=== PATIENT | female | born 1990 | race Caucasian/White ===

== ENCOUNTER → 2020-03-11 09:26 | Outpatient (BNVA) | payer MEDICAID, SELFPAY | PROVIDERS: PCP Internal Medicine; Referring Provider Internal Medicine; Visit Provider Nurse Practitioner Family | DX: G47.33 Obstructive sleep apnea (adult) (pediatric) (principal); G47.61 Periodic limb movement disorder; R20.2 Paresthesia of skin | CPT/HCPCS: 99214 ==

== ENCOUNTER 2020-03-12 09:27 | Outpatient (REF) | payer MEDICAID, SELFPAY ==
[2020-03-12 11:19] LABS: Alanine Aminotransferase 29 U/L (0-31); Albumin Level 4.3 g/dL (3.5-5.0); Alkaline Phosphatase 58 U/L (39-117); Anion Gap 15 (12-20); Aspartate Amino Transferase 25 U/L (5-31); Bilirubin Total 0.2 mg/dL (0.0-1.0); Blood Urea Nitrogen 11 mg/dL (9-16); Calcium 9.5 mg/dL (8.4-10.2); Carbon Dioxide 25 mmol/L (22-29); Chloride 103 mmol/L (96-108); Estimated Glomerular Filt Rate > 60; Glucose Random 110 mg/dL (60-115); Potassium 4.3 mmol/l (3.3-5.1); Sodium 139 mmol/L (135-145); Total Protein 7.4 g/dL (6.5-8.0)
== END 2020-03-12 09:28 | disposition home or self-care (01) ==
LOC: HO.LAB 09:27
PROVIDERS: PCP Internal Medicine; Visit Provider Nurse Practitioner Family
DX: M25.561 Pain in right knee (principal); M25.562 Pain in left knee; R53.83 Other fatigue; R06.00 Dyspnea, unspecified; R20.2 Paresthesia of skin; G47.61 Periodic limb movement disorder
CPT/HCPCS: 80053

== ENCOUNTER → 2020-03-31 08:15 | Outpatient (BNVA) | payer MEDICAID, SELFPAY | PROVIDERS: PCP Internal Medicine; Visit Provider Physician Assistant | DX: Z76.89 Persons encountering health services in other specified circumstances (principal) ==

== ENCOUNTER 2020-04-24 00:43 | Emergency (ER) | payer MEDICAID, SELFPAY ==
[2020-04-24 01:27] LABS: Glucose Urine UA NEG (NEG); Leukocyte Esterase Urine NEG (NEG); Nitrite Urine NEG (NEG); Urine Blood NEG (NEG); Urine Ketones NEG (NEG); Urine Protein NEG (NEG-TRACE)
[2020-04-24 01:33] LABS: Appearance Urine CLEAR; Color Urine YELLOW; UPreg QC Valid YES; Urine Pregnancy NEGATIVE (NEGATIVE)
[2020-04-24 01:41] VITALS: PULSE 64; RESP 15; TEMP 37; O2SAT 90; BMI 57.5
--- NOTE | 2020-04-24 01:46 | PC.NURSE ---
at bedside for evaluation.
--- NOTE | 2020-04-24 01:58 | CT_ITS ---
EXAMINATION: CT ABDOMEN AND PELVIS WITH CONTRAST CLINICAL INFORMATION: Lower abdominal/pelvic pain COMPARISON: 08/17/2019 TECHNIQUE: Multidetector volumetric images were obtained from the superior aspect of the liver through the pubic symphysis following administration 100 mL of Omnipaque 350 intravenous contrast. Sagittal and coronal reformatted images were obtained on the technologist's workstation. Oral contrast: No This CT examination was performed using dose optimization techniques as appropriate, variously including the following: *Automated exposure control *Adjustment of mA and/or kV according to patient size (this includes techniques or standardized protocols for targeted exams where dose is matched to indication/reason for exam; i.e. extremities or head) *Use of iterative reconstruction technique DLP: 1786 mGy-cm FINDINGS: LUNG BASES: The visualized lung bases are unremarkable. LIVER, GALLBLADDER, AND BILIARY TREE: The liver is enlarged, measuring approximately 21.7 cm in craniocaudal dimension. No focal hepatic lesion or biliary ductal dilatation is present. The gallbladder is unremarkable with no evidence of radiopaque gallstones, gallbladder wall thickening, or obvious pericholecystic inflammatory changes. PANCREAS: Unremarkable. SPLEEN: Unremarkable. ADRENAL GLANDS: Unremarkable. KIDNEYS AND URETERS: The kidneys are normal in size, shape, and attenuation. No hydronephrosis, hydroureter, or obstructing calculi seen. No perinephric stranding. BLADDER: Unremarkable. GASTROINTESTINAL TRACT: The small and large bowel are unremarkable. The appendix is unremarkable. No free fluid or free air is seen. ABDOMINAL WALL: No significant hernia is appreciated. LYMPH NODES: Normal. VASCULAR: Unremarkable. PELVIC VISCERA: Unremarkable. OSSEOUS STRUCTURES: Unremarkable. CT/CT abdomen pelvis w con IMPRESSION: No acute findings identified in the abdomen/pelvis. Hepatomegaly.
--- NOTE | 2020-04-24 02:09 | ED_ITS ---
HPI - Abdominal Pain General Chief Complaint: Abdominal Pain Stated Complaint: PELVIC PAIN Time Seen by Provider: 04/24/20 01:04 Source: patient Mode of arrival: ambulatory Limitations: no limitations History of Present Illness HPI narrative: This is a 29-year-old female who presents with 3-4 days lower abdominal / pelvic discomfort that is not associated with urinary pain/burning/ frequency or vaginal discharge. Patient denies any fevers, chills and states that she has used multiple modalities to include heat packs as well as Tylenol and ibuprofen. She denies any shortness of breath, chest pain / palpitations, nausea, vomiting, and has had a bowel movement today that is normal in character for her. Related Data Home Medications Medication Instructions Recorded Confirmed albuterol sulfate 90 mcg/actuation 2 puff INHALATION Q6H PRN 03/11/20 aerosol inhaler ascorbic acid (vitamin C) 1,000 mg 500 mg PO DAILY 03/11/20 tablet clonazepam 1 mg tablet 1 mg PO DAILY PRN 03/11/20 cyclobenzaprine 5 mg tablet 5 mg PO TID PRN 03/11/20 famotidine 20 mg tablet 20 mg PO DAILY PRN 03/11/20 ferrous sulfate 324 mg (65 mg 324 mg PO DAILY 03/11/20 iron) tablet,delayed release fluoxetine 20 mg capsule 20 mg PO DAILY 03/11/20 gabapentin 300 mg capsule 300 mg PO TID 03/11/20 omeprazole 20 mg capsule,delayed 40 mg PO DAILY cap 03/11/20 release risperidone 1 mg tablet 1 mg PO BEDTIME 03/11/20 Allergies Allergy/AdvReac Type Severity Reaction Status Date / Time aspirin [ASPIRIN] Allergy Severe DIFF Unverified 02/07/20 19:06 BREATHING, difficulty breathing lidocaine [LIDOCAINE] Allergy Severe SWELLING/ED Unverified 02/07/20 19:06 KEILY Lidocaine HCl Allergy Unknown difficulty Uncoded 12/20/19 00:00 breathing Review of Systems Review of Systems Pertinent positives and negatives as stated in HPI 10 point review of systems is otherwise negative. Physical Exam Vital Signs: Vital Signs: Last Vital Signs Temp 98.7 F 04/24/20 04:27 Pulse 83 04/24/20 04:27 Resp 18 04/24/20 04:27 BP 122/74 04/24/20 04:27 Pulse Ox 98 04/24/20 04:27 Body Mass Index 57.5 VITAL SIGNS: Reviewed. GENERAL: Well developed, well nourished, in no acute distress. HEAD: Normocephalic/atraumatic, EYES: PERRLA, EOMI intact without pain, no nystagmus/pallor/icterus noted EARS: Ext canals without abnormality, TMs non-bulging and non-erythematous NOSE: Nares patent bilateral OROPHARYNX: no oral lesions noted, posterior pharynx clear and non-erythematous without noted tonsillar enlargement/erythema/exudates NECK: Supple, no adenopathy LUNGS: Normal breath sounds. No adventitious sounds or accessory muscle use. SpO2<90> CARDIOVASCULAR: Regular rate and rhythm without noted murmurs, no JVD or lower extremity edema. ABDOMEN: Morbidly obese and clinical exam is with noted difficulties, Soft, tenderness over pubis, non-distended with bowel sounds. No rigidity. No guarding. No palpable masses or hernias noted, no noted rashes, ulcerations, or candidiasis in the pannus MUSCULOSKELETAL: No tenderness, deformities, or effusions noted on gross inspection. EXTREMITIES: No cyanosis, clubbing or edema. SKIN: Inspection of the skin reveals no rashes, ulcerations, jaundice, pallor, or petechiae. NEUROLOGIC: Alert and oriented x 4. Strength and sensation to light touch were grossly intact x 4. Course Course Course Narrative: this is a 29-year-old female with history and clinical presentation initially thought to be possible UTI however urinalysis is negative for evidence of infection and urine is also negative. Patient has a noted history of hysterectomy and although she had a bowel movement earlier in the day and is not having any nausea or vomiting there is the small possibility of obstruction or possible diverticulitis although the latter appears to be less likely. There are no cellulitic changes. Review of all investigations are negative for any acute findings, urinalysis is negative, and CT scan is negative for any acute soft tissue or intra-abdominal or pelvic findings. MDM - Abdominal Pain Lab Data Result diagrams: 04/24/20 02:39 04/24/20 02:39 Labs: Lab Results 04/24/20 04/24/20 04/24/20 Range/Units 01:21 02:39 02:39 WBC 10.3 (4.8-10.8) X10*3/uL RBC 4.55 (4.20-5.50) X10*6/uL Hgb 11.9 L (12.0-16.0) g/dl Hct 37.2 (37-47) % MCV 81.8 (80-98) fL MCH 26.2 L (27.0-33.0) pg MCHC 32.0 (31.0-35.0) g/dl RDW 14.6 (11.0-16.0) % Plt Count 280 (160-400) X10*3/uL MPV 10.6 (9.4-12.3) fL Immature Gran % (Auto) 0.4 (0.0-0.4) % Neut % (Auto) 58.1 (45-73) % Lymph % (Auto) 32.8 (20-40) % Real % (Auto) 5.5 (2-11) % Eos % (Auto) 2.8 (0-4) % Baso % (Auto) 0.4 (0-2) % Lymph # (Auto) 3.4 (1.2-4.9) X10*3/uL Real # (Auto) 0.6 (0.1-1.2) X10*3/uL Eos # (Auto) 0.3 (0.0-0.4) X10*3/uL Baso # (Auto) 0.0 (0.0-0.2) X10*3/uL Abs Immat Gran (auto) 0.04 H (0.00-0.03) X10*3/uL Absolute Neuts (auto) 6.0 (2.0-8.3) X10*3/uL Absolute Nucleated RBC 0.000 (0.0-0.012) X10*3/uL Nucleated RBC % (auto) 0.0 (0.0-0.2) /100WBC Sodium 137 (135-145) mmol/L Potassium 4.0 (3.3-5.1) mmol/l Chloride 101 (96-108) mmol/L Carbon Dioxide 29 (22-29) mmol/L Anion Gap 11 L (12-20) BUN 11 (9-16) mg/dL Creatinine 0.78 (0.5-1.4) mg/dL Estim Creat Clear Calc 151.8 Estimated GFR > 60 Random Glucose 110 (60-115) mg/dL Calcium 9.2 (8.4-10.2) mg/dL Total Bilirubin 0.4 (0.0-1.0) mg/dL AST 23 (5-31) U/L ALT 29 (0-31) U/L Alkaline Phosphatase 53 (39-117) U/L Total Protein 7.5 (6.5-8.0) g/dL Albumin 4.3 (3.5-5.0) g/dL Urine Color YELLOW Urine Appearance CLEAR Urine pH 6.0 (5.0-8.0) Ur Specific [place] 1.020 (1.005-1.025) Urine Protein NEG (NEG-TRACE) MG/DL Urine Glucose (UA) NEG (NEG) MG/DL Urine Ketones NEG (NEG) MG/DL Urine Blood NEG (NEG) Urine Nitrite NEG (NEG) Ur Leukocyte Esterase NEG (NEG) Urine Test NEGATIVE (NEGATIVE) Discharge Plan Discharge Clinical Impression: Pelvic pain Patient Disposition: Home, Self-Care Instructions: Pelvic Pain (ED) Additional Instructions: 1. Tylenol 1000 mg, por v?a oral, cada 6 horas seg?n sea necesario para controlar el dolor. No exceda los 4000 mg en 24 horas. 2. Ibuprofeno 400 mg, por v?a oral con leche o alimentos, cada 6 horas seg?n sea necesario para controlar el dolor. 3. Contin?e con compresas h?medas tibias en el ?maira afectada. 4. Nicholas un seguimiento con giles proveedor de atenci?n primaria llamando al consultorio por la ma?dayday para dimitri evaluaci?n ambulatoria adicional. El paciente y / o la oxana reconocen que comprenden los resultados (seg?n corresponda), el diagn?stico, el plan de tratamiento, la necesidad de seguimiento y los s?ntomas que deber?an impulsar el regreso a la kim de emergencias. Prescriptions: No Action gabapentin 300 mg capsule 300 mg PO TID RF: 0 omeprazole 20 mg capsule,delayed release(DR/EC) 40 mg PO DAILY RF: 0 ferrous sulfate 324 mg (65 mg iron) tablet,delayed release (DR/EC) 324 mg PO DAILY RF: 0 albuterol sulfate [ProAir HFA] 90 mcg/actuation HFA aerosol inhaler 2 puff inhalation Q6H PRNRF: 0 cyclobenzaprine 5 mg tablet 5 mg PO TID PRNRF: 0 risperidone 1 mg tablet 1 mg PO BEDTIME RF: 0 clonazepam 1 mg tablet 1 mg PO DAILY PRNRF: 0 fluoxetine 20 mg capsule 20 mg PO DAILY RF: 0 famotidine 20 mg tablet 20 mg PO DAILY PRNRF: 0 ascorbic acid (vitamin C) 1,000 mg tablet 500 mg PO DAILY RF: 0 Referrals: [facility] [Primary Care Provider] - 2 days ( Patient needs re- evaluation of pelvic pain, workup in the emergency department was negative for any acute laboratory or imaging findings.) Print Language: Persian [facility] Past Medical History Source: nursing notes reviewed Surgical History Hx of hysterectomy Hx of rectal sphincterotomy Hx of removal of cyst Family History Family History Unknown No problems noted. Unknown No problems noted. Son Autism Daughter Autism Sister Obesity Social History Social History Alcohol intake: never Smoking Status: Never smoker Use of substances other than those prescribed or required for medical reasons: No Advance Directives: No
[2020-04-24 02:43] LABS: Basophils Percent Auto 0.4 % (0-2); Eosinophils Absolute Auto 0.3 X10*3/uL (0.0-0.4); Eosinophils Percent Auto 2.8 % (0-4); Hematocrit 37.2 % (37-47); Hemoglobin 11.9 g/dl (12.0-16.0); Imm Gran Abs Auto 0.04 X10*3/uL (0.00-0.03); Imm Gran Pct Auto 0.4 % (0.0-0.4); Lymphocytes Absolute Auto 3.4 X10*3/uL (1.2-4.9); Lymphocytes Percent Auto 32.8 % (20-40); MANUAL DIFF FLAG NO; Mean Corpuscular Hemoglobin 26.2 pg (27.0-33.0); Mean Corpuscular Volume 81.8 fL (80-98); Mean Platelet Volume 10.6 fL (9.4-12.3); Monocytes Absolute Auto 0.6 X10*3/uL (0.1-1.2); Monocytes Percent Auto 5.5 % (2-11); Neutrophils Percent Auto 58.1 % (45-73); Platelet Count 280 X10*3/uL (160-400); Red Blood Count 4.55 X10*6/uL (4.20-5.50); Red Cell Distribution Width 14.6 % (11.0-16.0); White Blood Count 10.3 X10*3/uL (4.8-10.8)
[2020-04-24 03:09] LABS: Alanine Aminotransferase 29 U/L (0-31); Albumin Level 4.3 g/dL (3.5-5.0); Alkaline Phosphatase 53 U/L (39-117); Anion Gap 11 (12-20); Aspartate Amino Transferase 23 U/L (5-31); Bilirubin Total 0.4 mg/dL (0.0-1.0); Blood Urea Nitrogen 11 mg/dL (9-16); Calcium 9.2 mg/dL (8.4-10.2); Carbon Dioxide 29 mmol/L (22-29); Chloride 101 mmol/L (96-108); Creatinine Clr Calc Pharmacy 151.8; Estimated Glomerular Filt Rate > 60; Glucose Random 110 mg/dL (60-115); Sodium 137 mmol/L (135-145); Total Protein 7.5 g/dL (6.5-8.0)
--- NOTE | 2020-04-24 03:35 | PC.NURSE ---
Patient at cat scan for imaging.
[2020-04-24] MEDS: iohexoL 350 MG/ML 100 ML INFUS..BTL IV (03:43)
[2020-04-24 04:27] VITALS: BP 122/74; PULSE 83; RESP 18; TEMP 37.1; O2SAT 98
== END 2020-04-24 04:50 | disposition home or self-care (01) ==
PROVIDERS: Emergency Provider Student in an Organized Health Care Education/Training Program
DX: R10.2 Pelvic and perineal pain (principal)
CPT/HCPCS: 36415; 74177; 80053; 81003; 81025; 85025; 99284; Q9967

== ENCOUNTER → 2020-05-06 08:08 | Outpatient (BNVA) | payer MEDICAID, SELFPAY | PROVIDERS: Visit Provider Psychiatry & Neurology Neurology | DX: Z76.89 Persons encountering health services in other specified circumstances (principal) ==

== ENCOUNTER 2020-05-07 12:38 | Outpatient (REF) | payer MEDICAID, SELFPAY | END 2020-05-07 12:39 | disposition home or self-care (01) | LOC: HO.LAB 12:38 | PROVIDERS: Visit Provider Internal Medicine | DX: Z20.828 Contact with and (suspected) exposure to other viral communicable diseases (principal) | CPT/HCPCS: C9803; U0003 ==

== ENCOUNTER → 2020-10-15 10:36 | Outpatient (BNVA) | payer MEDICAID, SELFPAY | PROVIDERS: PCP Internal Medicine; Visit Provider Surgery | DX: D17.0 Benign lipomatous neoplasm of skin and subcutaneous tissue of head, face and neck (principal) | CPT/HCPCS: 99202 ==

== ENCOUNTER 2020-10-21 00:32 | Emergency (ER) | payer MEDICAID, SELFPAY ==
--- NOTE | ~2020-10-21 | XR_ITS ---
EXAMINATION: XR SOFT TISSUE NECK CLINICAL INDICATION: Feels foreign body in throat COMPARISON: None TECHNIQUE: 2 views of the soft tissue neck were obtained. FINDINGS: No definite radiopaque foreign body is seen. Some laryngeal cartilage calcification is noted, which partially limits evaluation for foreign bodies. No prevertebral soft tissue swelling. Flexion of the cervical spine is noted. No acute osseous findings are seen. XR/XR soft tissue neck IMPRESSION: No definite radiopaque foreign body.
[2020-10-21 00:33] VITALS: BP 157/93; PULSE 91; RESP 20; TEMP 36.9; O2SAT 98; BMI 64.0
--- NOTE | 2020-10-21 00:52 | PC.NURSE ---
PT TO ROOM #3 AND MD IN ROOM FOR EVAL. PT C/O SOMETHING IN THROAT AND HAVING DIFFICULTY BREATHING. PO 99% ON RA. PT ARRIVES ALERT, RESPIRATIONS EASY, N/L. SKIN W/D. WILL CONTINUE TO MONITOR PT.
--- NOTE | 2020-10-21 00:57 | ED.URI ---
HPI - URI/Sore Throat General Chief Complaint: Upper Respiratory Symptoms Stated Complaint: Sob Time Seen by Provider: 10/21/20 00:51 Source: patient Mode of arrival: ambulatory Limitations: no limitations History of Present Illness HPI Narrative: 30-year-old female came in for evaluation of sore throat. Symptoms started 3 days ago with sore throat, patient have a feeling that the throat is closing, denies any fever or body ache. No sick contact. Patient also had a history of asthma but declined any wheezing or difficulty breathing. Patient is morbid obese, still stable vital sign while in the emergency department. Related Data Home Medications Medication Instructions Recorded Confirmed albuterol sulfate 90 mcg/actuation 2 puff INHALATION Q6H PRN 03/11/20 aerosol inhaler ascorbic acid (vitamin C) 1,000 mg 500 mg PO DAILY 03/11/20 tablet clonazepam 1 mg tablet 1 mg PO DAILY PRN 03/11/20 cyclobenzaprine 5 mg tablet 5 mg PO TID PRN 03/11/20 famotidine 20 mg tablet 20 mg PO DAILY PRN 03/11/20 ferrous sulfate 324 mg (65 mg 324 mg PO DAILY 03/11/20 iron) tablet,delayed release fluoxetine 20 mg capsule 20 mg PO DAILY 03/11/20 gabapentin 300 mg capsule 300 mg PO TID 03/11/20 omeprazole 20 mg capsule,delayed 40 mg PO DAILY cap 03/11/20 release risperidone 1 mg tablet 1 mg PO BEDTIME 03/11/20 Allergies Allergy/AdvReac Type Severity Reaction Status Date / Time aspirin [ASPIRIN] Allergy Severe DIFF Verified 10/21/20 00:41 BREATHING, difficulty breathing lidocaine [LIDOCAINE] Allergy Severe SWELLING/ED Verified 10/21/20 00:41 KEILY Lidocaine HCl Allergy Unknown difficulty Uncoded 10/21/20 00:41 breathing Review of Systems Review of Systems: All other systems are reviewed and are negative Constitutional: Reports as per HPI and Reports no additional constitutional complaints Eyes: Reports as per HPI and Reports no additional eye complaints Reports system reviewed and no additional complaints, except as documented Cardiovascular: Reports as per HPI and Reports no additional cardiovascular complaints Respiratory: Reports as per HPI and Reports no additional respiratory complaints Gastrointestinal: Reports as per HPI and Reports no additional gastrointestinal complaints Genitourinary: Reports no additional female genitourinary complaints Musculoskeletal: Reports no additional musculoskeletal complaints Skin/Breast: Reports system reviewed and no additional complaints, except as docu Psychiatric: Reports no additional psychiatric complaints Endocrine: Reports no additional endocrine complaints Hematologic/Lymphatic: Reports no additional hematologic/lymphatic complaints Allergic/Immunologic: Reports no additional allergic/immunologic complaints Reports system reviewed and no additional complaints, except as documented and Reports Abnormal speech present [facility] Past Medical History Medical History Lipoma of forehead Surgical History H/O tubal ligation Hx of rectal sphincterotomy Hx of removal of cyst Family History Family History Unknown No problems noted. Unknown No problems noted. Son Autism Daughter Autism Sister Obesity Social History Social History Alcohol intake: never Advance Directives: No Advance Directives Information Provided: No Patient : Yes Physical Exam Vital Signs: Vital Signs: Last Vital Signs Temp 98.5 F 10/21/20 00:33 Pulse 91 10/21/20 00:33 Resp 20 10/21/20 00:33 BP 157/93 H 10/21/20 00:33 Pulse Ox 98 10/21/20 00:33 Body Mass Index 64.0 Vital signs have been reviewed as appeared to be correct. Blood pressure normal. Heart rate normal. Respiration rate normal. Temperature normal. Oxygen saturation normal. Appearance: Alert. Oriented X3. No acute distress. Head: Normal external exam. Normocephalic. Atraumatic. No [place] signs noted. No raccoon eyes noted Eyes: PERRLA. EOMI. Conjunctiva and sclera normal. Eyelids normal. ENT: TM's Normal. Pharynx normal. Uvula midline. Moist mucous membranes. No trismus noted. No drooling noted. No muffled voice noted. Neck: Normal inspection. Neck supple. FROM. No adenopathy. Thyroid Normal. No meningeal signs. No neck mass noted. CVS: Normal heart rate and rhythm. Heart sound normal. No murmurs noted. Pulses normal throughout. Respiratory: No respiratory distress. Painless inspiration. Breath sounds normal. No wheezes/rales/rhonchi noted. Chest nontender. No accessory muscle usage noted or decreased air movement noted. Abdomen: Soft and nontender. Bowel sounds normal in all 4 quadrants. No distention noted. No organomegaly noted. No visible injury noted. Back: No CVA tenderness. Full range of motion noted. Skin: Skin warm and dry. Normal skin color. Normal skin turgor. No rashes/lesions/lacerations noted. Extremities: No lower extremity edema. Extremities exhibit normal range of motion. Extremities nontender. Neuro: Oriented X 3. No motor deficit. No sensory deficit. Reflexes normal. Course Course Course Narrative: Assessment and plan. Sore throat. Negative rapid strep, negative soft tissue x-ray. Patient has stable vital signs, breathing at 20 breaths per minute, O2 sat is 99% on room air, lung exam is clear. Discharge the patient and follow-up with PCP. Patient at low risk for PE no recent travel, no lower extremity swelling or tenderness. MDM - URI/Sore Throat Lab Data Attestation: I reviewed the patient's lab results. Labs: Lab Results 10/21/20 Range/Units 01:03 S. pyogenes GrpA DONNA Negative (Negative) Imaging Data Soft tissue neck x-ray: Radiologist's impression: No definite radiopaque foreign body is seen. Some laryngeal cartilage calcification is noted, which partially limits evaluation for foreign bodies. No prevertebral soft tissue swelling. Flexion of the cervical spine is noted. No acute osseous findings are seen. Discharge Plan Discharge Clinical Impression: Acute sore throat Patient Disposition: Home, Self-Care Instructions: Pharyngitis (ED) Prescriptions: No Action gabapentin 300 mg capsule 300 mg PO TID RF: 0 omeprazole 20 mg capsule,delayed release(DR/EC) 40 mg PO DAILY RF: 0 ferrous sulfate 324 mg (65 mg iron) tablet,delayed release (DR/EC) 324 mg PO DAILY RF: 0 albuterol sulfate [ProAir HFA] 90 mcg/actuation HFA aerosol inhaler 2 puff inhalation Q6H PRNRF: 0 cyclobenzaprine 5 mg tablet 5 mg PO TID PRNRF: 0 risperidone 1 mg tablet 1 mg PO BEDTIME RF: 0 clonazepam 1 mg tablet 1 mg PO DAILY PRNRF: 0 fluoxetine 20 mg capsule 20 mg PO DAILY RF: 0 famotidine 20 mg tablet 20 mg PO DAILY PRNRF: 0 ascorbic acid (vitamin C) 1,000 mg tablet 500 mg PO DAILY RF: 0 Referrals: [place] [Primary Care Provider] - 2 days
--- NOTE | 2020-10-21 01:10 | PC.NURSE ---
STREPT SWAB OBTAINED TO LAB FOR EVAL. PT RETURNS FROM X-RAY. WILL CONTINUE TO MONITOR PT.
[2020-10-21 01:26] LABS: Strep A Nucleic Acid Negative (Negative)
== END 2020-10-21 02:24 | disposition home or self-care (01) ==
PROVIDERS: Emergency Provider Emergency Medicine
DX: J02.8 Acute pharyngitis due to other specified organisms (principal); R06.02 Shortness of breath; Z79.899 Other long term (current) drug therapy
CPT/HCPCS: 36415; 70360; 87651; 99283

== ENCOUNTER 2020-11-13 12:53 | Outpatient (REF) | payer MEDICAID, SELFPAY ==
[2020-11-13 12:55] VITALS: BP 181/99; PULSE 100; RESP 24; TEMP 36.6; O2SAT 98; BMI 62.4
--- NOTE | 2020-11-13 13:56 | W.PM.OPN ---
Operative Note Operative Note Date of Service: 11/13/20 Narrative: Preop diagnosis: Lipoma, forehead Postop diagnosis: Lipoma, forehead Procedure: Excision of lipoma from the forehead, sub-muscular, under local anesthesia Surgeon: Josias Kelly MD The patient is a 30-year-old female with a lipomatous mass on the left side. She understood the technique of excision under local anesthesia. She was aware of the risks, benefits, and alternatives She was brought to the minor procedure room and placed in reclining position. The area of the lipoma on the left for this prepped and draped. Lidocaine 1% was used for local anesthesia. I made an incision in the skin overlying this lipoma using blade 15. This carried down through the full-thickness of the skin and subcutaneous fat. I dissected sharply with fine-tipped scissors through the fascia and muscle layer until was able to visualize the lipoma. The lipoma was gently excised from underneath the muscle layer and was delivered and sent as specimen. This was about as 7-8 mm diameter size lipoma. I closed the incision with multiple nylon 5 0 interrupted sutures. Dressings were applied She tolerated procedure well with no complication noted. She was given wound care instructions. He will be seen in the office for follow-up for removal of sutures.
== END 2020-11-13 12:54 | disposition home or self-care (01) ==
LOC: HO.MS 12:53
PROVIDERS: Visit Provider Surgery
PROC: (CPT 21013; principal; 2020-11-13 12:50)
DX: D17.0 Benign lipomatous neoplasm of skin and subcutaneous tissue of head, face and neck (principal)
CPT/HCPCS: 21013; 88304

== ENCOUNTER → 2020-11-20 08:59 | Outpatient (BNVA) | payer MEDICAID, SELFPAY | PROVIDERS: Referring Provider Internal Medicine; Visit Provider Surgery | DX: Z48.817 Encounter for surgical aftercare following surgery on the skin and subcutaneous tissue (principal); Z87.2 Personal history of diseases of the skin and subcutaneous tissue | CPT/HCPCS: 99212 ==

== ENCOUNTER 2021-03-31 16:12 | Emergency (ER) | payer MEDICAID, SELFPAY ==
--- NOTE | ~2021-03-31 | CT_ITS ---
EXAMINATION: CT HEAD WITHOUT CONTRAST CLINICAL INFORMATION: Right-sided headache. History of cyst. COMPARISON: 08/17/2019 TECHNIQUE: Contiguous axial imaging was performed from the skull base to vertex without intravenous administration of contrast. This CT examination was performed using dose optimization techniques as appropriate, variously including the following: *Automated exposure control *Adjustment of mA and/or kV according to patient size (this includes techniques or standardized protocols for targeted exams where dose is matched to indication/reason for exam; i.e. extremities or head) *Use of iterative reconstruction technique DLP: 867 mGy-cm FINDINGS: There is no evidence of acute intracranial hemorrhage or territorial infarction. No abnormal mass effect or midline shift is seen. Anna to white matter differentiation is well preserved. No extra-axial fluid collections are identified. The ventricles are normal in size. There is no abnormal attenuation within the brain parenchyma. No acute osseous findings. There is a linear band of scarring in the subcutaneous fat at the left frontal supraorbital scalp. The mastoid air cells and visualized portions of the paranasal sinuses are well aerated. CT/CT head/brain wo con IMPRESSION: No acute intracranial pathology.
[2021-03-31 16:30] VITALS: BP 130/74; PULSE 90; RESP 16; TEMP 36.4; O2SAT 100; BMI 62.5
[2021-03-31 17:51] LABS: Appearance Urine HAZY; Color Urine YELLOW; Glucose Urine UA NEG (NEG); Leukocyte Esterase Urine NEG (NEG); Nitrite Urine NEG (NEG); Specific Gravity - Urine 1.015 (1.005-1.025); Urine Blood NEG (NEG); Urine Ketones NEG (NEG); Urine Protein NEG (NEG-TRACE)
--- NOTE | 2021-03-31 18:45 | ED_ITS ---
HPI - Headache General Chief Complaint: Headache Stated Complaint: headache Time Seen by Provider: 03/31/21 18:41 Source: patient Mode of arrival: ambulatory Limitations: no limitations History of Present Illness HPI Narrative: Patient has history of bipolar disorder occasional headaches is complaining of headache in right frontal area for last 5 days slight nausea no vomiting feel numbness in the right hand no weakness no photosensitivity no head injury patient has small arachnoid cyst in the right side had MRI last year no change in the size had not any MRI this year no fever or chills no neck pain Related Data Home Medications Medication Instructions Recorded Confirmed albuterol sulfate 90 mcg/actuation 2 puff INHALATION Q6H PRN 03/11/20 aerosol inhaler (ProAir HFA) ascorbic acid (vitamin C) 1,000 mg 500 mg PO DAILY 03/11/20 tablet clonazepam 1 mg tablet 1 mg PO DAILY PRN 03/11/20 cyclobenzaprine 5 mg tablet 5 mg PO TID PRN 03/11/20 famotidine 20 mg tablet 20 mg PO DAILY PRN 03/11/20 ferrous sulfate 324 mg (65 mg 324 mg PO DAILY 03/11/20 iron) tablet,delayed release fluoxetine 20 mg capsule 20 mg PO DAILY 03/11/20 gabapentin 300 mg capsule 300 mg PO TID 03/11/20 omeprazole 20 mg capsule,delayed 40 mg PO DAILY cap 03/11/20 release risperidone 1 mg tablet 1 mg PO BEDTIME 03/11/20 Previous Rx's Medication Instructions Recorded jnbhevtjkx-wrwtqgcvlpvuu-ppntdxro 1 cap PO Q6H PRN #20 cap 03/31/21 50 mg-300 mg-40 mg capsule (Fioricet) Allergies Allergy/AdvReac Type Severity Reaction Status Date / Time aspirin [ASPIRIN] Allergy Severe DIFF Verified 03/31/21 20:03 BREATHING, difficulty breathing lidocaine [LIDOCAINE] Allergy Severe SWELLING/ED Verified 03/31/21 20:03 KEILY Lidocaine HCl Allergy Unknown difficulty Uncoded 03/31/21 20:03 breathing Review of Systems Review of Systems: Yes all other systems are reviewed and are negative PMFSH Past Medical History Medical History Lipoma of forehead Surgical History H/O tubal ligation Hx of rectal sphincterotomy Hx of removal of cyst Family History Family History Unknown No problems noted. Unknown No problems noted. Son Autism Daughter Autism Sister Obesity Social History Social History Alcohol intake: never Patient Tobacco Use Status: Never used Tobacco Use of substances other than those prescribed or required for medical reasons: No Advance Directives: No Advance Directives Information Provided: No Physical Exam Vital Signs: Vital Signs: Last Vital Signs Temp 98.4 F 03/31/21 20:04 Pulse 94 03/31/21 20:04 Resp 19 03/31/21 20:04 BP 120/68 03/31/21 20:04 Pulse Ox 100 03/31/21 20:04 Body Mass Index 62.5 Appearance: Alert. Oriented X3. No acute distress. Eyes: PERRLA, no pallor or icterus HEENT: Pharynx normal. Oral Mucosa moist right scalp tenderness in frontotemporal area Neck: Normal inspection. Neck supple. CVS: Normal heart rate and rhythm. Pulses normal. Respiratory: No respiratory distress. Equal air entry bilateral, no wheezing/rales/rhonchi Abdomen: Soft and nontender. Bowel sounds are present, no mass palpable, no CVA tenderness Skin: Skin warm and dry. Normal skin color. Normal skin turgor. Extremities: No lower extremity edema. No calf tenderness Neuro: Oriented X 3. No motor deficit. No sensory deficit.No cerebellar signs , cranial nerves II-XII intact MDM - Headache MDM Narrative Medical decision making narrative: Patient with right-sided temporal headache CT scan negative for any acute pathology sed rate 36 which is her stable sed rate same as in the past Patient advised to follow-up with PCP Lab Data Attestation: I reviewed the patient's lab results. Result diagrams: 03/31/21 19:19 03/31/21 19:19 Labs: Lab Results 03/31/21 03/31/21 03/31/21 Range/Units 17:39 19:19 19:19 WBC 8.3 (4.8-10.8) X10*3/uL RBC 5.20 (4.20-5.50) X10*6/uL Hgb 13.6 (12.0-16.0) g/dl Hct 42.8 (37.0-47.0) % MCV 82.3 (80.0-98.0) fL MCH 26.2 L (27.0-33.0) pg MCHC 31.8 (31.0-35.0) g/dl RDW 14.6 (11.0-16.0) % Plt Count 253 (160-400) X10*3/uL MPV 11.3 (9.4-12.3) fL Immature Gran % (Auto) 0.5 H (0.0-0.4) % Neut % (Auto) 62.2 (45-73) % Lymph % (Auto) 30.2 (20-40) % [place] % (Auto) 4.1 (2-11) % Eos % (Auto) 2.8 (0-4) % Baso % (Auto) 0.2 (0-2) % Lymph # (Auto) 2.5 (1.2-4.9) X10*3/uL [place] # (Auto) 0.3 (0.1-1.2) X10*3/uL Eos # (Auto) 0.2 (0.0-0.4) X10*3/uL Baso # (Auto) 0.0 (0.0-0.2) X10*3/uL Abs Immat Gran (auto) 0.04 H (0.00-0.03) X10*3/uL Absolute Neuts (auto) 5.1 (2.0-8.3) x10*3/uL Absolute Nucleated RBC 0.000 (0.0-0.012) X10*3/uL Nucleated RBC % (auto) 0.0 (0.0-0.2) /100WBC ESR 36 H (0-20) MM/HR Sodium (135-145) mmol/L Potassium (3.3-5.1) mmol/L Chloride (96-108) mmol/L Carbon Dioxide (22-29) mmol/L Anion Gap (12-20) BUN (9-16) mg/dL Creatinine (0.5-1.4) mg/dL Estim Creat Clear Calc Estimated GFR Random Glucose (60-115) mg/dL Calcium (8.4-10.2) mg/dL Urine Color YELLOW Urine Appearance HAZY Urine pH 6.0 (5.0-8.0) Ur Specific [place] 1.015 (1.005-1.025) Urine Protein NEG (NEG-TRACE) MG/DL Urine Glucose (UA) NEG (NEG) MG/DL Urine Ketones NEG (NEG) MG/DL Urine Blood NEG (NEG) Urine Nitrite NEG (NEG) Ur Leukocyte Esterase NEG (NEG) 03/31/21 Range/Units 19:19 WBC (4.8-10.8) X10*3/uL RBC (4.20-5.50) X10*6/uL Hgb (12.0-16.0) g/dl Hct (37.0-47.0) % MCV (80.0-98.0) fL MCH (27.0-33.0) pg MCHC (31.0-35.0) g/dl RDW (11.0-16.0) % Plt Count (160-400) X10*3/uL MPV (9.4-12.3) fL Immature Gran % (Auto) (0.0-0.4) % Neut % (Auto) (45-73) % Lymph % (Auto) (20-40) % [place] % (Auto) (2-11) % Eos % (Auto) (0-4) % Baso % (Auto) (0-2) % Lymph # (Auto) (1.2-4.9) X10*3/uL [place] # (Auto) (0.1-1.2) X10*3/uL Eos # (Auto) (0.0-0.4) X10*3/uL Baso # (Auto) (0.0-0.2) X10*3/uL Abs Immat Gran (auto) (0.00-0.03) X10*3/uL Absolute Neuts (auto) (2.0-8.3) x10*3/uL Absolute Nucleated RBC (0.0-0.012) X10*3/uL Nucleated RBC % (auto) (0.0-0.2) /100WBC ESR (0-20) MM/HR Sodium 138 (135-145) mmol/L Potassium 4.2 (3.3-5.1) mmol/L Chloride 102 (96-108) mmol/L Carbon Dioxide 28 (22-29) mmol/L Anion Gap 12 (12-20) BUN 10 (9-16) mg/dL Creatinine 0.82 (0.5-1.4) mg/dL Estim Creat Clear Calc 145.9 Estimated GFR > 60 Random Glucose 100 (60-115) mg/dL Calcium 9.4 (8.4-10.2) mg/dL Urine Color Urine Appearance Urine pH (5.0-8.0) Ur Specific [place] (1.005-1.025) Urine Protein (NEG-TRACE) MG/DL Urine Glucose (UA) (NEG) MG/DL Urine Ketones (NEG) MG/DL Urine Blood (NEG) Urine Nitrite (NEG) Ur Leukocyte Esterase (NEG) Discharge Plan Discharge Clinical Impression: Headache Qualifiers: Headache type: unspecified Headache chronicity pattern: acute headache Intractability: not intractable Qualified Code(s): R51.9 - Headache, unspecified Patient Disposition: Home, Self-Care Instructions: General Headache (ED) Additional Instructions: your CT scan of the head is negative for any acute pathology Take the medication as advised for headaches likely complex migraine Prescriptions: New kyuilrveaz-apwsoqubtpukm-gdrr [Fioricet] 50-300-40 mg capsule 1 cap PO Q6H PRN (Reason: headache) Qty: 20 RF: 0 No Action gabapentin 300 mg capsule 300 mg PO TID RF: 0 omeprazole 20 mg capsule,delayed release(DR/EC) 40 mg PO DAILY RF: 0 ferrous sulfate 324 mg (65 mg iron) tablet,delayed release (DR/EC) 324 mg PO DAILY RF: 0 albuterol sulfate [ProAir HFA] 90 mcg/actuation HFA aerosol inhaler 2 puff inhalation Q6H PRNRF: 0 cyclobenzaprine 5 mg tablet 5 mg PO TID PRNRF: 0 risperidone 1 mg tablet 1 mg PO BEDTIME RF: 0 clonazepam 1 mg tablet 1 mg PO DAILY PRNRF: 0 fluoxetine 20 mg capsule 20 mg PO DAILY RF: 0 famotidine 20 mg tablet 20 mg PO DAILY PRNRF: 0 ascorbic acid (vitamin C) 1,000 mg tablet 500 mg PO DAILY RF: 0 Interventions: ED Discharge Assessment Last Done: 03/31/21 20:18 Discharge Date/Time: 03/31/21 20:19
[2021-03-31 19:08] VITALS: BP 133/77; PULSE 90; RESP 16; TEMP 36.9; O2SAT 100
[2021-03-31 19:23] LABS: MANUAL DIFF FLAG NO
[2021-03-31 19:34] LABS: Hematocrit 42.8 % (37.0-47.0); Hemoglobin 13.6 g/dl (12.0-16.0); Mean Corpuscular HGB Conc 31.8 g/dl (31.0-35.0); Mean Corpuscular Hemoglobin 26.2 pg (27.0-33.0); Mean Corpuscular Volume 82.3 fL (80.0-98.0); Mean Platelet Volume 11.3 fL (9.4-12.3); Platelet Count 253 X10*3/uL (160-400); Red Cell Distribution Width 14.6 % (11.0-16.0); White Blood Count 8.3 X10*3/uL (4.8-10.8)
[2021-03-31 19:35] LABS: Basophils Percent Auto 0.2 % (0-2); Eosinophils Absolute Auto 0.2 X10*3/uL (0.0-0.4); Eosinophils Percent Auto 2.8 % (0-4); Imm Gran Abs Auto 0.04 X10*3/uL (0.00-0.03); Imm Gran Pct Auto 0.5 % (0.0-0.4); Lymphocytes Absolute Auto 2.5 X10*3/uL (1.2-4.9); Lymphocytes Percent Auto 30.2 % (20-40); Monocytes Absolute Auto 0.3 X10*3/uL (0.1-1.2); Monocytes Percent Auto 4.1 % (2-11); Neutrophils Absolute Auto 5.1 x10*3/uL (2.0-8.3); Neutrophils Percent Auto 62.2 % (45-73)
[2021-03-31 19:38] LABS: Anion Gap 12 (12-20); Blood Urea Nitrogen 10 mg/dL (9-16); Calcium 9.4 mg/dL (8.4-10.2); Carbon Dioxide 28 mmol/L (22-29); Chloride 102 mmol/L (96-108); Creatinine Clr Calc Pharmacy 145.9; Estimated Glomerular Filt Rate > 60; Glucose Random 100 mg/dL (60-115); Potassium 4.2 mmol/L (3.3-5.1); Sodium 138 mmol/L (135-145)
[2021-03-31] MEDS: Butalb/Acetamin/Caff 50/325/40 TABLET 1 TAB PO (20:02)
[2021-03-31 20:04] VITALS: BP 120/68; PULSE 94; RESP 19; TEMP 36.9; O2SAT 100
[2021-03-31 20:04] LABS: Erythrocyte Sedimentation Rate 36 MM/HR (0-20)
== END 2021-03-31 20:19 | disposition home or self-care (01) ==
PROVIDERS: Emergency Provider Internal Medicine
DX: R51.9 Headache, unspecified (principal)
CPT/HCPCS: 36415; 70450; 80048; 81003; 85025; 85652; 99284

== ENCOUNTER 2022-11-11 08:40 | Outpatient (REF) | payer MEDICAID, SELFPAY ==
--- NOTE | ~2022-11-11 | XR_ITS ---
EXAMINATION: XR LUMBOSACRAL SPINE CLINICAL INFORMATION: Fell 3 days ago with continued low back pain COMPARISON: CT abdomen pelvis 12/11/2021 TECHNIQUE: Three views of the lumbosacral spine. FINDINGS: The vertebral bodies and posterior elements are normal. The disc spaces are preserved and the vertebral alignment is normal. The paraspinal soft tissues are normal. XR/XR lumbar spine 2-3V IMPRESSION: Unremarkable examination.
== END 2022-11-11 08:41 | disposition home or self-care (01) ==
LOC: HO.HHCX 08:40
PROVIDERS: Visit Provider Emergency Medicine
DX: S39.92XA Unspecified injury of lower back, initial encounter (principal)
CPT/HCPCS: 72100

== ENCOUNTER 2022-12-28 19:37 | Outpatient (REF) | payer MEDICAID, SELFPAY ==
[2022-12-28 21:12] LABS: Influenza A PCR NEGATIVE (Negative); Influenza B PCR NEGATIVE (Negative); Resp Syncy Virus RNA Qual PCR NEGATIVE (Negative); SARS COV2 PCR INHOUSE NEGATIVE (Negative)
== END 2022-12-28 19:38 | disposition home or self-care (01) ==
LOC: HO.HHCLNP 19:37
PROVIDERS: Visit Provider Emergency Medicine
DX: J06.9 Acute upper respiratory infection, unspecified (principal); Z20.822 Contact with and (suspected) exposure to COVID-19
CPT/HCPCS: 0241U; 87070

== ENCOUNTER 2023-02-14 09:15 | Outpatient (REF) | payer MEDICAID, SELFPAY ==
[2023-02-14 12:36] LABS: Alanine Aminotransferase 34 U/L (0-31); Albumin Level 4.2 g/dL (3.5-5.0); Alkaline Phosphatase 62 U/L (39-117); Anion Gap 17 (12-20); Aspartate Amino Transferase 30 U/L (5-31); Bilirubin Total 0.3 mg/dL (0.0-1.0); Blood Urea Nitrogen 12 mg/dL (9-16); Calcium 9.8 mg/dL (8.4-10.2); Carbon Dioxide 23 mmol/L (22-29); Chloride 103 mmol/L (96-108); Estimated Glomerular Filt Rate > 60; Glucose Random 120 mg/dL (60-115); Potassium 3.8 mmol/L (3.3-5.1); Sodium 139 mmol/L (135-145); Total Protein 7.9 g/dL (6.5-8.0)
== END 2023-02-14 09:16 | disposition home or self-care (01) ==
LOC: HO.HHCL 09:15
PROVIDERS: Visit Provider General Practice
DX: G44.51 Hemicrania continua (principal)
CPT/HCPCS: 36415; 80053

== ENCOUNTER 2023-04-11 12:40 | Outpatient (AMB) | payer MEDICAID, SELFPAY ==
--- NOTE | 2023-04-11 12:43 | A.OFFVIS_ITS ---
Intake Vital Signs 04/11/23 12:45 Height 5 ft 2 in Weight 361 lb 8.929 oz BMI 66.1 BP 141/54 H Blood Pressure Location Rt brachial Position Sitting Pulse 86 Intake Visit Reasons: Dyspepsia Intake Note: Patient presents to in office visit today as a new patient for dyspepsia. CC: Patient c/o epigastric pain, GERD, a lot of gas with foul smell. She states she was taking ranitidine for a lot of years but was then switched to Omeprazole 20mg but she feels this does not work any longer. She also reports constipation, diarrhea, and rectal bleeding. She states she had rectal surgery done for bleeding and colonoscopy about 5 years ago and a polyp was referred. She believes this was done at [facility]. Denies other GI symptoms. Accompanied by: Spouse Allergies lidocaine [LIDOCAINE] Allergy (Severe, Verified 04/11/23 12:53) SWELLING/EDEMA metformin Allergy (Severe, Verified 04/11/23 12:53) Anaphylaxis Medication List - Last Reconciled 04/11/23 by Keira Nichole PA-C acetaminophen ER (8 Hour Pain Reliever) 650 mg PO Q8H PRN albuterol sulfate 90 mcg/actuation (ProAir HFA) 2 puffs inhalation Q6H PRN albuterol sulfate mg inhalation TID ascorbic acid (vitamin C) 500 mg PO DAILY eskmveijbz-hoakssnonfyyz-yllg 50-300-40 mg (Fioricet) 1 cap PO Q6H PRN calcium polycarbophil (Fiber-Lax) 625 mg PO BID cholecalciferol (vitamin D3) 25 mcg PO QAM clonazepam 1 mg PO DAILY PRN docusate sodium 100 mg PO BID PRN duloxetine 30 mg PO ferrous sulfate 324 mg PO DAILY fluoxetine 20 mg PO DAILY gabapentin 600 mg PO BEDTIME hydrocortisone 2.5% (Proctozone-HC) [place] BID PRN ibuprofen 800 mg PO Q8H ketoconazole 2% topical magnesium oxide 400 mg PO DAILY omeprazole 40 mg PO DAILY risperidone 1 mg PO BEDTIME tizanidine 4 mg PO Q6-8H PRN HPI HPI Comments History of Present Illness Details A 32 y/o OB female- - seen at [place]- w/u with EGD-given pills-< 5 years ago Now with -bad reflux-for years-gas- pains-pre no specific foods. She does admit that she has gained quite a bit of weight Seen by [facility]- 2020- neg h.pylori- never followed back- due to social issues. Having ERICK- 04/21- Nausea- intermittent- no vomit- wt gain- no wt loss- No fever, chills, hematemesis or hematochezia is present [facility] Medical History (Updated 04/11/23 @ 14:44 by Keira Nichole PA-C) Morbid obesity with BMI of 50.0-59.9, adult History of gestational diabetes Daytime sleepiness Chronic bilateral low back pain without sciatica History of asthma Chronic GERD Recurrent occipital headache Aspirin allergy Major depression Chronic headache disorder Irregular menstrual cycle Lipoma of forehead Surgical History H/O colonoscopy H/O tubal ligation Hx of rectal sphincterotomy Hx of removal of cyst Family History Unknown No problems noted. Unknown No problems noted. Son Autism Daughter Autism Sister Obesity Social History (Updated 04/11/23 @ 13:19 by Keira Nichole PA-C) Household Members Other:: , 2 kids Alcohol intake: never Patient Tobacco Use Status: Never used Tobacco Current occupational status: employed Review of Systems Const All systems reviewed & are unremarkable except as noted in HPI and below Card Denies chest pain and Denies dyspnea Resp Denies dyspnea GI Reports abdominal pain, Denies hematochezia, Denies change in bowel habits, Reports heartburn, Reports nausea and Denies vomiting Physical Exam Vital Signs: Last Vital Signs Pulse 86 04/11/23 12:45 BP 141/54 H 04/11/23 12:45 BMI result Body Mass Index 66.1 Resp Effort & Inspection: normal respiratory effort and able to speak in complete sentences Auscultation: clear to auscultation bilaterally Cardio Rate: regular rate Rhythm: regular rhythm Heart sounds: S1 normal heart sound present and S2 normal heart sound present GI Inspection: Yes obesity Palpation (GI): Soft to palpation and nontender Skin General skin exam: erythema (Face ) Extrem General: Yes full ROM Psych Speech and movement: Clear speech present Affect: normal affect Attitude: cooperative Thought process: Normal thought process present Thought content: Normal thought content present Insight: Good insight present (Psych) Judgement: Good judgement present (Psych) Assessment & Plan Assessment & Plan (1) Acid reflux: Comment: History EGD Weight gain likely plays a role with persistent acid reflux With surgery next week for ERICK will hold off until after that to pursue any further workup Referred back to weight management Code(s): K21.9 - Gastro-esophageal reflux disease without esophagitis Plan: Switch to pantoprazole 40mg see back after ERICK test HP -if appropriate at that time Review reflux precautions (2) Morbid obesity with BMI of 50.0-59.9, adult: Comment: Increased weight, likely plays role with persistent acid reflux Code(s): E66.01 - Morbid (severe) obesity due to excess calories; Z68.43 - Body mass index [BMI] 50.0-59.9, adult Plan: Referred back to weight management Plan Switch to pantoprazole see back after ERICK test HP -if appropriate at that time Review reflux precautions Orders: Referrals Medical Weight Management Referral E66.01 - Morbid (severe) obesity due to excess calories, G47.33 - Obstructive sleep apnea (adult) (pediatric), K21.9 - Gastro-esophageal reflux disease without esophagitis, R06.00 - Dyspnea, unspecified, Z68.43 - Body mass index [BMI] 50.0-59.9, adult Medications: New pantoprazole 40 mg PO DAILY 30 days PRN 30 tabs 3RF acid reflux Patient Instructions: Pleasant obese 32-year-old female persistent acid reflux Switch to pantoprazole 40mg see back after ERICK test HP -if appropriate at that time Review reflux precautions Avoid weight gain Referred back to weight management Coding Level of Care Code New Pt Level 3 (37907) Diagnoses Acid reflux K21.9 Morbid obesity with BMI of 50.0-59.9, adult E66.01; Z68.43 Time Spent (min) 35
[2023-04-11 12:45] VITALS: BP 141/54; PULSE 86; BMI 66.1
== END 2023-04-11 14:05 | disposition home or self-care (01) ==
PROVIDERS: Visit Provider Physician Assistant
DX: K21.9 Gastro-esophageal reflux disease without esophagitis (principal); E66.01 Morbid (severe) obesity due to excess calories; Z68.43 Body mass index [BMI] 50.0-59.9, adult
CPT/HCPCS: 99203

== ENCOUNTER → 2023-04-11 12:40 | Outpatient (BNVA) | payer MEDICAID, SELFPAY | PROVIDERS: Visit Provider Physician Assistant | DX: K21.9 Gastro-esophageal reflux disease without esophagitis (principal); E66.01 Morbid (severe) obesity due to excess calories; Z68.44 Body mass index [BMI] 60.0-69.9, adult | CPT/HCPCS: 99212 ==

== ENCOUNTER 2023-06-08 11:56 | Emergency (ER) | payer MEDICAID, SELFPAY ==
--- NOTE | ~2023-06-08 | XR_ITS ---
EXAMINATION: XR CHEST, 2 VIEWS CLINICAL INFORMATION: Dyspnea COMPARISON: 12/20/2019 TECHNIQUE: PA and lateral views of the chest were obtained. FINDINGS: Bronchial wall thickening suspected in the perihilar regions. No consolidation, pneumothorax, or pleural effusion. Cardiac and mediastinal contours are normal. Pulmonary vasculature is unremarkable. Trachea is midline. Osseous structures are unremarkable. XR/XR chest 2V IMPRESSION: Bronchial wall thickening can be seen with a small airways process such as asthma or atypical/viral infection.
[2023-06-08 11:58] VITALS: BP 138/96; PULSE 102; RESP 18; TEMP 36.7; O2SAT 89; BMI 64.0
--- NOTE | 2023-06-08 11:58 | ED.GENADULT ---
HPI - General Adult General Chief complaint: Dyspnea Stated complaint: SOB Diff Breathing Time Seen by Provider: 06/08/23 14:18 Source: patient Mode of arrival: ambulatory Limitations: no limitations History of Present Illness HPI narrative: 33-year-old female with a history of asthma, JEFFERSON, depression, anxiety who presents emergency department for evaluation of cough, shortness of breath, headache, chills nausea and diarrhea. Patient states she has been sick since 05/23/2023. She states she has had a cough which is productive and worse over the past 2 days. She states she is coughing up thick yellow sputum with occasional blood in the sputum. She states she is coughing frequently and persistently and occasionally the cough makes her vomit. She denied fever but states she is felt hot and having chills at home. She denied nausea. She has had loose diarrheal stools 2-3 per day x3 days. She denied myalgias arthralgias. Patient states she was at an urgent care clinic and started on prednisone 40 mg once a day, she completed this course with no improvement. Patient states she has had to use her albuterol nebulizer 3 to 4 times a day which is unusual and she has had use her inhaler 2-3 times a day as well with no improvement of her symptoms. Related Data Home Medications Medication Instructions Recorded Confirmed albuterol sulfate 90 mcg/actuation 2 puff inhalation Q6H PRN 03/11/20 aerosol inhaler (ProAir HFA) ascorbic acid (vitamin C) 1,000 mg 500 mg PO DAILY 03/11/20 tablet clonazepam 1 mg tablet 1 mg PO DAILY PRN 03/11/20 ferrous sulfate 324 mg (65 mg 324 mg PO DAILY 03/11/20 iron) tablet,delayed release fluoxetine 20 mg capsule 20 mg PO DAILY 03/11/20 omeprazole 20 mg capsule,delayed 40 mg PO DAILY 03/11/20 release risperidone 1 mg tablet 1 mg PO BEDTIME 03/11/20 acetaminophen 650 mg 650 mg PO Q8H PRN fever 04/11/23 tablet,extended release (8 Hour Pain Reliever) albuterol sulfate 2.5 mg/3 mL mg inhalation TID 04/11/23 (0.083 %) solution for nebulization calcium polycarbophil 625 mg 625 mg PO BID 04/11/23 tablet (Fiber-Lax) cholecalciferol (vitamin D3) 25 25 mcg PO QAM 04/11/23 mcg (1,000 unit) tablet docusate sodium 100 mg capsule 100 mg PO BID PRN 04/11/23 duloxetine 30 mg capsule,delayed 30 mg PO 04/11/23 release gabapentin 300 mg capsule 600 mg PO BEDTIME 04/11/23 hydrocortisone 2.5 % topical cream CT BID PRN pain 04/11/23 with perineal applicator (Proctozone-HC) ibuprofen 800 mg tablet 800 mg PO Q8H 04/11/23 ketoconazole 2 % shampoo topical 04/11/23 magnesium oxide 400 mg (241.3 mg 400 mg PO DAILY 04/11/23 magnesium) tablet tizanidine 4 mg tablet 4 mg PO Q6-8H PRN 04/11/23 Previous Rx's Medication Instructions Recorded lttxrccxlv-lftvqfuhpieoz-gjqbtnlh 1 cap PO Q6H PRN headache #20 caps 03/31/21 50 mg-300 mg-40 mg capsule (Fioricet) pantoprazole 40 mg tablet,delayed 40 mg PO DAILY PRN acid reflux 30 04/11/23 release days #30 tabs doxycycline hyclate 100 mg tablet 100 mg PO Q12H 10 days #20 tabs 06/08/23 prednisone 20 mg tablet 60 mg (3 x 20 mg) PO DAILY 5 days 06/08/23 #15 tabs Allergies Allergy/AdvReac Type Severity Reaction Status Date / Time lidocaine [LIDOCAINE] Allergy Severe SWELLING/ED Verified 06/08/23 12:01 KEILY metformin Allergy Severe Anaphylaxis Verified 06/08/23 12:01 Review of Systems Review of Systems: Yes all other systems are reviewed and are negative PMFSH Past Medical History Onset Date is defined in the Problem List Problems that require an onset date and time if occurred within 24 hrs of arrival to the ED Aortic Dissection and Rupture; Neurologic impairment; Cardiopulmonary Arrest; Endotracheal Intubation; Insertion or Replacement of Mechanical Circulatory Assist Device Medical History (Updated 06/08/23 @ 14:31 by Matthew Yip MD) Morbid obesity with BMI of 50.0-59.9, adult History of gestational diabetes Daytime sleepiness Chronic bilateral low back pain without sciatica History of asthma Chronic GERD Recurrent occipital headache Aspirin allergy Major depression Chronic headache disorder Irregular menstrual cycle Lipoma of forehead Surgical History H/O colonoscopy H/O tubal ligation Hx of rectal sphincterotomy Hx of removal of cyst Family History Family History Unknown No problems noted. Unknown No problems noted. Son Autism Daughter Autism Sister Obesity Social History Social History (Updated 04/11/23 @ 13:19 by Keira Nichole PA-C) Household Members Other:: , 2 kids Alcohol intake: never Patient Tobacco Use Status: Never used Tobacco Current occupational status: employed Physical Exam ED Vital Signs: Vital Signs - 24 hr 06/08/23 11:58 06/08/23 14:27 Temperature 98.0 F Pulse Rate 102 H 103 H Respiratory Rate 18 20 Blood Pressure 138/96 H 147/92 H Pulse Oximetry 89 L 96 Oxygen Delivery Method Room Air Room Air BMI result Body Mass Index 64.0 Vital signs were normal except for an elevated heart rate of 102. Saturation on room air was 89% but in the emergency department or O2 saturation is 96% on room air Exam General: Awake, alert in no distress, elevated BMI 64 Head: Normocephalic, atraumatic EENT: PERRL, Lids normal, sclera normal, conjunctiva normal, nose normal , ears normal, throat without erythema or exudates Neck: Supple, no adenopathy, no trachea midline or C-spine tenderness Lung: breath sounds symmetric, no wheezing, rales or rhonchi Chest: symmetric movement, nontender Heart: regular rate and rhythm, normal S1, S2 no murmurs or rubs Abdomen: soft, non-tender, nondistended, normal bowel sounds Back: no vertebral tenderness, no CVAT Extremities: no deformities, moves all extremities symmetrically, no edema Neuro: Awake, alert, oriented, normal speech, moves all extremities symmetrically Psych: Pleasant, cooperative Course Course Course Narrative: RME: 33 yo morbidly obese flufemale w/ hx of asthma?here w/ SOB x2 weeks, worsening over the last 2 days. Endorses coughing and posttussive emesis. Seen at walk-in and completed 5 days of pred. Using neb BID and inhaler as needed. plan for serology, basics and cxr Full HPI, ROS and PE to be performed by the primary ED provider. Medical Decision Making Medical Decision Making [facility] Narrative: 33-year-old female with a history of asthma, JEFFERSON, depression, anxiety who presents emergency department for evaluation of cough, shortness of breath, headache, chills nausea and diarrhea. Patient has had a cough for approximately 3 weeks, worse over the last 2 days, productive of thick yellow sputum with occasional blood in the sputum, using her inhaler and nebulizer more frequently than usual, completed a 4 day course of prednisone 40 mg daily with no improvement of her symptoms. Vital signs revealed an elevated heart rate and initial low O2 saturation which improved without treatment. Lung exam at this time was clear with no wheezing. Following evaluation was ordered: CBC, CMP, COVID influenza, chest x-ray two view 14:40 My interpretation patient's laboratory evaluation is as follows: Elevated WBC 79572. Elevated glucose 130. COVID-19, influenza negative Chest x-ray revealed no acute infiltrate Differential Diagnosis Differential Diagnoses: The differential diagnosis associated with the presentation includes Differential diagnosis includes was not limited to pneumonia, bronchitis, viral illness, electrolyte abnormalities, anemia Admission/Observation Consideration of admission/observation: Escalation of care including admission/observation considered Lab Data [facility] Lab Attestation statement: I reviewed the patient's lab results. See interpretation above 06/08/23 12:38 06/08/23 12:38 Labs: Lab Results 06/08/23 Range/Units 12:38 WBC 13.3 H (4.8-10.8) X10*3/uL RBC 5.39 (4.20-5.50) X10*6/uL Hgb 14.6 (12.0-16.0) g/dl Hct 44.8 (37.0-47.0) % MCV 83.1 (80.0-98.0) fL MCH 27.1 (27.0-33.0) pg MCHC 32.6 (31.0-35.0) g/dl RDW 14.0 (11.0-16.0) % Plt Count 416 H D (160-400) X10*3/uL MPV 10.5 (9.4-12.3) fL Immature Gran % (Auto) 0.8 H (0.0-0.4) % Neut % (Auto) 65.1 (45-73) % Lymph % (Auto) 25.1 (20-40) % Boyd % (Auto) 4.8 (2-11) % Eos % (Auto) 3.7 (0-4) % Baso % (Auto) 0.5 (0-2) % Lymph # (Auto) 3.3 (1.2-4.9) X10*3/uL Boyd # (Auto) 0.6 (0.1-1.2) X10*3/uL Eos # (Auto) 0.5 H (0.0-0.4) X10*3/uL Baso # (Auto) 0.1 (0.0-0.2) X10*3/uL Abs Immat Gran (auto) 0.10 H (0.00-0.03) X10*3/uL Absolute Neuts (auto) 8.7 H (2.0-8.3) x10*3/uL Absolute Nucleated RBC 0.000 (0.0-0.012) X10*3/uL Nucleated RBC % (auto) 0.0 (0.0-0.2) /100WBC Sodium 138 (135-145) mmol/L Potassium 3.6 (3.3-5.1) mmol/L Chloride 100 (96-108) mmol/L Carbon Dioxide 27 (22-29) mmol/L Anion Gap 15 (12-20) BUN 8 L (9-16) mg/dL Creatinine 0.91 (0.5-1.4) mg/dL Estim Creat Clear Calc 134.6 Estimated GFR > 60 Random Glucose 130 H (60-115) mg/dL Calcium 10.5 H D (8.4-10.2) mg/dL Magnesium 2.1 (1.6-2.6) mg/dL COVID-19 (JESSICA) Negative (Negative) COVID-19 Clin Com See Note Influenza Type A (DONNA) Negative (Negative) Influenza Type B (DONNA) Negative (Negative) Influenza A & B Note See Note Radiology Impression Discussion of test interpretation with radiology: I have reviewed the radiologist's reading. Radiologist Impression: XR chest 2V IMPRESSION: Bronchial wall thickening can be seen with a small airways process such as asthma or atypical/viral infection. Dictated By: n Prescription Management I considered prescription management with: Antibiotic Chronic Conditions Patient?s care impacted by: Other (Asthma, obstructive sleep apnea) Discharge Plan Discharge Clinical Impression: Acute bronchitis, Asthma exacerbation Patient Disposition: Home, Self-Care Instructions: Acute Bronchitis (ED) Additional Instructions: Your blood work was unremarkable except for an elevated white blood cell count which could be secondary to an infection or caused by prednisone. Your COVID-19 and influenza tests were negative Your chest x-ray did not reveal any signs of pneumonia which is reassuring. Take doxycycline 100 mg, 1 pill every 12 hours for 7 days Take prednisone 20 mg pills, 3 pills once a day for 5 days. While you ?are taking prednisone, do not take any NSAIDs (Motrin, Advil, ibuprofen, Aleve, naproxen). Follow-up with your doctor in 2 days. Please return to the emergency department if your symptoms get worse or if you develop any symptoms that are concerning to you. Prescriptions: New prednisone 20 mg tablet 60 mg PO DAILY 5 Days Qty: 15 0RF doxycycline hyclate 100 mg tablet 100 mg PO Q12H 10 Days Qty: 20 0RF No Action tzdkgwtvip-huboeuxvjobue-zxuw [Fioricet] 50-300-40 mg capsule 1 cap PO Q6H PRN (Reason: headache) Qty: 20 0RF omeprazole 20 mg capsule,delayed release(DR/EC) 40 mg PO DAILY ferrous sulfate 324 mg (65 mg iron) tablet,delayed release (DR/EC) 324 mg PO DAILY albuterol sulfate [ProAir HFA] 90 mcg/actuation HFA aerosol inhaler 2 puff inhalation Q6H PRN risperidone 1 mg tablet 1 mg PO BEDTIME clonazepam 1 mg tablet 1 mg PO DAILY PRN fluoxetine 20 mg capsule 20 mg PO DAILY ascorbic acid (vitamin C) 1,000 mg tablet 500 mg PO DAILY gabapentin 300 mg capsule 600 mg PO BEDTIME cholecalciferol (vitamin D3) 25 mcg (1,000 unit) tablet 25 mcg PO QAM duloxetine 30 mg capsule,delayed release(DR/EC) 30 mg PO magnesium oxide 400 mg (241.3 mg magnesium) tablet 400 mg PO DAILY docusate sodium 100 mg capsule 100 mg PO BID PRN albuterol sulfate 2.5 mg /3 mL (0.083 %) solution for nebulization inhalation TID ketoconazole 2 % shampoo topical calcium polycarbophil [Fiber-Lax] 625 mg tablet 625 mg PO BID hydrocortisone [Proctozone-HC] 2.5 % cream with perineal applicator CT BID PRN (Reason: pain) acetaminophen [8 Hour Pain Reliever] 650 mg tablet extended release 650 mg PO Q8H PRN (Reason: fever) ibuprofen 800 mg tablet 800 mg PO Q8H tizanidine 4 mg tablet 4 mg PO Q6-8H PRN pantoprazole 40 mg tablet,delayed release (DR/EC) 40 mg PO DAILY PRN (Reason: acid reflux) 30 Days Qty: 30 3RF
[2023-06-08 12:42] LABS: MANUAL DIFF FLAG NO
[2023-06-08 12:43] LABS: Basophils Absolute Auto 0.1 X10*3/uL (0.0-0.2); Basophils Percent Auto 0.5 % (0-2); Eosinophils Absolute Auto 0.5 X10*3/uL (0.0-0.4); Eosinophils Percent Auto 3.7 % (0-4); Hematocrit 44.8 % (37.0-47.0); Hemoglobin 14.6 g/dl (12.0-16.0); Imm Gran Pct Auto 0.8 % (0.0-0.4); Lymphocytes Absolute Auto 3.3 X10*3/uL (1.2-4.9); Lymphocytes Percent Auto 25.1 % (20-40); Mean Corpuscular HGB Conc 32.6 g/dl (31.0-35.0); Mean Corpuscular Hemoglobin 27.1 pg (27.0-33.0); Mean Corpuscular Volume 83.1 fL (80.0-98.0); Mean Platelet Volume 10.5 fL (9.4-12.3); Monocytes Absolute Auto 0.6 X10*3/uL (0.1-1.2); Monocytes Percent Auto 4.8 % (2-11); Neutrophils Absolute Auto 8.7 x10*3/uL (2.0-8.3); Neutrophils Percent Auto 65.1 % (45-73); Platelet Count 416 X10*3/uL (160-400); Red Blood Count 5.39 X10*6/uL (4.20-5.50); White Blood Count 13.3 X10*3/uL (4.8-10.8)
[2023-06-08 12:57] LABS: Anion Gap 15 (12-20); Blood Urea Nitrogen 8 mg/dL (9-16); Calcium 10.5 mg/dL (8.4-10.2); Carbon Dioxide 27 mmol/L (22-29); Chloride 100 mmol/L (96-108); Creatinine Clr Calc Pharmacy 134.6; Estimated Glomerular Filt Rate > 60; Glucose Random 130 mg/dL (60-115); Magnesium 2.1 mg/dL (1.6-2.6); Potassium 3.6 mmol/L (3.3-5.1); Sodium 138 mmol/L (135-145)
[2023-06-08 13:01] LABS: COVID-19 Test Negative (Negative); IDNOW Serial# 08D9AD1C; IDNOW Serial# 152EDE1D; Influenza A Negative (Negative); Influenza B2 Negative (Negative)
[2023-06-08 14:27] VITALS: BP 147/92; PULSE 103; RESP 20; O2SAT 96
--- NOTE | 2023-06-08 14:31 | PC.NURSE ---
Pt is a&ox4 coming in with sob and cough x3 days worsening with exertion. Pt denies fevers. Skin pwd. lungs clear throughout. skin pwd. afebrile
== END 2023-06-08 14:44 | disposition home or self-care (01) ==
LOC: HO.ED 14:37
PROVIDERS: Physician Assistant Medical; Emergency Provider Emergency Medicine Emergency Medical Services; PCP Registered Nurse
DX: J20.9 Acute bronchitis, unspecified (principal); J45.901 Unspecified asthma with (acute) exacerbation; E66.01 Morbid (severe) obesity due to excess calories; Z68.44 Body mass index [BMI] 60.0-69.9, adult; Z11.52 Encounter for screening for COVID-19
CPT/HCPCS: 71046; 80048; 83735; 85025; 87502; 87635; 99283; 99284

== ENCOUNTER 2023-08-02 12:20 | Outpatient (REF) | payer MEDICAID, SELFPAY ==
--- NOTE | ~2023-08-02 | XR_ITS ---
EXAMINATION: XR RIBS, LEFT CLINICAL INFORMATION: Fall 07/06/2023. Last 5 days pain under her left breast COMPARISON: Chest 06/08/2023 TECHNIQUE: PA chest and 3 views views of the left ribs were obtained. Technically limited study due to patient body habitus. FINDINGS: Lungs are clear. No consolidation, pneumothorax, or pleural effusion. The cardiomediastinal silhouette and pulmonary vasculature are normal. Osseous structures are unremarkable. No displaced left rib fracture is demonstrated. XR/XR ribs LT min 3V w CXR1V IMPRESSION: No displaced left rib fracture.
== END 2023-08-02 12:21 | disposition home or self-care (01) ==
LOC: HO.HHCX 12:20
PROVIDERS: Visit Provider Nurse Practitioner Family
DX: R07.81 Pleurodynia (principal)
CPT/HCPCS: 71101

== ENCOUNTER 2023-08-15 12:47 | Outpatient (REF) | payer MEDICAID, SELFPAY ==
[2023-08-15 16:10] LABS: MANUAL DIFF FLAG NO
[2023-08-15 16:23] LABS: Basophils Absolute Auto 0.1 X10*3/uL (0.0-0.2); Basophils Percent Auto 0.7 % (0-2); Eosinophils Absolute Auto 0.4 X10*3/uL (0.0-0.4); Eosinophils Percent Auto 4.1 % (0-4); Hematocrit 39.9 % (37.0-47.0); Hemoglobin 12.6 g/dl (12.0-16.0); Imm Gran Abs Auto 0.04 X10*3/uL (0.00-0.03); Imm Gran Pct Auto 0.5 % (0.0-0.4); Lymphocytes Absolute Auto 3.3 X10*3/uL (1.2-4.9); Lymphocytes Percent Auto 37.6 % (20-40); Mean Corpuscular HGB Conc 31.6 g/dl (31.0-35.0); Mean Corpuscular Volume 85.6 fL (80.0-98.0); Mean Platelet Volume 11.6 fL (9.4-12.3); Monocytes Absolute Auto 0.6 X10*3/uL (0.1-1.2); Monocytes Percent Auto 6.9 % (2-11); Neutrophils Absolute Auto 4.5 x10*3/uL (2.0-8.3); Neutrophils Percent Auto 50.2 % (45-73); Platelet Count 311 X10*3/uL (160-400); Red Blood Count 4.66 X10*6/uL (4.20-5.50); Red Cell Distribution Width 13.9 % (11.0-16.0); White Blood Count 8.8 X10*3/uL (4.8-10.8)
[2023-08-15 16:59] LABS: Alanine Aminotransferase 41 U/L (0-31); Albumin Level 4.2 g/dL (3.5-5.0); Alkaline Phosphatase 61 U/L (39-117); Anion Gap 13 (12-20); Aspartate Amino Transferase 30 U/L (5-31); Bilirubin Total 0.3 mg/dL (0.0-1.0); Blood Urea Nitrogen 9 mg/dL (9-16); Calcium 9.9 mg/dL (8.4-10.2); Carbon Dioxide 27 mmol/L (22-29); Chloride 103 mmol/L (96-108); Estimated Glomerular Filt Rate > 60; Glucose Random 112 mg/dL (60-115); Potassium 3.8 mmol/L (3.3-5.1); Sodium 139 mmol/L (135-145); Total Protein 7.8 g/dL (6.5-8.0)
[2023-08-15 17:01] LABS: Erythrocyte Sedimentation Rate 42 MM/HR (0-20)
[2023-08-17 13:09] LABS: Anti Nuclear Antibody Screen NEGATIVE (NEGATIVE)
== END 2023-08-15 12:48 | disposition home or self-care (01) ==
LOC: HO.HHCL 12:47
PROVIDERS: Visit Provider Registered Nurse
DX: R21 Rash and other nonspecific skin eruption (principal)
CPT/HCPCS: 36415; 80053; 85025; 85652; 86038; 86140

== ENCOUNTER 2024-05-09 08:58 | Outpatient (REF) | payer MEDICAID, SELFPAY ==
[2024-05-09 12:07] LABS: Estimated Average Glucose 117 mg/dL; Hemoglobin A1C 118.8638 umol/L; Hemoglobin A1c % 5.7 % (<6.0); Total Hemoglobin (HGBA1C) 3107.0366 umol/L
[2024-05-09 12:12] LABS: Alanine Aminotransferase 18 U/L (0-31); Albumin Level 4.1 g/dL (3.5-5.0); Alkaline Phosphatase 50 U/L (39-117); Anion Gap 9 (12-20); Aspartate Amino Transferase 26 U/L (5-31); Bilirubin Total 0.4 mg/dL (0.0-1.0); Blood Urea Nitrogen 13 mg/dL (9-16); Carbon Dioxide 28 mmol/L (22-29); Chloride 105 mmol/L (96-108); Cholesterol 230 mg/dL (<200); Estimated Glomerular Filt Rate > 60; Glucose Random 80 mg/dL (60-115); HDL Cholesterol 40 mg/dL (>40); LDL Cholesterol Calculated 161 mg/dL (<100); Potassium 3.8 mmol/L (3.3-5.1); Sodium 138 mmol/L (135-145); Total Protein 7.7 g/dL (6.5-8.0); Triglycerides 146 mg/dL (<150)
[2024-05-09 12:45] LABS: Creatinine Urine 231.56 mg/dL; Microalbum/Creatinine Ratio Ur 4.7 ug/mg cr (<30)
== END 2024-05-09 08:59 | disposition home or self-care (01) ==
LOC: HO.HHCL 08:58
PROVIDERS: Visit Provider Registered Nurse
DX: E11.65 Type 2 diabetes mellitus with hyperglycemia (principal)
CPT/HCPCS: 36415; 80053; 80061; 82043; 82570; 83036

== ENCOUNTER 2024-08-06 10:28 | Outpatient (REF) | payer MEDICAID, SELFPAY ==
--- NOTE | ~2024-08-06 | XR_ITS ---
EXAMINATION: XR FOOT 3 OR MORE VIEWS RIGHT HISTORY: Acute on chronic right heel pain r/o stress fracture COMPARISON: There are no prior studies available for comparison. FINDINGS: Three views of the right foot are submitted. Osseous mineralization is normal. There is no fracture or dislocation. The joint spaces are preserved. There are calcaneal spurs at the plantar aspect and at the insertion of the Achilles tendon. The soft tissues are unremarkable. XR/XR foot RT min 3V IMPRESSION: Calcaneal spurs as described. Otherwise unremarkable examination of the right foot. Electronically signed by: Guru Dugan MD 08/06/2024 10:59 AM EDT
--- OUTSIDE RECORDS SUMMARY | 2024-08-06 11:48 | XMS_ITS | Encounter Summary ---
Author Organization [employer] Address [address] [facility] [address] [place] [address] Care Team Providers Care Search Developer Name Role Phone [facility] Primary Care Provider [phone] Reason for Visit * Reason Comments Med Refill Encounter Details Date Type Department Care Team ([facility] st Contact Info) Description 04/20/2023 Refill [facility] [address] [place], [place] [phone] [facility] [address] [place], [place] [phone] Essential hypertension Social History Tobacco Use Types Packs/Day Years Used Date Smoking Tobacco: Former Cigarettes Passive Smoke Exposure: Past Smokeless Tobacco: Never Alcohol Use Standard Drinks/Week Comments Never 0 (1 standard drink = 0.6 oz pur e alcohol) Depression Answer Date Recorded Patient Health Questionnaire-9 Score 8 06/22/2022 Housing Stability Answer Date Recorded What is your housing situation today? I have ria rod 03/07/[address] you li ve. Do you have problems with any of the following? None of the above 03/07/2023 Food Insecurity Answer Date Recorded Within the past 12 months, y ou worried that your food would run out before you got money to buy more: Never True 03/07/2023 Within the past 12 months,th e food you bought just didn't last and you didn't have enough money to get more: Never True Transportation Answer Date Recorded In the past 12 months, has l ack of transportation kept you from medical appts, meetings, work or from getting things needed for daily living? No 03/07/2023 Utilities Answer Date Recorded In the past 12 months, has t he electric, gas, oil or water company threatened to shut off services in your home? No 03/07/2023 Depression Answer Date Recorded Patient Health Questionnaire-2 Score 2 06/22/2022 Comments Unknown Sex and Gender Information Value Date Recorded Sex Assigned at Female 03/22/2022 10:32 AM EDT Legal Sex Female 10:32 AM EDT Gender Identity Female 03/22/2022 10:32 AM EDT Sexual Orientation Straight 03/22/2022 10 :32 AM EDT documented as of this encounter Plan of Treatment Not on file documented as of this encounter Visit Diagnoses Diagnosis Essential hypertension Unspecified essential hypertension documented in this encounter Additional Health Concerns Assessment Noted Time PHQ-9 Depression Total Score: 8 06/22/19 23 3:07 PM EST documented as of this encounter Care Teams Search Developer Relationship Specialty Start Date End Date Karina Parson FNP [address] [place] [id number] PCP - General Family Medicine 05/14/22 documented as of this encounter
--- OUTSIDE RECORDS SUMMARY | 2024-08-06 11:48 | XMS_ITS | Encounter Summary ---
Author Organization [employer] Address [address] [facility] [address] [place] [address] Care Team Providers Care Signal Intelligence/Electronic Warfare Name Role Phone [facility] Primary Care Provider [phone] Reason for Visit * Reason Onset Date Comments Med Refill 04/04/2024 Encounter Details Date Type Department Care Team ([facility] st Contact Info) Description 04/04/2024 Refill [facility] [address] [place], [place] [phone] [facility] [address] [place] [address] Social History Tobacco Use Types Packs/Day Years Used Date Smoking Tobacco: Former Cigarettes Passive Smoke Exposure: Past Smokeless Tobacco: Never Alcohol Use Standard Drinks/Week Comments Never 0 (1 standard drink = 0.6 oz pur e alcohol) Depression Answer Date Recorded Patient Health Questionnaire-9 Score 17 02/21/2024 Patient Health Questionnaire-9 Score 17 02/21/2024 Last PHQ-9: Questionnaire Data Not on file 1 Housing Stability Answer Date Recorded What is your housing situation today? I have ria rod 10/05/[address] you li ve. Do you have problems with any of the following? None of the above 10/05/2023 Food Insecurity Answer Date Recorded Within the past 12 months, y ou worried that your food would run out before you got money to buy more: Sometimes True 2023 Within the past 12 months,th e food you bought just didn't last and you didn't have enough money to get more: Sometimes True 10/05/2023 Transportation Answer Date Recorded In the past 12 months, has l ack of transportation kept you from medical appts, meetings, work or from getting things needed for daily living? No 10/05/2023 Utilities Answer Date Recorded In the past 12 months, has t he electric, gas, oil or water company threatened to shut off services in your home? Yes 10/05/2023 Depression Answer Date Recorded Patient Health Questionnaire-2 Score 4 02/21/2024 Comments Unknown Sex and Gender Information Value Date Recorded Sex Assigned at Female 03/22/2022 10:32 AM EDT Legal Sex Female 10:32 AM EDT Gender Identity Female 03/22/2022 10:32 AM EDT Sexual Orientation Straight 03/22/2022 10 :32 AM EDT documented as of this encounter Plan of Treatment Not on file documented as of this encounter Visit Diagnoses Not on filedocumented in this encounter Additional Health Concerns Assessment Noted Time PHQ-9 Depression Total Score: 17 024 7:57 AM EDT documented as of this encounter Care Teams Signal Intelligence/Electronic Warfare Relationship Specialty Start Date End Date Karina Parson FNP [address] [place] [id number] PCP - General Family Medicine 05/14/22 documented as of this encounter
--- OUTSIDE RECORDS SUMMARY | 2024-08-06 11:48 | XMS_ITS | Encounter Summary ---
Author Organization [employer] Address [address] [facility] [address] [place] [address] Care Team Providers Care Filtering Machine Tender Helper Name Role Phone [facility] Primary Care Provider [phone] Reason for Visit * Reason Comments Pre-visit Planning SDOH screening negat delisa and tobacco screening negative Encounter Details Date Type Department Care Team ([facility] st Contact Info) Description 07/30/[address] [facility] [address] [place], [place] [phone] [facility] 230 [place], [place] [phone] Pre-visit Planning (SDOH screening negative and tobacco screening negative) Social History Tobacco Use Types Packs/Day Years [...] got money to buy more: Never True 07/30/2024 Within the past 12 months,th e food you bought just didn't last and you didn't have enough money to get more: Never True 02/2025 Transportation Answer Date Recorded In the past 12 months, has l ack of transportation kept you from medical appts, meetings, work or from getting things needed for daily living? No 10/05/2023 Utilities Answer Date Recorded In the past 12 months, has t he electric, gas, oil or water company threatened to shut off services in your home? No 07/30/2024 Depression Answer Date Recorded Patient Health Questionnaire-2 Score 4 02/21/2024 Internet Access Answer Date Recorded Internet Access Q1 Yes 07/30/2024 Internet Access Q2 Not on file 07/30/2024 Comments Unknown Sex and Gender Information Value Date Recorded Sex Assigned at Female 03/22/2022 10:32 AM EDT Legal Sex Female 10:32 AM EDT Gender Identity Female 03/22/2022 10:32 AM EDT Sexual Orientation Straight 03/22/2022 10 :32 AM EDT documented as of this encounter Progress Notes * Jeanna Cisneros - 07/30/2024 9:20 AM EDT CC Jeanna placed successful outbound call to patient for pre-visit planning. Patient name and confirmed. Patient confirms appt date and time, and has transportation. Biggest concern for appointment at this time is rash all over body Patient advised to bring to appointment a photo id and insurance card. Appropriate screenings completed in anticipation of appointment. documented in this encounter Plan of Treatment Not on file documented as of this encounter Visit Diagnoses Not on filedocumented in this encounter Additional Health Concerns Assessment Noted Time PHQ-9 Depression Total Score: 17 024 7:57 AM EDT documented as of this encounter Care Teams Filtering Machine Tender Helper Relationship Specialty Start Date End Date Karina Parson FNP [address] [place] [id number] PCP - General Family Medicine 05/14/22 documented as of this encounter
--- OUTSIDE RECORDS SUMMARY | 2024-08-06 11:48 | XMS_ITS | Encounter Summary ---
Author Organization [employer] Address [address] [facility] [address] [place] [address] Care Team Providers Care Behavioral Health Consultant Name Role Phone [facility] Primary Care Provider [phone] Reason for Visit * Reason Onset Date Comments ER Follow-up 07/22/2023 Nurse Triage 07/22/2023 Encounter Details Date Type Department Care Team ([facility] st Contact Info) Description 07/22/2023 Telephone [facility] [address] [place], [place] [phone] [facility] [address] [place] [address] ER Follow-up; Nurse Triage Social History Tobacco Use Types Packs/Day Years [...] AM EDT documented as of this encounter Miscellaneous Notes * Telephone Encounter - Marivel Jauregui - 07/22/2023 9:50 AM EST Patient calling to report ED visit on : Date: 06/08/2023 Hospital: [facility] [place] Seen for: Rash On Face, Asthma Attacks. Patient advised will forward to team nurse for follow up. Symptom: Rash or Redness on One Body Area Only Outcome: Schedule an appointment to be seen within 3 days Reason: Caller denied all higher acuity questions The caller accepted this outcome Pt want appt just with her provider. documented in this encounter Plan of Treatment Not on file documented as of this encounter Visit Diagnoses Not on filedocumented in this encounter Additional Health Concerns Assessment Noted Time PHQ-9 Depression Total Score: 8 06/22/19 23 3:07 PM EST documented as of this encounter Care Teams Behavioral Health Consultant Relationship Specialty Start Date End Date Karina Parson FNP [address] [place] [id number] PCP - General Family Medicine 05/14/22 documented as of this encounter
--- OUTSIDE RECORDS SUMMARY | 2024-08-06 11:48 | XMS_ITS | Encounter Summary ---
Author Organization [employer] Address [address] [place] [address] Care Team Providers Care Reservation Agent Name Role Phone [facility] Primary Care Provider [phone] Reason for Visit * Reason Onset Date Comments Med Refill 04/04/2024 Encounter Details Date Type Department Care Team ([facility] st Contact Info) Description 04/04/2024 Refill [facility] [address] [place], [place] [phone] Lydia Owusu DO [address] [place] [address] Seborrheic dermatitis Social History Tobacco Use Types Packs/Day Years [...] as of this encounter Visit Diagnoses Diagnosis Seborrheic dermatitis Unspecified seborrheic dermatitis documented in this encounter Additional Health Concerns Assessment Noted Time PHQ-9 Depression Total Score: 17 024 7:57 AM EDT documented as of this encounter Care Teams Reservation Agent Relationship Specialty Start Date End Date Karina Parson FNP [address] [place] [address] PCP - General Family Medicine 05/14/22 documented as of this encounter
--- OUTSIDE RECORDS SUMMARY | 2024-08-06 11:48 | XMS_ITS | Encounter Summary ---
Author Organization [employer] Address [address] [facility] 7t [place] [address] Care Team Providers Care Chimney Mechanic Name Role Phone Blank Karina HVAC REFRIGERATION TECHNICIAN Primary Care Provider [phone] Encounter Details Date Type Department Care Team ([facility] st Contact Info) Description 08/03/2024 Population Health Risk Score [facility] ([facility]) Department [address] [facility] [address] [place] [id number] Provider, Population Health Generic Social History Tobacco Use Types Packs/Day Years [...] documented as of this encounter Care Teams Chimney Mechanic Relationship Specialty Start Date End Date Karina Parson FNP [address] [place] [id number] PCP - General Family Medicine 05/14/22 documented as of this encounter
--- OUTSIDE RECORDS SUMMARY | 2024-08-06 11:48 | XMS_ITS | Encounter Summary ---
Author Organization [employer] Address [address] [place] [address] Care Team Providers Care Bench Patternmaker Metal Name Role Phone [facility] Primary Care Provider [phone] Reason for Visit * Reason Comments Med Refill Encounter Details Date Type Department Care Team ([facility] st Contact Info) Description 02/28/2024 Refill [facility] [address] [place], [place] [phone] Charlette Cornejo MD [address] [place], [place] [phone] Seborrheic dermatitis Social History Tobacco Use Types [...] documented as of this encounter Care Teams Bench Patternmaker Metal Relationship Specialty Start Date End Date Karina Parson FNP [address] [place] [id number] PCP - General Family Medicine 05/14/22 documented as of this encounter
--- OUTSIDE RECORDS SUMMARY | 2024-08-06 11:48 | XMS_ITS | Encounter Summary ---
Author Organization [employer] Address [address] [place] [address] Care Team Providers Care Scrubber System Attendant Name Role Phone [facility] Primary Care Provider [phone] Reason for Visit * Reason Onset Date Comments Nurse Triage 06/29/2024 Encounter Details Date Type Department Care Team ([facility] st Contact Info) Description 06/29/2024 Telephone [facility] [address] [place], [place] [phone] [facility] [address] [place], [place] [phone] Nurse Triage Social History Tobacco Use Types [...] encounter Miscellaneous Notes * Telephone Encounter - Betty Lemon RN - 06/29/2024 3:14 PM EST Called pt. Via [employer] writing manager [phone] Denice. Pt. States she has been having stomach discomfort that she usually has and has been taking her prescribed medication for reflux but, it is not helping her acid reflux. Pt. Also states that she has a rash on her stomach that is red but, pt. Has butterfly rash on her face from possible Lupus as Breading Machine Tender thinks pt. Has Lupus based from her sx and testing That they have been doing to rule out other possibilities. Rash on stomach feels warm to touch and feels irritated-rash is also red and raised. Pt does not want to put any creams on rash because she is afraid to irritate it. Protocol Used: Rash or Redness - Localized (Adult) Protocol-Based Disposition: See in Office or Video Visit Today- Pt. Only has Mondays off from work so she is requesting a Tuesday appt. Appt. Scheduled for 11am on 07/02/[address] Meek but, I will check schedule in am and if [facility] MECHANICAL PRODUCT DESIGN ENGINEER (PCP) Has any openings ,I will set pt. Up with PCP for that day. Video visit offer not recorded Positive Triage Questions: * Patient wants to be seen * Localized rash present > 7 days * All higher-acuity triage questions were negative Care Advice Discussed: * Cold Pack for Mild Itching or Mild Pain * Telephone Encounter - Indy Singleton - 06/29/2024 3:09 PM EST Symptom: Abdominal Pain - Female - Not Outcome: Schedule an appointment to be seen within 24 hours Reason: Caller denied all higher acuity questions The caller accepted this outcome. Contact pt at [phone] ([email or web address]) documented in this encounter Plan of Treatment Not on file documented as of this encounter Visit Diagnoses Not on filedocumented in this encounter Additional Health Concerns Assessment Noted Time PHQ-9 Depression Total Score: 17 024 7:57 AM EDT documented as of this encounter Care Teams Scrubber System Attendant Relationship Specialty Start Date End Date Karina Parson FNP [address] [place] [phone] PCP - General Family Medicine 05/14/22 documented as of this encounter
--- OUTSIDE RECORDS SUMMARY | 2024-08-06 11:48 | XMS_ITS | Encounter Summary ---
Author Organization [employer] Address [address] [place] [address] Care Team Providers Care Welt Pocket Machine Operator Name Role Phone [facility] Primary Care Provider [phone] Reason for Visit * Reason Comments Med Refill Encounter Details Date Type Department Care Team ([facility] st Contact Info) Description 04/07/2024 Refill [facility] [address] [place], [place] [phone] [place] [facility] [address] [place], [place] [phone] Social History Tobacco Use Types Packs/Day Years [...] documented as of this encounter Care Teams Welt Pocket Machine Operator Relationship Specialty Start Date End Date Karina Parson FNP [address] [place] [phone] PCP - General Family Medicine 05/14/22 documented as of this encounter
--- OUTSIDE RECORDS SUMMARY | 2024-08-06 11:48 | XMS_ITS | Encounter Summary ---
Author Organization [employer] Address [address] [place] [address] Care Team Providers Care Rivet Machine Operator Name Role Phone [place] [facility] Primary Care Provider [phone] Reason for Visit * Reason Onset Date Comments Med Refill 04/04/2024 Encounter Details Date Type Department Care Team ([facility] st Contact Info) Description 04/04/2024 Refill [facility] [address] [place], [place] [phone] Stephany Dye FNP [address] [place], [place] [phone] Social History Tobacco Use Types Packs/Day Years [...] documented as of this encounter Care Teams Rivet Machine Operator Relationship Specialty Start Date End Date Karina Parson FNP [address] [place] [id number] PCP - General Family Medicine 05/14/22 documented as of this encounter
--- OUTSIDE RECORDS SUMMARY | 2024-08-06 11:48 | XMS_ITS | Clinical Summary ---
Author Organization [employer] Address [address] [place] [address] Care Team Providers Care Steel Plate Caulker Name Role Phone [facility] Primary Care Provider [phone] Allergies Active Allergy Reactions Criticality Noted Date Comments Benzocaine (Topical) Unknown 06/07/2017 Lidocaine 06/08/2017 Metformin Dizziness 08/18/2017 Medications * This document contains information received from the source organization and may not represent a complete record from that organization. ferrous sulfate 325 (65 Fe) MG tablet take 1 tablet by oral route every day with vitamin C Active magnesium oxide (Mag-Ox) 400 MG tablet TAKE 1 TABLET BY MOUTH EVERYDAY AT NOON 022 Active Blood Pressure kitIndications:Ot her fatigue Use as directed 1 kit 023 Active fluticasone (Flonase Allergy Relief) 50 MCG/ACT nasal spray Administer 1 spray into each nostril in the morning. Shake gently. Before first use, prime pump. After use, clean tip and replace cap. 16 g 023 Active docusate sodium (Colace) 100 MG capsuleIndication s:Constipation, unspecified constipation type TAKE 1 CAPSULE BY MOUTH TWICE DAILY NEEDED 180 capsule 023 Active Acetaminophen Extra Strength 500 MG tablet TAKE 2 TABLETS EVERY 6 HOURS NEEDED FOR PAIN 023 Active Sodium Fluoride 5000 PPM 1.1 % paste USE DIRECTED 023 Active pantoprazole (ProtoNix) 40 MG EC tablet Take 40 mg by mouth before breakfast. Do not crush, chew, or split. Active albuterol (2.5 MG/3ML) 0.083% nebulizer solutionIndicatio ns:Wheezing INHALE 1 AMPULE USING A NEBULIZER THREE TIMES DAILY 90 mL 5 024 Active chlorthalidone (Hygroton) 25 MG tabletIndications :Primary hypertension Take 0.5 tablets (12.5 mg) by mouth in the morning. 15 tablet 11 024 2024 Active Alcohol Swabs (Alcohol Prep) padsIndications:T ype 2 diabetes mellitus with hyperglycemia, without long-term current use of insulin ([facility]) Use one pad each to prep skin prior to injection as directed 100 each Active Blood Glucose Monitoring Suppl (GNP Easy Touch Glucose Meter) deviceIndications :Type 2 diabetes mellitus with hyperglycemia, without long-term current use of insulin ([facility]) Use as directed to check blood sugar four times daily 1 each Active risperiDONE (RisperDAL) 1 MG tabletIndications :Psychiatric disorder TAKE 1 TABLET BY MOUTH AT BEDTIME 30 tablet 3 Active QUEtiapine (SEROquel) 50 MG tabletIndications :Major depressive disorder, remission status unspecified, unspecified whether recurrent Take 2 tablets (100 mg) by mouth at bedtime. 60 tablet 3 024 Active Ascorbic Acid (vitamin C) 250 MG tabletIndications :Pain TAKE 1 TABLET BY MOUTH EVERY MORNING WITH IRON 90 tablet 1 Active cholecalciferol (Vitamin D High Potency) 25 MCG (1000 UT) capsule TAKE 1 CAPSULE BY MOUTH EVERY MORNING 90 capsule Active Lancets 33G miscIndications:T ype 2 diabetes mellitus with hyperglycemia, without long-term current use of insulin ([facility]) Use as directed to check blood sugar four times daily 100 each Active glucose blood test stripIndications: Type 2 diabetes mellitus with hyperglycemia, without long-term current use of insulin ([facility]) Use as directed to check blood sugar four times daily 100 each Active gabapentin (Neurontin) 300 MG capsuleIndication s:Pain TAKE 2 CAPSULES BY MOUTH EVERY DAY AT BEDTIME 60 capsule 3 Active albuterol (Ventolin HFA) 108 (90 Base) MCG/ACT inhaler INHALE 2 PUFFS BY MOUTH EVERY 4 TO 6 HOURS NEEDED 18 g 1 024 Active Fluocinolone Acetonide Scalp 0.01 % oilIndications:Se borrheic dermatitis Massage into damp scalp daily. Cover hair and leave on for at least 4 hours 119 mL 024 Active cyclobenzaprine (Flexeril) 10 MG tabletIndications :Low back pain, unspecified back pain laterality, unspecified chronicity, unspecified whether sciatica present Take 1 tablet (10 mg) by mouth 3 times daily for 10 days. 30 tablet 024 Active lidocaine (Lidoderm) 5 % patch Apply 1 patch topically Once per day. Remove & discard patch within 12 hours or as directed by MD. 15 patch 2 024 Active tiZANidine (Zanaflex) 4 MG tablet Take 1 tablet (4 mg) by mouth 1 (one) time if needed for muscle spasms for up to 180 doses. 30 tablet 5 024 Active polyethylene glycol, PEG, 3350 (Glycolax) 17 GM/SCOOP powderIndications :Constipation Use 1 scoop mixed with 8 ounces of water Daily 238 g 1 024 Active rosuvastatin (Crestor) 20 MG tabletIndications :Mixed hyperlipidemia Take 1 tablet (20 mg) by mouth Once per day. 90 tablet 3 024 2024 Active Vivelle-Dot 0.05 MG/24HR APPLY 1 PATCH TOPICALLY EVERY 72 HOURS Active FLUoxetine (PROzac) 20 MG capsule Take 20 mg by mouth in the morning. 024 Active Lumateperone Tosylate (Caplyta) 21 MG capsule Take 21 mg by mouth at bedtime. 024 Active olmesartan (BENIcar) 20 MG tablet TAKE 1 TABLET BY MOUTH EVERY DAY 90 tablet 1 025 Active ketoconazole (NIZOral) 2 % shampooIndication s:Rash Apply topically Once per day. 120 mL 025 Active Dulaglutide 3 MG/0.5ML solution auto-injectorIndi cations:Type 2 diabetes mellitus with hyperglycemia, without long-term current use of insulin (CMS/HCC) Inject 3 mg under the skin 1 (one) time per week. 2 mL 3 025 Active metroNIDAZOLE (MetroCream) 0.75 % creamIndications: Facial rash Apply topically 2 times daily. 45 g 025 2025 Active metroNIDAZOLE (MetroCream) 0.75 % creamIndications: Facial rash Apply topically 2 times daily. 45 g 024 2024 Discontinued(R eorder (will not trigger notification to Pharmacy)) dulaglutide (Trulicity) 1.5 MG/0.5ML solution pen-injectorIndic ations:Type 2 diabetes mellitus with hyperglycemia, without long-term current use of insulin ([facility]) Inject 1.5 mg under the skin 1 (one) time per week. 4 each 024 2024 Discontinued(R eorder (will not trigger notification to Pharmacy)) ketoconazole (NIZOral) 2 % shampooIndication s:Seborrheic dermatitis APPLY TOPICALLY TWICE A WEEK 120 mL 024 2024 Discontinued Active Problems Problem Noted Date Diagnosed Date PTSD (post-traumatic stress disorder) 02/23/2024 VICTORIANO (generalized anxiety disorder) 02/23/2024 Type 2 diabetes mellitus wit h hyperglycemia, without long-term current use of insulin 10/09/2023 Overview (04/04/2024): - Trulicity 1.5 - Unable to complete foot exam d/t time constraint-->complete at follow up - Eye exam: Referral pending - Statin: No-->discuss at follow up - SANTIAGO/Arb: Yes - ASA: No Palpitations 08/16/2023 Overview (08/16/2023): Negative Holter , negative ECHO and negative stress test in 2018, EKG with NSR 2019. Reports sx have largely resolved Hemicrania continua 01/23/2023 Assessment & Plan (01/23/2023 6:56 AM EDT): Concern for IIH in the setting of reportedly new kind of headache, not the worst of her life. Unclear her prior history of brain mass and neuro imaging. Weight may be limiting factor as far as MRI, will order stat head CT for patient for immediacy of imaging. F/U after results are obtained. Hypertension 01/21/2023 Assessment & Plan (01/23/2023 6:57 AM EDT): Patient notes compliance with Olmesartan 5mg daily, needs to increase dose to 10mg. - obtain CMP today to allow for dose titration, monitoring of renal function and potassium Dysuria 10/01/2022 Overview (01/21/2023): Last Assessment & Plan: Patient reports mild dysuria Urinalysis with reflex culture ordered Pelvic pain 10/01/2022 Overview (01/21/2023): Last Assessment & Plan: Patient with chronic pelvic pain IUD removed on 09/28 Patient started her period the day after IUD removal Reports significant cramping/back pain Comfort measures reviewed, rx for Naproxen sent to pharmacy Patient rescheduled follow up with [facility] to 10/29 Patient to return to office as needed PCOS (polycystic ovarian syndrome) 08/18/2022 Asthma 08/18/2022 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 Pt reports headaches have significantly improved since last visit. She was previously followed by ?Neurology at [place] (pt unable to recall name) for hx of brain cyst. She reports she was told that the cyst shrank. Details unclear. Oligomenorrhea 08/18/2022 Restless leg syndrome 08/18/2022 Severe obesity 08/18/2022 Spina bifida occulta 08/18/2022 Overview (08/18/2022): at L5 level Chronic headaches 08/18/2022 GERD (gastroesophageal reflux disease) Abnormal uterine bleeding 08/06/2022 Overview (01/21/2023): Last Assessment & Plan: -Reviewed etiologies of abnormal uterine bleeding/oligomenorrhea, including ovulatory dysfunction due to weight, stress, PCOS, or endocrine abnormality; malignancy of uterus; or other unspecified etiology. -Labs ordered to evaluate for ovulatory dysfunction -Transvaginal US ordered to evaluate for anatomic pathology. -Pap/EMB unable to be collected due to patient intolerance of exam -Reviewed options for management including including hormonal medications and surgical options. -Plan exam under anesthesia for pap/D&C/IUD placement, given patient's risk factors for endometrial dysplasia/cancer, booking request submitted -Plan Provera withdrawal challenge, rx sent to pharmacy -Return to office in 4 weeks for follow up Last Assessment & Plan: Patient s/p exam under anesthesia with pap/EMB and IUD insertion Continues to report significant pelvic pressure and occasional spotting No fever/chills, abnormal discharge, dysuria Endometrial biopsy with proliferative endometrium, no hyperplasia, benign pathology Patient with history of chronic pelvic pain, desires definitive management with hysterectomy Discussed risk of hysterectomy at length with patient given her body habitus and history of section Recommend referral to a tertiary care center with access to bariatrics and robotic surgery Referral to [facility] placed, if patient is unable to be seen by their office, she is willing to be referred to [facility] in [place] Pelvic US ordered to assess IUD placement Rx for oxycodone sent given patient's chronic pain issues, encouraged continued use of scheduled NSAIDs and Tylenol Plan follow up in 2 weeks or sooner as indicated Subclinical hypothyroidism 07/07/2022 Overview (07/07/2022): ?? 05/2022 TSH 6.7/T4 1.1 Hyperlipidemia 07/07/2022 Occipital headache 10/21/2017 Major depressive disorder 09/09/2017 Chronic low back pain 06/08/2017 Overview (08/16/2023): Lumbar MRI on record from 2020 with mild spondylosis at L5-S1, otherwise unremarkable. Denies bladder/bowel change. No weakness/numbness/tingling Gastroesophageal reflux disease 06/08/2017 Resolved Problems Problem Noted Date Diagnosed Date Resolved Date Abnormal glucose tolerance test 08/18/2022 03/15/2024 Prediabetes 07/07/2022 10/09/2023 Overview (07/07/2022): ?? A1c 6.0% 06/22/22 Amenorrhea 06/22/2022 03/15/2024 Irregular periods 06/22/2022 03/15/2024 Spasm of muscle of lower back 06/22/2022 03/15/2024 Daytime somnolence 10/21/2017 Encounters Date Type Department Care Team Description 08/06/2024 9:45 AM EDT Office Visit [facility] [address] [facility] [place] [address] Karina Parson FNP Subclinical hypothyroidism (Primary Dx); Type 2 diabetes mellitus with hyperglycemia, without long-term current use of insulin (CMS/HCC); Rash; Facial rash; Elevated C-reactive protein (CRP); Right foot pain 08/06/2024 Travel 08/03/2024 Population Health Risk Score [facility] () Department [address] [place] [phone] Provider, Population Health Generic 07/30/[address] [facility] [address] [place] [address] Karina Parson FNP Pre-visit Planning (SDOH screening negative and tobacco screening negative) 07/01/[address] [facility] [address] [place] [address] Lydia Owusu DO Psychiatric disorder 07/01/[address] [facility] [address] [place] [address] Karina Parson FNP Psychiatric disorder 06/29/[address] [facility] [address] [place] [address] Karina Parson FNP Nurse Triage 05/30/[address] [facility] [address] [place] [address] Karina Parson FNP Exposure to pertussis 05/21/[address] [facility] [address] [place] [address] Divine Mast MD No Show 05/18/[address] [facility] [address] [place] [address] Charlette Cornejo MD No Show 05/18/2024 Telephone [facility] [address] [place] [address] Andra Smiley MA Chart Prep 05/11/[address] [facility] [address] [place] [address] [facility] Mixed hyperlipidemia (Primary Dx) 05/09/[address] [facility] [address] [place] [address] Joy Beard, HIEN Results 05/09/2024 Patient Outreach [facility] [address] [place] [address] BlankKarina allen HOOP COILING MACHINE OPERATOR Pre-visit Planning ([facility] screening completed on 10/05/2023) from Last 3 Months Immunizations Name Administration Dates Next Due Tdap 05/31/2017 Social History Tobacco Use Types Packs/Day Years Used Date Smoking Tobacco: Former Cigarettes Passive Smoke Exposure: Past Smokeless Tobacco: Never Tobacco Cessation:Counseling Given: Not Answered Alcohol Use Standard Drinks/Week Comments Never 0 (1 standard drink = 0.6 oz pur e alcohol) Depression Answer Date Recorded Patient Health Questionnaire-9 Score 16 08/06/2024 Patient Health Questionnaire-9 Score 16 08/06/2024 Last PHQ-9: Questionnaire Data Not on file 0 08/06/2024 Housing Stability Answer Date Recorded What is [...] Date Recorded Patient Health Questionnaire-2 Score 4 08/06/2024 Internet Access Answer Date Recorded Internet Access Q1 Yes 07/30/2024 Internet Access Q2 Not on file 07/30/2024 Comments No Sex and Gender Information Value Date Recorded Sex Assigned at Female 03/22/2022 10:32 AM EDT Legal Sex Female 10:32 AM EDT Gender Identity Female 03/22/2022 10:32 AM EDT Sexual Orientation Straight 03/22/2022 10 :32 AM EDT Last Filed Vital Signs Vital Sign Reading Time Taken Comments Blood Pressure 134/86 08/06/2024 9:45 AM EDT Pulse 84 08/06/2024 9:45 AM EDT Temperature 37.3 ??C (99.1 ??F) 08/06/2024 9:45 AM ED T Respiratory Rate 20 08/06/2024 9:45 AM EDT Oxygen Saturation 98% 01/11/2024 3:17 PM EDT Inhaled Oxygen Concentration - - Weight 157 kg (346 lb) 08/06/2024 9:45 AM EDT Height 157.5 cm (5' 2 ) 08/06/2024 9:45 AM EDT Body Mass Index 63.28 08/06/2024 9:45 AM EDT Plan of Treatment Health Maintenance Due Date Last Done Comments Dental Oral Exam 1990 Dental Prophylaxis 1990 Dental X-Ray: Bitewings 1990 Dental X-Ray: Full Mouth 1990 HIV Screening 1990 Diabetes: Foot Exam 2000 Eye Exam 2000 Alcohol/Substance Use Screening 2002 Family Planning (PISQ) 2005 Hepatitis C Screening 2008 Hepatitis B Vaccines (1 of 3 - 19+ 3-dose series) 2009 Pneumococcal Vaccine: Pediatrics (0 to 5 Years) and At-Risk Patients (6 to 49) Years) (1 of 2 - PCV) 2009 COVID-19 Vaccine ( - season) 2024 Influenza Vaccine (#1) 2024 Depression Monitoring (PHQ-9) 02/06/2025 08/06/2024, 08/06/2024 Diabetes: Hemoglobin A1C 02/06/2025 025, 05/09/2024, 08/15/2023, Additional history exists Diabetes: Urine Protein Screening 05/09/2025 05/09/2024 Lipid Panel 05/09/2025 05/09/2024, 05/3 , 08/25/2022, Additional history exists SDOH Screening 07/30/2025 07/30/2024 Depression Screening 08/06/2025 08/06/2024, 08/07/19 Tobacco Screening 08/06/2025 08/06/2024 DTaP/Tdap/Td Vaccines (2 - Td or Tdap) 05/31/2027 05/31/2017 Zoster Vaccines (1 of 2) 2040 RSV Patients and Patients Aged 60 years or older (1 - 1-dose 75+ series) 2065 HIB Vaccines Aged Out No longer eligi ble based on patient's age to complete this topic HPV Vaccines Aged Out No longer eligi ble based on patient's age to complete this topic Hepatitis A Vaccines Aged Out No long er eligible based on patient's age to complete this topic IPV Vaccines Aged Out No longer eligi ble based on patient's age to complete this topic Meningococcal Vaccine Aged Out No emlissa mamta eligible based on patient's age to complete this topic RSV under 20 months Aged Out No longe r eligible based on patient's age to complete this topic Rotavirus Vaccines Aged Out No longer eligible based on patient's age to complete this topic Procedures Procedure Name Priority Date/Time Associated Diagnosis Comments XR FOOT 3+ VIEWS RIGHT Routine 10:29 AM EDT Right foot pain POCT GLUCOSE Routine 08/06/2024 9:55 AM EDT Type 2 diabetes mellitus with hyperglycemia, without long-term current use of insulin ([facility]) POCT GLYCATED HEMOGLOBIN, TOTAL Routine 08/06/2024 9:55 AM EDT Type 2 diabetes mellitus with hyperglycemia, without long-term current use of insulin ([facility]) ALBUMIN, RANDOM URINE W/CREATININE Routine 05/09/2024 9:00 AM EST Type 2 diabetes mellitus with hyperglycemia, without long-term current use of insulin (CMS/HCC) COMPREHENSIVE METABOLIC PANEL Routine 05/09/2024 9:00 AM EST Type 2 diabetes mellitus with hyperglycemia, without long-term current use of insulin (CMS/HCC) LIPID PANEL, STANDARD Routine 05/09/2024 9:00 AM EST Type 2 diabetes mellitus with hyperglycemia, without long-term current use of insulin (CMS/[facility]) HEMOGLOBIN A1C Routine 05/09/2024 9:00 AM EST Type 2 diabetes mellitus with hyperglycemia, without long-term current use of insulin ([facility]) from Last 3 Months Results * XR Foot 3+ Views Right (08/06/2024 10:29 AM EDT) Anatomical Region Laterality Modality Lower Extremities, Foot Right Radiogra phic Imaging 08/06/2024 10:2 9 AM EDT Narrative 08/06/2024 11:01 AM EDT ?[facility] ?[address] ?[place] [address] ?XRay Report ? Signed ? Patient: Gatesaileen Andre,Mydalis ?MR#: [id number] ? : 1990 ?Acct:[id number] ? Age/Sex: 34 / F ?ADM Date: 08/06/24 ? Loc: HO.HHCX ? Attending Dr: Karina Parson HOOP COILING MACHINE OPERATOR ? Ordering Physician: Karina Parson HOOP COILING MACHINE OPERATOR ?? Date of Service: 08/06/24 ?? Procedure(s): XR foot RT min 3V ?? Accession Number(s): [id number] ? cc: BlankKarina allen HOOP COILING MACHINE OPERATOR ? EXAMINATION: ??XR FOOT 3 OR MORE VIEWS RIGHT ? HISTORY: Acute on chronic right heel pain r/o stress fracture ? COMPARISON: There are no prior studies available for comparison. ? FINDINGS: ? Three views of the right foot are submitted. ??Osseous mineralization is ?? normal. ??There is no fracture or dislocation. ??The joint spaces are ?? preserved. There are calcaneal spurs at the plantar aspect and at the ?? insertion of the Achilles tendon. ??The soft tissues are unremarkable. ? XR/XR foot RT min 3V ?? IMPRESSION: ? Calcaneal spurs as described. Otherwise unremarkable examination of the ?? right foot. ? Electronically signed by: ??Guru Dugan MD ??08/06/2024 10:59 AM EDT ? Dictated By: ?Guru Dugan MD ? Signed By: ?<Electronically signed by Guru Dugan MD in OV> ?08/06/24 1059 ? DD/ 1029 ? TD/TT: 08/06/24 1030 ? White Washer Piler: ? Procedure Note Jaqueline Madyson - 08/06/[address] [address] XRay Report Signed Patient: Tommie PazMR#: [id number] : 1990Acct:[id number] Age/Sex: 34 / FADM Date: 08/06/24 Loc: HO.HHCX Attending Dr: Karina Parson HOOP COILING MACHINE OPERATOR Ordering Physician: Karina Parson Date of Service: 08/06/24 Procedure(s): XR foot RT min 3V Accession Number(s): [id number] cc: Karina Parson EXAMINATION: XR FOOT 3 OR MORE VIEWS RIGHT HISTORY: Acute on chronic right heel pain r/o stress fracture COMPARISON: There are no prior studies available for comparison. FINDINGS: Three views of the right foot are submitted. Osseous mineralization is normal. There is no fracture or dislocation. The joint spaces are preserved. There are calcaneal spurs at the plantar aspect and at the insertion of the Achilles tendon. The soft tissues are unremarkable. XR/XR foot RT min 3V IMPRESSION: Calcaneal spurs as described. Otherwise unremarkable examination of the right foot. Electronically signed by: Guru Dugan MD 08/06/2024 10:59 AM EDT Dictated By: Guru Dugan MD Signed By: <Electronically signed by Guru Dugan MD in OV> 08/06/24 1059 DD/ 1029 TD/TT: 08/06/24 1030 White Washer Piler: [facility] IMG XR PROCEDURES Final Resul t * POCT HGB A1C (08/06/2024 9:55 AM EDT) Hemoglobin A1C 5.8 4.0 - 6.0 % QC Media Lot # [id number] Lot# Expiration Date ,528 Blood 08/06/2024 9:55 AM EDT Result [facility] POINT OF CARE TEST ENTER/EDIT ORDERABLES Final Result * POCT Glucose (08/06/2024 9:55 AM EDT) Glucose Blood, POC 106 60 - 200 mg/dL QC Media Lot # [id number] Lot# Expiration Date Blood Capillary blood specimen / Unknown 08/06/2024 9:55 AM EDT Result [facility] POINT OF CARE TEST ENTER/EDIT ORDERABLES Final Result * Albumin, Random Urine W/Creatinine (05/09/2024 9:00 AM EST) Creatinine, Urine 231.56 mg/dL [facility] Microalbumin Urine 11.0 mg/L [facility] Microalbum Creatinine Ratio Ur 4.7 <30 ug/mg cr [facility] Comment:Albumin/Creatinine R atio Reference Ranges: Normal: < 30 ug/mg creatinine Microalbuminuria: 30 - 300 ug/mg creatinineClinical Albuminuria: > 300 ug/mg creatinine Urine 05/09/2024 9:00 AM EST 05/09/2024 11:40 AM EST [facility] URINE ORDERABLES Final Re sult [facility] [address] [place] [address] [phone] * Hemoglobin A1c (05/09/2024 9:00 AM EST) Hemoglobin A1c 5.7 <6.0 % [facility] Comment:Hemoglobin A1C Refer ence Range Adults: 4.8 - 6.0 % Non diabetic: < 6.0 % Goal: < 7.0 %Additional Action Suggested: > 8.0 %Note: Hemoglobin A1c results are invalid for patients with abnormal amounts of HbF. Blood transfusions may impact the HbA1c concentration in the patient sample. Estimated Average Glucose 117 mg/dL [facility] Comment:eAG = Estimated ave rage glucose which is %A1C expressed asaverage glucose, using the formula of the [id number] Glucose study (ADAG), Diabetes Care, Vol.31,#8,Dec. 2007 Blood Venous blood specimen / Unknown 05/09/2024 9:00 AM EST 05/09/2024 11:52 AM EST [facility] BLOOD ORDERABLES Final Re sult [facility] [address] [place] [phone] * (ABNORMAL) Lipid Panel, Standard (05/09/2024 9:00 AM EST) Triglycerides 146 <150 mg/dL [facility] Comment:Desirable Triglyceri de: less than 150 mg/dLBorderline High Triglyceride 150-199 mg/dLHigh Triglyceride: 200-499 mg/dLVery High Triglyceride: greater than or equal to 5OO mg/dL Cholesterol 230(H) <200 mg/dL [facility] Comment:Desirable Cholestero l: less than 200 mg/dLBorderline High Cholesterol: 200-239 mg/dLHigh Cholesterol: greater than 239 mg/dL LDL Cholesterol Calculated 161(H) <100 mg/dL [facility] Comment:Desirable LDL: less than 100 mg/dLNear Optimal/Above Optimal LDL: 110- 129 mg/dLBorderline High LDL: 130-159 mg/dLHigh LDL: 160-189 mg/dLVery High LDL: greater than or equal to 190 mg/dL HDL Cholesterol 40(L) >40 mg/dL [facility] Comment:Desirable HDL: great er than 40 mg/dL Note: This HDL assay may give artificially low results in patients with liver disease. Blood Venous blood specimen / Unknown 05/09/2024 9:00 AM EST 05/09/2024 11:52 AM EST [facility] BLOOD ORDERABLES Final Re sult [facility] [address] [place] [phone] [phone] * (ABNORMAL) Comprehensive Metabolic Panel (05/09/2024 9:00 AM EST) Sodium 138 135 - 145 mmol/L [facility] Potassium 3.8 3.3 - 5.1 mmol/L [facility] Chloride 105 96 - 108 mmol/L [facility] Carbon Dioxide 28 22 - 29 mmol/L [facility] Anion Gap 9(L) 12 - 20 [facility] Urea Nitrogen (BUN) 13 9 - 16 mg/dL [facility] Creatinine, Serum 0.75 0.5 - 1.4 mg/dL [facility] Estimated Glomerular Filt Rate >60 [facility] Comment:Chronic Kidney Disea se: Estimated GFR < 60 mL/min/[id number] Kidney Disease: Estimated GFR < 15 mL/min/1.73m2 Glucose 80 60 - 115 mg/dL [facility] Calcium 9.0 8.4 - 10.2 mg/dL [facility] Bilirubin, Total 0.4 0.0 - 1.0 mg/dL [facility] Aspartate Amino Transferase 26 5 - 31 U/L [facility] Alanine Aminotransferase 18 0 - 31 U/L [facility] Total Protein 7.7 6.5 - 8.0 g/dL [facility] Albumin Level 4.1 3.5 - 5.0 g/dL [facility] Alkaline Phosphatase 50 39 - 117 U/L [facility] Blood Venous blood specimen / Unknown 05/09/2024 9:00 AM EST 05/09/2024 11:52 AM EST [facility] HOOP COILING MACHINE OPERATOR LAB BLOOD ORDERABLES Final Re sult [facility] [address] [place] [address] [phone] from Last 3 Months Insurance [employer] C[employer] STAND ADULT * Guarantor: Tommie Paz Account Type Relation to Patient Date of Phone Billing Address Personal/Family Self Harika Mcgarry [address] [address] * Guarantor: Tommie Paz Account Type Relation to Patient Date of Phone Billing Address Personal/Family Self Joby.Hilaria Mcgarry [address] [address] Care Teams Steel Plate Caulker Relationship Specialty Start Date End Date Karina Parson FNP [address] [place] [id number] PCP - General Family Medicine 05/14/22
--- OUTSIDE RECORDS SUMMARY | 2024-08-06 11:48 | XMS_ITS | Encounter Summary ---
Author Organization [employer] Address [address] 7[address] [place] [address] Care Team Providers Care Emergency Medicine Physician Assistant Name Role Phone Karina Parson [facility] Primary Care Provider [phone] Encounter Details Date Type Department Care Team ([facility] st Contact Info) Description 02/23/2023 Orders Only [facility] MED[facility]INE [address] [place], [place] [phone] Charlette Cornejo MD [address] [place], [place] [phone] Social History Tobacco Use Types Packs/Day Years Used Date Smoking Tobacco: Former Cigarettes Passive Smoke Exposure: Past Smokeless Tobacco: Never Alcohol Use Standard Drinks/Week Comments Never 0 (1 standard drink = 0.6 oz pur e alcohol) Depression Answer Date Recorded Patient Health Questionnaire-9 Score 8 06/22/2022 Depression Answer Date Recorded Patient Health Questionnaire-2 [...] documented as of this encounter Care Teams Emergency Medicine Physician Assistant Relationship Specialty Start Date End Date Karina Parson FNP [address] [place] [address] PCP - General Family Medicine 05/14/22 documented as of this encounter
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
--- OUTSIDE RECORDS SUMMARY | 2024-08-06 11:48 | XMS_ITS | Encounter Summary ---
Author Organization [employer] Address [address] 7[address] [place] [address] Care Team Providers Care Electrician Helper Powerhouse Name Role Phone [facility] Primary Care Provider [phone] Reason for Visit * Reason Onset Date Comments Nurse Triage 03/20/2024 Encounter Details Date Type Department Care Team ([facility] st Contact Info) Description 03/20/2024 Telephone [facility] MEDICINE [address] [place], [place] [phone] [facility] [address] [place], [place] [phone] Nurse Triage Social History Tobacco Use Types [...] encounter Miscellaneous Notes * Telephone Encounter - Ashley Short RN - 03/20/2024 9:16 AM EDT Triage call Pt reports low back pain which radiates to right leg all the way to the right foot. Pt reports pain, numbness, tingling in right leg. Pt has difficulty walking and will have a limp a times. Pt is taking flexeril 10mg and naproxen 500mg reporting little to no relief from pain. Pt has tried ice/heat without relief. Pt reports this pain had gone away for some time and is back now and worse than before. ASK appt with PCP [place] 03/30/24 @ 1100am. Pt agrees with disposition and home care reviewed. Insurance is verified as active prior to booking. Protocol Used: Leg Pain (Adult) Protocol-Based Disposition: See in Office or Video Visit within 2 Weeks Video visit not offered Positive Triage Question: * Leg pain or muscle cramp is a chronic symptom (recurrent or ongoing AND lasting > 4 weeks) * All higher-acuity triage questions were negative Care Advice Discussed: * Reassurance and Education - Leg Pain * Pain Medicines * Pain Medicines - Extra Notes and Warnings * Reasons To Call Back - Moderate pain (such as limping) lasts more than 3 days - Mild pain lasts more than 7 days - Signs of infection occur (such as spreading redness, warmth, fever) - You become worse * Use a Cold Pack for Pain * Use Heat After 48 Hours for Pain * Telephone Encounter - Dolores Amelia - 03/20/2024 8:57 AM EDT Symptom: Leg Pain - Not From Injury Outcome: Schedule an urgent appointment (within 1 hour) or talk to a nurse or provider soon Reason: Trouble walking The caller accepted this outcome. documented in this encounter Plan of Treatment Not on file documented as of this encounter Visit Diagnoses Not on filedocumented in this encounter Additional Health Concerns Assessment Noted Time PHQ-9 Depression Total Score: 17 024 7:57 AM EDT documented as of this encounter Care Teams Electrician Helper Powerhouse Relationship Specialty Start Date End Date Karina Parson FNP [address] [place] [id number] PCP - General Family Medicine 05/14/22 documented as of this encounter
--- OUTSIDE RECORDS SUMMARY | 2024-08-06 11:48 | XMS_ITS | Encounter Summary ---
Author Organization [employer] Address [address] [facility] 7t [place] [address] Care Team Providers Care Manager Of Care Name Role Phone [facility] Primary Care Provider [phone] Reason for Visit * Reason Onset Date Comments Triage 07/30/2022 Encounter Details Date Type Department Care Team ([facility] st Contact Info) Description 07/30/2022 Telephone [facility] MEDICINE 230 [place], [place] [phone] [facility] 230 [place], [place] [phone] Triage Social History Tobacco Use Types Packs/Day Years Used Date Smoking Tobacco: Never Smokeless Tobacco: Never Alcohol Use Standard Drinks/Week [...] Orientation Straight 03/22/2022 10 :32 AM EDT COVID-19 Exposure Response Date Recorded In the last 10 days, have yo u been in contact with someone who was confirmed or suspected to have Coronavirus/COVID-19? No / Unsure 07/05/2022 3:52 PM EST documented as of this encounter Miscellaneous Notes * Telephone Encounter - Neishadamion Baronrodney Mott - 07/30/2022 2:01 PM EST Symptoms: Menstrual Cramps, Pain - Severe, Vaginal Bleeding - Not Outcome: Talk to a nurse or provider within 15 minutes Reason: Heavy bleeding The caller accepted this outcome Pleas contact pt at [phone] Croatian Speaker documented in this encounter Plan of Treatment Not on file documented as of this encounter Visit Diagnoses Not on filedocumented in this encounter Additional Health Concerns Assessment Noted Time PHQ-9 Depression Total Score: 8 06/22/19 23 3:07 PM EST documented as of this encounter Care Teams Manager Of Care Relationship Specialty Start Date End Date Karina Parson FNP [address] [place] [phone] PCP - General Family Medicine 05/14/22 documented as of this encounter
--- OUTSIDE RECORDS SUMMARY | 2024-08-06 11:49 | XMS_ITS | Encounter Summary ---
Author Organization [employer] Address [address] [place] [address] Care Team Providers Care Tin Roller Hot Mill Name Role Phone [place] [facility] Primary Care Provider [phone] Reason for Visit * Reason Comments Med Refill Encounter Details Date Type Department Care Team ([facility] st Contact Info) Description 02/28/[address] [facility] [address] [place], [place] [phone] Stephany Dye FNP [address] [place] [address] Low back pain, unspecified back pain laterality, unspecified chronicity, unspecified whether sciatica present Social History Tobacco Use Types Packs/Day Years [...] as of this encounter Visit Diagnoses Diagnosis Low back pain, unspecified back pain laterality, unspecified chronicity, unspecified whether sciatica present documented in this encounter Additional Health Concerns Assessment Noted Time PHQ-9 Depression Total Score: 17 024 7:57 AM EDT documented as of this encounter Care Teams Tin Roller Hot Mill Relationship Specialty Start Date End Date Karina Parson FNP [address] [place] [id number] PCP - General Family Medicine 05/14/22 documented as of this encounter
--- OUTSIDE RECORDS SUMMARY | 2024-08-06 11:49 | XMS_ITS | Encounter Summary ---
Author Organization [facility] Address [address] [place] [address] Care Team Providers Care Direct Mail Marketer Name Role Phone Unavailable Primary Care Provider Unavailabl e Reason for Visit * Reason Comments Behavioral Health Medication Management Encounter Details Date Type Department Care Team (Latest Contact Info) Description 07/24/2024 11:30 AM EST Behavioral Health Visit [facility] [address] [place] [phone] Brian Flores, PMHNP [address] [facility] [place] [phone] Bipolar affective disorder, currently depressed, moderate (HCC-CMS) (Primary Dx); PTSD (post-traumatic stress disorder) Social History Tobacco Use Types Packs/Day Years Used Date Smoking Tobacco: Never Smokeless Tobacco: Never Alcohol Use Standard Drinks/Week Comments Yes 0 [...] AM PDT Sexual Orientation Not on file documented as of this encounter Progress Notes * Brian Flores, MELANIE - 07/24/2024 5:09 PM ESTAssociated Problem(s): PTSD (post-traumatic stress disorder) A: symptomatic, mixed mood. No safety concerns. P: prazosin 1-2 mg po qhs for nightmares. Refer to therapy. * MELANIE Holden - 07/24/2024 5:08 PM ESTAssociated Problem(s): Bipolar disorder, unspecified ([facility]) Plan: increase vraylar 4.5 mg po qam, dc trazodone, ineffective. Add prazosin 1-2 mg po qhs for sleep and nightmares. Pt to pursue therapy locally. * KWAN HoldenP - 07/24/2024 11:33 AM EST [facility] OFFICE VISIT Name: Tommie Andre : 1990 PCP: No primary care provider on file. ASSESSMENT AND PLAN Problem List Items Addressed This Visit Bipolar disorder, unspecified (HCC-CMS) - Primary (Chronic) Plan: increase vraylar 4.5 mg po qam, dc trazodone, ineffective. Add prazosin 1-2 mg po qhs for sleep and nightmares. Pt to pursue therapy locally. Relevant Medications cariprazine 4.5 mg cap PTSD (post-traumatic stress disorder) A: symptomatic, mixed mood. No safety concerns. P: prazosin 1-2 mg po qhs for nightmares. Refer to therapy. Relevant Medications cariprazine 4.5 mg cap prazosin (MINIPRESS) 1 mg capsule Follow-up: Return in about 2 weeks (around 08/07/2024). BRIAN FLORES, HNP 07/24/2024 11:33 AM EST REASON FOR VISIT Chief Complaint Patient presents with Behavioral Health Medication Management HPI/ROS Last visit 06/19/24. Had been adherent with vraylar 3 mg po qam. Ran out 1 week ago. Having panic attacks, hard to go to store. Daily attacks. Panic att- head tilts back, only during an attack. Xs 1. Never in the absence of PA. Quit new job at [employer], felt unable to perform d/t anxiety. Left after 3 days. Sleep- trazodone 100 mg no longer effective [xs 3 nights, only]. Delayed onset up to 5 hrs, sleeping 1 hr only. Can feel on top of the world or down on the ground. Pushes self to get things done, Is showering, caring for self and home. Appetite is fair 10 yo inga with medical illness, dx unclear. +nightmares sleep dysregulation Movies with kids helps Pt to look into therapy at [facility] PHQ No data to display Review of Systems Neurological: Negative for seizures. Psychiatric/Behavioral: Positive for dysphoric mood, hallucinations and sleep disturbance. Negativefor self-injury and suicidal ideas. The patient is nervous/anxious. The patient is not hyperactive. VITALS: There were no vitals filed for this visit. Physical Exam Psychiatric: Attention and Perception: Attention and perception normal. Mood and Affect: Mood is anxious and depressed. Speech: Speech normal. Behavior: Behavior normal. Behavior is cooperative. Thought Content: Thought content normal. Cognition and Memory: Cognition and memory normal. Judgment: Judgment normal. Visit conducted via Telehealth with video.. Telehealth Provided in Patient's Home. TELEMEDICINE ATTESTATION I verified the patient by the patients name, date of and insurance ID. I disclosed my identity and credentials. I reviewed, as appropriate, relevant history and medical records with the patient. I determined that I could provide the same standard of care and if I determined I could not do that during the telemedicine visit, I directed the patient to seek in person care. I discussed confidentiality rights with the patient. I disclosed my location and discussed the patient location. I discussed how the patient can see a clinician in-person in the event of an emergency or as otherwise needed. . MELANIE DIEGO 07/24/2024 documented in this encounter Plan of Treatment Upcoming Encounters Date Type Department Care Team ([facility] Contact Info) Description 08/07/2024 9:00 AM EDT Behavioral Health Visit [facility] [address] [place] [address] [place] [phone] Brian Flores, KWANP [address] [facility] [place] [phone] documented as of this encounter Visit Diagnoses Diagnosis Bipolar affective disorder, currently depressed, moderate ([facility])- Primary Bipolar I disorder, most recent episode (or current) depressed, moderate PTSD (post-traumatic stress disorder) Posttraumatic stress disorder documented in this encounter
--- OUTSIDE RECORDS SUMMARY | 2024-08-06 11:49 | XMS_ITS | Encounter Summary ---
Author Organization [employer] Address [address] [facility] [place] [address] Care Team Providers Care Hvac Operations Technician Name Role Phone [facility] Primary Care Provider [phone] Encounter Details Date Type Department Care Team (Latest Contact Info) Description 08/06/2024 Travel Social History Tobacco Use Types Packs/Day Years [...] Assessment Noted Time PHQ-9 Depression Total Score: 16 025 9:55 AM EDT documented as of this encounter Care Teams Hvac Operations Technician Relationship Specialty Start Date End Date Karina Parson FNP [address] [place] [address] PCP - General Family Medicine 05/14/22 documented as of this encounter
--- OUTSIDE RECORDS SUMMARY | 2024-08-06 11:49 | XMS_ITS | Encounter Summary ---
Author Organization [employer] Address [address] [facility] 7t [place] [address] Care Team Providers Care Biomedical Engineering Aide Name Role Phone [facility] Primary Care Provider [phone] Reason for Visit * Reason Comments Follow-up Encounter Details Date Type Department Care Team (Latest Contact Info) Description 08/06/2024 9:45 AM EDT Office Visit [facility] [address] [place], [place] [phone] [facility] [address] [place], [place] [phone] Subclinical hypothyroidism (Primary Dx); Type 2 diabetes mellitus with hyperglycemia, without long-term current use of insulin (CMS/HCC); Rash; Facial rash; Elevated C-reactive protein (CRP); Right foot pain Social History Tobacco Use Types Packs/Day Years [...] AM EDT documented as of this encounter Last Filed Vital Signs Vital Sign Reading Time Taken Comments Blood Pressure 134/86 08/06/2024 9:45 AM EDT Pulse 84 08/06/2024 9:45 AM EDT Temperature 37.3 ??C (99.1 ??F) 08/06/2024 9:45 AM ED T Respiratory Rate 20 08/06/2024 9:45 AM EDT Oxygen Saturation - - Inhaled Oxygen Concentration - - Weight 157 kg (346 lb) 08/06/2024 9:45 AM EDT Height 157.5 cm (5' 2 ) 08/06/2024 9:45 AM EDT Body Mass Index 63.28 08/06/2024 9:45 AM EDT documented in this encounter Miscellaneous Notes * Patient Education Note - [facility], GENERAL ADJUSTER - 08/06/2024 2:19 PM EDT Images from the original note were not included. Patient Education Table of Contents Exercises for Plantar Fasciitis To view videos and all your education online visit, [email or web address] or scan this QR code with your smartphone. Access to this content will in one year. Exercises for Plantar Fasciitis Foot and leg exercises can help if you have plantar fasciitis. Only do the exercises you were told to do. Make sure you know how to do the exercises safely. Follow the steps below. It's normal to feel milddiscomfort. Stop if you feel pain or your pain gets worse. Do not start these exercises until told by your health care provider. Stretching and aefaw-ds-suazqj exercises These exercises warm up your muscles and joints. They also help with movement and flexibility of your foot. They can help with pain. Plantar fascia stretch This exercise will stretch your plantar fascia, which is a band of thick tissue on the bottom of your foot. 1. Sit with your left / right leg crossed over your other knee. Hold your heel with one hand with that thumb near your arch. With your other hand, hold your toes. Gently pull your toes back toward the top of your foot. You should feel a stretch on the bottom of your toes, on the bottom of your foot, or both. Hold this stretch for seconds. Slowly let go of your toes. Go back to the starting position. Repeat times. Do this exercise times a day. Gastroc stretch, standing This exercise is called an upper calf, or gastroc, stretch. It stretches the muscles in the back ofyour upper calf. 1. Stand with your hands against a wall. Extend your left / right leg behind you. Bend your front knee just a little. Keep your heels on the floor, your toes facing forward, and your back knee straight. Shift your weight toward the wall. Do not arch your back. You should feel a gentle stretch in your upper calf. Hold this position for seconds. Repeat times. Do this exercise times a day. Soleus stretch, standing This exercise is called a lower calf, or soleus, stretch. It stretches the muscles in the back of your lower calf. 1. Stand with your hands against a wall. Extend your left / right leg behind you, and bend your front knee slightly. Keep your heels on the floor and your toes facing forward. Bend your back knee and shift your weight slightly over your back leg. You should feel a gentle stretch deep in your lower calf. Hold this position for seconds. Repeat times. Do this exercise times a day. Gastroc and soleus stretch, standing step This exercise stretches the muscles in the back of your lower leg. This includes your gastroc and soleus muscles. 1. Stand with the ball of your left / right foot on the front of a step. The ball of your foot is on the walking surface, right under your toes. Keep your other foot firmly on the same step. Hold on to the wall or a railing for balance. Slowly lift your other foot, letting your body weight press your heel down over the edge of the front of the step. Keep your knee straight and unbent. You should feel a stretch in your calf. Hold this position for seconds. Return both feet to the step. Repeat this exercise with a slight bend in your left / right knee. Repeat times with your left / right knee straight and times with your left / right knee bent. Do this exercise times a day. Balance exercise This exercise builds your balance and strength control of your arch. It helps take pressure off your plantar fascia. Single leg stand If this exercise is too easy, you can try it with your eyes closed or while standing on a pillow. 1. Without shoes, stand near a railing or in a doorway. You may hold on to the railing or doorway as needed. Stand on your left / right foot. Keep your big toe down on the floor. Lift the arch of your foot. You should feel a stretch across the bottom of your foot and arch. Do not let your foot roll inward. Hold this position for seconds. Repeat times. Do this exercise times a day. This information is not intended to replace advice given to you by your health care provider. Make sure you discuss any questions you have with your health care provider. Document Released: 2006-05-09 Document Updated: 2023-10-10 Document Reviewed: 2023-10-10 Elsevier Patient Education ? 2024 [employer] documented in this encounter Plan of Treatment Scheduled Orders Name Type Priority Associated Diagnoses Orde r Schedule TSH W/Reflex to FT4 Lab Routine Subclinical hypothyroidism Expected: 08/06/2024 (Approximate), Expires: 08/06/2025 C-reactive Protein Lab Routine Elevated C-reactive protein (CRP) Expected: 08/06/2024 (Approximate), Expires: 08/06/2025 Sed Rate by Modified [facility] Lab Routine Elevated C-reactive protein (CRP) Expected: 08/06/2024, Expires: 08/06/2025 documented as of this encounter Procedures Procedure Name Priority Date/Time Associated Diagnosis Comments XR FOOT 3+ VIEWS RIGHT Routine 08/06/2024 10:29 AM EDT Right foot pain POCT GLYCATED HEMOGLOBIN, TOTAL Routine 08/06/2024 9:55 AM EDT Type 2 diabetes mellitus with hyperglycemia, without long-term current use of insulin ([facility]) POCT GLUCOSE Routine 08/06/2024 9:55 AM EDT Type 2 diabetes mellitus with hyperglycemia, without long-term current use of insulin ([facility]) documented in this encounter Results * XR Foot 3+ Views Right (08/06/2024 10:29 AM EDT) Anatomical Region Laterality Modality Lower Extremities, Foot Right [facility] 08/06/2024 10:2 9 AM EDT Narrative 08/06/2024 11:01 AM EDT ?[facility] ?[address] ?[place] [address] ?XRay Report ? Signed ? Patient: Kody Andre,Mydalis ?MR#: [id number] ?? [id number] ? : 1990 ?Acct:[id number] ? Age/Sex: 34 / F ?ADM Date: 03/17/25 ? Loc: HO.HHCX ? Attending Dr: Karina GORDILLO ? Ordering Physician: Karina ParsonP ?? Date of Service: 08/06/24 ?? Procedure(s): XR foot RT min 3V ?? Accession Number(s): [id number] ? cc: Karina Parson GENERAL ADJUSTER ? EXAMINATION: ??XR FOOT 3 OR MORE [...] DD/ 1029 ? TD/TT: 08/06/24 1030 ? Body Corporate Manager: ? Procedure Note Madyson Parsons - 08/06/2024 [place] [address] XRay Report Signed Patient: Tommie Paz#: [id number] : 1990Acct:[id number] Age/Sex: 34 / FADM Date: 08/06/24 Loc: HO.HHCX Attending Dr: Karina Parson GENERAL ADJUSTER Ordering Physician: Karina Parson Date of Service: 08/06/24 Procedure(s): XR foot RT min 3V Accession Number(s): [id number] cc: Karina Parson EXAMINATION: XR FOOT 3 [...] 08/06/24 1059 DD/ 1029 TD/TT: 08/06/24 1030 Body Corporate Manager: [facility] IMG XR PROCEDURES Final Resul t * POCT Glucose (08/06/2024 9:55 AM EDT) Glucose Blood, POC 106 60 - 200 mg/dL QC Media Lot # [id number] Lot# Expiration Date [id number] Blood Capillary blood specimen / Unknown 08/06/2024 9:55 AM EDT [facility] POINT OF CARE TEST ENTER/EDIT ORDERABLES Final Result * POCT HGB A1C (08/06/2024 9:55 AM EDT) Hemoglobin A1C 5.8 4.0 - 6.0 % QC Media Lot # [id number] Lot# Expiration Date ,990,051 Blood 08/06/2024 9:55 AM EDT [facility] POINT OF CARE TEST ENTER/EDIT ORDERABLES Final Result documented in this encounter Visit Diagnoses Diagnosis Subclinical hypothyroidism- Primary Other specified acquired hypothyroidism Type 2 diabetes mellitus with hyperglycemia, without long-term current use of insulin ([facility]) Rash Rash and other nonspecific skin eruption Facial rash Elevated C-reactive protein (CRP) Right foot pain Pain in soft tissues of limb documented in this encounter Additional Health Concerns Assessment Noted Time PHQ-9 Depression Total Score: 16 025 9:55 AM EDT documented as of this encounter Care Teams Biomedical Engineering Aide Relationship Specialty Start Date End Date Karina Parson FNP [address] [place] [address] PCP - General Family Medicine 05/14/22 documented as of this encounter
[2024-08-06 12:07] LABS: C Reactive Protein 1.55 mg/dL (< or = 0.50)
[2024-08-06 12:13] LABS: Erythrocyte Sedimentation Rate 44 MM/HR (0-20)
[2024-08-06 12:26] LABS: TSH reflex Free T4 2.51 uIU/mL (0.32-4.0)
== END 2024-08-06 10:29 | disposition home or self-care (01) ==
LOC: HO.HHCX 10:28
PROVIDERS: Visit Provider Registered Nurse
DX: M79.671 Pain in right foot (principal); E03.8 Other specified hypothyroidism; R79.82 Elevated C-reactive protein (CRP)
CPT/HCPCS: 36415; 73630; 84443; 85652; 86140

== ENCOUNTER → 2024-08-06 10:29 | Outpatient (BNV) | payer MEDICAID, SELFPAY | PROVIDERS: Visit Provider Radiology Diagnostic Radiology | DX: M77.31 Calcaneal spur, right foot (principal) | CPT/HCPCS: 73630 ==

== ENCOUNTER 2024-08-06 10:38 | Outpatient (REF) | payer MEDICAID, SELFPAY | END 2024-08-06 10:39 | disposition home or self-care (01) | LOC: HO.HHCL 10:38 | PROVIDERS: Visit Provider Registered Nurse | DX: Z13.89 Encounter for screening for other disorder (principal) ==

== ENCOUNTER 2024-09-17 08:47 | Outpatient (AMB) | payer MEDICAID, SELFPAY ==
--- NOTE | 2024-09-17 08:53 | A.OFFVIS_ITS ---
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 Currently states her Right is worse than the left. Hx of EMG done at [facility] on 05/10/24 where states Left was greater than right. Patient reports her symptoms have been gradually exacerbated. Describes difficulty with lifting, gripping, grasping and squeezing. Hx of DM. EMG/NCS of BUE IMPRESSION: This is an abnormal EMG. This study shows evidence of bilateral distal median neuropathies localized at or distal to the wrist as primarily demyelinating in nature. This is compatible with carpal tunnel syndrome. It is mput-gc-sjolloav on the right and mild on the left with kristel and sensory element on the right and sensory element on the left. This study does not show findings to indicate the presence of other median neuropathies or neuropathies involving the ulnar, radial or musculocutaneous nerves, brachial plexopathy on either side or cervical radiculopathy on either side involving roots from C5-T1, or a myopathy. 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 Currently states her Right is worse than the left. Hx of EMG done at [facility] on 05/10/24 where states Left was greater than right. Patient reports her symptoms have been gradually exacerbated. Describes difficulty with lifting, gripping, grasping and squeezing. Hx of DM. EMG/NCS of BUE IMPRESSION: This is an abnormal EMG. This study shows evidence of bilateral distal median neuropathies localized at or distal to the wrist as primarily demyelinating in nature. This is compatible with carpal tunnel syndrome. It is jcro-ke-qnzjsyjn on the right and mild on the left with kristel and sensory element on the right and sensory element on the left. This study does not show findings to indicate the presence of other median neuropathies or neuropathies involving the ulnar, radial or musculocutaneous nerves, brachial plexopathy on either side or ce rvical radiculopathy on either side involving roots from C5-T1, or a myopathy. [facility], [facility] Medical History (Updated 09/17/24 @ 10:06 by ESAU Collier) Morbid obesity with BMI of 50.0-59.9, adult History of gestational diabetes Daytime sleepiness Chronic bilateral low back pain without sciatica History of asthma Chronic GERD Recurrent occipital headache Aspirin allergy Major depression Chronic headache disorder Irregular menstrual cycle Lipoma of forehead Surgical History H/O colonoscopy H/O tubal ligation Hx of rectal sphincterotomy Hx of removal of cyst Family History Unknown No problems noted. Unknown No problems noted. 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 Good APB muscle firing and good finger cross. Vascular: Capillary refill brisk. ROM: Patient can make a fist and extend all their digits. Skin: No lacerations or abrasions noted. General: No ecchymosis. No erythema or evidence of infection. Results Reviewed Results Reviewed: EMG/NCS of BUE IMPRESSION: This is an abnormal EMG. This study shows evidence of bilateral distal median neuropathies localized at or distal to the wrist as primarily demyelinating in nature. This is compatible with carpal tunnel syndrome. It is xkub-vv-llbvzkad on the right and mild on the left with kristel and sensory element on the right and sensory element on the left. This study does not show findings to indicate the presence of other median neuropathies or neuropathies involving the ulnar, radial or musculocutaneous nerves, brachial plexopathy on either side or cervical radiculopathy on either side involving roots from C5-T1, or a myopathy. Assessment & Plan Assessment & Plan (1) Bilateral carpal tunnel syndrome: Code(s): G56.03 - Carpal tunnel syndrome, bilateral upper limbs Category: Medical Plan 1. Right carpal tunnel syndrome Symptoms intermittent, daily, worse at night I educated the patient about the condition. I discussed both operative and nonoperative treatment options. The patient would like to proceed with surgery. The risks and benefits of operative treatment were discussed with the patient and the patient wishes to proceed with surgery. These risks include, but are not limited to, risk of damage to blood vessels, nerves, tendons, infection, recurrence, incomplete relief of preoperative symptoms, persistent pain, possible need for further surgery, and the risks associated with regional blocks and/or anesthesia. Plan is to take the patient to the operating room at some point in the next few weeks for the following procedures: 1. Right carpal tunnel release under local All of the preoperative paperwork including the consent was discussed today. All of the patient's questions were answered in the clinic today. The patient understands that they will be in contact with our surgical supplies sterilizer to discuss scheduling their procedure. Patient reports diabetes, last A1c 5.8 Denies blood thinners, asthma, heart issues, lung issues, kidney issues, or current smoking. 2. Carpal tunnel syndrome, left Intermittent, daily, worse at night Patient would like to proceed with operative intervention on the right prior to any intervention of the left Patient was advised that at her postop appointment if she is recovering well we can get the left side signed up for surgery Patient was amenable to this plan Coding Level of Care Code New Pt Level 4 (82652) Diagnoses Bilateral carpal tunnel syndrome G56.03
[2024-09-17 08:54] VITALS: BMI 62.7
--- OUTSIDE RECORDS SUMMARY | 2024-09-17 09:22 | XMS_ITS | Encounter Summary ---
Author Organization [employer] Address [address] [place] [address] Care Team Providers Care Video Production Intern Name Role Phone [facility] Primary Care Provider [phone] Reason for Visit * Reason Onset Date Comments No Show 09/12/2024 Encounter Details Date Type Department Care Team ([facility] Contact Info) Description 09/12/2024 Telephone [facility] MED[facility]INE [address] [place], [place] [phone] [facility] [address] [place], [place] [phone] No Show Social History Tobacco Use Types Packs/Day Years [...] encounter Miscellaneous Notes * Telephone Encounter - Joy Beard RN - 09/12/2024 3:23 PM EDT TC placed to patient [phone] in regards to below message. Patient reports she took her night time pills late last night and did not wake up on time for appointment today. Patient is requesting to r/s. RN r/s fro 09/14/24 at 11am with RAND Mills, patient agreed to appointment date and time. Patient to f/u PRN. * Telephone Encounter - Sarah Solomon - 09/12/2024 11:43 AM EDT Pt ns for [facility] ED on 09/04/24 for asthma exacerbation (wants pulmonology referral) documented in this encounter Plan of Treatment Upcoming Encounters Date Type Department Care Team (Late st Contact Info) Description 09/27/2024 10:30 AM EDT Clinical Support [facility] MED[facility]INE [address] [place] [address] 10/29/2024 9:45 AM EDT Office Visit [facility] [address] [place] [address] Karina Parson FNP [address] [place] [address] documented as of this encounter Visit Diagnoses Not on filedocumented in this encounter Additional Health Concerns Assessment Noted Time PHQ-9 Depression Total Score: 16 025 9:55 AM EDT documented as of this encounter Care Teams Video Production Intern Relationship Specialty Start Date End Date Karina Parson FNP [address] [place] [address] PCP - General Family Medicine 05/14/22 documented as of this encounter
--- OUTSIDE RECORDS SUMMARY | 2024-09-17 09:22 | XMS_ITS | Encounter Summary ---
Author Organization [employer] Address [address] 7[address] [place] [address] Care Team Providers Care Natural Resources Technician Name Role Phone [facility] Primary Care Provider [phone] Reason for Visit * Reason Onset Date Comments Med Refill 04/04/2024 Encounter Details Date Type Department Care Team ([facility] st Contact Info) Description 04/04/2024 Refill [facility] [address] [place], [place] [phone] Stephany Dye FNP [address] [place], [place] [phone] Social History Tobacco Use Types Packs/Day Years [...] as of this encounter Plan of Treatment Upcoming Encounters Date Type Department Care Team (Late st Contact Info) Description 09/27/2024 10:30 AM EDT Clinical Support [address] [address] 10/29/2024 9:45 AM EDT Office Visit [address] [address] Karina Parson FNP [address] [place] [address] documented as of this encounter Visit Diagnoses Not on filedocumented in this encounter Additional Health Concerns Assessment Noted Time PHQ-9 Depression Total Score: 17 024 7:57 AM EDT documented as of this encounter Care Teams Natural Resources Technician Relationship Specialty Start Date End Date Karina Parson FNP [address] [place] [address] PCP - General Family Medicine 05/14/22 documented as of this encounter
--- OUTSIDE RECORDS SUMMARY | 2024-09-17 09:22 | XMS_ITS | Encounter Summary ---
Author Organization [employer] Address [address] [facility] 7t [place] [address] Care Team Providers Care Core Loader Name Role Phone [facility] Primary Care Provider [phone] Reason for Visit * Reason Onset Date Comments ER Follow-up 07/22/2023 Nurse Triage 07/22/2023 Encounter Details Date Type Department Care Team ([facility] st Contact Info) Description 07/22/2023 Telephone [facility]INE [address] [place], [place] [phone] [facility] [address] [place] [address] ER Follow-up; Nurse Triage Social History Tobacco [...] ED visit on : Date: 06/08/2023 [place] [facility] [place]en for: Rash On Face, Asthma Attacks. [...] Description 09/27/2024 10:30 AM EDT Clinical Support [facility] [address] [place] [address] 10/29/2024 9:45 AM EDT Office Visit [facility] [address] [place] [address] Karina Parson FNP [address] [place] [address] documented as of this encounter Visit Diagnoses Not on filedocumented in this encounter Additional Health Concerns Assessment Noted Time PHQ-9 Depression Total Score: 8 06/22/19 23 3:07 PM EST documented as of this encounter Care Teams Core Loader Relationship Specialty Start Date End Date Karina Parson FNP [address] [place] [address] PCP - General Family Medicine 05/14/22 documented as of this encounter
--- OUTSIDE RECORDS SUMMARY | 2024-09-17 09:22 | XMS_ITS ---
Author Organization [employer] Address [address] [facility] [address] [place] [address] Care Team Providers Care Mammography Technician Name Role Phone [facility] Primary Care Provider [phone] CM Complex Status:Outreach In Progress (Enrolling) Start date:09/05/2024 Enrollment reason:ADT Feed Overview ADT-[facility] ED 09/04/24 Case Team Name Relationship Phone Jimmy Knight RN Registered Nurse(Responsible S taff) Continued Care and Services Coordination
--- OUTSIDE RECORDS SUMMARY | 2024-09-17 09:22 | XMS_ITS | Encounter Summary ---
Author Organization [employer] Address [address] [facility] 7t [place] [address] Care Team Providers Care Outpatient Scheduler Name Role Phone [place] Primary Care Provider [phone] Encounter Details Date Type Department Care Team (Late st Contact Info) Description 02/23/2023 Orders Only [facility] MED[facility]INE [address] [place] [address] [phone] Charlette Cornejo MD [address] [place] [address] [phone] Social History Tobacco Use Types Packs/Day Years [...] Description 09/27/2024 10:30 AM EDT Clinical Support [facility] [address] [place] [address] [phone] 10/29/2024 9:45 AM EDT Office Visit [facility] [address] [place] [address] [phone] Karina Parson FNP [address] [place] [address] documented as of this encounter Visit Diagnoses Not on filedocumented in this encounter Additional Health Concerns Assessment Noted Time PHQ-9 Depression Total Score: 8 06/22/19 23 3:07 PM EST documented as of this encounter Care Teams Outpatient Scheduler Relationship Specialty Start Date End Date Karina Parson FNP [address] [place] [address] PCP - General Family Medicine 05/14/22 documented as of this encounter
--- OUTSIDE RECORDS SUMMARY | 2024-09-17 09:22 | XMS_ITS | Encounter Summary ---
Author Organization [facility] Address [address] [address] Phone Care Team Providers Care Station Jailer Name Role Phone Chencho Munoz MD Primary Care Provider Unavailable Encounter Details Date Type Department Care Team (Late st Contact Info) Description 09/28/2022 Procedure Pass OR Admitting Dept - Virtual Department [address] [place] [address] Social History Tobacco Use Types Packs/Day Years Used Date Smoking Tobacco: Former Cigarettes Smokeless Tobacco: Never Comments:Experimented couple months Alcohol Use Standard Drinks/Week Comments Yes 0 (1 standard drink = 0.6 oz pur e alcohol) rare on holiday one drink Education Answer Date Recorded Are you interested in more education? Not on lee e 09/17/2022 Are you concerned about learning? Not on file 09/17/2022 No 09/17/2022 No 09/17/2022 Sex and Gender Information Value Date Recorded Sex Assigned at Not on file Gender Identity Not on file Sexual Orientation Not on file documented as of this encounter Plan of Treatment Not on file documented as of this encounter Visit Diagnoses Not on filedocumented in this encounter Care Teams Station Jailer Relationship Specialty Start Date End Date Chencho Munoz MD PCP - General 05/14/22 documented as of this encounter Additional Source Comments The information contained in this document represents components of the legal health record. It is not the complete legal health record.[facility]
--- OUTSIDE RECORDS SUMMARY | 2024-09-17 09:22 | XMS_ITS | Encounter Summary ---
Author Organization [employer] Address [address] [facility] [address] 7t [place] [address] Care Team Providers Care Gas Attendant Name Role Phone [facility] Primary Care Provider [phone] Reason for Visit * Reason Comments Med Refill Encounter Details Date Type Department Care Team ([facility] st Contact Info) Description 04/07/2024 Refill [facility] MEDICINE 230 [place], [place] [phone] [place] [facility] 230 [place], [place] [phone] Social History Tobacco Use Types Packs/Day Years [...] Description 09/27/2024 10:30 AM EDT Clinical Support [address] [address] 10/29/2024 9:45 AM EDT Office Visit [address] [address] Karina Parson FNP [address] [place] [address] documented as of this encounter Visit Diagnoses Not on filedocumented in this encounter Additional Health Concerns Assessment Noted Time PHQ-9 Depression Total Score: 17 024 7:57 AM EDT documented as of this encounter Care Teams Gas Attendant Relationship Specialty Start Date End Date Karina Parson FNP [address] [place] [address] PCP - General Family Medicine 05/14/22 documented as of this encounter
--- OUTSIDE RECORDS SUMMARY | 2024-09-17 09:22 | XMS_ITS ---
Author Organization [employer] Address [address] [facility] [address] 7t [place] [address] Care Team Providers Care Side Puller Name Role Phone [facility] Primary Care Provider [phone] [facility] Complex Status:Outreach In Progress (Enrolling) Start date:09/05/2024 Enrollment reason:ADT Feed Overview ADT-[facility] ED 09/04/24. Please outreach for enrollment. Case Team Name Relationship Phone Amelia Rojo (Responsible Staff) Continued Care and Services Coordination
--- OUTSIDE RECORDS SUMMARY | 2024-09-17 09:22 | XMS_ITS | Encounter Summary ---
Author Organization [employer] Address [address] [facility] [address] 7t [place] [address] Care Team Providers Care Brazing Machine Operator Name Role Phone [place] [facility] Primary Care Provider [phone] Reason for Visit * Reason Comments Med Refill Encounter Details Date Type Department Care Team ([facility] st Contact Info) Description 02/28/2024 Refill [facility] [address] [place], [place] [phone] Stephany Dye FNP [address] [place] [address] Low back pain, unspecified back pain laterality, [...] Description 09/27/2024 10:30 AM EDT Clinical Support [address] [address] 10/29/2024 9:45 AM EDT Office Visit [facility] MEDICINE [address] [place] [address] [place] [facility] [address] [place] [address] documented as of this encounter Visit Diagnoses Diagnosis Low back pain, unspecified back pain laterality, unspecified chronicity, unspecified whether sciatica present documented in this encounter Additional Health Concerns Assessment Noted Time PHQ-9 Depression Total Score: 17 024 7:57 AM EDT documented as of this encounter Care Teams Brazing Machine Operator Relationship Specialty Start Date End Date Karina Parson FNP [address] [place] [address] PCP - General Family Medicine 05/14/22 documented as of this encounter
--- OUTSIDE RECORDS SUMMARY | 2024-09-17 09:22 | XMS_ITS | Encounter Summary ---
Author Organization [employer] Address [address] [facility] [facility] [address] 7t [place] [address] Care Team Providers Care Diving Instructor Name Role Phone [facility] Primary Care Provider [phone] Reason for Visit * Reason Onset Date Comments Med Refill 04/04/2024 Encounter Details Date Type Department Care Team ([facility] st Contact Info) Description 04/04/2024 Refill [facility] MEDICINE 230 [place], [place] [phone] [facility] 230 [place] [address] Social History Tobacco Use Types Packs/Day Years [...] Description 09/27/2024 10:30 AM EDT Clinical Support [address] [address] 10/29/2024 9:45 AM EDT Office Visit [address] [address] Karina Parson FNP 230 [place] [address] documented as of this encounter Visit Diagnoses Not on filedocumented in this encounter Additional Health Concerns Assessment Noted Time PHQ-9 Depression Total Score: 17 024 7:57 AM EDT documented as of this encounter Care Teams Diving Instructor Relationship Specialty Start Date End Date Karina Parson FNP [address] [place] [phone] PCP - General Family Medicine 05/14/22 documented as of this encounter
--- OUTSIDE RECORDS SUMMARY | 2024-09-17 09:22 | XMS_ITS | Encounter Summary ---
Author Organization [employer] Address [address] [address] [facility] [address] 7t [place] [address] Care Team Providers Care Pricer Bagger Name Role Phone [facility] Primary Care Provider [phone] Reason for Visit * Reason Comments Med Refill Encounter Details Date Type Department Care Team ([facility] st Contact Info) Description 02/28/2024 Refill [facility] MED[facility]INE 230 [place], [place] [phone] Charlette Cornejo MD 230 [place], [place] [phone] Seborrheic dermatitis Social History Tobacco Use Types [...] Description 09/27/2024 10:30 AM EDT Clinical Support [address] [address] 10/29/2024 9:45 AM EDT Office Visit [address] [address] Karina Parson FNP [address] [place] [address] documented as of this encounter Visit Diagnoses Diagnosis Seborrheic dermatitis Unspecified seborrheic dermatitis documented in this encounter Additional Health Concerns Assessment Noted Time PHQ-9 Depression Total Score: 17 024 7:57 AM EDT documented as of this encounter Care Teams Pricer Bagger Relationship Specialty Start Date End Date Karina Parson FNP [address] [place] [address] PCP - General Family Medicine 05/14/22 documented as of this encounter
--- OUTSIDE RECORDS SUMMARY | 2024-09-17 09:22 | XMS_ITS | Encounter Summary ---
Author Organization [employer] Address [address] [facility] 7t [place] [address] Care Team Providers Care Family Court Justice Name Role Phone [facility] Primary Care Provider [phone] Reason for Referral * PFT (Routine) - Authorized Specialty Diagnoses / Procedures Referred By Hitesh turcios Referred To Contact Diagnoses Moderate persistent asthma without complication Procedures Pulmonary Function Test Angie Mills ANP [address] [place] [address] Phone: tel: fax: [address] Phone: tel: fax: Referral ID Status Reason Start Date Expiration Date V isits Requested Visits Authorized [id number] Authorized 09/14/2024 09/14/2025 1 1 * Consultation (Routine) - Authorized Specialty Diagnoses / Procedures Referred By Hitesh turcios Referred To Contact Pulmonary Disease Diagnoses Moderate persistent asthma without complication Angie Mills ANP [address] [place] [address] Phone: tel: fax: [facility] [address] [place], [place] Phone: tel: fax: Referral ID Status Reason Start Date Expiration Date Visits Requested Visits Authorized [id number] Authorized Specialty Services Required 09/14/2024 09/14/2025 6 6 Reason for Visit * Reason Comments Hospital Follow-up Encounter Details Date Type Department Care Team (Late st Contact Info) Description 09/14/2024 11:00 AM EDT Office Visit [facility] MEDICINE 230 [place] [address] Angie Mills ANP [address] [place] [address] Primary hypertension (Primary Dx); SOB (shortness of breath); Moderate persistent asthma without complication Social History Tobacco Use Types Packs/Day Years [...] Sign Reading Time Taken Comments Blood Pressure 141/94 09/14/2024 10:59 AM EDT Pulse - - Temperature - - Respiratory Rate 18 09/14/2024 10:59 AM EDT Oxygen Saturation - - Inhaled Oxygen Concentration - - Weight 157 kg (347 lb) 09/14/2024 10:59 AM EDT Height 157.5 cm (5' 2 ) 09/14/2024 10:59 AM EDT Body Mass Index 63.47 09/14/2024 10:59 AM EDT documented in this encounter Progress Notes * NIGHAT Castro - 09/14/2024 11:00 AM EDT Subjective Patient ID: Tommie Andre is a 34 y.o. female who presents for Hospital Follow-up. HPI Was seen at [facility] ED 09/04/24, tx'd for asthma exacerbation w/ prednisone burst and neb. Reports feels better but cont to need frequent albuterol and holder coughing fits that last for a few minutes followed by no coughing for hours. Denies wheezing. Has chronic SOB not really better w. Albuterol. Asthma was triggered by [employer] spill and dust while cleaning basement. Using albuterol 4x/d w/ pump or nebulizer. Reports BP at home is always high. Recently increased chlorthalidone to 25mg. Taking olmesartan 20mg. Does not smoke Review of Systems Constitutional: Negative for chills and fever. HENT: Negative for sore throat. Respiratory: Positive for cough and shortness of breath. Cardiovascular: Negative for chest pain. Gastrointestinal: Negative for constipation and diarrhea. Endocrine: Negative for polydipsia, polyphagia and polyuria. Genitourinary: Negative for dysuria. Objective BP (!) 141/94 (BP Location: Other (Comment), Patient Position: Sitting, BP Cuff Size: Large adult) Comment (BP Location): right forearm Resp 18 Ht 5' 2 (1.575 m) Wt 347 lb (157 kg) BMI 63.47 kg/m?? Physical Exam Constitutional: General: She is not in acute distress. Appearance: Normal appearance. She is obese. She is not ill-appearing. HENT: Head: Normocephalic and atraumatic. Eyes: General: No scleral icterus. Extraocular Movements: Extraocular movements intact. Pupils: Pupils are equal, round, and reactive to light. Cardiovascular: Rate and Rhythm: Normal rate and regular rhythm. Pulmonary: Effort: Pulmonary effort is normal. No accessory muscle usage or respiratory distress. Breath sounds: Normal breath sounds. Musculoskeletal: Right lower leg: No edema. Left lower leg: No edema. Neurological: Mental Status: She is alert and oriented to person, place, and time. Psychiatric: Mood and Affect: Mood normal. Behavior: Behavior normal. Assessment/Plan Diagnoses and all orders for this visit: Primary hypertension BP above goal and home BPs high per pt Increase olmesartan, recheck BMP 2 weeks Cont chlorthalidone at 25mg Goal </= 130/80. Continue to encourage low salt diet, regular exercise, home BP monitoring, compliance with medications. Call clinic if BP is frequently >150/90 Go to ED/call 911 if > 170/100 and having sx such as ELIZALDE, visual changes, chest pain, SOB Last renal function: Lab Results Component Value Date GLUCOSE 80 05/09/2024 NA 138 05/09/2024 K 3.8 05/09/2024 CO2 28 05/09/2024 CL 105 05/09/2024 BUN 13 05/09/2024 CREATININE 0.75 05/09/2024 EGFR >60 05/09/2024 No results found for: MICROALBCREA Lab Results Component Value Date MICROALBCREU 4.7 05/09/2024 - olmesartan (BENIcar) 40 MG tablet; TAKE 1 TABLET BY MOUTH EVERY DAY - Basic Metabolic Panel; Future SOB (shortness of breath) POC Hgb 13.4. do not suspect anemia. - CBC auto differential; Future - POCT Hemoglobin - Mometasone Furoate (Asmanex HFA) 100 MCG/ACT aerosol; Inhale 2 Act (200 mcg) 2 times daily. Rinse mouth with water after use Moderate persistent asthma without complication Lungs CTAB. Reports frequent albuterol use. Rec step up therapy. Check PFTs and refer to pulm - Mometasone Furoate (Asmanex HFA) 100 MCG/ACT aerosol; Inhale 2 Act (200 mcg) 2 times daily. [place] with water after use - Referral to Pulmonology; Future - Pulmonary Function Test; Future follow-up 2 weeks for BP check w/ RN and then 6 weeks PCP HTN No future appointments. documented in this encounter Plan of Treatment Upcoming Encounters Date Type Department Care Team (Late st Contact Info) Description 09/27/2024 10:30 AM EDT Clinical Support [address] [address] 10/29/2024 9:45 AM EDT Office Visit [address] [phone] [facility] 230 [place] [address] Scheduled Orders Name Type Priority Associated Diagnoses Orde r Schedule Basic Metabolic Panel Lab Routine Primary hypertension Expected: 09/14/2024 (Approximate), Expires: 09/14/2025 CBC auto differential Lab Routine SOB (shortness of breath) Expected: 09/14/2024 (Approximate), Expires: 09/14/2025 Pulmonary Function Test PFT Routine Moderate persistent asthma without complication Expected: 09/14/2024, Expires: 03/16/2025 Scheduled Referrals Name Type Priority Associated Diagnoses Orde r Schedule Referral to Pulmonology Outpatient Referral Routine Moderate persistent asthma without complication Expected: 09/14/2024 (Approximate), Expires: 09/14/2025 documented as of this encounter Procedures Procedure Name Priority Date/Time Associated Diagnosis Comments POCT HEMOGLOBIN Routine 09/14/2024 12:06 PM EDT SOB (shortness of breath) documented in this encounter Results * POCT Hemoglobin (09/14/2024 12:06 PM EDT) [facility] Signature Hemoglobin 13.4 12.0 - 15.0 QC Media Lot # [id number] Lot# Expiration Date [id number] Blood 09/14/2024 12:0 6 PM EDT [facility] DISLA POINT OF CARE TEST ENTER/EDIT OR DERABLES Final Result documented in this encounter Visit Diagnoses Diagnosis Primary hypertension- Primary Unspecified essential hypertension SOB (shortness of breath) Shortness of breath Moderate persistent asthma without complication documented in this encounter Additional Health Concerns Assessment Noted Time PHQ-9 Depression Total Score: 16 025 9:55 AM EDT documented as of this encounter Care Teams Family Court Justice Relationship Specialty Start Date End Date Karina Parson FNP [address] [place] [address] PCP - General Family Medicine 05/14/22 documented as of this encounter
--- OUTSIDE RECORDS SUMMARY | 2024-09-17 09:22 | XMS_ITS | Encounter Summary ---
Author Organization [employer] Address [address] [facility] 7t [place] [address] Care Team Providers Care Manager Lvn Name Role Phone [facility] Primary Care Provider [phone] Reason for Visit * Reason Onset Date Comments Triage 07/30/2022 Encounter Details Date Type Department Care Team ([facility] st Contact Info) Description 07/30/2022 Telephone [facility] MEDICINE 230 [place], [place] [phone] [facility] 230 [place], [place] [phone] Triage Social History Tobacco Use Types Packs/Day [...] accepted this outcome Pleas contact pt at [phone] Georgian Speaker documented in this encounter Plan of Treatment Upcoming Encounters Date Type Department Care Team ([facility] st Contact Info) Description 09/27/2024 10:30 AM EDT Clinical Support [address] [address] 10/29/2024 9:45 AM EDT Office Visit [address] [address] Karina Parson FNP [address] [place] [address] documented as of this encounter Visit Diagnoses Not on filedocumented in this encounter Additional Health Concerns Assessment Noted Time PHQ-9 Depression Total Score: 8 06/22/19 23 3:07 PM EST documented as of this encounter Care Teams Manager Lvn Relationship Specialty Start Date End Date Karina Parson FNP [address] [place] [address] PCP - General Family Medicine 05/14/22 documented as of this encounter
--- OUTSIDE RECORDS SUMMARY | 2024-09-17 09:22 | XMS_ITS | Encounter Summary ---
Author Organization [employer] Address [address] [facility] [address] 7t [place] [address] Care Team Providers Care Supervisor Firearms Name Role Phone [facility] Primary Care Provider [phone] Reason for Visit * Reason Onset Date Comments Nurse Triage 06/29/2024 Encounter Details Date Type Department Care Team ([facility] st Contact Info) Description 06/29/2024 Telephone [facility] MEDICINE 230 [place], [place] [phone] [facility] 230 [place], [place] [phone] Nurse Triage Social History Tobacco Use Types [...] is your housing situation today? I have ira rod 10/05/[address] you [...] 06/29/2024 3:14 PM EST Called pt. Via [employer] erector [phone] [place]. Pt. States she has been having stomach discomfort that she usually has and has been taking her prescribed medication for reflux but, it is not helping her acid reflux. Pt. Also states that she has a rash on her stomach that is red but, pt. Has butterfly rash on her face from possible Lupus as Line Staker thinks pt. Has Lupus based from her [...] will check schedule in am and if [facility] PRESCHOOL ASSISTANT TEACHER (PCP) Has any openings ,I will set [...] caller accepted this outcome. Contact pt at [phone] (estonian) documented in this encounter Plan of Treatment Upcoming Encounters Date Type Department Care Team (Late st Contact Info) Description 09/27/2024 10:30 AM EDT Clinical Support [address] [address] 10/29/2024 9:45 AM EDT Office Visit [address] [address] Karina Parson FNP [address] [place] [address] documented as of this encounter Visit Diagnoses Not on filedocumented in this encounter Additional Health Concerns Assessment Noted Time PHQ-9 Depression Total Score: 17 024 7:57 AM EDT documented as of this encounter Care Teams Supervisor Firearms Relationship Specialty Start Date End Date Karina Parson FNP [address] [place] [address] PCP - General Family Medicine 05/14/22 documented as of this encounter
--- OUTSIDE RECORDS SUMMARY | 2024-09-17 09:22 | XMS_ITS | Clinical Summary ---
Author Organization [facility] Address [address] [place] [id number] Phone Care Team Providers Care Tapper Supervisor Name Role Phone [place], [facility] Primary Care Provider Unavailable Allergies Active Allergy Reactions Criticality Noted Date Comments Aspirin 06/08/2017 Other reaction(s): Throat swelling Lidocaine 06/08/2017 Metformin Dizziness 08/18/2017 Medications Medication Sig Dispensed Refills Start Date End Date Status tiZANidine (ZANAFLEX) 4 MG tablet Take 4 mg by mouth daily as needed. 06/15/2022 Active risperiDONE (RISPERDAL) 1 MG tablet Take 1 mg by mouth nightly at bedtime. at bedtime. 07/20/2022 Active QUEtiapine (SEROQUEL) 300 MG tablet Take 300 mg by mouth nightly at bedtime. at bedtime. 06/28/2022 Active omeprazole (PRILOSEC) 20 MG capsule TAKE 1 CAPSULE BY MOUTH TWICE DAILY AT NOON AND BEDTIME 07/20/2022 Active olmesartan (BENICAR) 5 mg tablet Take 5 mg by mouth every morning. 07/20/2022 Active magnesium oxide (MAG-OX) 400 mg (241.3 mg elemental) tablet TAKE 1 TABLET BY MOUTH EVERYDAY AT NOON 07/20/2022 Active ketoconazole (NIZORAL) 2 % shampoo APPLY TO THE AFFECTED AREA(S) TOPICALLY EVERY DAY, LATHER, LEAVE ON FOR 5 MINUTES THEN RINSE WITH WATER 06/14/2022 Active gabapentin (NEURONTIN) 300 MG capsule At bedtime 07/20/2022 Active FLUoxetine (PROZAC) 20 MG capsule Take 20 mg by mouth every morning. 07/20/2022 Active fluocinonide 0.05 % external solution APPLY TO THE AFFECTED AREA(S) TOPICALLY ONCE DAILY DIRECTED 12/16/2021 Active ferrous sulfate 325 mg (65 mg [place] iron) tablet take 1 tablet by oral route every day with vitamin C Active DULoxetine (CYMBALTA) 30 MG capsule TAKE 1 CAPSULE BY MOUTH TWICE DAILY IN THE MORNING AND IN THE EVENING 07/20/2022 Active docusate sodium (COLACE) 100 MG capsule Take 100 mg by mouth 2 (two) times a day as needed. 06/14/2022 Active clonazePAM (KLONOPIN) 1 MG tablet Take 1 mg by mouth nightly at bedtime as needed. 07/23/2022 Active VITAMIN D3 25 mcg (1,000 unit) capsule Take by mouth every morning. 06/24/2022 Active ascorbic acid, vitamin C, (VITAMIN C) 250 MG tablet TAKE 1 TABLET BY MOUTH EVERY MORNING WITH IRON 05/31/2022 Active albuterol 90 mcg/actuation inhaler Take 2 puffs by mouth every 4 (four) hours as needed. 06/14/2022 Active triamcinolone acetonide 0.1 % ointment Apply topically 2 (two) times a day for 14 days. 30 g 08/06/2022 Active acetaminophen (TYLENOL) 325 mg tablet Take 2 tablets (650 mg total) by mouth every 4 (four) hours as needed. 90 tablet 09/14/2022 Active ibuprofen (ADVIL,MOTRIN) 200 MG tablet Take 3 tablets (600 mg total) by mouth every 6 (six) hours as needed for pain (specific location in comments). 90 tablet 09/14/2022 Active blood pressure test kit-large Kit USE TO CHECK BLOOD PRESSURE 06/22/2022 Active mometasone (ASMANEX HFA) 100 mcg/actuation HFAA INHALE 1 PUFF BY MOUTH 2 TIMES EVERY DAY IN THE MORNING AND EVENING 01/20/2022 Active acetaminophen (TYLENOL) 325 mg tablet Take 2 tablets (650 mg total) by mouth every 4 (four) hours as needed. 09/28/2022 Active naproxen (NAPROSYN) 500 MG tabletIndications:Pe lvic pain Take 1 tablet (500 mg total) by mouth 2 (two) times a day with meals. 60 tablet 3 10/01/2022 Active Active Problems Problem Noted Date Diagnosed Date Pelvic pain 10/01/2022 Assessment & Plan (10/01/2022 4:11 PM EDT): Patient with chronic pelvic pain IUD removed on 09/28 Patient started her period the day after IUD removal Reports significant cramping/back pain Comfort measures reviewed, rx for Naproxen sent to pharmacy Patient rescheduled follow up with [facility] to 10/29 Patient to return to office as needed Dysuria 10/01/2022 Assessment & Plan (10/01/2022 4:10 PM EDT): Patient reports mild dysuria Urinalysis with reflex culture ordered Abnormal uterine bleeding 08/06/2022 Assessment & Plan (09/17/2022 2:14 PM EDT): Patient s/p exam under anesthesia with pap/EMB [...] to bariatrics and robotic surgery Referral to [facility] oncology placed, if patient is unable to be seen by their office, she is willing to be referred to [facility] in [place] Pelvic US ordered to assess IUD placement Rx for oxycodone sent given patient's chronic pain issues, encouraged continued use of scheduled NSAIDs and Tylenol Plan follow up in 2 weeks or sooner as indicated Assessment & Plan (08/06/2022 5:00 PM EDT): -Reviewed etiologies of abnormal uterine bleeding/oligomenorrhea, including [...] office in 4 weeks for follow up Social History Tobacco Use Types Packs/Day Years Used Date Smoking Tobacco: Former Cigarettes Smokeless Tobacco: Never Tobacco Cessation:Counseling Given: Not Answered Comments:Experimented couple months Alcohol Use Standard Drinks/Week Comments Yes 0 (1 standard drink = 0.6 oz pur e alcohol) rare on holiday one drink Education Answer Date Recorded Are you interested in more education? Not on lee e 09/17/2022 Are you concerned about learning? Not on file 09/17/2022 No 09/17/2022 No 09/17/2022 Digital Access Answer Date Recorded No 10/13/2022 No 10/13/2022 No 10/13/2022 Reliable internet access at home? Not on file 10/13/2022 Device with a working camera? Not on file Sex and Gender Information Value Date Recorded Sex Assigned at Not on file Gender Identity Not on file Sexual Orientation Not on file Last Filed Vital Signs Vital Sign Reading Time Taken Comments Blood Pressure 132/82 10/01/2022 2:42 PM EDT Pulse 92 09/28/2022 3:00 PM EDT Temperature 36.1 ??C (97 ??F) 09/28/2022 3:35 PM EDT Respiratory Rate 18 09/28/2022 3:35 PM EDT Oxygen Saturation 99% 09/28/2022 3:35 PM EDT Inhaled Oxygen Concentration - - Weight 164.8 kg (363 lb 6.4 oz) 023 11:29 AM EDT Height 157.5 cm (5' 2 ) 10/01/2022 2:42 PM EDT Body Mass Index 66.47 09/24/2022 11:29 AM EDT Plan of Treatment Health Maintenance Due Date Last Done Comments CREATININE LEVEL 1990 POTASSIUM LEVEL 1990 DEPRESSION SCREENING 2002 SMOKING Hx and SMOKELESS TOBACCO SCREENING 2003 HEPATITIS C SCREENING 2008 HIV ONE-TIME SCREENING (18-65 YEARS) 2008 COVID-19 VACCINE ( season) 2024 PAP SMEAR 09/28/2025 09/28/2022, 05/0 01/2023, 09/14/2022, Additional history exists Adult Td,Tdap Booster 05/31/2027 05/31/2017 HEPATITIS A VACCINES Aged Out No long er eligible based on patient's age to complete this topic HIB VACCINES Aged Out No longer eligi ble based on patient's age to complete this topic MENINGOCOCCAL VACCINES (ACWY) Aged Out No longer eligible based on patient's age to complete this topic PNEUMOCOCCAL VACCINES (0-49 years) Aged Out No longer eligible based on patient's age to complete this topic Medical Devices Implanted Type Area Marine Welder Device Identifier Shelf Expiration Date Model / Serial / Lot Mirena Implanted:Qty : 1 on 03/03/2021 by Hattie Michelle MD at [facility] Intrauterine Device N/A: Uterus 10/20/2024 / / [id number] Procedures Procedure Name Priority Date/Time Associated Diagnosis Comments PAP TEST Routine 09/28/2022 12:00 AM EDT from Last 3 Months or Most Recently Relevant to Health Maintenance Results * Pap Test (09/28/2022 12:00 AM EDT) 09/28/2022 09/29/2022 10: 31 AM EDT Narrative SEE NARRATIVE - 10/06/2022 4:12 PM EDT [address] [id number] Waste Removalist: Yamila Leo MD ?? [facility] Cytology Report FINAL DIAGNOSIS A. ??PAP SMEAR (SUREPATH) CE: SPECIMEN ADEQUACY: Satisfactory for evaluation; transformation zone present. INTERPRETATION: NEGATIVE FOR INTRAEPITHELIAL LESION OR MALIGNANCY. Parakeratosis Electronically Signed Out By: ??MD Janina Rodriguez CT(ASCP) By his/her signature above, the pathologist listed as making the Final Diagnosis certifies that he/she has personally reviewed this case and confirmed or corrected the diagnosis. The Pap test is a screening test primarily for squamous cancers and precursors and has associated false-negative and false-positive results. ??New technologies such as liquid-based preparations may decrease but will not eliminate all false-negative results. ??Regular sampling and follow-up of unexplained clinical signs and symptoms are recommended to minimize false negative results. PROCEDURES/ADDENDA HPV Testing (Requested) Ordered Date: 10/06/2022 ? A. PAP SMEAR (SUREPATH) CE: ??Human Papilloma Virus Test NEGATIVE for high-risk Human Papilloma Virus types 16, 18, 45 and the Other high risk probe set (Includes 31, 33, 35, 39, 51, 52, 56, 58, 59, 66, 68) Note: Testing performed by [id number] HR-HPV analysis. ??Clinical correlation is advised. ??This HPV test was performed at [facility], [address] [place] [address]. This test has been FDA approved for [employer] cervical cytology specimens. The accuracy and precision of this test for all other specimen sources has been verified in the Cytopathology Laboratory of the [facility] and has not been cleared or approved by the U.S. Food and Drug Administration. Clinical correlation is advised. ? CLINICAL HISTORY Date of Last Menstrual Period: ??Not Provided Menstrual History: ??Unknown Other Clinical Conditions: ??Screening Pap SPECIMEN SOURCE A: PAP SMEAR (SUREPATH) CE Patient Name: ??NAHOMY PAZ : ??1990 (Age: 32) Sex: ??F Institution: ??[facility] Location: ??[facility] Date of Collection: ??09/28/2022 Date of Reported: ??10/01/2022 16:11 Results to: Hattie Murphy Hattie Espinoza MD CYTOLO GY ORDERABLES SEE NARRATIVE from Last 3 Months or Most Recently Relevant to Health Maintenance Guarantor Name Account Type Relation to Patient Date of Phone Billing Address Nahomy Paz Personal/Famil y Self 1990 [address] [facility] [address] [place] [address] Kody Andre, Mydalis Personal/Famil y Self 1990 [address] [facility] [address] [place] [address] Kody Espinozas, Mydalis Personal/Famil y Self 1990 [address] [facility] [address] [place] [address] Kody Andre, Mydalis Personal/Famil y Self 1990 [address] [facility] [address] [place] [address] Kody Espinozas, Mydalis Personal/Famil y Self 1990 [address] [facility] [address] [place], [place] [address] Kody Andre, Mydalis Personal/Famil y Self 1990 [address] [facility] [address] [place] [address] Care Teams Tapper Supervisor Relationship Specialty Start Date End Date [place] MD PCP - General 05/14/22 Additional Source Comments The information contained in this document represents components of the legal health record. It is not the complete legal health record.[facility]
--- OUTSIDE RECORDS SUMMARY | 2024-09-17 09:22 | XMS_ITS | Clinical Summary ---
Author Organization [employer] Address [address] [place] [address] Care Team Providers Care Section Leader And Machine Setter Name Role Phone [facility] Primary Care Provider [phone] Allergies Active Allergy Reactions Criticality Noted Date [...] Do not crush, chew, or split. Active Alcohol Swabs (Alcohol Prep) padsIndications:T ype 2 diabetes mellitus with hyperglycemia, without long-term current use of insulin (CMS/[facility]) Use one pad each to prep skin prior to injection as directed 100 each 11 Active Blood Glucose Monitoring Suppl (GNP Easy Touch Glucose Meter) deviceIndications :Type 2 diabetes mellitus with hyperglycemia, without long-term current use of insulin ([facility]) Use as directed to check blood sugar four times daily 1 each Active risperiDONE (RisperDAL) 1 MG tabletIndications :Psychiatric disorder TAKE 1 TABLET BY MOUTH AT BEDTIME 30 tablet 3 024 Active QUEtiapine (SEROquel) 50 MG tabletIndications :Major depressive disorder, remission status unspecified, unspecified whether recurrent Take 2 tablets (100 mg) by mouth at bedtime. 60 tablet 3 Active Ascorbic Acid (vitamin C) 250 MG tabletIndications :Pain TAKE 1 TABLET BY MOUTH EVERY MORNING WITH IRON 90 tablet 1 Active cholecalciferol (Vitamin D High Potency) 25 MCG (1000 UT) capsule TAKE 1 CAPSULE BY MOUTH EVERY MORNING 90 capsule Active Lancets 33G miscIndications:T ype 2 diabetes mellitus with hyperglycemia, without long-term current use of insulin ([facility]) Use as directed to check blood sugar four times daily 100 each 11 Active glucose blood test stripIndications: Type 2 diabetes mellitus with hyperglycemia, without long-term current use of insulin ([facility]) Use as directed to check blood sugar four times daily 100 each 11 Active gabapentin (Neurontin) 300 MG capsuleIndication s:Pain TAKE 2 CAPSULES BY MOUTH EVERY DAY AT BEDTIME 60 capsule 3 Active albuterol (Ventolin HFA) 108 (90 Base) MCG/ACT inhaler INHALE 2 PUFFS BY MOUTH EVERY 4 TO 6 HOURS NEEDED 18 g 1 Active Fluocinolone Acetonide Scalp 0.01 % oilIndications:Se borrheic dermatitis Massage into damp scalp daily. Cover hair and leave on for at least 4 hours 119 mL Active lidocaine (Lidoderm) 5 % patch Apply 1 patch topically Once per day. Remove & discard patch within 12 hours or as directed by . 15 patch 2 Active polyethylene glycol, PEG, 3350 (Glycolax) 17 [...] 20 mg by mouth in the morning. Active Lumateperone Tosylate (Caplyta) 21 MG capsule Take 21 mg by mouth at bedtime. Active ketoconazole (NIZOral) 2 % shampooIndication s:Rash Apply topically Once per day. 120 mL 025 Active Dulaglutide 3 MG/0.5ML solution auto-injectorIndi cations:Type 2 diabetes mellitus with hyperglycemia, without long-term current use of insulin ([facility]) Inject 3 mg under the skin 1 (one) time per week. 2 mL 3 025 Active metroNIDAZOLE (MetroCream) 0.75 % creamIndications: Facial rash Apply topically 2 times daily. 45 g 025 2025 Active albuterol 108 (90 Base) MCG/ACT inhalerIndication s:Mild intermittent asthma without complication Inhale 2 puffs every 4 (four) hours if needed for wheezing. 18 g 025 2025 Active albuterol (2.5 MG/3ML) 0.083% nebulizer solutionIndicatio ns:Wheezing INHALE 1 AMPULE BY MOUTH USING A NEBULIZER 3 TIMES DAILY 90 mL 3 025 Active cyclobenzaprine (Flexeril) 5 MG tabletIndications :Chronic neck pain Take 1 or 2 tablets as needed nightly for muscle spasm 30 tablet 025 Active ibuprofen 600 MG tabletIndications :Chronic neck pain Take 1 tablet (600 mg) by mouth every 6 (six) hours if needed for mild pain. 30 tablet 1 025 Active chlorthalidone (Hygroton) 25 MG tabletIndications :Primary hypertension Take 1 tablet (25 mg) by mouth Once per day. 30 tablet 11 025 2025 Active olmesartan (BENIcar) 40 MG tabletIndications :Primary hypertension TAKE 1 TABLET BY MOUTH EVERY DAY 90 tablet 1 Active Mometasone Furoate (Asmanex HFA) 100 MCG/ACT aerosolIndication s:SOB (shortness of breath),Moderate persistent asthma without complication Inhale 2 Act (200 mcg) 2 times daily. Rinse mouth with water after use 13 g 3 Active albuterol (2.5 MG/3ML) 0.083% nebulizer solutionIndicatio ns:Wheezing INHALE 1 AMPULE USING A NEBULIZER THREE TIMES DAILY 90 mL 5 024 2024 Discontinued chlorthalidone (Hygroton) 25 MG tabletIndications :Primary hypertension Take 0.5 tablets (12.5 mg) by mouth in the morning. 15 tablet 2024 Discontinued(R eorder (will not trigger notification to Pharmacy)) cyclobenzaprine (Flexeril) 10 MG tabletIndications :Low back pain, unspecified back pain laterality, unspecified chronicity, unspecified whether sciatica present Take 1 tablet (10 mg) by mouth 3 times daily for 10 days. 30 tablet 024 2024 Discontinued tiZANidine (Zanaflex) 4 MG tablet Take 1 tablet (4 mg) by mouth 1 (one) time if needed for muscle spasms for up to 180 doses. 30 tablet 5 024 2024 Discontinued olmesartan (BENIcar) 20 MG tablet TAKE 1 TABLET BY MOUTH EVERY DAY 90 tablet 1 025 2024 Discontinued(R eorder (will not trigger notification to Pharmacy)) predniSONE (Deltasone) 20 MG tabletIndications :Mild intermittent asthma without complication 2 tabs po daily for 5 days 10 tablet 025 2024 Discontinued Hospital, Clinic, or Other Facility Administered Medication Ordered Dose Route Frequency Start Date End Date Status albuterol (2.5 MG/3ML) 0.083% nebulizer solution 2.5 mgIndications:Mild intermittent reactive airway disease with wheezing with acute exacerbation,Mild intermittent asthma without complication 2.5 mg NEBULIZATION Once 08/28/2024 08/28/2024 En ded Active Problems Problem Noted Date Diagnosed Date [...] to pharmacy Patient rescheduled follow up with [facility] to 10/29 Patient to return to office as needed PCOS (polycystic ovarian syndrome) 08/18/2022 Asthma 08/18/2022 Assessment & Plan (08/28/2024 3:47 PM EDT): Acute asthma exacerbation. Given DUONeb treatment in clinic with improvement. Covid and Flu negative. -prescribed low dose prednisone and refilled albuterol. 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 Pt reports headaches have significantly improved since last visit. She was previously followed by ?Neurology at [place] (pt unable to recall name) for hx [...] to bariatrics and robotic surgery Referral to [facility]ology placed, if patient is unable to be seen by their office, she is willing to be referred to [facility] in [place] Pelvic US ordered to assess IUD placement [...] Encounters Date Type Department Care Team Description 09/14/2024 11:00 AM EDT Office Visit [facility] [address] [facility] [place] [address] Angie Mills ANP Primary hypertension (Primary Dx); SOB (shortness of breath); Moderate persistent asthma without complication 09/14/2024 Travel 09/13/2024 Travel 09/12/2024 Telephone [facility] [address] [facility] [place] [address] Karina Parson [facility] No Show 09/12/2024 Patient Outreach [facility] [address] [place] [address] [place] [facility] 09/08/2024 Travel 09/05/2024 Patient Outreach [address] [place] [address] Karina Parson [facility] Care Coordination (Appt request) 09/05/2024 Patient Outreach [facility] [place] [address] Karina Parson [facility] Care Coordination (CM/CHW outreach) 09/05/2024 Patient Outreach [address] [place] [address] Karina Parson [facility] Care Coordination (CHW Chart Review) 09/05/2024 Patient Outreach [facility] [place] [address] Karina Parson [facility] Care Coordination (C3CM- chart review) 09/05/2024 Patient Outreach [address] [address] Karina Parson [facility] 08/31/2024 1:20 PM EDT Office Visit [facility] [place] [address] Karina Parson [facility] Chronic neck pain (Primary Dx); Primary hypertension; Acute non intractable tension-type headache; Involuntary jerky movements 08/31/2024 Telephone [facility] [place] [place] [address] Laura Umana RN walk in triage 08/30/[address] [address] Karina Parson [facility] Wheezing 08/28/2024 5:00 PM EDT Office Visit [facility] [address] [place] [address] Lea Ardon MD Mild intermittent reactive airway disease with wheezing with acute exacerbation (Primary Dx); Mild intermittent asthma without complication 08/09/2024 Telephone [facility] [address] [place] [address] Karina Parson FNP Nurse Triage 08/08/2024 Telephone [facility] [address] [place] [address] Karina Parson FNP Results 08/06/2024 9:45 AM EDT Office Visit [facility] [address] [place] [address] Karina Parson FNP Type 2 diabetes mellitus with hyperglycemia, without long-term current use of insulin ([facility]) (Primary Dx); Subclinical hypothyroidism; Rash; Right foot pain; Facial rash; Bilateral carpal tunnel syndrome; Elevated C-reactive protein (CRP); Dietary counseling; Exercise counseling; Class 3 severe obesity due to excess calories with serious comorbidity and body mass index (BMI) of 60.0 to 69.9 in adult (CMS/HCC) 08/06/2024 Travel 08/03/2024 Population Health Risk Score [facility] () [address] [address] Provider, Population Health Generic 07/30/2024 Patient Outreach [facility] [address] [place] [address] Karina Parsno FNP Pre-visit Planning (SDOH screening negative and tobacco screening negative) 07/01/2024 Refill [facility] [address] [place] [address] Lydia Owusu DO Psychiatric disorder 07/01/2024 Refill [facility] [address] [place] [address] Karina Parson FNP Psychiatric disorder 06/29/2024 Telephone [facility] [address] [place] [address] Karina Parson FNP Nurse Triage from Last 3 Months Immunizations Name Administration [...] Pressure 141/94 09/14/2024 10:59 AM EDT Pulse 82 08/31/2024 12:54 PM EDT Temperature 36.8 ??C (98.3 ??F) 08/31/2024 12:54 PM E DT Respiratory Rate 18 09/14/2024 10:59 AM EDT Oxygen Saturation 98% 08/31/2024 12:54 PM EDT Inhaled Oxygen Concentration - - Weight 157 kg (347 lb) 09/14/2024 10:59 AM EDT Height 157.5 cm (5' 2 ) 09/14/2024 10:59 AM EDT Body Mass Index 63.47 09/14/2024 10:59 AM EDT Plan of Treatment Upcoming Encounters Date Type Department Care Team (Late st Contact Info) Description 09/27/2024 10:30 AM EDT Clinical Support [address] [address] 10/29/2024 9:45 AM EDT Office Visit [address] [address] [facility], [facility] [address] [place] [address] Health Maintenance Due Date Last Done Comments Dental Oral Exam 1990 Dental Prophylaxis 1990 Dental X-Ray: Bitewings 1990 Dental X-Ray: Full Mouth 1990 HIV Screening 1990 Eye Exam 2000 Alcohol/Substance Use Screening 2002 Family Planning (PISQ) 2005 Hepatitis C Screening 2008 Hepatitis B Vaccines (1 of 3 - 19+ 3-dose series) 2009 Pneumococcal Vaccine: Pediatrics (0 to 5 Years) and At-Risk Patients (6 to 49) Years) (1 of 2 - PCV) 2009 COVID-19 Vaccine ( - season) 2024 Influenza Vaccine (#1) 2024 Diabetes: Hemoglobin A1C 02/06/20252 025, 05/09/2024, 08/15/2023, Additional history exists Diabetes: Urine Protein Screening 05/09/2025 05/09/2024 Lipid Panel 05/09/2025 05/09/2024, 09/22, 08/25/2022, Additional history exists SDOH Screening 07/30/2025 07/30/2024 Depression Screening 08/06/2025 08/06/2024, 08/07/19 Diabetes: Foot Exam 08/06/2025 08/06/2024, 08/06/2024, 08/06/2024, Additional history exists Tobacco Screening 09/14/2025 09/14/2024 DTaP/Tdap/Td Vaccines (2 - Td or Tdap) [...] this topic Meningococcal Vaccine Aged Out No melissa mamta eligible based on patient's age to complete this topic RSV under 20 months Aged Out No longe r eligible based on patient's age to complete this topic Rotavirus Vaccines Aged Out No longer eligible based on patient's age to complete this topic Procedures Procedure Name Priority Date/Time Associated Diagnosis Comments POCT HEMOGLOBIN Routine 09/14/2024 12:06 PM EDT SOB (shortness of breath) POCT INFLUENZA B (ID NOW RAPID MOLECULAR) Routine 08/28/2024 3:39 PM EDT Mild intermittent reactive airway disease with wheezing with acute exacerbation POCT INFLUENZA A (ID NOW RAPID MOLECULAR) Routine 08/28/2024 3:39 PM EDT Mild intermittent reactive airway disease with wheezing with acute exacerbation POCT RAPID COVID ANTIGEN Routine 08/28/2024 3:28 PM EDT Mild intermittent reactive airway disease with wheezing with acute exacerbation SED RATE BY MODIFIED WESTERGREN Routine 08/06/2024 10:40 AM EDT Elevated C-reactive protein (CRP) C-REACTIVE PROTEIN Routine 08/06/2024 10 :40 AM EDT Elevated C-reactive protein (CRP) TSH W/REFLEX TO FT4 Routine 08/06/2024 1 0:40 AM EDT Subclinical hypothyroidism XR FOOT 3+ VIEWS RIGHT Routine 08/06/2024 10:29 AM EDT Right foot pain POCT GLUCOSE Routine 08/06/2024 9:55 AM EDT Type 2 diabetes mellitus with hyperglycemia, without long-term current use of insulin ([facility]) POCT GLYCATED HEMOGLOBIN, TOTAL Routine 08/06/2024 9:55 AM EDT Type 2 diabetes mellitus with hyperglycemia, without long-term current use of insulin ([facility]) ALBUMIN, RANDOM URINE W/CREATININE Routine 05/09/2024 9:00 AM EST Type 2 diabetes mellitus with hyperglycemia, without long-term current use of insulin ([facility]) LIPID PANEL, STANDARD Routine 05/09/2024 9:00 AM EST Type 2 diabetes mellitus with hyperglycemia, without long-term current use of insulin ([facility]) from Last 3 Months or Most Recently Relevant to Health Maintenance Results * POCT Hemoglobin (09/14/2024 12:06 PM EDT) Pathologist [facility] Hemoglobin 13.4 12.0 - 15.0 QC Media Lot # [id number] Lot# Expiration Date [id number] Blood 09/14/2024 12:0 6 PM EDT us Angie DISLA POINT OF CARE TEST ENTER/EDIT OR DERABLES Final Result * Influenza B (ID NOW Rapid Molecular) (08/28/2024 3:39 PM EDT) [facility] Influenza B Negative Negative, Indeterminate [facility] Swab 08/28/2024 3:39 PM EDT Lea Ardon MD POINT OF CARE TEST ENTER/E DIT ORDERABLES Final Result [facility] [address] [place] [address] [phone] * Influenza A (ID NOW Rapid Molecular) (08/28/2024 3:39 PM EDT) [facility] Influenza A Negative Negative, Indeterminate [facility] Swab 08/28/2024 3:39 PM EDT Lea Ardon MD POINT OF CARE TEST ENTER/E DIT ORDERABLES Final Result Performing Organization Address [facility] Co de Phone Number [facility] [address] [place] [address] [phone] * POCT Rapid COVID Ag (08/28/2024 3:28 PM EDT) [facility] Rapid COVID Ag Negative Swab 08/28/2024 3:28 PM EDT Lea Ardon MD POINT OF CARE TEST ENTER/E DIT ORDERABLES Final Result * TSH W/Reflex to FT4 (08/06/2024 10:40 AM EDT) [facility] TSH reflex Free T4 2.51 0.32 - 4.0 uIU/mL [facility] Blood Venous blood specimen / Unknown 08/06/2024 10:40 AM EDT 08/06/2024 11:18 AM EDT [facility] MARKETING ADMIN LAB BLOOD ORDERABLES Final Re sult Performing Organization Address [facility] Co de Phone Number [facility] [address] [place] [address] [phone] * (ABNORMAL) Sed Rate by Salma Livingston (08/06/2024 10:40 AM EDT) [facility] Erythrocyte Sedimentation Rate 44(H) 0 - 20 MM/HR [facility] Comment:Patients with polycy themia and many hemoglobin abnormalitiesmay have depressed sed rates whereas patients with anemiamay have elevated sed rates. Blood Venous blood specimen / Unknown 08/06/2024 10:40 AM EDT 08/06/2024 11:22 AM EDT [facility] MARKETING ADMIN LAB BLOOD ORDERABLES Final Re sult Performing Organization Address [facility] de Phone Number [facility] [address] [place] [address] [phone] * (ABNORMAL) C-reactive Protein (08/06/2024 10:40 AM EDT) C Reactive Protein 1.55(H) < or = 0.50 mg/dL [facility] Blood Venous blood specimen / Unknown 08/06/2024 10:40 AM EDT 08/06/2024 11:18 AM EDT [facility] MARKETING ADMIN LAB BLOOD ORDERABLES Final Re sult Performing Organization Address [facility] de Phone Number [facility] [address] [place] [address] [phone] * XR Foot 3+ Views Right (08/06/2024 10:29 AM EDT) Anatomical Region Laterality Modality Lower Extremities, Foot Right Radiogra phic Imaging 08/06/2024 10:2 9 AM EDT Narrative 08/06/2024 11:01 AM EDT ?[facility] ?[address] ?[place] [address] ?XRay Report ? Signed ? Patient: Kody Andre,Mydalis ?MR#: [id number] ?? [id number] ? : 1990 ?Acct:[id number] ? Age/Sex: 34 / F ?ADM Date: 03/17/25 ? Loc: HO.HHCX ? Attending Dr: Karina GORDILLO ? Ordering Physician: Karina Parson ?? Date of Service: 08/06/24 ?? Procedure(s): XR foot RT min 3V ?? Accession Number(s): [id number] ? cc: Karina Prason MARKETING ADMIN ? EXAMINATION: ??XR FOOT 3 OR MORE [...] ??Guru Dugan MD ??08/06/2024 10:59 AM EDT ?? RP ? Dictated By: ?Guru Dugan MD ? Signed By: ?<Electronically signed by Guru Dugan MD in OV> ?08/06/24 1059 ? DD/ 1029 ? TD/TT: 08/06/24 1030 ? Director Learning: ? Procedure Note Madyson Parsons - 08/06/2024 [place] [address] XRay Report Signed Patient: Tommie PazMR#: [id number] : 1990Acct:[id number] Age/Sex: 34 / FADM Date: 08/06/24 Loc: HO.HHCX Attending Dr: Karina Parson MARKETING ADMIN Ordering Physician: Karina Parson Date of Service: 08/06/24 Procedure(s): XR foot RT min 3V Accession Number(s): [id number] cc: Karina Parson EXAMINATION: XR FOOT 3 [...] Guru Dugan MD 08/06/2024 10:59 AM EDT RP Dictated By: Guru Dugan MD Signed By: <Electronically signed by Guru Dugan MD in OV> 08/06/24 1059 DD/ 1029 TD/TT: 08/06/24 1030 Director Learning: [facility] IMG XR PROCEDURES Final Resul t * POCT HGB A1C (08/06/2024 9:55 AM EDT) Pathologist [facility] Hemoglobin A1C 5.8 4.0 - 6.0 % QC Media Lot # [id number] Lot# Expiration Date , Blood 08/06/2024 9:55 AM EDT [facility] POINT OF CARE TEST ENTER/EDIT ORDERABLES Final Result * POCT Glucose (08/06/2024 9:55 AM EDT) [facility] Glucose Blood, POC 106 60 - 200 mg/dL QC Media Lot # [id number] Lot# Expiration Date [id number] Blood Capillary blood specimen / Unknown 08/06/2024 9:55 AM EDT [facility] POINT OF CARE TEST ENTER/EDIT ORDERABLES Final Result * Albumin, Random Urine W/Creatinine (05/09/2024 9:00 AM EST) Creatinine, Urine 231.56 mg/dL [facility] Microalbumin Urine 11.0 mg/L [facility] Microalbum Creatinine Ratio Ur 4.7 <30 ug/mg cr [facility] Comment:Albumin/Creatinine R atio Reference Ranges: Normal: < 30 ug/mg creatinine Microalbuminuria: 30 - 300 ug/mg creatinineClinical Albuminuria: > 300 ug/mg creatinine Urine 05/09/2024 9:00 AM EST 05/09/2024 11:40 AM EST [facility] LAB URINE ORDERABLES Final Re sult Performing Organization Address [facility] Co de Phone Number [facility] [address] [place] [address] [phone] * (ABNORMAL) Lipid Panel, Standard (05/09/2024 9:00 AM EST) Triglycerides 146 <150 mg/dL [facility] Comment:Desirable Triglyceri de: less than 150 mg/dLBorderline High Triglyceride 150-199 mg/dLHigh Triglyceride: 200-499 mg/dLVery High Triglyceride: greater than or equal to 5OO mg/dL Cholesterol 230(H) <200 mg/dL [facility] Comment:Desirable Cholestero l: less than 200 mg/dLBorderline High Cholesterol: 200-239 mg/dLHigh Cholesterol: greater than 239 mg/dL LDL Cholesterol Calculated 161(H) <100 mg/dL [facility] Comment:Desirable LDL: less than 100 mg/dLNear Optimal/Above Optimal LDL: 110- 129 mg/dLBorderline High LDL: 130-159 mg/dLHigh LDL: 160-189 mg/dLVery High LDL: greater than or equal to 190 mg/dL HDL Cholesterol 40(L) >40 mg/dL [facility] Comment:Desirable HDL: great er than 40 mg/dL Note: This HDL assay may give artificially low results in patients with liver disease. Blood Venous blood specimen / Unknown 05/09/2024 9:00 AM EST 05/09/2024 11:52 AM EST [facility] LAB BLOOD ORDERABLES Final Re sult Performing Organization Address City/[facility]/ZIP Co de Phone Number [facility] [address] [place] [phone] from Last 3 Months or Most Recently Relevant to Health Maintenance Insurance [facility] MEDICAID STAND ADULT * Guarantor: Tommie Paz Account Type Relation to Patient Date of Phone Billing Address Personal/Family Self [address] [place] Care Teams Section Leader And Machine Setter Relationship Specialty Start Date End Date Karina Parson FNP [address] [place] [address] PCP - General Family Medicine 05/14/22
--- OUTSIDE RECORDS SUMMARY | 2024-09-17 09:22 | XMS_ITS | Encounter Summary ---
Author Organization [employer] Address [address] [facility] [address] [address] [place] [address] Care Team Providers Care Bait Man Name Role Phone [facility] Primary Care Provider [phone] Reason for Visit * Reason Onset Date Comments Nurse Triage 03/20/2024 Encounter Details Date Type Department Care Team ([facility] st Contact Info) Description 03/20/2024 Telephone [facility] [address] [place], [place] [phone] [facility] [address] [place], [place] [phone] Nurse Triage Social History Tobacco Use Types [...] worse than before. ASK appt with PCP [place] 03/30/24 @ 1100am. Pt agrees with disposition [...] for Pain * Telephone Encounter - Dolores Cisneros - 03/20/2024 8:57 AM EDT Symptom: Leg Pain - Not From Injury Outcome: Schedule an urgent appointment (within 1 hour) or talk to a nurse or provider soon Reason: Trouble walking The caller accepted this outcome. documented in this encounter Plan of Treatment Upcoming Encounters Date Type Department Care Team (Late st Contact Info) Description 09/27/2024 10:30 AM EDT Clinical Support [address] [address] 10/29/2024 9:45 AM EDT Office Visit [address] [address] Karina Parson FNP [address] [place] [phone] documented as of this encounter Visit Diagnoses Not on filedocumented in this encounter Additional Health Concerns Assessment Noted Time PHQ-9 Depression Total Score: 17 024 7:57 AM EDT documented as of this encounter Care Teams Bait Man Relationship Specialty Start Date End Date Karina Parson FNP [address] [place] [phone] PCP - General Family Medicine 05/14/22 documented as of this encounter
--- OUTSIDE RECORDS SUMMARY | 2024-09-17 09:22 | XMS_ITS | Encounter Summary ---
Author Organization [facility] Address [address] [address] Phone Care Team Providers Care Structural Steel Worker Apprentice Name Role Phone Chencho Munoz MD Primary Care Provider Unavailable Encounter Details Date Type Department Care Team (Late st Contact Info) Description 09/28/2022 Procedure Pass OR Admitting Dept - Virtual Department [address] [place] [address] Social History Tobacco Use Types Packs/Day Years [...] on filedocumented in this encounter Care Teams Structural Steel Worker Apprentice Relationship Specialty Start Date End Date Chencho Munoz MD PCP - General 05/14/22 documented as of this encounter Additional Source Comments The information contained in this document represents components of the legal health record. It is not the complete legal health record.[facility]
--- OUTSIDE RECORDS SUMMARY | 2024-09-17 09:22 | XMS_ITS | Encounter Summary ---
Author Organization [employer] Address [address] 7t [place] [address] Care Team Providers Care Substance Abuse Prevention Coordinator Name Role Phone [facility] Primary Care Provider [phone] Encounter Details Date Type Department Care Team ([facility] st Contact Info) Description 09/12/2024 Patient Outreach [facility] [address] [place], [place] [phone] [facility] [address] [place], [place] [phone] Social History Tobacco Use Types Packs/Day Years [...] Description 09/27/2024 10:30 AM EDT Clinical Support [address] [address] 10/29/2024 9:45 AM EDT Office Visit [address] [address] Karina Parson FNP [address] [place] [address] documented as of this encounter Visit Diagnoses Not on filedocumented in this encounter Additional Health Concerns Assessment Noted Time PHQ-9 Depression Total Score: 16 025 9:55 AM EDT documented as of this encounter Care Teams Substance Abuse Prevention Coordinator Relationship Specialty Start Date End Date Karina Parson FNP [address] [place] [address] PCP - General Family Medicine 05/14/22 documented as of this encounter
--- OUTSIDE RECORDS SUMMARY | 2024-09-17 09:22 | XMS_ITS | Encounter Summary ---
Author Organization [employer] Address [address] 7[address] [place] [address] Care Team Providers Care Intermodal Owner Operator Truck Driver Name Role Phone [facility] Primary Care Provider [phone] Encounter Details Date Type Department Care Team (Latest Contact Info) Description 09/14/2024 Travel Social History Tobacco Use Types Packs/Day [...] 09/27/2024 10:30 AM EDT Clinical Support [address] [address] 10/29/2024 9:45 AM EDT Office Visit [address] [address] Karina Parson FNP [address] [place] [address] documented as of this encounter Visit Diagnoses Not on filedocumented in this encounter Additional Health Concerns Assessment Noted Time PHQ-9 Depression Total Score: 16 025 9:55 AM EDT documented as of this encounter Care Teams Intermodal Owner Operator Truck Driver Relationship Specialty Start Date End Date Karina Parson FNP [address] [place] [address] PCP - General Family Medicine 05/14/22 documented as of this encounter
--- OUTSIDE RECORDS SUMMARY | 2024-09-17 09:22 | XMS_ITS | Encounter Summary ---
Author Organization [employer] Address [address] [facility] [facility] [address] 7t [place] [address] Care Team Providers Care Secy Name Role Phone [facility] Primary Care Provider [phone] Reason for Visit * Reason Comments Med Refill Encounter Details Date Type Department Care Team ([facility] st Contact Info) Description 04/20/2023 Refill [facility] 230 [place], [place] [phone] [facility] 230 [place], [place] [phone] Essential hypertension Social History Tobacco Use Types [...] Description 09/27/2024 10:30 AM EDT Clinical Support [address] [address] 10/29/2024 9:45 AM EDT Office Visit [facility] [address] [place] [address] Karina Parson FNP [address] [place] [address] documented as of this encounter Visit Diagnoses Diagnosis Essential hypertension Unspecified essential hypertension documented in this encounter Additional Health Concerns Assessment Noted Time PHQ-9 Depression Total Score: 8 06/22/19 23 3:07 PM EST documented as of this encounter Care Teams Secy Relationship Specialty Start Date End Date Karina Parson FNP [address] [place] [phone] PCP - General Family Medicine 05/14/22 documented as of this encounter
--- OUTSIDE RECORDS SUMMARY | 2024-09-17 09:22 | XMS_ITS | Encounter Summary ---
Author Organization [employer] Address [address] 7t [place] [address] Care Team Providers Care Lead Scientist Name Role Phone [facility] Primary Care Provider [phone] Reason for Visit * Reason Onset Date Comments Med Refill 04/04/2024 Encounter Details Date Type Department Care Team ([facility] st Contact Info) Description 04/04/2024 Refill [facility] 230 [place], [place] [phone] Lydia Owusu DO 230 [place] [address] Seborrheic dermatitis Social History Tobacco Use Types [...] Description 09/27/2024 10:30 AM EDT Clinical Support [address] [address] 10/29/2024 9:45 AM EDT Office Visit [address] [address] Karina Parson FNP [address] [place] [address] documented as of this encounter Visit Diagnoses Diagnosis Seborrheic dermatitis Unspecified seborrheic dermatitis documented in this encounter Additional Health Concerns Assessment Noted Time PHQ-9 Depression Total Score: 17 024 7:57 AM EDT documented as of this encounter Care Teams Lead Scientist Relationship Specialty Start Date End Date Karina Parson FNP [address] [place] [address] PCP - General Family Medicine 05/14/22 documented as of this encounter
--- OUTSIDE RECORDS SUMMARY | 2024-09-17 09:22 | XMS_ITS | Encounter Summary ---
Author Organization [facility] Address [address] [address] Phone Care Team Providers Care Tray Filler Name Role Phone Chencho Munoz MD Primary Care Provider Unavailable Encounter Details Date Type Department Care Team (Late st Contact Info) Description 09/14/2022 Procedure Pass OR Admitting Dept - Virtual Department [address] [place] [address] Social History Tobacco Use Types Packs/Day Years [...] on filedocumented in this encounter Care Teams Tray Filler Relationship Specialty Start Date End Date Chencho Munoz MD PCP - General 05/14/22 documented as of this encounter Additional Source Comments The information contained in this document represents components of the legal health record. It is not the complete legal health record.[facility]
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
--- OUTSIDE RECORDS SUMMARY | 2024-09-17 09:22 | XMS_ITS | Encounter Summary ---
Author Organization [employer] Address [address] 7t [place] [address] Care Team Providers Care Forestry Laborer Name Role Phone [facility] Primary Care Provider [phone] Encounter Details Date Type Department Care Team (Latest Contact Info) Description 09/13/2024 Travel Social History Tobacco Use Types Packs/Day [...] Description 09/27/2024 10:30 AM EDT Clinical Support [address] [address] 10/29/2024 9:45 AM EDT Office Visit [address] [address] Karina Parson FNP [address] [place] [address] documented as of this encounter Visit Diagnoses Not on filedocumented in this encounter Additional Health Concerns Assessment Noted Time PHQ-9 Depression Total Score: 16 025 9:55 AM EDT documented as of this encounter Care Teams Forestry Laborer Relationship Specialty Start Date End Date Karina Parson FNP [address] [place] [address] PCP - General Family Medicine 05/14/22 documented as of this encounter
== END 2024-09-17 09:31 | disposition home or self-care (01) ==
LOC: HO.HOS 08:48
PROVIDERS: PCP Registered Nurse
DX: G56.03 Carpal tunnel syndrome, bilateral upper limbs (principal)
CPT/HCPCS: 99204

== ENCOUNTER → 2024-09-17 08:47 | Outpatient (BNVA) | payer MEDICAID, SELFPAY | PROVIDERS: PCP Registered Nurse | DX: G56.03 Carpal tunnel syndrome, bilateral upper limbs (principal) | CPT/HCPCS: 99212 ==

== ENCOUNTER 2024-11-12 10:09 | Outpatient (REF) | payer MEDICAID, SELFPAY ==
--- OUTSIDE RECORDS SUMMARY | 2024-11-12 11:17 | XMS_ITS | Encounter Summary ---
Author Organization [employer] Address [address] [facility] 7t [place] [address] Care Team Providers Care Classroom Instructor Name Role Phone Bryant Pond [facility] Primary Care Provider [phone] Jimmy Knight RN Unavailable [phone] Reason for Visit * Reason Comments Med Refill Encounter Details Date Type Department Care Team ([facility] Contact Info) Description 04/07/2024 Refill [facility] 230 [place], [place] [phone] Bryant Pond Karina, [facility] 230 [place], [place] [phone] Social History Tobacco Use Types Packs/Day Years [...] Care Team (Late st Contact Info) Description 12/21/2024 3:00 PM EDT Office Visit [facility] 230 [place] [address] Karina Parson [facility] [address] [place] [address] documented as of this encounter Visit Diagnoses Not on filedocumented in this encounter Additional Health Concerns Assessment Noted Time PHQ-9 Depression Total Score: 17 024 7:57 AM EDT documented as of this encounter Care Teams Classroom Instructor Relationship Specialty Start Date End Date Karina Parson FNP [address] [place] [address] PCP - General Family Medicine 05/14/22 Jimmy Knight, HIEN [address] [place] [address] Radio Message RouterCrop Or Livestock Tenant Farmer 10/03/24 documented as of this encounter
[2024-11-12 11:28] LABS: MANUAL DIFF FLAG NO
[2024-11-12 11:34] LABS: Basophils Absolute Auto 0.1 X10*3/uL (0.0-0.2); Basophils Percent Auto 0.7 % (0-2); Eosinophils Absolute Auto 0.7 X10*3/uL (0.0-0.4); Eosinophils Percent Auto 6.6 % (0-4); Hematocrit 41.4 % (37.0-47.0); Hemoglobin 13.3 g/dl (12.0-16.0); Imm Gran Abs Auto 0.07 X10*3/uL (0.00-0.03); Imm Gran Pct Auto 0.7 % (0.0-0.4); Lymphocytes Absolute Auto 3.9 X10*3/uL (1.2-4.9); Lymphocytes Percent Auto 37.2 % (20-40); Mean Corpuscular HGB Conc 32.1 g/dl (31.0-35.0); Mean Corpuscular Hemoglobin 27.8 pg (27.0-33.0); Mean Corpuscular Volume 86.4 fL (80.0-98.0); Mean Platelet Volume 11.5 fL (9.4-12.3); Monocytes Absolute Auto 0.6 X10*3/uL (0.1-1.2); Neutrophils Absolute Auto 5.1 x10*3/uL (2.0-8.3); Neutrophils Percent Auto 48.8 % (45-73); Platelet Count 342 X10*3/uL (160-400); Red Blood Count 4.79 X10*6/uL (4.20-5.50); Red Cell Distribution Width 13.7 % (11.0-16.0); White Blood Count 10.3 X10*3/uL (4.8-10.8)
[2024-11-12 11:50] LABS: Anion Gap 13 (12-20); Blood Urea Nitrogen 12 mg/dL (9-16); Calcium 9.7 mg/dL (8.4-10.2); Carbon Dioxide 25 mmol/L (22-29); Chloride 105 mmol/L (96-108); Estimated Glomerular Filt Rate > 60; Glucose Random 102 mg/dL (60-115); Potassium 4.1 mmol/L (3.3-5.1); Sodium 139 mmol/L (135-145)
== END 2024-11-12 10:10 | disposition home or self-care (01) ==
LOC: HO.HHCL 10:09
PROVIDERS: PCP Registered Nurse; Visit Provider Nurse Practitioner Primary Care
DX: I10 Essential (primary) hypertension (principal); R06.02 Shortness of breath
CPT/HCPCS: 36415; 80048; 85025

== ENCOUNTER 2024-12-31 15:07 | Outpatient (AMB) | payer MEDICAID, SELFPAY ==
[2024-12-31 15:13] VITALS: BP 138/60; PULSE 90; O2SAT 97; BMI 64.9
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
--- OUTSIDE RECORDS SUMMARY | 2024-12-31 15:27 | XMS_ITS | Encounter Summary ---
Author Organization [employer] Address [address] [place] [address] Care Team Providers Care Seat Mender Name Role Phone Karina Parson ROBOTIC TOY INVENTOR Primary Care Provider [phone] Jimmy Knight RN Unavailable [phone] Encounter Details Date Type Department Care Team ([facility] st Contact Info) Description 11/14/2024 Results Follow-Up [facility] [address] [place], [place] [phone] Angie Mills ANP [address] [place], [place] [phone] Basic Metabolic Panel, CBC auto differential, POCT Hemoglobin Social History Tobacco Use Types Packs/Day Years Used Date Smoking Tobacco: Former Cigarettes Passive Smoke Exposure: Past Smokeless Tobacco: Never Alcohol Use Standard Drinks/Week Comments Never 0 (1 standard drink = 0.6 oz pur e alcohol) Depression Answer Date Recorded Patient Health Questionnaire-9 Score 9 10/03/2024 Patient Health Questionnaire-9 Score 9 10/03/2024 Last PHQ-9: Questionnaire Data Not on file 0 10/03/2024 Housing Stability Answer Date Recorded What is [...] shut off services in your home? Yes 11/14/2024 Depression Answer Date Recorded Patient Health Questionnaire-2 Score 3 10/03/2024 Internet Access Answer Date Recorded Internet Access Q1 Yes 07/30/2024 Internet Access Q2 Not on file 07/30/2024 Comments No Sex and Gender Information Value Date Recorded Sex Assigned at Female 03/22/2022 10:32 AM EDT Legal Sex Female 10:32 AM EDT Gender Identity Female 03/22/2022 10:32 AM EDT Sexual Orientation Straight 03/22/2022 10 :32 AM EDT documented as of this encounter Miscellaneous Notes * Result Encounter Note - NIGHAT Castro - 11/14/2024 3:18 PM EDT Hi Mydalis, Your labs are generally normal. One type of blood cell, called eosinophils, are mildly elevated which could be due to allergies. If this remains elevated, it would be a good thing to notify the lung doctor about when you see them. Please call our office if you have any questions. Por favor llame a la oficina si tiene preguntas. Take care, Cu??Angie gregorio SOLE SKIVER documented in this encounter Plan of Treatment Upcoming Encounters Date Type Department Care Team (Late st Contact Info) Description 02/01/2025 9:15 AM EDT Office Visit [facility] [address] [place] [address] Karina Parson FNP [address] [place] [address] documented as of this encounter Visit Diagnoses Not on filedocumented in this encounter Additional Health Concerns Assessment Noted Time PHQ-9 Depression Total Score: 9 10/04/19 25 9:40 AM EDT documented as of this encounter Care Teams Seat Mender Relationship Specialty Start Date End Date Karina Parson FNP [address] [place] [address] PCP - General Family Medicine 05/14/22 Jimmy Knight RN [address] [place] [address] Manager HarborScheduling Clerk 10/03/24 documented as of this encounter
--- OUTSIDE RECORDS SUMMARY | 2024-12-31 15:27 | XMS_ITS | Clinical Summary ---
Author Organization [facility] Address [address] [place] [id number] Phone Care Team Providers Care Master Chef Name Role Phone [place], [facility] Primary Care Provider Unavailable Allergies Active Allergy Reactions Criticality Noted Date Comments Aspirin 06/08/2017 Other reaction(s): Throat swelling Lidocaine 06/08/2017 Metformin Dizziness 08/18/2017 Medications tiZANidine (ZANAFLEX) 4 MG tablet Take 4 mg by mouth daily as needed. 3 Active risperiDONE (RISPERDAL) 1 MG tablet Take 1 mg by mouth nightly at bedtime. at bedtime. 3 Active QUEtiapine (SEROQUEL) 300 MG tablet Take 300 mg by mouth nightly at bedtime. at bedtime. 3 Active omeprazole (PRILOSEC) 20 MG capsule TAKE 1 CAPSULE BY MOUTH TWICE DAILY AT NOON AND BEDTIME 3 Active olmesartan (BENICAR) 5 mg tablet Take 5 mg by mouth every morning. 3 Active magnesium oxide (MAG-OX) 400 mg (241.3 mg elemental) tablet TAKE 1 TABLET BY MOUTH EVERYDAY AT NOON 3 Active ketoconazole (NIZORAL) 2 % shampoo APPLY TO THE AFFECTED AREA(S) TOPICALLY EVERY DAY, LATHER, LEAVE ON FOR 5 MINUTES THEN RINSE WITH WATER 3 Active gabapentin (NEURONTIN) 300 MG capsule At bedtime 3 Active FLUoxetine (PROZAC) 20 MG capsule Take 20 mg by mouth every morning. 3 Active fluocinonide 0.05 % external solution APPLY TO THE AFFECTED AREA(S) TOPICALLY ONCE DAILY DIRECTED 2 Active ferrous sulfate 325 mg (65 mg catawba iron) tablet take 1 tablet by oral route every day with vitamin C Active DULoxetine (CYMBALTA) 30 MG capsule TAKE 1 CAPSULE BY MOUTH TWICE DAILY IN THE MORNING AND IN THE EVENING 3 Active docusate sodium (COLACE) 100 MG capsule Take 100 mg by mouth 2 (two) times a day as needed. 3 Active clonazePAM (KLONOPIN) 1 MG tablet Take 1 mg by mouth nightly at bedtime as needed. 3 Active VITAMIN D3 25 mcg (1,000 unit) capsule Take by mouth every morning. 3 Active ascorbic acid, vitamin C, (VITAMIN C) 250 MG tablet TAKE 1 TABLET BY MOUTH EVERY MORNING WITH IRON 3 Active albuterol 90 mcg/actuation inhaler Take 2 puffs by mouth every 4 (four) hours as needed. 3 Active triamcinolone acetonide 0.1 % ointment Apply topically 2 (two) times a day for 14 days. 30 g 3 Active acetaminophen (TYLENOL) 325 mg tablet Take 2 tablets (650 mg total) by mouth every 4 (four) hours as needed. 90 tablet 3 Active ibuprofen (ADVIL,MOTRIN) 200 MG tablet Take 3 tablets (600 mg total) by mouth every 6 (six) hours as needed for pain (specific location in comments). 90 tablet 3 Active blood pressure test kit-large Kit USE TO CHECK BLOOD PRESSURE 3 Active mometasone (ASMANEX HFA) 100 mcg/actuation HFAA INHALE 1 PUFF BY MOUTH 2 TIMES EVERY DAY IN THE MORNING AND EVENING 2 Active acetaminophen (TYLENOL) 325 mg tablet Take 2 tablets (650 mg total) by mouth every 4 (four) hours as needed. 3 Active naproxen (NAPROSYN) 500 MG tabletIndicatio ns:Pelvic pain Take 1 tablet (500 mg total) by mouth 2 (two) times a day with meals. 60 tablet 3 3 Active Active Problems Problem Noted Date Diagnosed Date Pelvic pain 10/01/2022 Assessment & Plan (10/01/2022 4:11 PM EDT): Patient with chronic pelvic pain IUD removed on 09/28 Patient started her period the day after IUD removal Reports significant cramping/back pain Comfort measures reviewed, rx for Naproxen sent to pharmacy Patient rescheduled follow up with [facility] oncology to 10/29 Patient to return to [...] to bariatrics and robotic surgery Referral to [facility] oncology placed, if patient is unable to be seen by their office, she is willing to be referred to [facility] in [place] Pelvic US ordered to assess IUD placement [...] with a working camera? Not on file Comments No Sex and Gender Information Value Date Recorded Sex Assigned at Not on file Legal Sex Female 3:42 PM EST Gender Identity Not on file Sexual Orientation Not on file Last Filed Vital Signs Vital Sign Reading Time Taken Comments Blood Pressure 132/82 10/01/2022 2:42 PM EDT Pulse 92 09/28/2022 3:00 PM EDT Temperature 36.1 C (97 F) 09/28/2022 3:35 PM EDT Respiratory Rate 18 [...] ONE-TIME SCREENING (18-65 YEARS) 2008 COVID-19 VACCINE () 01/22/2024 PAP SMEAR 09/28/2025 09/28/2022, 05/0 01/2023, 09/14/2022, [...] age to complete this topic MENINGOCOCCAL VACCINES (B) Aged Out N o longer eligible based on patient's age to complete this topic PNEUMOCOCCAL VACCINES (0-49 years) Aged Out No longer eligible based on patient's age to complete this topic Medical Devices Implanted Type Area Geotechnical Field Technician Device Identifier Shelf Expiration Date Model / Serial / Lot Mirena Implanted:Qty : 1 on 03/03/2021 by Hattie Michelle MD at [facility] Intrauterine Device N/A: Uterus 10/20/2024 / / [id number] Procedures Procedure Name Priority Date/Time Associated Diagnosis Comments PAP TEST Routine 09/28/2022 12:00 AM EDT from Last 3 Months or Most Recently Relevant to Health Maintenance Results * Pap Test (09/28/2022 12:00 AM EDT) 09/28/2022 09/29/2022 10: 31 AM EDT Narrative SEE NARRATIVE - 10/06/2022 4:12 PM EDT [address] [address] Metal Bending Machine Operator: Yamila Leo MD [employer] RETAIL MANAG[employer] Cytology Report FINAL DIAGNOSIS A. PAP SMEAR (SUREPATH) CE: SPECIMEN ADEQUACY: Satisfactory for evaluation; transformation zone present. INTERPRETATION: NEGATIVE FOR INTRAEPITHELIAL LESION OR MALIGNANCY. Parakeratosis Electronically Signed Out By: MD Janina Rodriguez CT(ASCP) By his/her signature above, the pathologist listed as making the Final Diagnosis certifies that he/she has personally reviewed this case and confirmed or corrected the diagnosis. The Pap test is a screening test primarily for squamous cancers and precursors and has associated false-negative and false-positive results. New technologies such as liquid-based preparations may decrease but will not eliminate all false-negative results. Regular sampling and follow-up of unexplained clinical signs and symptoms are recommended to minimize false negative results. PROCEDURES/ADDENDA HPV Testing (Requested) Ordered Date: 10/06/2022 A. PAP SMEAR (SUREPATH) CE: Human Papilloma Virus Test NEGATIVE for high-risk Human Papilloma Virus types 16, 18, 45 and the Other high risk probe set (Includes 31, 33, 35, 39, 51, 52, 56, 58, 59, 66, 68) Note: Testing performed by Health: Elt HR-HPV analysis. Clinical correlation is advised. This HPV test was performed at [facility], [address] [place] [address]. This test has been FDA approved for SurePath cervical cytology specimens. The accuracy and precision of this test for all other specimen sources has been verified in the Cytopathology Laboratory of the [facility] and has not been cleared or approved by the U.S. Food and Drug Administration. Clinical correlation is advised. CLINICAL HISTORY Date of Last Menstrual Period: Not Provided Menstrual History: Unknown Other Clinical Conditions: Screening Pap SPECIMEN SOURCE A: PAP SMEAR (SUREPATH) CE Patient Name: NAHOMY PAZ : 1990 (Age: 32) Sex: F [facility]: [facility] Date of Collection: 09/28/2022 Date of Reported: 10/01/2022 16:11 Results to: Hattie Murphy Hattie Espinoza MD CYTOLOGY ORDER ALLEY Edited Result - Final SEE NARRATIVE from Last 3 Months or Most Recently Relevant to Health Maintenance Insurance [facility] C3 ACO C3 ACO C3 ACO C3 ACO [address] [place] [address] [facility] [place] [address] [place] [address] C3 ACO Care Teams Master Chef Relationship Specialty Start Date End Date CenterChencho MD PCP - General 05/14/22 Additional Source Comments The information contained in this document represents components of the legal health record. It is not the complete legal health record.[facility]
== END 2024-12-31 15:48 | disposition home or self-care (01) ==
LOC: HO.HPS 15:08
PROVIDERS: PCP Registered Nurse; Visit Provider Nurse Practitioner Family
DX: J45.909 Unspecified asthma, uncomplicated (principal); Z91.09 Other allergy status, other than to drugs and biological substances; R06.81 Apnea, not elsewhere classified; R40.0 Somnolence
CPT/HCPCS: 99204

== ENCOUNTER → 2024-12-31 15:07 | Outpatient (BNVA) | payer MEDICAID, SELFPAY | PROVIDERS: PCP Registered Nurse; Visit Provider Nurse Practitioner Family | DX: J45.909 Unspecified asthma, uncomplicated (principal); Z91.09 Other allergy status, other than to drugs and biological substances; R06.81 Apnea, not elsewhere classified; R40.0 Somnolence | CPT/HCPCS: 99212 ==

== ENCOUNTER 2025-01-03 13:03 | Outpatient (REF) | payer MEDICAID, SELFPAY ==
[2025-01-03 13:21] LABS: MANUAL DIFF FLAG NO
--- OUTSIDE RECORDS SUMMARY | 2025-01-03 13:55 | XMS_ITS | Encounter Summary ---
Author Organization [employer] Address [address] [place] [address] Care Team Providers Care Meat Boner And Slicer Name Role Phone Karina Parson BLOCK TRIMMER Primary Care Provider Jimmy Knight RN Unavailable [phone] Encounter Details Date Type Department Care Team ([facility] st Contact Info) Description 11/14/2024 Results Follow-Up [facility] [address] [place], [place] [phone] Angie Mills ANP [address] [place], [place] [phone] Basic Metabolic Panel, CBC auto differential, POCT [...] si tiene preguntas. Take care, Cu??Angie gregorio CASEWORKER documented in this encounter Plan of Treatment Upcoming Encounters Date Type Department Care Team (Late st Contact Info) Description 02/01/2025 9:15 AM EDT Office Visit [facility] [address] [place] [address] Karina Parson FNP [address] [place] [address] documented as of this encounter Visit Diagnoses Not on filedocumented in this encounter Additional Health Concerns Assessment Noted Time PHQ-9 Depression Total Score: 9 10/04/19 25 9:40 AM EDT documented as of this encounter Care Teams Meat Boner And Slicer Relationship Specialty Start Date End Date Karina Parson FNP [address] [place] [address] PCP - General Family Medicine 05/14/22 Jimmy Knight RN [address] [place] [address] Stripper Black And WhiteRing Rolling Machine Operator 10/03/24 documented as of this encounter
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
[2025-01-03 14:05] LABS: Hematocrit 39.4 % (37.0-47.0); Hemoglobin 12.9 g/dl (12.0-16.0); Imm Gran Abs Auto 0.05 X10*3/uL (0.00-0.03); Imm Gran Pct Auto 0.5 % (0.0-0.4); Lymphocytes Absolute Auto 2.9 X10*3/uL (1.2-4.9); Mean Corpuscular HGB Conc 32.7 g/dl (31.0-35.0); Mean Corpuscular Hemoglobin 27.8 pg (27.0-33.0); Mean Corpuscular Volume 84.9 fL (80.0-98.0); NRBC Abs Auto 0.000 X10*3/uL (0.0-0.012); NRBC Pct Auto 0.0 /100WBC (0.0-0.2); Platelet Count 323 X10*3/uL (160-400); Red Blood Count 4.64 X10*6/uL (4.20-5.50); White Blood Count 10.0 X10*3/uL (4.8-10.8)
[2025-01-08 13:48] LABS: Class Alternaria alternata 0; Class Aspergillus fumigatus 0; Class Bermuda Grass 0; Class Birch 0/1; Class Cat Dander 0; Class Cladosporium herbarum 0; Class Cockroach 0; Class Common Ragweed 0/1; Class Cottonwood 0/1; Class Derm. pterony 0; Class Dermatophagoides farinae 0/1; Class Dog Dander 3; Class Elm 0/1; Class Maple Box Elder 0; Class Mountain Cedar 0; Class Mouse Urine Protein 0/1; Class Mugwort 0; Class Oak 0/1; Class Penicillium crysogenum 0; Class Rough Pigweed 0; Class Sheep Sorrel 0; Class Sycamore 0/1; Class Timothy Grass 0; Class Walnut Tree 0; Class White Ash 0; Class White Mulberry 0; D002 - IgE D farinae 0.24 kU/L; E001 - IgE Cat Dander <0.10 kU/L; E005 - IgE Dog Dander 4.98 kU/L; G006 - IgE Timothy Grass <0.10 kU/L; I006-IgE Cockroach, German <0.10 kU/L; M002 - IgE Cladosporium herbar <0.10 kU/L; M003 - IgE Aspergillus fumigat <0.10 kU/L; M006 - IgE Alternaria alternat <0.10 kU/L; T001 IgE Maple/Box Elder <0.10 kU/L; T006 - IgE Cedar, Mountain <0.10 kU/L; T007 - IgE Oak, White 0.11 kU/L; T008 IgE Elm, American 0.12 kU/L; T010 - IgE Walnut <0.10 kU/L; T011 - IgE Maple Leaf Sycamore 0.10 kU/L; T014 - IgE Cottonwood 0.12 kU/L; T015 - IgE Ash, White <0.10 kU/L; T070 - IgE White Mulberry <0.10 kU/L; W001 - IgE Ragweed, Short 0.18 kU/L; W006 - IgE Mugwort <0.10 kU/L; W014 IgE Pigweed, Common <0.10 kU/L; W018 IgE Sheep Sorrel <0.10 kU/L
== END 2025-01-03 13:04 | disposition home or self-care (01) ==
LOC: HO.LAB 13:03
PROVIDERS: PCP Registered Nurse; Visit Provider Nurse Practitioner Family
DX: Z01.84 Encounter for antibody response examination (principal); Z91.09 Other allergy status, other than to drugs and biological substances
CPT/HCPCS: 36415; 82785; 85025; 86003

== ENCOUNTER 2025-02-25 15:05 | Outpatient (REF) | payer MEDICAID, SELFPAY ==
--- NOTE | ~2025-02-25 | XR_ITS ---
CLINICAL HISTORY: pain 3 views lumbar spine Comparison: None provided Findings: Normal alignment. No acute fractures or dislocation. No significant degenerative change. IMPRESSION: No acute findings. This document has been electronically signed by: Natalia Almanza MD on 02/26/2025 22:14:48
--- OUTSIDE RECORDS SUMMARY | 2025-02-25 13:00 | XMS_ITS | Encounter Summary ---
Author Organization [employer] Address [address] [facility] 7[address] [place] [address] Care Team Providers Care Mounter Name Role Phone Blank [facility] Primary Care Provider Encounter Details Date Type Department Care Team ([facility] st Contact Info) Description 02/25/2025 1:00 PM EDT Office Visit [facility] [address], [place] [id number] Divine Mast MD [address] [place] [address] Acute right-sided low back pain with right-sided sciatica Social History Tobacco Use Types Packs/Day Years Used Date Smoking Tobacco: Former Cigarettes Passive Smoke Exposure: Past Smokeless Tobacco: Never Alcohol Use Standard Drinks/Week Comments Never 0 (1 standard drink = 0.6 oz pur e alcohol) Depression Answer Date Recorded Patient Health Questionnaire-9 Score 14 01/18/2025 Patient Health Questionnaire-9 Score 14 01/18/2025 Last PHQ-9: Questionnaire Data Not on file 0 01/18/2025 Housing Stability Answer Date Recorded What is [...] Answer Date Recorded Patient Health Questionnaire-2 Score 6 01/18/2025 Internet Access Answer Date Recorded Internet Access [...] Sign Reading Time Taken Comments Blood Pressure 132/84 02/25/2025 1:17 PM EDT Pulse 78 02/25/2025 1:17 PM EDT Temperature 36.4 C (97.5 F) 02/25/2025 1:17 PM EDT Respiratory Rate 18 02/25/2025 1:17 PM EDT Oxygen Saturation 96% 02/25/2025 1:17 PM EDT Inhaled Oxygen Concentration - - Weight 152 kg (336 lb) 02/25/2025 1:17 PM EDT Height 157.5 cm (5' 2 ) 02/25/2025 1:17 PM EDT Body Mass Index 61.46 02/25/2025 1:17 PM EDT documented in this encounter Progress Notes * Divine Hemphill MD - 02/25/2025 1:00 PM EDT SUBJECTIVE: Tommie Andre is a 34 y.o. year old female who presents for acute visit . Acute Concerns: Patient reports about a week ago she was washing her dog and after that she debated acute pain on her lower back right side radiating to his her right leg she went to the emergency room because of this pain and it was prescribed for her Toradol and Flexeril which she has been taking but she still has acute pain and has been very challenging treatment for her to do her regular activities at home now she needs her to help her with her ADLs. 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 HENT: Negative. Respiratory: Negative. Cardiovascular: Negative. Musculoskeletal: Positive for back pain and myalgias. OBJECTIVE: Vitals: 02/25/25 1317 BP: 132/84 BP Location: Left arm Patient Position: Sitting BP Cuff Size: Adult Pulse: 78 Resp: 18 Temp: 97.5 ??F (36.4 ??C) TempSrc: Temporal SpO2: 96% Weight: 336 lb (152 kg) Height: 5' 2 (1.575 m) Physical Exam Constitutional: Appearance: Normal appearance. Cardiovascular: Rate and Rhythm: Normal rate and regular rhythm. Pulmonary: Effort: Pulmonary effort is normal. Breath sounds: Normal breath sounds. Abdominal: General: Abdomen is flat. Palpations: Abdomen is soft. Musculoskeletal: Thoracic back: Spasms and tenderness present. Lumbar back: Spasms and tenderness present. Comments: Patient is today here using wheelchair because she has not been able to ambulate Neurological: Mental Status: She is alert. Follow Up: No follow-ups on file. Medications Ordered Prior to Encounter[3] Problem List Items Addressed This Visit Acute right-sided low back pain with right-sided sciatica Probably muscle spasm, apply heat on affected area I will prescribe today Toradol 30 mg IM at the office I discontinue Flexeril and tizanidine for and instead I put her on tizanidine 6 mg every 8 hours she is aware of side effects Alternate acetaminophen with ibuprofen I order an x-ray patient will be contacted with results Relevant Medications ketorolac (Toradol) injection 30 mg (Completed) tiZANidine (Zanaflex) 6 MG capsule lidocaine (Lidoderm) 5 % patch ibuprofen 800 MG tablet Other Relevant Orders XR Lumbar Spine 2-3 Views [1] Patient Active Problem List Diagnosis Chronic low back pain Gastroesophageal reflux disease Recurrent major depressive disorder (CMS/HCC) Occipital headache Subclinical hypothyroidism Hyperlipidemia PCOS (polycystic ovarian syndrome) Abnormal uterine bleeding Asthma Mass of brain Oligomenorrhea Restless leg syndrome Severe obesity (CMS/HCC) ([facility]) Spina bifida occulta Chronic headaches GERD (gastroesophageal reflux disease) Dysuria Hypertension Pelvic pain Hemicrania continua Palpitations Type 2 diabetes mellitus with hyperglycemia, without long-term current use of insulin ([facility]) PTSD (post-traumatic stress disorder) VICTORIANO (generalized anxiety disorder) Acute right-sided low back pain with right-sided sciatica [2] No family history on file. [3] Current Outpatient Medications on File Prior to Visit Medication Sig Dispense Refill Acetaminophen Extra Strength 500 MG tablet albuterol (2.5 MG/3ML) 0.083% nebulizer solution INHALE 1 AMPULE BY MOUTH USING A NEBULIZER 3 TIMESDAILY 90 mL 3 albuterol (Ventolin HFA) 108 (90 Base) MCG/ACT inhaler INHALE 2 PUFFS BY MOUTH EVERY 4 TO 6 HOURS NEEDED 18 g 1 Alcohol Swabs (Alcohol Prep) pads Use one pad each to prep skin prior to injection as directed 100 each 11 Ascorbic Acid (vitamin C) 250 MG tablet TAKE 1 TABLET BY MOUTH EVERY MORNING WITH IRON 90 tablet 1 Blood Glucose Monitoring Suppl (GNP Easy Touch Glucose Meter) device Use as directed to check bloodsugar four times daily 1 each 0 Blood Pressure kit Use as directed 1 kit 0 chlorthalidone (Hygroton) 25 MG tablet Take 1 tablet (25 mg) by mouth Once per day. 30 tablet 11 cholecalciferol (Vitamin D High Potency) 25 MCG (1000 UT) capsule TAKE 1 CAPSULE BY MOUTH EVERY MORNING 90 capsule 0 ferrous sulfate 325 (65 Fe) MG tablet Fluocinolone Acetonide Scalp 0.01 % oil Massage into damp scalp daily. Cover hair and leave on for at least 4 hours 119 mL 0 fluticasone (Flonase Allergy Relief) 50 MCG/ACT nasal spray Administer 1 spray into each nostril inthe morning. Shake gently. Before first use, prime pump. After use, clean tip and replace cap. 16 g0 gabapentin (Neurontin) 300 MG capsule TAKE 2 CAPSULES BY MOUTH EVERY DAY AT BEDTIME 60 capsule 0 glucose blood test strip Use as directed to check blood sugar four times daily 100 each 11 ketoconazole (NIZOral) 2 % shampoo APPLY TOPICALLY TWICE A WEEK DIRECTED 120 mL 0 Lancets 33G misc Use as directed to check blood sugar four times daily 100 each 11 magnesium oxide (Mag-Ox) 400 MG tablet metroNIDAZOLE (Metrocream) 0.75 % cream APPLY ONE APPLICATION TOPICALLY TWICE DAILY 45 g 0 Mometasone Furoate (Asmanex HFA) 100 MCG/ACT aerosol Inhale 2 Act (200 mcg) 2 times daily. Rinse mouth with water after use 13 g 3 olmesartan (BENIcar) 40 MG tablet TAKE 1 TABLET BY MOUTH EVERY DAY 90 tablet 1 pantoprazole (ProtoNix) 40 MG EC tablet Take 40 mg by mouth before breakfast. Do not crush, chew, or split. rosuvastatin (Crestor) 20 MG tablet Take 1 tablet (20 mg) by mouth Once per day. 90 tablet 3 Sodium Fluoride 5000 PPM 1.1 % paste Trulicity 3 MG/0.5ML solution auto-injector INJECT 3 MG SUBCUTANEOUSLY ONCE A WEEK 4 mL 0 Ventolin HFA 108 (90 Base) MCG/ACT inhaler INHALE 2 PUFFS BY MOUTH EVERY 4 TO 6 HOURS NEEDED 18 g 0 Ventolin HFA 108 (90 Base) MCG/ACT inhaler Inhale 2 puffs every 4 (four) hours if needed for wheezing. 18 g 0 Vivelle-Dot 0.05 MG/24HR [DISCONTINUED] ibuprofen 600 MG tablet Take 1 tablet (600 mg) by mouth every 6 (six) hours if needed for mild pain. 30 tablet 1 [DISCONTINUED] ibuprofen 600 MG tablet Take 1 tablet (600 mg) by mouth every 6 (six) hours if needed for mild pain. 30 tablet 1 [DISCONTINUED] tiZANidine (Zanaflex) 4 MG tablet TAKE 1 TABLET BY MOUTH ONCE DAILY IF NEEDED FOR MUSCLE SPASMS 30 tablet 0 No current facility-administered medications on file prior to visit. documented in this encounter Miscellaneous Notes * Assessment & Plan Note - Divine Hemphill MD - 02/25/2025 2:12 PM EDT Associated Problem(s): Acute right-sided low back pain with right-sided sciatica Probably muscle spasm, apply heat on affected area I will prescribe today Toradol 30 mg IM at the office I discontinue Flexeril and tizanidine for and instead I put her on tizanidine 6 mg every 8 hours she is aware of side effects Alternate acetaminophen with ibuprofen I order an x-ray patient will be contacted with results documented in this encounter Plan of Treatment Upcoming Encounters Date Type Department Care Team (Late st Contact Info) Description 02/27/2025 11:15 AM EDT Office Visit [facility] [address] [place] [address] Karina Parson FNP [address] [place] [address] Scheduled Orders Name Type Priority Associated Diagnoses Orde r Schedule XR Lumbar Spine 2-3 Views Imaging Routine Acute right-sided low back pain with right-sided sciatica Expected: 02/25/2025, Expires: 02/25/2026 documented as of this encounter Visit Diagnoses Diagnosis Acute right-sided low back pain with right-sided sciatica documented in this encounter Administered Medications Inactive Administered Medications - up to 3 most recent administrations Medication Order MAR Action Action Date Dose Rate Site ketorolac (Toradol) injection 30 mg 30 mg, Intramuscular, Once, On 02/25/25 at 1345, For 1 doseIndications:Acute right-sided low back pain with right-sided sciatica Given 02/25/2025 1:45 PM EDT 30 mg Left Deltoid documented in this encounter Additional Health Concerns Assessment Noted Time PHQ-9 Depression Total Score: 14 025 2:00 PM EDT documented as of this encounter Care Teams Mounter Relationship Specialty Start Date End Date Karina Parson FNP [address] [place] [address] PCP - General Family Medicine 05/14/22 documented as of this encounter
--- OUTSIDE RECORDS SUMMARY | 2025-02-25 17:26 | XMS_ITS | Encounter Summary ---
Author Organization [employer] Address [address] [facility] [address] [place] [address] Care Team Providers Care Fur Blowing Machine Operator Name Role Phone [facility] Primary Care Provider [phone] Jimmy Knight RN Unavailable [phone] Jimmy Knight RN Unavailable [phone] Amelia Rojo Unavailable Reason for Visit * Reason Onset Date Comments Med Refill 04/04/2024 Encounter Details Date Type Department Care Team (Late st Contact Info) Description 04/04/2024 Refill [facility] [address] [place], [place] [phone] Stephany Dye FNP [address] [place], [place] [phone] Social History Tobacco Use Types Packs/Day Years [...] Description 02/27/2025 11:15 AM EDT Office Visit [facility] [address] [place] [address] [facility] [address] [place] [address] documented as of this encounter Visit Diagnoses Not on filedocumented in this encounter Additional Health Concerns Assessment Noted Time PHQ-9 Depression Total Score: 17 024 7:57 AM EDT documented as of this encounter Care Teams Fur Blowing Machine Operator Relationship Specialty Start Date End Date [facility] [address] [place] [address] PCP - General Family Medicine 05/14/22 Jimmy Knight RN [address] [place] [address] Public Welfare WorkerAsset Manager 10/03/24 02/21/25 Jimmy Knight RN [address] [place] [address] Registered Nurse Family Medicine 02/22/25 02/22/25 Amelia Rojo 02/22/25 02/22/25 documented as of this encounter
--- OUTSIDE RECORDS SUMMARY | 2025-02-25 17:26 | XMS_ITS | Encounter Summary ---
Author Organization [facility] Address [address] [address] Phone Care Team Providers Care Veterinarian Helper Name Role Phone Chencho Munoz MD Primary Care Provider Unavailable Encounter Details Date Type Department Care Team (Late st Contact Info) Description 09/28/2022 Procedure Pass OR Admitting Dept - Virtual Department [address] [place] [address] Social History Tobacco Use Types Packs/Day Years Used Date Smoking Tobacco: Former Cigarettes Smokeless Tobacco: Never Comments:Experimented couple months Alcohol Use Standard Drinks/Week Comments Yes 0 (1 standard drink = 0.6 oz pur e alcohol) rare on one drink Education Answer Date Recorded Are you interested in more education? Not on lee e 09/17/2022 Are you concerned about learning? Not on file 09/17/2022 No 09/17/2022 No 09/17/2022 Comments No Sex and Gender Information Value Date Recorded Sex Assigned at Not on file Legal Sex Female 3:42 PM EST Gender Identity Not on file Sexual Orientation Not on file documented as of this encounter Plan of Treatment Not on file documented as of this encounter Visit Diagnoses Not on filedocumented in this encounter Care Teams Veterinarian Helper Relationship Specialty Start Date End Date Chencho Munoz MD PCP - General 05/14/22 documented as of this encounter Additional Source Comments The information contained in this document represents components of the legal health record. It is not the complete legal health record.[facility]
--- OUTSIDE RECORDS SUMMARY | 2025-02-25 17:26 | XMS_ITS ---
Author Organization [employer] Address [address] [facility] 7 [place] [address] Care Team Providers Care Erp Programmer Name Role Phone [facility] Primary Care Provider [phone] [facility] Status:Closed (Closed) Start date:02/22/2025 Enrollment reason:ADT Feed End date:02/22/2025 Close reason:Inappropriate for Program Overview ED- Pt went to [facility] ED on 02/21/25. Please outreach for enrollment. [facility] Coordination
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
--- OUTSIDE RECORDS SUMMARY | 2025-02-25 17:26 | XMS_ITS | Encounter Summary ---
Author Organization [employer] Address [address] 7t [place] [address] Care Team Providers Care Displayer Merchandise Name Role Phone [facility] Primary Care Provider [phone] Jimmy Knight RN Unavailable [phone] Jimmy Knight RN Unavailable [phone] Amelia Rojo Unavailable Encounter Details Date Type Department Care Team (Late st Contact Info) Description 10/19/[address] [facility] [address] [place], [place] [phone] [facility] [address] [place], [place] [phone] Social History Tobacco Use Types Packs/Day Years [...] Description 02/27/2025 11:15 AM EDT Office [facility] 230 [place] [address] [facility] [address] [place] [address] documented as of this encounter Visit Diagnoses Not on filedocumented in this encounter Additional Health Concerns Assessment Noted Time PHQ-9 Depression Total Score: 9 10/04/19 25 9:40 AM EDT documented as of this encounter Care Teams Displayer Merchandise Relationship Specialty Start Date End Date [facility] [address] [place] [address] PCP - General Family Medicine 05/14/22 Jimmy Knight RN 505 [place] [address] LinemanIt Network Engineer 10/03/24 02/21/25 Jimmy Knight RN 505 [place] [address] Registered Nurse Family Medicine 02/22/25 02/22/25 Amelia Rojo 02/22/25 02/22/25 documented as of this encounter
--- OUTSIDE RECORDS SUMMARY | 2025-02-25 17:26 | XMS_ITS | Encounter Summary ---
Author Organization [employer] Address [address] [place] [address] 7t [place] [address] Care Team Providers Care Incident Response Consultant Name Role Phone Karina Parson FR[employer] Primary Care Provider [phone] Jimmy Knight RN Unavailable [phone] Jimmy Knight RN Unavailable [phone] Amelia Rojo Unavailable Encounter Details Date Type Department Care Team (Late Contact Info) Description 02/23/2023 Orders Only [facility] [address] [place] [address] Charlette Cornejo MD 230 [place], [place] [phone] Social History Tobacco Use Types Packs/Day Years [...] Description 02/27/2025 11:15 AM EDT Office Visit [facility] 230 [place] [address] [facility] [address] [place] [address] documented as of this encounter Visit Diagnoses Not on filedocumented in this encounter Additional Health Concerns Assessment Noted Time PHQ-9 Depression Total Score: 8 06/22/19 23 3:07 PM EST documented as of this encounter Care Teams Incident Response Consultant Relationship Specialty Start Date End Date [facility] 230 [place] [address] PCP - General Family Medicine 05/14/22 Jimmy Knight RN 505 [facility] [place] [address] Cold PatcherTool And Fixture Repairer 10/03/24 02/21/25 Jimmy Knight RN 505 [facility] [place] [address] Registered Nurse Family Medicine 02/22/25 02/22/25 Amelia Rojo 02/22/25 02/22/25 documented as of this encounter
--- OUTSIDE RECORDS SUMMARY | 2025-02-25 17:26 | XMS_ITS | Encounter Summary ---
Author Organization [facility] Address [address] [address] Phone Care Team Providers Care Mother Helper Name Role Phone Chencho Munoz MD Primary Care Provider Unavailable Encounter Details Date Type Department Care Team (Late st Contact Info) Description 09/28/2022 Procedure Pass [place] Admitting Dept - Virtual Department 30 [place] [address] Social History Tobacco Use Types Packs/Day Years [...] on filedocumented in this encounter Care Teams Mother Helper Relationship Specialty Start Date End Date Chencho Munoz MD PCP - General 05/14/22 documented as of this encounter Additional Source Comments The information contained in this document represents components of the legal health record. It is not the complete legal health record.[facility]
--- OUTSIDE RECORDS SUMMARY | 2025-02-25 17:26 | XMS_ITS | Encounter Summary ---
Author Organization [employer] Address [address] [facility] 7t [place] [address] Care Team Providers Care Bank Manager Name Role Phone [facility] Primary Care Provider [phone] Reason for Visit * Reason Onset Date Comments chart prep 02/25/2025 Encounter Details Date Type Department Care Team ([facility] st Contact Info) Description 02/25/2025 Telephone [facility] 230 [place], [place] [phone] Anca Fowler MD 230 [place], [place] [phone] chart prep Social History Tobacco Use Types Packs/Day Years [...] encounter Miscellaneous Notes * Telephone Encounter - Janay Anthony [place] - 02/25/2025 8:36 AM EDT Chart Prep Labs: done Images: done Referrals: complete Vaccines due: Covid, Flu, PCV20, Hep B, and HPV Screenings: STI screening and LMP Overdue care gaps: A1c and Glucose documented in this encounter Plan of Treatment Upcoming Encounters Date Type Department Care Team (Late st Contact Info) Description 02/27/2025 11:15 AM EDT Office Visit [facility] 230 [place] [address] Karina Parson FNP 230 [place] [address] documented as of this encounter Visit Diagnoses Not on filedocumented in this encounter Additional Health Concerns Assessment Noted Time PHQ-9 Depression Total Score: 14 025 2:00 PM EDT documented as of this encounter Care Teams Bank Manager Relationship Specialty Start Date End Date Karina Parson FNP 230 [place] [address] PCP - General Family Medicine 05/14/22 documented as of this encounter
--- OUTSIDE RECORDS SUMMARY | 2025-02-25 17:26 | XMS_ITS | Encounter Summary ---
Author Organization [employer] Address [address] [facility] 7t [place] [address] Care Team Providers Care Hand Finisher Name Role Phone [facility] Primary Care Provider [phone] Jimmy Knight RN Unavailable [phone] Jimmy Knight RN Unavailable [phone] Amelia Rojo Unavailable Reason for Visit * Reason Comments Med Refill Encounter Details Date Type Department Care Team ([facility] st Contact Info) Description 04/07/2024 Refill [facility] 230 [place], [place] [phone] [facility] 230 [place], [place] [phone] Social History Tobacco Use Types Packs/Day Years [...] Description 02/27/2025 11:15 AM EDT Office Visit [facility] 230 [place] [address] [facility] 230 [place] [address] documented as of this encounter Visit Diagnoses Not on filedocumented in this encounter Additional Health Concerns Assessment Noted Time PHQ-9 Depression Total Score: 17 024 7:57 AM EDT documented as of this encounter Care Teams Hand Finisher Relationship Specialty Start Date End Date [facility] 230 [place] [address] PCP - General Family Medicine 05/14/22 Jimmy Knight RN 505 [facility] [place] [address] Telephone Service AdviserProject Builder 10/03/24 02/21/25 Jimmy Knight RN 505 [facility] [address] Registered Nurse Family Medicine 02/22/25 02/22/25 Amelia Rojo 02/22/25 02/22/25 documented as of this encounter
--- OUTSIDE RECORDS SUMMARY | 2025-02-25 17:26 | XMS_ITS | Encounter Summary ---
Author Organization [employer] Address [address] [facility] 7t [place] [address] Care Team Providers Care Furnace Combination Analyst Name Role Phone [place] [facility] Primary Care Provider [phone] Jimmy Knight RN Unavailable [phone] Jimmy Knight RN Unavailable [phone] Amelia Rojo Unavailable Reason for Visit * Reason Comments Med Refill Encounter Details Date Type Department Care Team (Late st Contact Info) Description 02/28/2024 Refill [facility] 230 [place], [place] [phone] Charlette Cornejo MD 230 [place], [place] [phone] Seborrheic dermatitis Social History Tobacco Use Types [...] Description 02/27/2025 11:15 AM EDT Office Visit [facility] 230 [place] [address] [facility] 230 [place] [address] documented as of this encounter Visit Diagnoses Diagnosis Seborrheic dermatitis Unspecified seborrheic dermatitis documented in this encounter Additional Health Concerns Assessment Noted Time PHQ-9 Depression Total Score: 17 024 7:57 AM EDT documented as of this encounter Care Teams Furnace Combination Analyst Relationship Specialty Start Date End Date [facility] 230 [place] [address] PCP - General Family Medicine 05/14/22 Jimmy Knight RN 505 [place] [address] Dental InstructorSecond Worker 10/03/24 02/21/25 Jimmy Knight RN 505 [place] [address] Registered Nurse Family Medicine 02/22/25 02/22/25 Amelia Rojo 02/22/25 02/22/25 documented as of this encounter
--- OUTSIDE RECORDS SUMMARY | 2025-02-25 17:26 | XMS_ITS | Encounter Summary ---
Author Organization [employer] Address [address] [facility] [address] 7t [place] [address] Care Team Providers Care Drug Safety Scientist Name Role Phone [facility] Primary Care Provider [phone] Encounter Details Date Type Department Care Team (Latest Contact Info) Description 02/25/2025 Travel Social History Tobacco Use Types Packs/Day [...] Description 02/27/2025 11:15 AM EDT Office Visit [facility] 230 [place] [address] Karina Parson FNP 230 [place] [address] documented as of this encounter Visit Diagnoses Not on filedocumented in this encounter Additional Health Concerns Assessment Noted Time PHQ-9 Depression Total Score: 14 025 2:00 PM EDT documented as of this encounter Care Teams Drug Safety Scientist Relationship Specialty Start Date End Date Karina Parson FNP 230 [place] [address] PCP - General Family Medicine 05/14/22 documented as of this encounter
--- OUTSIDE RECORDS SUMMARY | 2025-02-25 17:26 | XMS_ITS | Encounter Summary ---
Author Organization [facility] Address [address] [address] Phone Care Team Providers Care Meter Changes Records Clerk Name Role Phone Chencho Munoz MD Primary Care Provider Unavailable Encounter Details Date Type Department Care Team (Late st Contact Info) Description 09/14/2022 Procedure Pass [place] Admitting Dept - Virtual Department 30 [place] [address] Social History Tobacco Use Types Packs/Day Years [...] on filedocumented in this encounter Care Teams Meter Changes Records Clerk Relationship Specialty Start Date End Date Chencho Munoz MD PCP - General 05/14/22 documented as of this encounter Additional Source Comments The information contained in this document represents components of the legal health record. It is not the complete legal health record.[facility]
--- OUTSIDE RECORDS SUMMARY | 2025-02-25 17:26 | XMS_ITS | Encounter Summary ---
Author Organization [employer] Address [address] [facility] 7t [place] [address] Care Team Providers Care Senior Label Specialist Name Role Phone [facility] Primary Care Provider [phone] Jimmy Knight RN Unavailable [phone] Amelia Rojo Unavailable Reason for Visit * Reason Onset Date Comments Nurse Triage 02/22/2025 Encounter Details Date Type Department Care Team (Late st Contact Info) Description 02/22/[address] [facility] 230 [place], [place] [phone] [place] 230 [place], [place] [phone] Chronic neck pain Social History Tobacco Use Types Packs/Day [...] Telephone Encounter - Betty Lemon RN - 02/22/2025 3:10 PM EDT Called pt. She states that she went to [facility] for her sciatica. Pt. States she feels tingling and pain in her right foot. Pt. Did get 1 injection of Toradol at ED and was sent home with Cyclobenzaprine TID which is not helping. Pt. States The last time this happened, I got a Toradol shot and it helped but, this time it is not even touching my pain . Pt. Has been applying heat aswell. Pt. Is allergic in chart to Lidocaine and Benzocaine. Appointment Made for 02/25/25 at 915am on Red team but I will look through pt. Chart to see if there is anything I can try to request for pt. To keep her comfortable over the weekend. Pt. Pain is 01/30. Protocol Used: Back Pain (Adult) Protocol-Based Disposition: See in Office or Video Visit Today Video visit offer not recorded Positive Triage Questions: * Severe back pain (e.g., excruciating, unable to do any normal activities) and not improved after pain medicine and Care Advice * Pain radiates into the thigh or further down the leg * All higher-acuity triage questions were negative Care Advice Discussed: * Cold or Heat * Sleep * Pain Medicines * Telephone Encounter - Kael Stephenson - 02/22/2025 3:05 PM EDT Symptoms: Back Pain - Not From Injury, Leg Pain - Not From Injury Outcome: Transfer to a nurse or provider NOW! Reason: Age over 30: sudden AND severe upper back pain The caller accepted this outcome. Contact pt at [phone] documented in this encounter Plan of Treatment Upcoming Encounters Date Type Department Care Team (Late st Contact Info) Description 02/27/2025 11:15 [address] EDT Office [facility] 230 [place] [address] [place] [facility] 230 [place] [address] documented as of this encounter Visit Diagnoses Diagnosis Chronic neck pain Cervicalgia documented in this encounter Additional Health Concerns Assessment Noted Time PHQ-9 Depression Total Score: 14 025 2:00 PM EDT documented as of this encounter Care Teams Senior Label Specialist Relationship Specialty Start Date End Date [facility] 230 [place] [address] PCP - General Family Medicine 05/14/22 Jimmy Knight RN [address] [place] [address] Registered Nurse Family Medicine 02/22/25 02/22/25 Amelia Rojo 02/22/25 02/22/25 documented as of this encounter
--- OUTSIDE RECORDS SUMMARY | 2025-02-25 17:26 | XMS_ITS | Encounter Summary ---
Author Organization [employer] Address [address] [facility] 7t [place] [address] Care Team Providers Care Colored Leather Setter Name Role Phone [facility] Primary Care Provider [phone] Jimmy Knight RN Unavailable [phone] Amelia Rojo Unavailable Encounter Details Date Type Department Care Team ([facility] st Contact Info) Description 02/22/2025 Patient Outreach [facility] 230 [place], [place] [phone] [facility] 230 [place] [address] Social History Tobacco Use Types Packs/Day Years [...] Description 02/27/2025 11:15 AM EDT Office Visit [facility] 230 [place] [address] [facility] 230 [place] [address] documented as of this encounter Visit Diagnoses Not on filedocumented in this encounter Additional Health Concerns Assessment Noted Time PHQ-9 Depression Total Score: 14 025 2:00 PM EDT documented as of this encounter Care Teams Colored Leather Setter Relationship Specialty Start Date End Date [facility] 230 [place] [address] PCP - General Family Medicine 05/14/22 Jimmy Knight RN 505 [place] [address] Registered Nurse Family Medicine 02/22/25 02/22/25 Amelia Rojo 02/22/25 02/22/25 documented as of this encounter
--- OUTSIDE RECORDS SUMMARY | 2025-02-25 17:26 | XMS_ITS | Encounter Summary ---
Author Organization [employer] Address [address] [address] 7t [place] [address] Care Team Providers Care Continuity Clerk Name Role Phone Karina Parson [facility] Primary Care Provider [phone] Jimmy Knight RN Unavailable [phone] Jimmy Knight RN Unavailable [phone] Amelia Rojo Unavailable Reason for Visit * Reason Comments Med Refill Encounter Details Date Type Department Care Team (Late st Contact Info) Description 02/28/2024 Refill [facility] 230 [place], [place] [phone] Stephany Dye FNP 230 [place], [place] [phone] Low back pain, unspecified back pain laterality, [...] Description 02/27/2025 11:15 AM EDT Office Visit [facility] 230 [place] [address] [facility] 230 [place] [address] documented as of this encounter Visit Diagnoses Diagnosis Low back pain, unspecified back pain laterality, unspecified chronicity, unspecified whether sciatica present documented in this encounter Additional Health Concerns Assessment Noted Time PHQ-9 Depression Total Score: 17 024 7:57 AM EDT documented as of this encounter Care Teams Continuity Clerk Relationship Specialty Start Date End Date [facility] 230 [place] [address] PCP - General Family Medicine 05/14/22 Jimmy Knight RN 505 [place] [address] Assistant Passenger Locomotive EngineerAviation Technical Systems Specialist 10/03/24 02/21/25 Jimmy Knight RN [address] [place] [address] [place] [address] Registered Nurse Family Medicine 02/22/25 02/22/25 Amelia Rojo 02/22/25 02/22/25 documented as of this encounter
--- OUTSIDE RECORDS SUMMARY | 2025-02-25 17:26 | XMS_ITS | Encounter Summary ---
Author Organization [employer] Address [address] [facility] 7t [place] [address] Care Team Providers Care Control Clerk Name Role Phone [facility] Primary Care Provider [phone] Jimmy Knight RN Unavailable [phone] Jimmy Knight RN Unavailable [phone] Ameila Rojo Unavailable Reason for Visit * Reason Onset Date Comments Med Refill 04/04/2024 Encounter Details Date Type Department Care Team (Late st Contact Info) Description 04/04/2024 Refill [facility] 230 [place], [place] [phone] Lydia Owusu DO 230 [place], [place] [phone] Seborrheic dermatitis Social History Tobacco Use Types [...] Description 02/27/2025 11:15 AM EDT Office Visit [facility] 230 [place] [address] [facility] 230 [place] [address] documented as of this encounter Visit Diagnoses Diagnosis Seborrheic dermatitis Unspecified seborrheic dermatitis documented in this encounter Additional Health Concerns Assessment Noted Time PHQ-9 Depression Total Score: 17 024 7:57 AM EDT documented as of this encounter Care Teams Control Clerk Relationship Specialty Start Date End Date [place] [facility] 230 [place] [address] PCP - General Family Medicine 05/14/22 Jimmy Knight RN 505 [place] [address] Communications TechnicianArmored Service Technician 10/03/24 02/21/25 Jimmy Knight RN 505 [place] [address] Registered Nurse Family Medicine 02/22/25 02/22/25 Amelia Rojo 02/22/25 02/22/25 documented as of this encounter
--- OUTSIDE RECORDS SUMMARY | 2025-02-25 17:26 | XMS_ITS | Encounter Summary ---
Author Organization [employer] Address 75 [facility] 7t [place] [address] Care Team Providers Care Pillowcase Cutter Name Role Phone [facility] Primary Care Provider [phone] Jimmy Knight RN Unavailable [phone] Jimmy Knight RN Unavailable [phone] Amelia Rojo Unavailable Reason for Visit * Reason Onset Date Comments Nurse Triage 03/20/2024 Encounter Details Date Type Department Care Team (Late st Contact Info) Description 03/20/2024 Telephone [facility] [address] [place], [place] [phone] [facility] [address] [place], [place] [phone] Nurse Triage Social History Tobacco Use Types [...] worse than before. ASK appt with PCP [place] 03/30/24 @ 1100am. Pt agrees with disposition [...] Description 02/27/2025 11:15 AM EDT Office Visit [facility] [address] [place] [address] [place] [facility] [address] [place] [address] documented as of this encounter Visit Diagnoses Not on filedocumented in this encounter Additional Health Concerns Assessment Noted Time PHQ-9 Depression Total Score: 17 024 7:57 AM EDT documented as of this encounter Care Teams Pillowcase Cutter Relationship Specialty Start Date End Date [facility] [address] [place] [address] PCP - General Family Medicine 05/14/22 Jimmy Knight RN [address] [place] [address] Insect Control InspectorRubber Tubing Backer 10/03/24 02/21/25 Jimmy Knight RN [address] [place] [address] Registered Nurse Family Medicine 02/22/25 02/22/25 Amelia Rojo 02/22/25 02/22/25 documented as of this encounter
--- OUTSIDE RECORDS SUMMARY | 2025-02-25 17:26 | XMS_ITS | Encounter Summary ---
Author Organization [employer] Address 75 [facility] 7t [place] [address] Care Team Providers Care Vp Client Services Name Role Phone [facility] Primary Care Provider [phone] Reason for Visit * Reason Onset Date Comments No Show 02/25/2025 Encounter Details Date Type Department Care Team ([facility] st Contact Info) Description 02/25/[address] [facility] MEDICINE [address] [place], [place] [phone] Acna Fowler MD [address] [place], [place] [phone] No Show Social History Tobacco Use Types [...] encounter Miscellaneous Notes * Telephone Encounter - Laura Umana RN - 02/25/2025 11:13 AM EDT TC returned to pt. Pt. Declines waiting to f/up with PCP at scheduled appointment 02/27/25 due to difficulty ambulating. Pt. Agrees to appointment. Today at 1pm with Dr. Meek. * Telephone Encounter - Shara Valenzuela - 02/25/2025 9:50 AM EDT Pt no showed to appointment on 02/25/25. documented in this encounter Plan of Treatment Upcoming Encounters Date Type Department Care Team (Late st Contact Info) Description 02/27/2025 11:15 AM EDT Office Visit [facility] MEDICINE [address] [place] [address] [place] Karina [facility] [address] [place] [address] documented as of this encounter Visit Diagnoses Not on filedocumented in this encounter Additional Health Concerns Assessment Noted Time PHQ-9 Depression Total Score: 14 025 2:00 PM EDT documented as of this encounter Care Teams Vp Client Services Relationship Specialty Start Date End Date [place] RAND Collins [address] [place] [address] PCP - General Family Medicine 05/14/22 documented as of this encounter
--- OUTSIDE RECORDS SUMMARY | 2025-02-25 17:26 | XMS_ITS | Encounter Summary ---
Author Organization [employer] Address 75 [facility] 7t [place] [address] Care Team Providers Care Care Nurse Rn Name Role Phone [facility] Primary Care Provider [phone] Jimmy Knight RN Unavailable [phone] Jimmy Knight RN Unavailable [phone] Amelia Rojo Unavailable Reason for Visit * Reason Onset Date Comments Med Refill 04/04/2024 Encounter Details Date Type Department Care Team (Late st Contact Info) Description 04/04/2024 Refill [facility] MEDICINE [address] [place], [place] [phone] [facility] [address] [place], [place] [phone] Social History Tobacco Use Types Packs/Day Years [...] Description 02/27/2025 11:15 AM EDT Office Visit [facility] MEDICINE [address] [place] [address] [facility] [address] [place] [address] documented as of this encounter Visit Diagnoses Not on filedocumented in this encounter Additional Health Concerns Assessment Noted Time PHQ-9 Depression Total Score: 17 024 7:57 AM EDT documented as of this encounter Care Teams Care Nurse Rn Relationship Specialty Start Date End Date [facility] [address] [place] [address] PCP - General Family Medicine 05/14/22 Jimmy Knight RN [address] [place] [address] Tile Mechanic HelperEnvironmental Education Specialist 10/03/24 02/21/25 Jimmy Knight RN [address] [place] [address] Registered Nurse Family Medicine 02/22/25 02/22/25 Amelia Rojo 02/22/25 02/22/25 documented as of this encounter
--- OUTSIDE RECORDS SUMMARY | 2025-02-25 17:26 | XMS_ITS | Clinical Summary ---
Author Organization [facility] Address [address] [place] [phone] Phone Care Team Providers Care Gyroscopic Instrument Mechanic Name Role Phone [place] Primary Care Provider Unavailable Allergies Active Allergy [...] Active ferrous sulfate 325 mg (65 mg cachil dehe iron) tablet take 1 tablet by oral [...] to pharmacy Patient rescheduled follow up with PROFESSIONAL SERVICES CONSULTANT oncology to 10/29 Patient to return to [...] to bariatrics and robotic surgery Referral to [facility] PROFESSIONAL SERVICES CONSULTANT oncology placed, if patient is unable to be seen by their office, she is willing to be referred to [facility] in [place] Pelvic US ordered to assess IUD placement [...] 2008 HIV ONE-TIME SCREENING (18-65 YEARS) 2008 INFLUENZA VACCINE (#1) 2024 COVID-19 VACCINE ( season) 2025 PAP SMEAR 09/28/2025 09/28/2022, 05/0 01/2023, 09/14/2022, [...] this topic Medical Devices Implanted Type Area Family Readiness Support Assistant Device Identifier Shelf Expiration Date Model / Serial / Lot Mirena Implanted:Qty : 1 on 03/03/2021 by Hattie Michelle MD at [facility] Intrauterine Device N/A: Uterus 10/20/2024 / / [id number] Procedures Procedure Name Priority Date/Time Associated Diagnosis Comments PAP TEST Routine 09/28/2022 12:00 AM EDT from Last 3 Months or Most Recently Relevant to Health Maintenance Results * Pap Test (09/28/2022 12:00 AM EDT) 09/28/2022 09/29/2022 10: 31 AM EDT Narrative SEE NARRATIVE - 10/06/2022 4:12 PM EDT [address] [address] Organizational Consultant: Yamila Leo MD PROFESSIONAL SERVICES CONSULTANT Cytology Report FINAL DIAGNOSIS A. PAP SMEAR [...] 59, 66, 68) Note: Testing performed by [employer] HR-HPV analysis. Clinical correlation is advised. This HPV test was performed at [facility], [address] [place] [address]. This test has been FDA approved for [employer] cervical cytology specimens. The accuracy and precision of this test for all other specimen sources has been verified in the Cytopathology Laboratory of the [facility] and has not been cleared or approved by the U.S. Food and Drug Administration. Clinical correlation is advised. CLINICAL HISTORY Date of Last Menstrual Period: Not Provided Menstrual History: Unknown Other Clinical Conditions: Screening Pap SPECIMEN SOURCE A: PAP SMEAR (SUREPATH) CE Patient Name: NAHOMY PAZ : 1990 (Age: 32) Sex: F Institution: [facility] Location: [facility] Date of Collection: 09/28/2022 Date of Reported: 10/01/2022 16:11 Results to: Hattie Murphy Hattie Espinoza MD CYTOLOGY ORDER ALLEY Edited Result - Final SEE NARRATIVE from Last 3 Months or Most Recently Relevant to Health Maintenance Insurance [facility] C3 ACO C3 ACO C3 ACO C3 ACO [address] [place], [place] [id number] [place] [address] [place] [address] [place] [address] C3 ACO Care Teams Gyroscopic Instrument Mechanic Relationship Specialty Start Date End Date CenterChencho MD PCP - General 05/14/22 Additional Source Comments The information contained in this document represents components of the legal health record. It is not the complete legal health record.[facility]
--- OUTSIDE RECORDS SUMMARY | 2025-02-25 17:26 | XMS_ITS | Encounter Summary ---
Author Organization [employer] Address [address] [facility] 7t [place] [address] Care Team Providers Care Clinical Staff Educator Name Role Phone [facility] Primary Care Provider [phone] Jimmy Knight RN Unavailable [phone] Amelia Rojo Unavailable Reason for Visit * Reason Comments Care Coordination CHW Chart Review Encounter Details Date Type Department Care Team (Latest Contact Info) Description 02/22/2025 Patient Outreach [facility] MEDICINE [address] [place], [place] [phone] [facility] [address] [place], [place] [phone] Care Coordination (CHW Chart Review) Social History Tobacco Use Types Packs/Day Years [...] as of this encounter Progress Notes * Amelia Rojo - 02/22/2025 9:13 AM EDT CM/C3 CHW Amelia Rojo Chart Review CHW Amelia Rojo reviewed chart review completed by ONEIL Knight RN, performed chart review, in anticipation of initial assessment with patient, as patient has stratified for C3 Adult Complex Care through the ADT feed. History significant for chronic low back pain, GERD, depression, occipital headache, subclinical hypothyroidism, hyperlipidemia, PCOS, abnormal uterine bleeding, asthma, mass of brain, oligomenorrhea, restless leg syndrome, severe obesity, spina bifida occulta, chronic headaches, dysuria, hypertension, pelvic pain, hemicraniacontinua, palpitations, Type 2 DM, PTSD, and VICTORIANO. Specialists include Behavioral Health- Psych, Orthopedic Surgery, Bariatrics, Pulmonary Disease, PT, and Neurology. ED visits within the last 12 months include [facility] ED 02/21/25 and [facility] ED 12/05/24. Last appointment in PCP office on 10/29/24. Next appointment scheduled for 02/27/25 at 11:15am. documented in this encounter Plan of Treatment Upcoming Encounters Date Type Department Care Team (Late st Contact Info) Description 02/27/2025 11:15 AM EDT Office Visit [facility] MEDICINE [address] [place] [address] Karina Parson FNP [address] [place] [address] documented as of this encounter Visit Diagnoses Not on filedocumented in this encounter Additional Health Concerns Assessment Noted Time PHQ-9 Depression Total Score: 14 025 2:00 PM EDT documented as of this encounter Care Teams Clinical Staff Educator Relationship Specialty Start Date End Date Karina Parson FNP [address] [place] [address] PCP - General Family Medicine 05/14/22 Jimmy Knight RN [address] [place] [address] Registered Nurse Family Medicine 02/22/25 02/22/25 Amelia Rojo 02/22/25 02/22/25 documented as of this encounter
--- OUTSIDE RECORDS SUMMARY | 2025-02-25 17:26 | XMS_ITS | Encounter Summary ---
Author Organization [employer] Address [address] [facility] 7t [place] [address] Care Team Providers Care Cold Strip Roller Name Role Phone [facility] Primary Care Provider [phone] Jimmy Knight RN Unavailable [phone] Amelia Rojo Unavailable Encounter Details Date Type Department Care Team ([facility] st Contact Info) Description 02/22/2025 Patient Outreach [facility] MEDICINE [address] [place], [place] [phone] [facility] [address] [place] [address] Social History Tobacco Use Types Packs/Day Years [...] as of this encounter Progress Notes * Jimmy Knight RN - 02/22/2025 8:25 AM EDT ONEIL Knight RN, performed chart review, in [...] visits within the last 12 months include [facility] ED 02/21/25 and [facility] ED 12/05/24. Last appointment in PCP office on 10/29/24. Next appointment scheduled for 02/27/25 at 11:15am. documented in this encounter Plan of Treatment Upcoming Encounters Date Type Department Care Team (Late st Contact Info) Description 02/27/2025 11:15 AM EDT Office Visit [facility] MEDICINE [address] [place] [address] BlankKarina allen FNP [address] [place] [address] documented as of this encounter Visit Diagnoses Not on filedocumented in this encounter Additional Health Concerns Assessment Noted Time PHQ-9 Depression Total Score: 14 01/18/ 025 2:00 PM EDT documented as of this encounter Care Teams Cold Strip Roller Relationship Specialty Start Date End Date Karina Parson FNP [address] [place] [address] PCP - General Family Medicine 05/14/22 Jimmy Knight RN [address] [place] [address] Registered Nurse Family Medicine 02/22/25 02/22/25 Amelia Rojo 02/22/25 02/22/25 documented as of this encounter
--- OUTSIDE RECORDS SUMMARY | 2025-02-25 17:26 | XMS_ITS | Clinical Summary ---
Author Organization [employer] Address [address] [facility] [place] [address] Care Team Providers Care Technical Business Analyst Name Role Phone [place] [facility] Primary Care Provider Allergies Active Allergy Reactions Criticality Noted Date Comments Benzocaine (Topical) Unknown 06/07/2017 Lidocaine 06/08/2017 Metformin Dizziness 08/18/2017 Medications * This document contains information received from the source organization and may not represent a complete record from that organization. ferrous sulfate 325 (65 Fe) MG tablet Active magnesium oxide (Mag-Ox) 400 MG tablet 022 Active fluticasone (Flonase Allergy Relief) 50 MCG/ACT nasal spray Administer 1 spray into each nostril in the morning. Shake gently. Before first use, prime pump. After use, clean tip and replace cap. 16 g 023 Active Acetaminophen Extra Strength 500 MG tablet 023 Active Sodium Fluoride 5000 PPM 1.1 % paste 023 Active pantoprazole (ProtoNix) 40 MG EC tablet Take 40 mg by mouth before breakfast. Do not crush, chew, or split. Active Alcohol Swabs (Alcohol Prep) padsIndications: Type 2 diabetes mellitus with hyperglycemia, without long-term current use of insulin (HCC) Use one pad each to prep skin prior to injection as directed 100 each 024 Active Blood Glucose Monitoring Suppl (GNP Easy Touch Glucose Meter) deviceIndication s:Type 2 diabetes mellitus with hyperglycemia, without long-term current use of insulin (HCC) Use as directed to check blood sugar four times daily 1 each 024 Active Ascorbic Acid (vitamin C) 250 MG tabletIndication s:Pain TAKE 1 TABLET BY MOUTH EVERY MORNING WITH IRON 90 tablet 1 Active cholecalciferol (Vitamin D High Potency) 25 MCG (1000 UT) capsule TAKE 1 CAPSULE BY MOUTH EVERY MORNING 90 capsule Active Lancets 33G miscIndications: Type 2 diabetes mellitus with hyperglycemia, without long-term current use of insulin (HCC) Use as directed to check blood sugar four times daily 100 each 11 Active glucose blood test stripIndications :Type 2 diabetes mellitus with hyperglycemia, without long-term current use of insulin (HCC) Use as directed to check blood sugar four times daily 100 each 11 Active albuterol (Ventolin HFA) 108 (90 Base) MCG/ACT inhaler INHALE 2 PUFFS BY MOUTH EVERY 4 TO 6 HOURS NEEDED 18 g 1 Active Fluocinolone Acetonide Scalp 0.01 % oilIndications:S eborrheic dermatitis Massage into damp scalp daily. Cover hair and leave on for at least 4 hours 119 mL Active rosuvastatin (Crestor) 20 MG tabletIndication s:Mixed hyperlipidemia Take 1 tablet (20 mg) by mouth Once per day. 90 tablet 3 024 2024 Active Vivelle-Dot 0.05 MG/24HR Active albuterol (2.5 MG/3ML) 0.083% nebulizer solutionIndicati ons:Wheezing INHALE 1 AMPULE BY MOUTH USING A NEBULIZER 3 TIMES DAILY 90 mL 3 Active chlorthalidone (Hygroton) 25 MG tabletIndication s:Primary hypertension Take 1 tablet (25 mg) by mouth Once per day. 30 tablet 11 025 2025 Active olmesartan (BENIcar) 40 MG tabletIndication s:Primary hypertension TAKE 1 TABLET BY MOUTH EVERY DAY 90 tablet 1 Active Mometasone Furoate (Asmanex HFA) 100 MCG/ACT aerosolIndicatio ns:SOB (shortness of breath),Moderate persistent asthma without complication Inhale 2 Act (200 mcg) 2 times daily. Rinse mouth with water after use 13 g 3 Active Blood Pressure kitIndications:O ther fatigue Use as directed 1 kit 06/20/2 025 Active Ventolin HFA 108 (90 Base) MCG/ACT inhaler INHALE 2 PUFFS BY MOUTH EVERY 4 TO 6 HOURS NEEDED 18 g 025 Active ketoconazole (NIZOral) 2 % shampooIndicatio ns:Rash APPLY TOPICALLY TWICE A WEEK DIRECTED 120 mL 025 Active metroNIDAZOLE (Metrocream) 0.75 % creamIndications :Facial rash APPLY ONE APPLICATION TOPICALLY TWICE DAILY 45 g 025 Active Ventolin HFA 108 (90 Base) MCG/ACT inhalerIndicatio ns:Mild intermittent asthma without complication Inhale 2 puffs every 4 (four) hours if needed for wheezing. 18 g 025 Active gabapentin (Neurontin) 300 MG capsuleIndicatio ns:Pain TAKE 2 CAPSULES BY MOUTH EVERY DAY AT BEDTIME 60 capsule Active Trulicity 3 MG/0.5ML solution auto-injectorInd ications:Type 2 diabetes mellitus with hyperglycemia, without long-term current use of insulin (HCC) INJECT 3 MG SUBCUTANEOUSLY ONCE A WEEK 4 mL Active tiZANidine (Zanaflex) 6 MG capsuleIndicatio ns:Acute right-sided low back pain with right-sided sciatica Take 1 capsule (6 mg) by mouth 3 times daily. 90 capsule 025 2025 Active lidocaine (Lidoderm) 5 % patchIndications :Acute right-sided low back pain with right-sided sciatica Apply 1 patch topically Once per day. Remove & discard patch within 12 hours or as directed by . 30 patch 1 Active ibuprofen 800 MG tabletIndication s:Acute right-sided low back pain with right-sided sciatica Take 1 tablet (800 mg) by mouth every 8 (eight) hours if needed for moderate pain for up to 10 days. 30 tablet 025 2024 Active ibuprofen 600 MG tabletIndication s:Chronic neck pain Take 1 tablet (600 mg) by mouth every 6 (six) hours if needed for mild pain. 30 tablet 1 025 2024 Discontinued(R eorder (will not trigger notification to Pharmacy)) Trulicity 3 MG/0.5ML solution auto-injectorInd ications:Type 2 diabetes mellitus with hyperglycemia, without long-term current use of insulin (HCC) INJECT 3 MG SUBCUTANEOUSLY ONCE A WEEK 4 mL 025 2024 Discontinued tiZANidine (Zanaflex) 4 MG tabletIndication s:Low back pain, unspecified back pain laterality, unspecified chronicity, unspecified whether sciatica present TAKE 1 TABLET BY MOUTH ONCE DAILY IF NEEDED FOR MUSCLE SPASMS 30 tablet 025 2024 Discontinued gabapentin (Neurontin) 300 MG capsuleIndicatio ns:Pain TAKE 2 CAPSULES BY MOUTH EVERY DAY AT BEDTIME 60 capsule 025 2024 Discontinued tiZANidine (Zanaflex) 4 MG tabletIndication s:Low back pain, unspecified back pain laterality, unspecified chronicity, unspecified whether sciatica present TAKE 1 TABLET BY MOUTH ONCE DAILY IF NEEDED FOR MUSCLE SPASMS 30 tablet 025 2024 Discontinued ibuprofen 600 MG tabletIndication s:Chronic neck pain Take 1 tablet (600 mg) by mouth every 6 (six) hours if needed for mild pain. 30 tablet 1 025 2024 Discontinued Hospital, Clinic, or Other Facility Administered Medication Ordered Dose Route Frequency Start Date End Date Status ketorolac (Toradol) injection 30 mgIndications:Acute right-sided low back pain with right-sided sciatica 30 mg IM Once 02/25/2025 02/25/2025 Ended Active Problems Problem Noted Date Diagnosed Date Acute right-sided low back pain with right-sided sciatica 02/25/2025 Assessment & Plan (02/25/2025 2:13 PM EDT): Probably muscle spasm, apply heat on affected area I will prescribe today Toradol 30 mg IM at the office I discontinue Flexeril and tizanidine for and instead I put her on tizanidine 6 mg every 8 hours she is aware of side effects Alternate acetaminophen with ibuprofen I order an x-ray patient will be contacted with results PTSD (post-traumatic stress disorder) 02/23/2024 VICTORIANO (generalized [...] to pharmacy Patient rescheduled follow up with [facility] oncology to 10/29 Patient to return to [...] She was previously followed by ?Neurology at [place] (pt unable to recall name) for hx of brain cyst. She reports she was told that the cyst shrank. Details unclear. Oligomenorrhea 08/18/2022 Restless leg syndrome 08/18/2022 Severe obesity (CMS/HCC) 08/18/2022 Spina bifida occulta 08/18/2022 Overview (08/18/2022): [...] to bariatrics and robotic surgery Referral to [facility] oncology placed, if patient is unable to be seen by their office, she is willing to be referred to [facility] [place] Pelvic US ordered to assess IUD placement Rx for oxycodone sent given patient's chronic pain issues, encouraged continued use of scheduled NSAIDs and Tylenol Plan follow up in 2 weeks or sooner as indicated Subclinical hypothyroidism 07/07/2022 Overview (07/07/2022): 05/2022 TSH 6.7/T4 1.1 Hyperlipidemia 07/07/2022 Occipital headache 10/21/2017 Recurrent major depressive disorder 09/09/2017 Chronic low back pain 06/08/2017 Overview (08/16/2023): Lumbar MRI on record from 2020 with mild spondylosis at L5-S1, otherwise unremarkable. Denies bladder/bowel change. No weakness/numbness/tingling Gastroesophageal reflux disease 06/08/2017 Resolved Problems Problem Noted Date Diagnosed Date Resolved Date Abnormal glucose tolerance test 08/18/2022 03/15/2024 Prediabetes 07/07/2022 10/09/2023 Overview (07/07/2022): A1c 6.0% 06/22/22 Amenorrhea 06/22/2022 03/15/2024 Irregular periods 06/22/2022 03/15/2024 Spasm of muscle of lower back 06/22/2022 03/15/2024 Daytime somnolence 10/21/2017 Encounters * This document contains information received from the source organization and may not represent a complete record from that organization. Date Type Department Care Team Description 02/25/2025 1:00 PM EDT Office Visit [facility] [address] [place] [address] Divine Mast MD Acute right-sided low back pain with right-sided sciatica 02/25/2025 Travel 02/25/2025 Telephone [facility] [address] [facility] [place] [address] Anca Folwer MD No Show 02/25/2025 Telephone [facility] [address] [place] [address] Anca Fowler MD chart prep 02/25/2025 Telephone [facility] [address] [place] [address] [facility] 02/22/2025 Refill [facility] [address] [place] [address] [facility] Chronic neck pain 02/22/2025 Patient Outreach [facility] [address] [place] [address] [facility] 02/22/2025 Patient Outreach [facility] [address] [place] [address] [facility] Care Coordination (CHW Chart Review) 02/22/2025 Patient Outreach [facility] [address] [place] [address] [facility] 02/22/2025 Patient Outreach [address] [address] [facility] 01/29/2025 Refill [facility] [address] [place] [address], [place] [address] [facility] Pain; Low back pain, unspecified back pain laterality, unspecified chronicity, unspecified whether sciatica present; Type 2 diabetes mellitus with hyperglycemia, without long-term current use of insulin ([facility]) 01/23/2025 Patient Outreach [facility] [address] [place] [address] [facility] Care Coordination (SDOH) 01/17/2025 Orders Only GENERIC EXTERNAL DATA DEPARTMENT Provider, Generic External Data 01/03/2025 Orders Only GENERIC EXTERNAL DATA DEPARTMENT Provider, Generic External Data 01/02/2025 Patient Outreach [address] [address] [facility] Care Coordination (SDOH f/u) 01/02/2025 Patient Outreach [address] [address] Karina Parson FNP Care Management (C3CM- f/u call) 12/28/[address] [address] Karina Parson [facility] Mild intermittent asthma without complication 12/27/2024 Refill [facility] [address] [place] [phone] Lea Ardon MD Mild intermittent asthma without complication 12/27/[address] [address] Lydia Owusu DO Pain; Rash; Facial rash 12/27/[address] [address] BlankKarina allen [facility] Type 2 diabetes mellitus with hyperglycemia, without long-term current use of insulin ([facility]); Low back pain, unspecified back pain laterality, unspecified chronicity, unspecified whether sciatica present 12/21/2024 Patient Outreach [address] [address] Karina Parson FNP 12/17/2024 Orders Only [facility] [address] [place] [phone] Karina Parson [facility] Major depressive disorder, remission status unspecified, unspecified whether recurrent (Primary Dx) 12/17/2024 Travel 12/17/2024 Patient Outreach [address] [address] Karina Parson FNP Pre-visit Planning (LVM ) 12/11/2024 Patient Outreach [address] [address] Karina Parson FNP Care Management (C3CM- f/u call) 12/06/[address] [address] Karina Parson FNP Durable Medical Equipment (DME: Nebulizer Supplies) 12/06/[address] [address] Karina Parson FNP telephone call 12/06/2024 Patient Outreach [facility] [address] [place] [address] [facility] 12/04/2024 Patient Outreach [facility] [address] [place] [address] [facility] Care Coordination (SDOH) 12/04/2024 Patient Outreach [facility] [address] [place] [address] [facility] Care Management (C3CM- f/u call) from Last 3 Months Immunizations Immunization Administration Dates Next Due Tdap 05/31/2017 Social [...] Mass Index 61.46 02/25/2025 1:17 PM EDT Plan of Treatment Upcoming Encounters Date Type Department Care Team (Late st Contact Info) Description 02/27/2025 11:15 AM EDT Office Visit [facility] [address] [place] [address] [facility] [address] [place] [address] Health Maintenance Due Date Last Done Comments Dental Oral Exam 1990 Dental Prophylaxis 1990 Dental X-Ray: Bitewings 1990 Dental X-Ray: Full Mouth 1990 HIV Screening 1990 Family Planning (PISQ) 2005 HPV Vaccines (1 - 3-dose series) 2005 Hepatitis C Screening 2008 Hepatitis B Vaccines (1 of 3 - 19+ 3-dose series) 2009 Pneumococcal Vaccine: Pediatrics (0 to 5 Years) and At-Risk Patients (6 to 49) Years (1 of 2 - PCV) 2009 COVID-19 Vaccine ( - season) 2025 Influenza Vaccine (#1) 2025 Diabetes: Hemoglobin A1C 02/06/2025 025, 05/09/2024, 08/15/2023, Additional history exists Diabetes: Urine Protein Screening 05/09/2025 05/09/2024 Lipid Panel 05/09/2025 05/09/2024, 05/3 , 08/25/2022, Additional history exists Depression Monitoring 07/20/2025 01/18/2025, 025 Diabetes: Foot Exam 08/06/2025 08/06/2024, 08/06/2024, 08/06/2024, Additional history exists Disability Screening 09/08/2025 09/08/2024 Alcohol/Substance Use Screening 10/03/2025 10/03/2024 SDOH Screening 11/14/2025 11/14/2024 Tobacco Screening 02/25/2026 02/25/2025 Eye Exam 03/23/2026 03/23/2024 DTaP/Tdap/Td Vaccines (2 - Td or Tdap) [...] patient's age to complete this topic Meningococcal B Vaccine Aged Out No l onger eligible based on patient's age to complete [...] Procedure Name Priority Date/Time Associated Diagnosis Comments RAST ALLERGEN (NON ORDERABLE) Routine 01/17/2025 1:20 PM EDT RESPIRATORY ALLERGY PROFILE REGION I Routine 01/03/2025 1:20 PM EDT IMMUNOGLOBULIN E Routine 01/03/2025 1:20 PM EDT CBC WITH AUTO DIFFERENTIAL Routine 01/03/2025 1:20 PM EDT POCT GLYCATED HEMOGLOBIN, TOTAL Routine 08/06/2024 9:55 AM EDT Type 2 diabetes mellitus with hyperglycemia, without long-term current use of insulin ([facility]) ALBUMIN, RANDOM URINE W/CREATININE Routine 05/09/2024 9:00 AM EST Type 2 diabetes mellitus with hyperglycemia, without long-term current use of insulin ([facility]) LIPID PANEL, STANDARD Routine 05/09/2024 9:00 AM EST Type 2 diabetes mellitus with hyperglycemia, without long-term current use of insulin ([facility]) from Last 3 Months or Most Recently Relevant to Health Maintenance Results * Rast Allergen (01/17/2025 1:20 PM EDT) Rast Allergen SEE NOTE [facility] Comment:SEE SCANNED IN EMR 01/17/2025 1:20 PM EDT 01/17/2025 1:20 PM EDT Narrative [facility] - 01/17/2025 9:18 AM EDT DOG DANDER REFLEX us Generic External Data Provider HISTORICAL/NON OR DERABLE LABS Final Result [facility] [address] [place] [phone] * (ABNORMAL) Respiratory Allergy Profile Region I (01/03/2025 1:20 PM EDT) Mouse Urine Proteins (E72) IgE 0.19(A) kU/L [facility] Class 0/1 [facility] Cockroach (I6) IgE <0.10 kU/L [facility] Class 0 [facility] Dermatophagoides farinae (D2) IgE 0.24(A) kU/L [facility] Class 0/1 [facility] Cat Dander (E1) IgE <0.10 kU/L [facility] Class 0 [facility] Comment:THIS TEST WAS PERFOR MED AT:[facility] [address] [phone] MCINTOSH MD Dog Dander (E5) IgE 4.98(A) kU/L [facility] Class 3 [facility] Comment:THIS TEST WAS PERFOR MED AT:[facility] [address] [id number] MCINTOSH MD Horace Grass (G6) IgE <0.10 kU/L [facility] Class 0 [facility] Cladosporium herbarum (M2) IgE <0.10 kU/L [facility] Class 0 [facility] Aspergillus Fumigatis (M3) IgE <0.10 kU/L [facility] Class 0 [facility] Alternaria alternata (M6) IgE <0.10 kU/L [facility] Class 0 [facility] Comment:THIS TEST WAS PERFOR MED AT:[facility] [address] [phone] MCINTOSH MD [place] (t6) IgE <0.10 kU/L [facility] Class 0 [facility] [place] (T7) IgE 0.11(A) kU/L [facility] Class 0/1 [facility] [place] (T10) IgE <0.10 kU/L [facility] Class 0 [facility] [place] (T11) IgE 0.10(A) kU/L [facility] Class 0/1 [facility] [place] (T14) IgE 0.12(A) kU/L [facility] Class 0/1 [facility] [place] (t15) IgE <0.10 kU/L [facility] Class 0 [facility] [place] (T70) IgE <0.10 kU/L [facility] Class 0 [facility] Common Ragweed (Short) (W1) IgE 0.18(A) kU/L [facility] Class 0/1 [facility] Mugwort (w6) IgE <0.10 kU/L [facility] Class 0 [facility] Dermatophagoides pteronyssinus (D1) IgE <0.10 kU/L [facility] Class 0 [facility] Bermuda Grass (g2) IgE <0.10 kU/L [facility] Class 0 [facility] Penicillium Notatum (M1) IgE <0.10 kU/L [facility] Class 0 [facility] Birch (T3) IgE 0.19(A) kU/L [facility] Class 0/1 [facility] Elm (t8) IgE 0.12(A) kU/L [facility] Class 0/1 [facility] Maple ([place]ato[place]) (T1) IgE <0.10 kU/L [facility] Class 0 [facility] Rough Pigweed (W14) IgE <0.10 kU/L [facility] Class 0 [facility] Sheep [address] (W18) IgE <0.10 kU/L [facility] Class 0 [facility] Allergen Comment See Below [facility] Comment: Specific Level of AllergenIGE Class kU/L Specific IGE Antibody ----- --------- 0 <0.10 Absent/Undetectable 0/1 0.10-0.34 Very Low Level 1 0.35-0.69 Low Level 2 0.70-3.49 Moderate Level 3 3.50-17.4 High Level 4 17.5-49.9 Very High Level 5 50-100 Very High Level 6 >100 Very High LevelThe clinical relevance of allergen results of0.10-0.34 kU/L are undetermined and intended forspecialist use.Allergens denoted with a include results usingone or more analyte specific reagents. In thosecases, the test was developed and its analyticalperformance characteristics have been determined by[employer]. It has not been cleared or approvedby the U.S. Food and Drug Administration. This assayhas been validated pursuant to the CLIA regulationsand is used for clinical purposes.THIS TEST WAS PERFORMED AT:[facility] [place] [id number] MCINTOSH MD 01/03/2025 1:20 PM EDT 01/03/2025 1:20 PM EDT us Generic External Data Provider LAB BLOOD ORDERAB LES Final Result [facility] [address] [place] [address] [phone] * (ABNORMAL) CBC auto differential (01/03/2025 1:20 PM EDT) White Blood Count 10.0 4.8 - 10.8 X10*3/uL [facility] Red Blood Count 4.64 4.20 - 5.50 X10*6/uL [facility] Hemoglobin 12.9 12.0 - 16.0 g/dl [facility] Hematocrit 39.4 37.0 - 47.0 % [facility] Mean Corpuscular Volume 84.9 80.0 - 98.0 fL [facility] Mean Corpuscular Hemoglobin 27.8 27.0 - 33.0 pg [facility] Mean Corpuscular HGB Conc 32.7 31.0 - 35.0 g/dl [facility] Red Cell Distribution Width 13.6 11.0 - 16.0 % [facility] Platelet Count 323 160 - 400 X10*3/uL [facility] Mean Platelet Volume 11.2 9.4 - 12.3 fL [facility] Neutrophils Percent Auto 59.4 45 - 73 % [facility] Imm Gran Pct Auto 0.5(H) 0.0 - 0.4 % [facility] Lymphocytes Percent Auto 28.9 20 - 40 % [facility] Monocytes Percent Auto 5.9 2 - 11 % [facility] Eosinophils Percent Auto 4.7(H) 0 - 4 % [facility] Basophils Percent Auto 0.6 0 - 2 % [facility] NRBC Pct Auto 0.0 0.0 - 0.2 /100WBC [facility] Neutrophils Absolute Auto 6.0 2.0 - 8.3 x10*3/uL [facility] Imm Gran Abs Auto 0.05(H) 0.00 - 0.03 X10*3/uL [facility] Lymphocytes Absolute Auto 2.9 1.2 - 4.9 X10*3/uL [facility] Monocytes Absolute Auto 0.6 0.1 - 1.2 X10*3/uL [facility] Eosinophils Absolute Auto 0.5(H) 0.0 - 0.4 X10*3/uL [facility] Basophils Absolute Auto 0.1 0.0 - 0.2 X10*3/uL [facility] NRBC Abs Auto 0.000 0.0 - 0.012 X10*3/uL [facility] 01/03/2025 1:20 PM EDT 01/03/2025 1:20 PM EDT us Generic External Data Provider LAB BLOOD ORDERAB LES Final Result Performing Organization Address [facility]/ZIP Co de Phone Number [facility] [address] [place] [phone] * (ABNORMAL) Immunoglobulin E (01/03/2025 1:20 PM EDT) Immunoglobulin E 187(A) <TX=095 kU/L [facility] 01/03/2025 1:20 PM EDT 01/03/2025 1:20 PM EDT us Generic External Data Provider LAB BLOOD ORDERAB LES Final Result Performing Organization Address [facility]/ZIP Co de Phone Number [facility] [address] [place] [phone] * POCT HGB A1C (08/06/2024 9:55 AM EDT) Hemoglobin A1C 5.8 4.0 - 6.0 % QC Media Lot # [id number] Lot# Expiration Date Blood 08/06/2024 9:55 AM EDT [facility] POINT OF CARE TEST ENTER/EDIT ORDERABLES Final Result * Albumin, Random Urine W/Creatinine (05/09/2024 9:00 AM EST) Creatinine, Urine 231.56 mg/dL [facility] Microalbumin Urine 11.0 mg/L [facility] Microalbum Creatinine Ratio Ur 4.7 <30 ug/mg cr [facility] Comment:Albumin/Creatinine R atio Reference Ranges: Normal: < 30 ug/mg creatinine Microalbuminuria: 30 - 300 ug/mg creatinineClinical Albuminuria: > 300 ug/mg creatinine Urine 05/09/2024 9:00 AM EST 05/09/2024 11:40 AM EST [facility] LAB URINE ORDERABLES Final Re sult Performing Organization Address City/State/[facility] Co de Phone Number [facility] [address] [place] [address] [phone] * (ABNORMAL) Lipid Panel, Standard (05/09/2024 9:00 AM EST) Triglycerides 146 <150 mg/dL [facility] Comment:Desirable Triglyceri de: less than 150 mg/dLBorderline High Triglyceride 150-199 mg/dLHigh Triglyceride: 200-499 mg/dLVery High Triglyceride: greater than or equal to 5OO mg/dL Cholesterol 230(H) <200 mg/dL [facility] Comment:Desirable Cholestero l: less than 200 mg/dLBorderline High Cholesterol: 200-239 mg/dLHigh Cholesterol: greater than 239 mg/dL LDL Cholesterol Calculated 161(H) <100 mg/dL [facility] Comment:Desirable LDL: less than 100 mg/dLNear Optimal/Above Optimal LDL: 110- 129 mg/dLBorderline High LDL: 130-159 mg/dLHigh LDL: 160-189 mg/dLVery High LDL: greater than or equal to 190 mg/dL HDL Cholesterol 40(L) >40 mg/dL [facility] Comment:Desirable HDL: great er than 40 mg/dL Note: This HDL assay may give artificially low results in patients with liver disease. Blood Venous blood specimen / Unknown 05/09/2024 9:00 AM EST 05/09/2024 11:52 AM EST [facility] ADDING MACHINE MECHANIC LAB BLOOD ORDERABLES Final Re sult [facility] [address] [place] [address] [phone] from Last 3 Months or Most Recently Relevant to Health Maintenance Insurance [facility] C3 DENTAL-[facility] MEDICAID STAND ADULT * Guarantor: Tommie Paz Account Type Relation to Patient Date of Phone Billing Address Personal/Family Self [address] [address] Care Teams Technical Business Analyst Relationship Specialty Start Date End Date [place] [facility] [address] [place] [id number] PCP - General Family Medicine 05/14/22
--- OUTSIDE RECORDS SUMMARY | 2025-02-25 17:26 | XMS_ITS | Encounter Summary ---
Author Organization [employer] Address [address] [facility] 7t [place] [address] Care Team Providers Care Repair Order Clerk Name Role Phone [facility] Primary Care Provider [phone] Encounter Details Date Type Department Care Team ([facility] Contact Info) Description 02/25/2025 Telephone [facility] [address] [place], [place] [phone] [facility] [address] [place], [place] [phone] Social History Tobacco Use Types Packs/Day Years [...] Encounter - Janay Anthony MA - 02/25/2025 11:54 AM EDT ERROR documented in this encounter Plan of Treatment Upcoming Encounters Date Type Department Care Team (Late st Contact Info) Description 02/27/2025 11:15 AM EDT Office Visit [facility] [address] [place] [address] Karina Parson FNP [address] [place] [address] documented as of this encounter Visit Diagnoses Not on filedocumented in this encounter Additional Health Concerns Assessment Noted Time PHQ-9 Depression Total Score: 14 025 2:00 PM EDT documented as of this encounter Care Teams Repair Order Clerk Relationship Specialty Start Date End Date Karina Parson FNP [address] [place] [address] PCP - General Family Medicine 05/14/22 documented as of this encounter
--- OUTSIDE RECORDS SUMMARY | 2025-02-25 17:26 | XMS_ITS | Encounter Summary ---
Author Organization [employer] Address [address] [facility] 7t [place] [address] Care Team Providers Care County Director Name Role Phone [facility] Primary Care Provider [phone] Jimmy Knight RN Unavailable [phone] Jimmy Knight RN Unavailable [phone] Amelia Rojo Unavailable Reason for Visit * Reason Onset Date Comments Nurse Triage 06/29/2024 Encounter Details Date Type Department Care Team (Late st Contact Info) Description 06/29/2024 Telephone [facility] MED[facility]INE [address] [place], [place] [phone] [facility] [address] [place], [place] [phone] Nurse Triage Social History Tobacco Use Types [...] 06/29/2024 3:14 PM EST Called pt. Via [facility] relationship counselor [phone] [address]. Pt. States she has been having stomach discomfort that she usually has and has been taking her prescribed medication for reflux but, it is not helping her acid reflux. Pt. Also states that she has a rash on her stomach that is red but, pt. Has butterfly rash on her face from possible Lupus as Licensed Nuclear Operator thinks pt. Has Lupus based from her [...] will check schedule in am and if [facility] COLLAR TRIMMER (PCP) Has any openings ,I will set [...] caller accepted this outcome. Contact pt at [phone] (pashto) documented in this encounter Plan of Treatment Upcoming Encounters Date Type Department Care Team ([facility] st Contact Info) Description 02/27/2025 11:15 AM EDT Office Visit [facility] [address] [place] [address] [place] [facility] [address] [place] [address] documented as of this encounter Visit Diagnoses Not on filedocumented in this encounter Additional Health Concerns Assessment Noted Time PHQ-9 Depression Total Score: 17 024 7:57 AM EDT documented as of this encounter Care Teams County Director Relationship Specialty Start Date End Date [place] [facility] [address] [place] [address] PCP - General Family Medicine 05/14/22 Jimmy Knight RN [address] [place] [address] Integrity SpecialistNuclear Cardiology Technologist 10/03/24 02/21/25 Jimmy Knight RN [address] [place] [address] Registered Nurse Family Medicine 02/22/25 02/22/25 Amelia Rojo 02/22/25 02/22/25 documented as of this encounter
--- OUTSIDE RECORDS SUMMARY | 2025-02-25 17:26 | XMS_ITS | Encounter Summary ---
Author Organization [employer] Address [address] [facility] 7t [place] [address] Care Team Providers Care Tax Collector Name Role Phone [facility] Primary Care Provider [phone] Jimmy Knight RN Unavailable [phone] Amelia Rojo Unavailable Encounter Details Date Type Department Care Team ([facility] st Contact Info) Description 02/22/2025 Patient Outreach [facility] MED[facility]INE [address] [place], [place] [phone] [facility] [address] [place] [address] Social History Tobacco Use Types Packs/Day Years [...] as of this encounter Progress Notes * Ameila Rojo - 02/22/2025 11:17 AM EDT Patient is engaged with [facility], patient was graduated from CM program on 01/23/25.CHW will close program. documented in this encounter Plan of Treatment Upcoming Encounters Date Type Department Care Team ([facility] st Contact Info) Description 02/27/2025 11:15 AM EDT Office Visit [facility] [address] [place] [address] Karina Parson FNP [address] [place] [address] documented as of this encounter Visit Diagnoses Not on filedocumented in this encounter Additional Health Concerns Assessment Noted Time PHQ-9 Depression Total Score: 14 025 2:00 PM EDT documented as of this encounter Care Teams Tax Collector Relationship Specialty Start Date End Date Karina Parson FNP [address] [place] [address] PCP - General Family Medicine 05/14/22 Jimmy Knight RN [address] [place] [address] [address] [address] Registered Nurse Family Medicine 02/22/25 02/22/25 Amelia Rojo 02/22/25 02/22/25 documented as of this encounter
--- OUTSIDE RECORDS SUMMARY | 2025-02-25 17:26 | XMS_ITS | Encounter Summary ---
Author Organization [employer] Address [address] [facility] 7t [place] [address] Care Team Providers Care Ophthalmic Medical Assistant Name Role Phone [facility] Primary Care Provider [phone] Jimmy Knight RN Unavailable [phone] Jimmy Knight RN Unavailable [phone] Amelia Rojo Unavailable Reason for Visit * Reason Onset Date Comments ER Follow-up 07/22/2023 Nurse Triage 07/22/2023 Encounter Details Date Type Department Care Team (Late st Contact Info) Description 07/22/2023 Telephone [facility] [address] [place], [place] [phone] [place] [facility] [address] [place], [place] [phone] ER Follow-up; Nurse Triage Social History Tobacco [...] ED visit on : Date: 06/08/2023 Hospital: [facility] Seen for: Rash On Face, Asthma Attacks. [...] Upcoming Encounters Date Type Department Care Team ([facility] st Contact Info) Description 02/27/2025 11:15 AM EDT Office Visit [facility] [address] [place] [address] Karina Parson FNP [address] [place] [address] documented as of this encounter Visit Diagnoses Not on filedocumented in this encounter Additional Health Concerns Assessment Noted Time PHQ-9 Depression Total Score: 8 06/22/19 23 3:07 PM EST documented as of this encounter Care Teams Ophthalmic Medical Assistant Relationship Specialty Start Date End Date Karina Parson FNP [address] [place] [address] PCP - General Family Medicine 05/14/22 Jimmy Knight RN [address] [place] [address] Tax CommissionerBlood Bank Booking Clerk 10/03/24 02/21/25 Jimmy Knight RN [address] [place] [address] Registered Nurse Family Medicine 02/22/25 02/22/25 Amelia Rojo 02/22/25 02/22/25 documented as of this encounter
--- OUTSIDE RECORDS SUMMARY | 2025-02-25 17:26 | XMS_ITS | Encounter Summary ---
Author Organization [employer] Address [address] [facility] [address] 7[address] [place] [address] Care Team Providers Care Web Editor Name Role Phone [facility] Primary Care Provider [phone] Jimmy Knight RN Unavailable [phone] Jimmy Knight RN Unavailable [phone] Amelia Rojo Unavailable Reason for Visit * Reason Comments Med Refill Encounter Details Date Type Department Care Team ([facility] st Contact Info) Description 04/20/2023 Refill [facility] MEDICINE [address] [place], [place] [phone] [facility] [address] [place], [place] [phone] Essential hypertension Social History Tobacco Use Types [...] 02/27/2025 11:15 AM EDT Office Visit [facility] MEDICINE [address] [place] [address] [place] [facility] [address] [place] [address] documented as of this encounter Visit Diagnoses Diagnosis Essential hypertension Unspecified essential hypertension documented in this encounter Additional Health Concerns Assessment Noted Time PHQ-9 Depression Total Score: 8 06/22/19 23 3:07 PM EST documented as of this encounter Care Teams Web Editor Relationship Specialty Start Date End Date [place] [facility] [address] [place] [address] PCP - General Family Medicine 05/14/22 Jimmy Knight RN [address] [place] [address] Air Hammer OperatorVamp Strap Ironer 10/03/24 02/21/25 Jimmy Knight RN [address] [place] [address] Registered Nurse Family Medicine 02/22/25 02/22/25 Amelia Rojo 02/22/25 02/22/25 documented as of this encounter
--- OUTSIDE RECORDS SUMMARY | 2025-02-25 17:26 | XMS_ITS ---
Author Organization [employer] Address [address] [facility] 7 [place] [address] Care Team Providers Care Air Compressor Mechanic Name Role Phone [facility] Primary Care Provider [phone] CM Complex Status:Closed (Closed) Start date:02/22/2025 Enrollment reason:ADT Feed End date:02/22/2025 Close reason:Inappropriate for Program Overview ED- Pt went to [facility] ED on 02/21/25. Continued Care and Services Coordination
--- OUTSIDE RECORDS SUMMARY | 2025-02-25 17:26 | XMS_ITS | Encounter Summary ---
Author Organization [employer] Address [address] [place] [address] 7t [place] [address] Care Team Providers Care Plasterer Stucco Name Role Phone [facility] Primary Care Provider [phone] Jimmy Knight RN Unavailable [phone] Jimmy Knight RN Unavailable [phone] Amelia Rojo Unavailable Reason for Visit * Reason Onset Date Comments Triage 07/30/2022 Encounter Details Date Type Department Care Team (Late st Contact Info) Description 07/30/2022 Telephone [facility] [address] [place], [place] [phone] [place] Karina [facility] [address] [place], [place] [phone] Triage Social History Tobacco Use Types Packs/Day [...] encounter Miscellaneous Notes * Telephone Encounter - Maira Mott - 07/30/2022 2:01 PM EST Symptoms: Menstrual Cramps, Pain - Severe, Vaginal Bleeding - Not Outcome: Talk to a nurse or provider within 15 minutes Reason: Heavy bleeding The caller accepted this outcome Pleas contact pt at [phone] Luxembourgish Speaker documented in this encounter Plan of Treatment Upcoming Encounters Date Type Department Care Team ([facility] st Contact Info) Description 02/27/2025 11:15 AM EDT Office Visit [facility] [address] [place] [address] BlankKarina allen [facility] [address] [place] [address] documented as of this encounter Visit Diagnoses Not on filedocumented in this encounter Additional Health Concerns Assessment Noted Time PHQ-9 Depression Total Score: 8 06/22/19 23 3:07 PM EST documented as of this encounter Care Teams Plasterer Stucco Relationship Specialty Start Date End Date Karina Parson [facility] [address] [place] [address] PCP - General Family Medicine 05/14/22 Jimmy Knight RN [address] [place] [address] Director Of LearningSupervisor Pig Machine 10/03/24 02/21/25 Jimmy Knight RN [address] [place] [address] Registered Nurse Family Medicine 02/22/25 02/22/25 Amelia Rojo 02/22/25 02/22/25 documented as of this encounter
== END 2025-02-25 15:06 | disposition home or self-care (01) ==
LOC: HO.XRAY 15:05
PROVIDERS: PCP Registered Nurse; Visit Provider Internal Medicine
DX: J45.909 Unspecified asthma, uncomplicated (principal); R06.81 Apnea, not elsewhere classified; R40.0 Somnolence; M54.41 Lumbago with sciatica, right side; Z91.09 Other allergy status, other than to drugs and biological substances; Z87.891 Personal history of nicotine dependence
CPT/HCPCS: 72100; 99212

== ENCOUNTER → 2025-02-25 15:11 | Outpatient (BNV) | payer MEDICAID, SELFPAY | PROVIDERS: PCP Registered Nurse; Visit Provider Student in an Organized Health Care Education/Training Program | DX: M54.50 Low back pain, unspecified (principal) | CPT/HCPCS: 72100 ==

== ENCOUNTER 2025-02-25 15:41 | Outpatient (AMB) | payer MEDICAID, SELFPAY ==
[2025-02-25 16:09] VITALS: BP 138/82; PULSE 77; O2SAT 99; BMI 67.1
--- NOTE | 2025-02-25 16:09 | MHC.OFFVIS ---
Vital Signs 02/25/25 16:09 Height 5 ft 2 in Weight 367 lb 1.114 oz BMI 67.1 BP 138/82 Blood Pressure Location Lt radial Position Sitting Pulse 77 Pulse Source Pulse Oximeter Pulse Oximetry (%) 99 Oxygen Delivery Method Room Air Intake Visit Reasons: asthma Allergies lidocaine (LIDOCAINE) Allergy (Severe, Verified 02/25/25 16:13) SWELLING/EDEMA metformin Allergy (Severe, Verified 02/25/25 16:13) Anaphylaxis HPI HPI asthma: Details: Tommie is a pleasant 34 year old female, former smoker, with underlying childhood asthma, GERD, mild JEFFERSON and morbid obesity. At the last visit she was started on Breo and reports no improvement since switching from [place], also has difficulty tolerating DPI. She reports worsening asthma control over the last two weeks with increased dyspnea, dry cough, wheezing and chest tightness. Today she presents to review RAST. She had PFT ordered however no showed appt and has upcoming home sleep study scheduled. [facility] Medical History (Updated 12/31/24 @ 20:29 by Ana Maria Saldivar NP) Morbid obesity with BMI of 50.0-59.9, adult History of gestational diabetes Daytime sleepiness Chronic bilateral low back pain without sciatica History of asthma Chronic GERD Recurrent occipital headache Aspirin allergy Major depression Chronic headache disorder Irregular menstrual cycle Lipoma of forehead Surgical History H/O colonoscopy H/O tubal ligation Hx of rectal sphincterotomy Hx of removal of cyst Family History Unknown No problems noted. Unknown No problems noted. 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 Review of Systems Const Denies chills, Denies excessive sweating, Denies fever(s), Denies headache(s) and Denies night sweats Eyes Denies dry eyes, Denies irritation and Denies itchy eyes ENT Reports Normal hearing present, Denies headache(s), Denies nasal discharge, Denies post nasal drip and Denies sore throat Card Denies chest pain, Denies chest pain at rest, Denies chest pain with activity, Denies claudication, Denies leg edema, Reports dyspnea on exertion and Denies orthopnea Resp Denies change in phlegm color, Denies chest congestion, Reports cough, Denies hemoptysis, Denies excessive phlegm production, Denies pain on inspiration, Denies pain with cough, Reports dyspnea on exertion, Denies stridor and Reports wheezing Musc Denies myalgias Neuro Reports Normal hearing present and Denies headache(s) Endo Denies excessive sweating Chalo/Lymph Denies lymphadenopathy Aller/Immun Denies itchy eyes, Denies seasonal rhinorrhea and Reports wheezing Physical Exam Vital Signs: Last Vital Signs Pulse 77 02/25/25 16:09 BP 138/82 02/25/25 16:09 Pulse Ox 99 02/25/25 16:09 Oxygen Delivery Method Room Air 02/25/25 16:09 BMI result Body Mass Index 67.1 Const General: cooperative, healthy appearing, comfortable, no acute distress, well developed and alert Nutritional Appearance: obese Orientation/consciousness: patient oriented x3 HEENT Head: Yes normal to inspection, Yes normocephalic and Yes atraumatic Ears: hearing grossly normal bilaterally and external ears normal Eyes General: appearance normal, both eyes and all related structures Eyelids: Yes eyelids normal Sclerae: sclerae normal EOM: EOMs intact bilaterally Neck Neck: Yes normal visual inspection and Yes no lymphadenopathy Lymphatic: no lymphadenopathy noted Chest Chest palpation & inspection: normal inspection of the chest Resp Other: faint inspiratory wheezes Effort & Inspection: normal respiratory effort, able to speak in complete sentences, no audible wheezes, no cough, no stridor, not tachypneic, no tripod positioning and no use of accessory muscles Auscultation: diminished lung sounds Cardio Jugular venous distension: no JVD Rate: regular rate Rhythm: regular rhythm Skin Other: warm, dry General skin exam: no rashes or lesions noted Neuro General: patient oriented x3 Cranial nerves: Yes Normal hearing present Cognition (Neuro): normal cognition Gait exam (Neuro): Normal gait present Extrem General: Yes normal to inspection, Yes capillary refill normal, Yes no clubbing, cyanosis or edema and Yes no pedal edema Psych Appearance: grossly normal and well kempt Speech and movement: Normal speech and movement present and Clear speech present Affect: normal affect Attitude: cooperative Thought process: Normal thought process present Thought content: Normal thought content present Insight: Good insight present (Psych) Judgement: Good judgement present (Psych) Results Reviewed Results Reviewed: [address] [address] XRay Report Signed Patient: Tommie Paz MR#: [id number] : 1990 Acct:[id number] Age/Sex: 33 / F ADM Date: 06/08/23 Loc: HO.ED Attending Dr: Ordering Physician: Racehll Ascencio Date of Service: 06/08/23 Procedure(s): XR chest 2V Accession Number(s): [id number] cc: Rachell Ascencio; [facility]~ EXAMINATION: XR CHEST, 2 VIEWS CLINICAL INFORMATION: Dyspnea COMPARISON: 12/20/2019 TECHNIQUE: PA and lateral views of the chest were obtained. FINDINGS: Bronchial wall thickening suspected in the perihilar regions. No consolidation, pneumothorax, or pleural effusion. Cardiac and mediastinal contours are normal. Pulmonary vasculature is unremarkable. Trachea is midline. Osseous structures are unremarkable. XR/XR chest 2V IMPRESSION: Bronchial wall thickening can be seen with a small airways process such as asthma or atypical/viral infection. Dictated By: n Signed By: <Electronically signed by n in OV> 06/08/23 1342 DD/ 1220 TD/TT: [employer] Supervisor: MUNIRA Assessment & Plan Assessment & Plan (1) Asthma: Code(s): J45.909 - Unspecified asthma, uncomplicated Category: Medical (2) Environmental allergies: Code(s): Z91.09 - Other allergy status, other than to drugs and biological substances Category: Medical (3) Witnessed episode of apnea: Code(s): R06.81 - Apnea, not elsewhere classified Category: Medical (4) Daytime sleepiness: Code(s): R40.0 - Somnolence Category: Medical Plan Patient with worsening respiratory control and wheezing on exam, will send prednisone. She is aware to call if symptoms do not improve or seek emergent care if symptoms worsen. Reviewed RAST which revealed multiple environmental allergies, IgE 187. Discussed likely allergic component and recommendation to start antihistamine. Will also switch Breo and Symbicort, if no significant improvement may need to consider biologic. Will send for CXR to assess for any underlying parenchymal condition contributing to worsening dyspnea. Previously PFT ordered however patient no showed, will attempt to reschedule. All questions were answered and patient is agreement of plan. Will follow-up in 6-8 weeks or sooner if needed. Orders: Orders XR chest 2V 02/25/25 R06.00 - Dyspnea, unspecified Medications: New cetirizine 10 mg PO DAILY PRN 30 tabs 3RF allergy symptoms budesonide-formoterol 160-4.5 mcg/actuation (Symbicort) 2 puffs inhalation Q12H 10.2 grams 3RF prednisone 40 mg (2 x 20 mg) PO DAILY 10 tabs 0RF Coding Level of Care Code Est Pt Level 4 (64074) Diagnoses Asthma J45.909 Environmental allergies Z91.09 Witnessed episode of apnea R06.81 Daytime sleepiness R40.0
== END 2025-02-25 16:30 | disposition home or self-care (01) ==
LOC: HO.HPS 15:42
PROVIDERS: PCP Registered Nurse; Visit Provider Nurse Practitioner Family
DX: J45.909 Unspecified asthma, uncomplicated (principal); Z91.09 Other allergy status, other than to drugs and biological substances; R06.81 Apnea, not elsewhere classified; R40.0 Somnolence
CPT/HCPCS: 99214

== ENCOUNTER 2025-04-11 07:57 | Outpatient (AMB) | payer MEDICAID, SELFPAY ==
--- OUTSIDE RECORDS SUMMARY | 2025-04-09 11:20 | XMS_ITS | Encounter Summary ---
Author Organization [facility] Address [address] [facility] [address] [place] [phone] Phone Care Team Providers Care Deskidding Machine Operator Name Role Phone Center, Chencho Horton MD Primary Care Provider Unavailable Reason for Visit * Reason Comments Vaginal Pain Encounter Details Date Type Department Care Team (Late st Contact Info) Description 04/09/2025 11:20 AM EST Office Visit [facility] [address] [place] [id number] Madahvi Broderick MD [address] [facility], [address] [place] [address] [email or web address] Vaginal discharge (Primary Dx); Dysuria Social History Tobacco Use Types Packs/Day Years [...] Answer Date Recorded No 10/13/2022 No 10/13/2022 Reliable internet access at home? Not on file 10/13/2022 Device with a working camera? Not on file Comments No Sex and Gender Information Value Date Recorded Sex Assigned at Not on file Legal Sex Female 3:42 PM EST Gender Identity Not on file Sexual Orientation Not on file documented as of this encounter Last Filed Vital Signs Vital Sign Reading Time Taken Comments Blood Pressure 110/70 04/09/2025 11:01 AM EST Pulse - - Temperature - - Respiratory Rate - - Oxygen Saturation - - Inhaled Oxygen Concentration - - Weight 160.6 kg (354 lb) 04/09/2025 11:01 AM EST Height 157.5 cm (5' 2.01 ) 04/09/2025 11:01 AM Pasquale OCHOA Body Mass Index 64.73 04/09/2025 11:01 AM EST documented in this encounter Progress Notes * Madhavi Broderick MD - 04/09/2025 11:20 AM EST Chief Complaint Patient presents with Vaginal Pain This is a 34 y.o., who presents for eval of brown vaginal discharge. She notes that two weeks ago she had a huge ball in my pelvic area that exploded - this drained brown/white fluid. Eval at Urgent Care, treated with two medications. Since then, she notes persistent pelvic pain and discomfort. She also has abnormal discharge (brown). Prior hysterectomy, no vaginal bleeding. +dysuria. No F/C. ROS: As in HPI. Prior to Admission medications Medication Sig Start Date End Date Taking? Authorizing Provider acetaminophen (TYLENOL) 325 mg tablet Take 2 tablets (650 mg total) by mouth every 4 (four) hours as needed. 09/14/22 Yes Hattie Espinoza MD albuterol 90 mcg/actuation inhaler Take 2 puffs by mouth every 4 (four) hours as needed. 06/14/22 Yes Varun Robbins MD blood pressure test kit-large Kit USE TO CHECK BLOOD PRESSURE 06/22/22 Yes Varun Robbins MD estradioL (CLIMARA) 0.075 mg/[address] 1 patch onto the skin once a week. Yes Varun Robbins MD fluocinonide 0.05 % external solution APPLY TO THE AFFECTED AREA(S) TOPICALLY ONCE DAILY DIRECTED 12/16/21 Yes Varun Robbins MD gabapentin (NEURONTIN) 300 MG capsule At bedtime 07/20/22 Yes Varun Robbins MD ibuprofen (ADVIL,MOTRIN) 200 MG tablet Take 3 tablets (600 mg total) by mouth every 6 (six) hours as needed for pain (specific location in comments). 09/14/22 Yes Hattie Espinoza MD ketoconazole (NIZORAL) 2 % shampoo APPLY TO THE AFFECTED AREA(S) TOPICALLY EVERY DAY, LATHERMAGGIEON FOR 5 MINUTES THEN RINSE WITH WATER 06/14/22 Yes Varun Robbins MD lidocaine (LIDODERM) 5 % APPLY 1 PATCH TOPICALLY TO SKIN, LEAVE ON FOR 12 HOURS AND OFF FOR 12 HOURS DIRECTED 02/25/25 Yes Varun Robbins MD lurasidone (LATUDA) 20 mg tablet Take 1 tablet by mouth every morning. 01/31/25 Yes Varun Robbins MD mometasone (ASMANEX HFA) 100 mcg/actuation HFAA INHALE 1 PUFF BY MOUTH 2 TIMES EVERY DAY IN THE MORNING AND EVENING 01/20/22 Yes Varun Robbins MD olmesartan (BENICAR) 5 mg tablet Take 5 mg by mouth every morning. 07/20/22 Yes Varun Robbins MD tiZANidine (ZANAFLEX) 4 MG tablet Take 4 mg by mouth daily as needed. 06/15/22 Yes Varun Robbins MD TRULICITY 3 mg/0.5 mL subcutaneous injection INJECT 3MG SUBCUTANEOUSLY ONCE A WEEK 03/13/25 Yes Varun Robbins MD acetaminophen (TYLENOL) 325 mg tablet Take 2 tablets (650 mg total) by mouth every 4 (four) hours as needed. 09/28/22 Hattie Espinoza MD ascorbic acid, vitamin C, (VITAMIN C) 250 MG tablet TAKE 1 TABLET BY MOUTH EVERY MORNING WITH IRON 05/31/22 Varun Robbins MD clonazePAM (KLONOPIN) 1 MG tablet Take 1 mg by mouth nightly at bedtime as needed. 07/23/22 Varun Robbins MD docusate sodium (COLACE) 100 MG capsule Take 100 mg by mouth 2 (two) times a day as needed. 06/14/22ProviderVarun MD DULoxetine (CYMBALTA) 30 MG capsule TAKE 1 CAPSULE BY MOUTH TWICE DAILY IN THE MORNING AND IN THE EVENING 07/20/22 Varun Robbins MD ferrous sulfate 325 mg (65 mg [place] iron) tablet take 1 tablet by oral route every day with vitamin C Varun Robbins MD FLUoxetine (PROZAC) 20 MG capsule Take 20 mg by mouth every morning. 07/20/22 Varun Robbins MD magnesium oxide (MAG-OX) 400 mg (241.3 mg elemental) tablet TAKE 1 TABLET BY MOUTH EVERYDAY AT NOON07/20/22 ProviderVarun MD naproxen (NAPROSYN) 500 MG tablet Take 1 tablet (500 mg total) by mouth 2 (two) times a day with meals. 10/01/22 Hattie Espinoza MD omeprazole (PRILOSEC) 20 MG capsule TAKE 1 CAPSULE BY MOUTH TWICE DAILY AT NOON AND BEDTIME 07/20/22ProviderVarun MD QUEtiapine (SEROQUEL) 300 MG tablet Take 300 mg by mouth nightly at bedtime. at bedtime. 06/28/22 Varun Robbins MD risperiDONE (RISPERDAL) 1 MG tablet Take 1 mg by mouth nightly at bedtime. at bedtime. 07/20/22 Vraun Robbins MD triamcinolone acetonide 0.1 % ointment Apply topically 2 (two) times a day for 14 days. 08/06/22 08/20/22 Hattie Espinoza MD VITAMIN D3 25 mcg (1,000 unit) capsule Take by mouth every morning. 06/24/22 ProviderVarun MD Allergies Allergen Reactions Aspirin Other reaction(s): Throat swelling Lidocaine Metformin Dizziness Past Medical History: Diagnosis Date Adverse effect of anesthetic allergic reaction to lidocaine Anxiety disorder Asthma Essential (primary) hypertension Major depressive disorder, single episode Past Surgical History: Procedure Laterality Date SECTION x3 (one section for myomectomy) CYST REMOVAL 2009 pcos CYST REMOVAL forehead EXAMINATION UNDER ANESTHESIA N/A 09/28/2022 Performed by Hattie Espinoza MD at [facility] OR EXAMINATION UNDER ANESTHESIA WITH PAP SMEAR 09/14/2022 Performed by Hattie Espinoza MD at [facility] OR HAND SURGERY MYOMECTOMY 2013 PLACEMENT INTRAUTERINE DEVICE N/A 09/14/2022 Performed by Hattie Espinoza MD at [facility] OR [place] REPAIR OF NASAL SEPTUM REMOVAL INTRAUTERINE DEVICE N/A 09/28/2022 Performed by Hattie Espinoza MD at [facility] OR ROBOTIC ASSISTED HYSTERECTOMY [facility] - 2023? Social History Tobacco Use Smoking status: Former Types: Cigarettes Smokeless tobacco: Never Tobacco comments: Experimented couple months Vaping Use Vaping status: never used Substance Use Topics Alcohol use: Yes Comment: rare on holiday one drink Drug use: Yes Types: Marijuana Comment: edible 2 times a month Menstrual History No LMP recorded (lmp unknown). Patient has had a hysterectomy. Physical Exam Vitals: 04/09/25 1101 BP: 110/70 Patient Position: Sitting Weight: (!) 160.6 kg (354 lb) Height: 157.5 cm (5' 2.01 ) General: well appearing, NAD Abdomen: exam limited 2/2 morbid obesity - abd skin is intact and without active lesions Pelvic: External Genitalia: Normal architecture, prior ruptured mass appears to be hydradenitis lesion on left aspect of mons - this appears to be healing well today and is without signs of infection, vulvarskin folds without erythema/skin breakdown, no evidence of cutaneous sabion Vagina: Mucosa is intact, +small amt of clear/white discharge, no erythema, no lesions. Cervix/Uterus: surgically absent Perianal: skin intact A/P: 34 y.o. for vaginitis/UTI eval. Swab collected and urine sample sent. Defer treatment until results available. Exam reassuring today - no acute infectious process suspected. 1. Vaginal discharge (Primary) - Urinalysis with Reflex to Urine Culture - Vaginitis/Vaginosis Screen 2. Dysuria Madhavi Broderick MD documented in this encounter Plan of Treatment Not on file documented as of this encounter Procedures Procedure Name Priority Date/Time Associated Diagnosis Comments URINALYSIS WITH REFLEX TO URINE CULTURE Routine 04/09/2025 11:19 AM EST Vaginal discharge VAGINITIS/VAGINOSIS SCREEN (BD AFFIRM) Routine 04/09/2025 11:19 AM EST Vaginal discharge documented in this encounter Results * (ABNORMAL) Vaginitis/Vaginosis Screen (04/09/2025 11:19 AM EST) Bacterial Vaginosis (BV) Detected(A) Not Detected 04/09/2025 8:35 PM [facility] Sabino group Not Detected Not Detected 025 8:35 PM [facility] Sabino [id number]-krusei Not Detected Not Detected 04/09/2025 8:35 PM [facility] Trichomonas vaginalis Not Detected Not Detected 04/09/2025 8:35 PM [facility] Swab (Vagina) Non-Blood Collection / Unknown 04/09/2025 11:19 AM EST 04/09/2025 11:19 AM EST us Madhavi Broderick MD LAB GENERAL ORDERABLES Final Result [facility] [address] [place] [address] * (ABNORMAL) Urinalysis with Reflex to Urine Culture (04/09/2025 11:19 AM EST) Color Yellow Yellow 04/09/2025 4:22 PM [facility] Clarity Cloudy(A) Clear 04/09/2025 4:22 PM [facility] Glucose Negative Negative 04/09/2025 4:22 PM [facility] Bilirubin Urine Negative Negative 4:22 PM [facility] Ketone Urine Negative Negative 04/09/2025 4:22 PM [facility] Specific [place] 1.025 1.001 - 1.035 04/09/2025 4:22 PM [facility] Blood Negative Negative 04/09/2025 4:22 PM [facility] pH 6.0 5.0 - 8.0 04/09/2025 4:22 PM [facility] Protein Negative Negative 04/09/2025 4:22 PM [facility] Nitrites Negative Negative 04/09/2025 4:22 PM [facility] Leukocyte Esterase Negative Negative 04/09/2025 4:22 PM [facility] Urobilinogen Negative Negative 04/09/2025 4:22 PM [facility] Urine (Urine, Voided) Non-Blood Collection / Unknown 04/09/2025 11:19 AM EST 04/09/2025 11:19 AM EST us Madhavi Broderick MD LAB URINE ORDERABLES Final Re sult [address] [address] documented in this encounter Visit Diagnoses Diagnosis Vaginal discharge- Primary Leukorrhea, not specified as infective Dysuria documented in this encounter Care Teams Deskidding Machine Operator Relationship Specialty Start Date End Date Chencho Munoz MD PCP - General 05/14/22 documented as of this encounter Additional Source Comments The information contained in this document represents components of the legal health record. It is not the complete legal health record.[facility]
--- NOTE | 2025-04-11 08:00 | A.OFFVIS_ITS ---
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 The pain started in late January or early February after bending down. The patient went to [facility] due to the pain and was subsequently unable to walk or perform activities independently. The pain is described as stabbing, sharp, cramping, crushing, wrenching, and burning with tingling that radiates down the back and side of the right leg to the knee, with associated cramping in the right calf. The pain affects the patient's sleep, daily activities, and mobility. She reports loss control of urination 3 weeks ago and history of multiple falls with most recent in September 2024. An MRI on March 07 revealed an L5-S1 disc bulge causing mild to moderate right and mild left foraminal narrowing, and severe disc dehydration. An older MRI from 2017 reportedly had similar findings. The patient attempted physical therapy but stopped due to excessive pain with no relief. Previous medication trials include Tramadol, which was ineffective, cyclobenzaprine, gabapentin, and two Toradol injections. The patient's past medical history is significant for diabetes mellitus, with a recent morning blood glucose reading of 82. The patient also has morbid obesity with a BMI of 46 and a diagnosis of sleep apnea, for which the patient is not yet using a machine. The patient is not currently working and reports being unable to do heavy lifting. - Onset and Timing: The pain began in late January or early February after bending down. - Quality and Character: The pain is described as stabbing, sharp, cramping, crushing, wrenching, burning, and tingling. - Primary Location and Radiation: The pain is in the back and radiates down the back and side of the right leg to the knee, with associated cramping in the right calf. - Exacerbating Factors: Pain is worsened by movement, especially bending forward and backward, as well as prolonged sitting or sleeping. - Functional Interference: The pain affects sleep, daily activities, and mobility. - Affect: The pain negatively impacts the patient's sleep, daily activities, and mobility. - Analgesia: The patient has tried physical therapy without relief, tramadol which was ineffective, cyclobenzaprine, gabapentin, and two Toradol injections. - Activities of Daily Living: The patient is unable to perform heavy lifting and uses a cane for mobility. - Aberrant Drug Related Behaviors: The patient stopped taking Tramadol after feeling it was ineffective; no other aberrant behaviors were noted. Oswestry Low Back Pain Disability Score=39 [facility] Medical History Morbid obesity with BMI of 50.0-59.9, adult History of gestational diabetes Daytime sleepiness Chronic bilateral low back pain without sciatica History of asthma Chronic GERD Recurrent occipital headache Aspirin allergy Major depression Chronic headache disorder Irregular menstrual cycle Lipoma of forehead Surgical History H/O colonoscopy H/O tubal ligation Hx of rectal sphincterotomy Hx of removal of cyst Family History Unknown No problems noted. Unknown No problems noted. 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 Morbidly obese. Alert and oriented. Mood and affect appropriate. Follows and participates in conversation appropriately. Respiratory effort is unlabored. No cough. Able to transition from sit to stand unassisted. Ambulates with bilaterally normal heel strike and toe off, reports RLE and back pain increase with heel/toe standing. General: Yes no CVA tenderness Back/Spine/Pelvis Other: Limited lumbar ROM due to pain and body habitus. Lumbar extension reproduces mild pain, flexion forward and bending reproduces [id number] pain. Mild TTP in the lower lumbar region midline. Demonstrates 5/5 strength of quadriceps bilaterally as well as flexion/dorsiflexion of bilateral feet against resistance. 2+ pedal pulses bilaterally. Straight leg rise with dorsiflexion positive on the right. +2 patellar and +1 achilles reflexes bilaterally. Facet loading test positive bilaterally. Unable to perform Antione?s due to pain and body habitus, increased low back and lateral hip pain with Pelvic compression and Stinchfield tests. No groin pain with I/E hip rotations. Valsalva maneuver negative. Back: no CVA tenderness Cervical Spine: cervical ROM normal, cervical muscular tenderness, No Cervical spine scars present and No Cervical spine tenderness Thoracic/Lumbar Spine: thoracic and lumbar spine normal to inspection, No Thoracic/lumbar spine scar(s), Lasegue's sign positive on the right and localized, pain with thoraco-lumbar ROM, paraspinal muscle tenderness, thoraco- lumbar ROM limited, No thoracic spinal tenderness and lumbar spinal tenderness (L4-S1) Pelvis: buttock tenderness on the right Sacroiliac joints: bilaterally tender to palpation Extrem General: Yes capillary refill normal, Yes no clubbing, cyanosis or edema and Yes calf tenderness (Mild cramp and tingling with SLR testing on the right) Results Reviewed Results Reviewed: MRI LUMBAR SPINE WITHOUT CONTRAST 03/07/25 RAY CLINICAL INFORMATION: Low back pain with right-sided radiculopathy for 2 weeks TECHNICAL INFORMATION: 1. Sagittal and axial T1. 2. Sagittal and axial T2. 3. Sagittal STIR. SEDATION: None. COMPARISON: MRI lumbar spine February 18, 2018. INTERPRETATION: There is well-formed disc at S1-S2. Conus shows normal tapering and ends at L1-L2. Included cord has normal internal signal and cauda equina is unremarkable. L5-S1: Severe disc desiccation and mild to moderate disc height loss. Disc bulge indents the ventral aspect of the thecal sac and results in mild to moderate right and mild left foraminal narrowing. L4-5: Disc height and hydration are preserved. No disc contour abnormality, spinal canal or foraminal stenosis is identified. L3-4: Disc height and hydration are preserved. No disc contour abnormality, spinal canal or foraminal stenosis is identified. L2-3: Disc height and hydration are preserved. No disc contour abnormality, spinal canal or foraminal stenosis is identified. L1-2: Disc height and hydration are preserved. No disc contour abnormality, spinal canal or foraminal stenosis is identified. T12-L1: Disc height and hydration are preserved. No disc contour abnormality, spinal canal or foraminal stenosis is identified. Lumbar lordosis, vertebral body heights and marrow signal are within normal limits. Paraspinous soft tissues are unremarkable. CONCLUSION: L5-S1, disc bulge indents the ventral aspect of the thecal sac and results in [id number] right and mild left foraminal narrowing. Assessment & Plan Assessment & Plan (1) Lumbar radiculopathy: Code(s): M54.16 - Radiculopathy, lumbar region Category: Medical (2) Lumbar degenerative disc disease: Code(s): M51.369 - Other intervertebral disc degeneration, lumbar region without mention of lumbar back pain or lower extremity pain Category: Medical (3) Lumbar back pain with radiculopathy affecting right lower extremity: Code(s): M54.16 - Radiculopathy, lumbar region Category: Medical (4) Morbid obesity with BMI of 45.0-49.9, adult: Code(s): E66.01 - Morbid (severe) obesity due to excess calories; Z68.42 - Body mass index [BMI] 45.0-49.9, adult Category: Medical (5) Lumbar radiculopathy: Code(s): M54.16 - Radiculopathy, lumbar region Category: Medical (6) Lumbar degenerative disc disease: Code(s): M51.369 - Other intervertebral disc degeneration, lumbar region without mention of lumbar back pain or lower extremity pain Category: Medical (7) Lumbar back pain with radiculopathy affecting right lower extremity: Code(s): M54.16 - Radiculopathy, lumbar region Category: Medical Plan The patient's symptoms are consistent with right-sided lumbar radiculopathy sec ondary to severe L5-S1 degenerative disc disease with a disc bulge, as confirmed on MRI. Right L5-S1 TFESI with local and fluoroscopy and oral Ativan was offered as a treatment option for symptomatic relief, which could last for approximately three months. The patient expressed hesitation about receiving injections but will consider this with oral Ativan. Expectations, risks and benefits were reviewed. Patient is aware she will be contacted to schedule this procedure. Weight loss was encouraged due to the patient's BMI of 46.3 and its effect on spine and joint health. A referral will be placed for the [facility] program per patient's request. A referral for physical therapy will be sent to the [facility] at [facility] in [place] for convenience. The patient was counseled on lifestyle modifications including avoiding forward bending, increasing movement to avoid prolonged sitting or laying down, sleeping on the left side with a pillow between the legs, staying hydrated, and avoiding ultra processed foods and sugary beverages to reduce inflammation. Continue Tylenol, gabapentin, ibuprofen and muscle relaxants as needed. All questions and concerns have been answered and patient agreed with the treatment plan. Follow up after injection and sooner as needed. Patient was informed and verbally consented to the use of an ambient scribe for clinic note documentation during this visit. Orders: Orders PT Evaluation and Treatment 04/11/25 E66.01 - Morbid (severe) obesity due to excess calories, M51.369 - Other intervertebral disc degeneration, lumbar region without mention of lumbar back pain or lower extremity pain, M54.16 - Radiculopathy, lumbar region, Z68.42 - Body mass index [BMI] 45.0-49.9, adult Referrals Medical Weight Management Referral E66.01 - Morbid (severe) obesity due to excess calories, M51.369 - Other intervertebral disc degeneration, lumbar region without mention of lumbar back pain or lower extremity pain, M54.16 - Radiculopathy, lumbar region, Z68.42 - Body mass index [BMI] 45.0-49.9, adult Coding Level of Care Code New Pt Level 4 (67442) Diagnoses Lumbar radiculopathy M54.16 Lumbar degenerative disc disease M51.369 Lumbar back pain with radiculopathy affecting right lower extremity M54.16 Morbid obesity with BMI of 45.0-49.9, adult E66.01; Z68.42
[2025-04-11 08:10] VITALS: BP 163/88; PULSE 86; O2SAT 97; BMI 46.3
--- OUTSIDE RECORDS SUMMARY | 2025-04-11 08:12 | XMS_ITS | Clinical Summary ---
Author Organization [employer] Address [address] [facility] 7[address] [place] [address] Care Team Providers Care String Cutter Name Role Phone [place] Primary Care Provider [phone] Allergies Active Allergy Reactions Criticality Noted Date [...] day. 30 tablet 11 025 2025 Active Mometasone Furoate (Asmanex HFA) 100 MCG/ACT aerosolIndicatio ns:SOB (shortness of breath),Moderate persistent asthma without complication Inhale 2 Act (200 mcg) 2 times daily. Rinse mouth with water after use 13 g 3 025 Active Blood Pressure kitIndications:O ther fatigue Use as directed 1 kit Active Ventolin HFA 108 (90 Base) MCG/ACT inhaler INHALE 2 PUFFS BY MOUTH EVERY 4 TO 6 HOURS NEEDED 18 g Active tiZANidine (Zanaflex) 6 MG capsuleIndicatio ns:Acute right-sided low back pain with right-sided sciatica Take 1 capsule (6 mg) by mouth 3 times daily. 90 capsule 025 2025 Active lidocaine (Lidoderm) 5 % patchIndications :Acute right-sided low back pain with right-sided sciatica Apply 1 patch topically Once per day. Remove & discard patch within 12 hours or as directed by MD. 30 patch 1 Active diazePAM (Valium) 2 MG tabletIndication s:Anxiety due to invasive procedure Take 1 tablet (2 mg) by mouth 1 (one) time for 1 dose. 30 minutes prior to procedure 1 tablet Active Trulicity 3 MG/0.5ML solution auto-injectorInd ications:Type 2 diabetes mellitus with hyperglycemia, without long-term current use of insulin (HCC) INJECT 3MG SUBCUTANEOUSLY ONCE A WEEK 4 mL Active ketoconazole (NIZOral) 2 % shampooIndicatio ns:Rash APPLY TOPICALLY TWICE A WEEK DIRECTED 120 mL Active metroNIDAZOLE (Metrocream) 0.75 % creamIndications :Facial rash APPLY TOPICALLY TWICE DAILY 45 g Active Ventolin HFA 108 (90 Base) MCG/ACT inhalerIndicatio ns:Mild intermittent asthma without complication INHALE 2 PUFFS BY MOUTH EVERY 4 HOURS NEEDED FOR WHEEZING 18 g Active olmesartan (BENIcar) 40 MG tabletIndication s:Primary hypertension TAKE 1 TABLET BY MOUTH EVERY DAY 90 tablet 1 Active tiZANidine (Zanaflex) 2 MG tabletIndication s:Lumbar radiculopathy, acute Take 3 tablets (6 mg) by mouth every 6 (six) hours if needed for muscle spasms. 30 tablet 025 2024 Active gabapentin (Neurontin) 300 MG capsuleIndicatio ns:Pain Take 2 capsules (600 mg) by mouth 3 times daily. 180 capsule 1 Active olmesartan (BENIcar) 40 MG tabletIndication s:Primary hypertension TAKE 1 TABLET BY MOUTH EVERY DAY 90 tablet 1 2024 Discontinued(R eorder (will not trigger notification to Pharmacy)) ketoconazole (NIZOral) 2 % shampooIndicatio ns:Rash APPLY TOPICALLY TWICE A WEEK DIRECTED 120 mL 2024 Discontinued metroNIDAZOLE (Metrocream) 0.75 % creamIndications :Facial rash APPLY ONE APPLICATION TOPICALLY TWICE DAILY 45 g 2024 Discontinued Ventolin HFA 108 (90 Base) MCG/ACT inhalerIndicatio ns:Mild intermittent asthma without complication Inhale 2 puffs every 4 (four) hours if needed for wheezing. 18 g 2024 Discontinued gabapentin (Neurontin) 300 MG capsuleIndicatio ns:Pain TAKE 2 CAPSULES BY MOUTH EVERY DAY AT BEDTIME 60 capsule 2024 Discontinued Trulicity 3 MG/0.5ML solution auto-injectorInd ications:Type 2 diabetes mellitus with hyperglycemia, without long-term current use of insulin (HCC) INJECT 3 MG SUBCUTANEOUSLY ONCE A WEEK 4 mL 2024 Discontinued tiZANidine (Zanaflex) 2 MG tablet Take 3 tablets (6 mg) by mouth every 6 (six) hours if needed for muscle spasms for up to 10 days. 30 tablet 2024 Discontinued(R eorder (will not trigger notification to Pharmacy)) traMADol (Ultram) 50 MG tabletIndication s:Lumbar radiculopathy, acute Take 1 tablet (50 mg) by mouth every 6 (six) hours if needed for severe pain for up to 5 days. 15 tablet 2024 gabapentin (Neurontin) 300 MG capsuleIndicatio ns:Pain TAKE 2 CAPSULES BY MOUTH EVERY DAY AT BEDTIME 60 capsule 2024 Discontinued(R eorder (will not trigger notification to Pharmacy)) gabapentin (Neurontin) 300 MG capsuleIndicatio ns:Pain TAKE 2 CAPSULES BY MOUTH EVERY DAY AT BEDTIME 60 capsule 2024 Discontinued(R eorder (will not trigger notification to Pharmacy)) Active Problems Problem Noted Date Diagnosed Date [...] to pharmacy Patient rescheduled follow up with MEDICAL LAB TECH INSTRUCTOR oncology to 10/29 Patient to return to [...] She was previously followed by ?[facility] (pt unable to recall name) for hx [...] to bariatrics and robotic surgery Referral to [facility] MEDICAL LAB TECH INSTRUCTOR oncology placed, if patient is unable to be seen by their office, she is willing to be referred to [facility] [place] Pelvic US ordered to assess IUD placement [...] organization. Date Type Department Care Team Description 04/10/2025 Orders Only [facility] [address] [place] [address] [place] [facility] Chronic lumbar radiculopathy (Primary Dx); Pain 04/09/2025 Refill [facility] [address] [place] [address] [facility] Lumbar radiculopathy, acute 04/09/2025 Refill [facility] [address] [place] [address] [facility] Pain 04/09/2025 Telephone [facility] [address] [place] [address] [place] [facility] Nurse Triage 04/08/2025 Refill [facility] [address] [place] [address] [facility] Type 2 diabetes mellitus with hyperglycemia, without long-term current use of insulin (HCC) 04/02/2025 Refill [facility] [address] [place] [address] Angie Mills ANP Primary hypertension 04/01/2025 Refill [facility] [address] [place] [address] [facility] Mild intermittent asthma without complication; Pain; Primary hypertension 03/12/2025 Refill [facility] [address] [place] [address] [facility] Pain; Type 2 diabetes mellitus with hyperglycemia, without long-term current use of insulin (HCC); Rash; Facial rash 03/12/2025 Telephone [facility] [address] [place] [address] [place] DEVELOPMENT ENGINEER Nurse Triage 03/08/2025 Telephone [facility] [address], [place] [address] Karina Parson FNP Results 03/07/2025 Refill [facility] [address] [place] [address] Karina Parson FNP Acute right-sided low back pain with right-sided sciatica 03/07/2025 Telephone [facility] [address] [place] [address] Karina Parson FNP Medication Question 02/27/2025 11:15 AM EDT Telemedicine [facility] [address], [place] [address] Karina Parson FNP Lumbar radiculopathy, acute (Primary Dx) 02/27/2025 Telephone [facility] [address] [place] [address] Karina Parson FNP Medication Question 02/27/2025 Telephone [facility] [address] [place] [address] Karina Parson FNP Med Refill 02/27/2025 Travel 02/26/2025 Telephone [facility] [address], [place] [address] Karina Parson FNP chart prep 02/25/2025 1:00 PM EDT Office Visit [facility] [address] [place] [address] Divine Mast MD Acute right-sided low back pain with right-sided sciatica 02/25/2025 Travel 02/25/2025 Telephone [facility] [address] [place] [address] Anca Folwer MD No Show 02/25/2025 Telephone [facility] [address] [place] [address] Anca Fowler MD chart prep 02/25/2025 Telephone [facility] [address] [place] [address] Karina Parson, DEVELOPMENT ENGINEER 02/22/2025 Refill [facility] [address], [place] [address] Karina Parson FNP Chronic neck pain 02/22/2025 Patient Outreach [facility] [address] [place] [address] [facility] 02/22/2025 Patient Outreach [facility] [place] [address] [facility] Care Coordination (CHW Chart Review) 02/22/2025 Patient Outreach [address] [address] [facility] 02/22/2025 Patient Outreach [address] [address] [facility] 01/29/[address] [address] [facility] Pain; Low back pain, unspecified back pain laterality, unspecified chronicity, unspecified whether sciatica present; Type 2 diabetes mellitus with hyperglycemia, without long-term current use of insulin ([facility]) 01/23/2025 Patient Outreach [facility] [place] [address] [facility] Care Coordination ([facility]) 01/17/2025 Orders Only GENERIC EXTERNAL DATA DEPARTMENT Provider, Generic External Data from Last 3 Months Immunizations Immunization Administration [...] 02/25/2025 1:17 PM EDT Plan of Treatment Health Maintenance Due Date Last Done Comments Dental Oral Exam 1990 Dental Prophylaxis 1990 Dental X-Ray: Bitewings 1990 HIV Screening 1990 Family Planning (PISQ) 2005 HPV Vaccines (1 - 3-dose series) 2005 Hepatitis C Screening 2008 Hepatitis B Vaccines (1 of 3 - 19+ 3-dose series) 2009 Pneumococcal Vaccine: Pediatrics (0 to 5 Years) and At-Risk Patients (6 to 49) Years (1 of 2 - PCV) 2009 COVID-19 Vaccine (1 - season) 2025 Influenza Vaccine (#1) 2025 Diabetes: Hemoglobin A1C 02/06/2025 025, 05/09/2024, 08/15/2023, Additional history exists Diabetes: Urine Protein Screening 05/09/2025 05/09/2024, 05/09/2024 Lipid Panel 05/09/2025 05/09/2024, 09/22, 08/25/2022, Additional history exists Depression Monitoring 07/20/2025 01/18/2025, 025 Diabetes: Foot Exam 08/06/2025 08/06/2024, 08/06/2024, 08/06/2024, Additional history exists Disability Screening 09/08/2025 09/08/2024 Alcohol/Substance Use Screening 10/03/2025 10/03/2024 SDOH Screening 11/14/2025 11/14/2024 Tobacco Screening 03/01/2026 03/01/2025 Eye Exam 03/23/2026 03/23/2024 DTaP/Tdap/Td Vaccines (2 - Td or Tdap) 05/31/2027 05/31/2017 Dental X-Ray: Full Mouth 01/31/2028 01/29/2025, 03/23 Zoster Vaccines (1 of 2) 2040 RSV [...] on patient's age to complete this topic Goals Goal Patient Goal Type Associated Problems Recent Progress Patient-Stated? Author Help patients manage their type 2 diabetes Care Plan Help patients manage their type 2 diabetes Lydia Asencio LPN Weekly blood pressure task Care Plan Weekly blood pressure task No Lydia Randolph LPN Help patients manage their type 2 diabetes Care Plan Help patients manage their type 2 diabetes No Lydia Randolph LPN Patient has chronic kidney disease Care Plan Patient has chronic kidney disease No Lydia Randolph LPN Weekly blood pressure task Care Plan Weekly blood pressure task No Lydia Randolph LPN Patient has chronic kidney disease Care Plan Patient has chronic kidney disease No Lydia Randolph LPN Weekly blood pressure task Care Plan Weekly blood pressure task No Paul Mack Weekly blood pressure task Care Plan Weekly blood pressure task No Paul Mack Patient has chronic kidney disease Care Plan Patient has chronic kidney disease No Paul Mack Patient has chronic kidney disease Care Plan Patient has chronic kidney disease No Paul Mack Weekly blood pressure task Care Plan Weekly blood pressure task No Kael Stephenson Weekly blood pressure task Care Plan Weekly blood pressure task No Kael Stephenson Patient has chronic kidney disease Care Plan Patient has chronic kidney disease No Kael Stephenson Patient has chronic kidney disease Care Plan Patient has chronic kidney disease No Kael Stephenson Weekly blood pressure task Care Plan Weekly blood pressure task No Kael Stephenson Weekly blood pressure task Care Plan Weekly blood pressure task No Kael Stephensno Patient has chronic kidney disease Care Plan Patient has chronic kidney disease No Kael Stephenson Patient has chronic kidney disease Care Plan Patient has chronic kidney disease No Kael Stephenson Weekly blood pressure task Care Plan Weekly blood pressure task No Karina Parson FNP Weekly blood pressure task Care Plan Weekly blood pressure task No Karina Parson DEVELOPMENT ENGINEER Patient has chronic kidney disease Care Plan Patient has chronic kidney disease No Karina Parson FNP Patient has chronic kidney disease Care Plan Patient has chronic kidney disease No Karina Parson DEVELOPMENT ENGINEER Procedures Procedure Name Priority Date/Time Associated Diagnosis Comments MR LUMBAR SPINE WO CONTRAST STAT 03/07/2025 Lumbar radiculopathy, acute XR LUMBAR SPINE 2-3 VIEWS Routine 02/26/2025 10:14 PM EDT Acute right-sided low back pain with right-sided sciatica RAST ALLERGEN (NON ORDERABLE) Routine 01/17/2025 1:20 PM EDT POCT GLYCATED HEMOGLOBIN, TOTAL Routine 08/06/2024 9:55 AM EDT Type 2 diabetes mellitus with hyperglycemia, without long-term current use of insulin (CMS/[facility]ER[facility]) ALBUMIN, RANDOM URINE W/CREATININE Routine 05/09/2024 9:00 AM EST Type 2 diabetes mellitus with hyperglycemia, without long-term current use of insulin (CMS/[facility]) LIPID PANEL, STANDARD Routine 05/09/2024 9:00 AM EST Type 2 diabetes mellitus with hyperglycemia, without long-term current use of insulin (CMS/[facility]) from Last 3 Months or Most Recently Relevant to Health Maintenance Results * MR Lumbar Spine w/o Contrast (03/07/2025) Anatomical Region Laterality Modality Spine, L-spine Magnetic Resonan ce [facility] DEVELOPMENT ENGINEER IMG MRI PROCEDURES Final Resu lt * XR Lumbar Spine 2-3 Views (02/26/2025 10:14 PM EDT) Anatomical Region Laterality Modality Spine, L-spine Radiographic Naomi ging 02/26/2025 10:1 4 PM EDT Narrative 02/26/2025 10:16 PM EDT [address] [address] XRay Report Signed Patient: Tommie Paz MR#: [id number] : 1990 Acct:[id number] Age/Sex: 34 / F ADM Date: 02/25/25 Loc: [facility] Attending Dr: Divine Hemphill MD Ordering Physician: Divine Mast MD Date of Service: 02/25/25 Procedure(s): XR lumbar spine 2-3V Accession Number(s): [id number] cc: Divine Mast MD; [facility] Reason for Exam: pain CLINICAL HISTORY: pain 3 views lumbar spine Comparison: None provided Findings: Normal alignment. No acute fractures or dislocation. No significant degenerative change. IMPRESSION: No acute findings. This document has been electronically signed by: Natalia Almanza MD on 02/26/2025 22:14:48 Dictated By: Natalia Almanza MD Signed By: <Electronically signed by Natalia Almanza MD in OV> 02/26/252215 DD/ 13 TD/TT: 02/26/252213 [employer] Sewer: Procedure Note Doncraigter, Image - 02/26/2025 [place] [address] XRay Report Signed Patient: Tommie PazMR#: [id number] : 1990Acct:[id number] Age/Sex: 34 / FADM Date: 02/25/25 Loc: HO.XRAY Attending Dr: Divine Hemphill MD Ordering Physician: Divine Mats MD Date of Service: 02/25/25 Procedure(s): XR lumbar spine 2-3V Accession Number(s): [id number] cc: Divine Mast MD; [facility] Reason for Exam: pain CLINICAL HISTORY: pain 3 views lumbar spine Comparison: None provided Findings: Normal alignment. No acute fractures or dislocation. No significant degenerative change. IMPRESSION: No acute findings. This document has been electronically signed by: Natalia Almanza MD on 02/26/2025 22:14:48 Dictated By: Natalia Almanza MD Signed By: <Electronically signed by Natalia Almanza MD in OV> 02/26/252215 DD/ 13 TD/TT: 02/26/252213 [employer]er: us Divine Hemphill MD IMG XR PROCEDURES Fin al Result * Rast Allergen (01/17/2025 1:20 PM EDT) Rast Allergen SEE NOTE [facility] Comment:SEE SCANNED IN EMR 01/17/2025 1:20 PM EDT 01/17/2025 1:20 PM EDT Narrative [facility] - 01/17/2025 9:18 AM EDT DOG DANDER REFLEX Generic External Data Provider HISTORICAL/NON OR DERABLE LABS Final Result Performing Organization Address City/[facility]/ZIP Co de Phone Number [facility] [address] [place] [address] [phone] * POCT HGB A1C (08/06/2024 9:55 AM EDT) Hemoglobin A1C 5.8 4.0 - 6.0 % QC Media Lot # [id number] Lot# Expiration Date Blood 08/06/2024 9:55 AM EDT [facility] POINT OF CARE TEST ENTER/EDIT ORDERABLES Final Result * Albumin, Random Urine W/Creatinine (05/09/2024 9:00 AM EST) Creatinine, Urine 231.56 mg/dL [facility] Microalbumin Urine 11.0 mg/L [facility] Microalbum Creatinine Ratio Ur 4.7 <30 ug/mg cr [facility] Comment:Albumin/Creatinine R atio Reference Ranges: Normal: < 30 ug/mg creatinine Microalbuminuria: 30 - 300 ug/mg creatinineClinical Albuminuria: > 300 ug/mg creatinine Urine 05/09/2024 9:00 AM EST 05/09/2024 11:40 AM EST [facility] LAB URINE ORDERABLES Final Re sult Performing Organization Address City/[facility]/ZIP Co de Phone Number [facility] [address] [place] [address] [phone] * (ABNORMAL) Lipid Panel, Standard (05/09/2024 9:00 AM EST) Triglycerides 146 <150 mg/dL [facility] Comment:Desirable Triglyceri de: less than 150 mg/dLBorderline High Triglyceride 150-199 mg/dLHigh Triglyceride: 200-499 mg/dLVery High Triglyceride: greater than or equal to 5OO mg/dL Cholesterol 230(H) <200 mg/dL [facility] Comment:Desirable Cholestero l: less than 200 mg/dLBorderline High Cholesterol: 200-239 mg/dLHigh Cholesterol: greater than 239 mg/dL LDL Cholesterol Calculated 161(H) <100 mg/dL [facility] Comment:Desirable LDL: less than 100 mg/dLNear Optimal/Above Optimal LDL: 110- 129 mg/dLBorderline High LDL: 130-159 mg/dLHigh LDL: 160-189 mg/dLVery High LDL: greater than or equal to 190 mg/dL HDL Cholesterol 40(L) >40 mg/dL [facility] Comment:Desirable HDL: great er than 40 mg/dL Note: This HDL assay may give artificially low results in patients with liver disease. Blood Venous blood specimen / Unknown 05/09/2024 9:00 AM EST 05/09/2024 11:52 AM EST [facility] LAB BLOOD ORDERABLES Final Re sult [facility] [address] [place], [place] [phone] from Last 3 Months or Most Recently Relevant to Health Maintenance Additional Health Concerns Active Problems Noted Date Diagnosed Date Help patients manage their type 2 diabetes 04/03 Weekly blood pressure task 04/03/2025 Help patients manage their type 2 diabetes 04/03 Patient has chronic kidney disease 04/03/2025 Weekly blood pressure task 04/03/2025 Patient has chronic kidney disease 04/03/2025 Weekly blood pressure task 04/09/2025 Weekly blood pressure task 04/09/2025 Patient has chronic kidney disease 04/09/2025 Patient has chronic kidney disease 04/09/2025 Weekly blood pressure task 04/09/2025 Weekly blood pressure task 04/09/2025 Patient has chronic kidney disease 04/09/2025 Patient has chronic kidney disease 04/09/2025 Weekly blood pressure task 04/09/2025 Weekly blood pressure task 04/09/2025 Patient has chronic kidney disease 04/09/2025 Patient has chronic kidney disease 04/09/2025 Weekly blood pressure task 04/10/2025 Weekly blood pressure task 04/10/2025 Patient has chronic kidney disease 04/10/2025 Patient has chronic kidney disease 04/10/2025 Insurance [facility] C3 [facility] MEDICAID STAND ADULT * Guarantor: Tommie Paz Account Type Relation to Patient Date of Phone Billing Address Personal/Family Self [address] [place] [id number] * Guarantor: Tommie Paz Account Type Relation to Patient Date of Phone Billing Address Personal/Family Self [address] [place] [address] Care Teams String Cutter Relationship Specialty Start Date End Date Karina Parson FNP [address] [place] [id number] PCP - General Family Medicine 05/14/22
--- OUTSIDE RECORDS SUMMARY | 2025-04-11 08:12 | XMS_ITS | Encounter Summary ---
Author Organization [employer] Address [address] [facility] [address] [place] [address] Care Team Providers Care Global Program Manager Name Role Phone [facility] Primary Care Provider [phone] Jimmy Knight RN Unavailable [phone] Jimmy Knight RN Unavailable [phone] Amelia Rojo Unavailable Reason for Visit * Reason Comments Med Refill Encounter Details Date Type Department Care Team ([facility] st Contact Info) Description 04/07/2024 Refill [facility] [address] [place], [place] [phone] [facility] [address] [place], [place] [phone] Social History Tobacco Use Types Packs/Day Years [...] documented as of this encounter Care Teams Global Program Manager Relationship Specialty Start Date End Date Karina Parson FNP [address] [place] [address] PCP - General Family Medicine 05/14/22 Jimmy Knight RN [address] [place] [address] [employer]ophysical Prospecting Permit AgentCeramics Teacher 10/03/24 02/21/25 Jimmy Knight RN [address] [place] [address] Registered Nurse Family Medicine 02/22/25 02/22/25 Amelia Rojo 02/22/25 02/22/25 documented as of this encounter
--- OUTSIDE RECORDS SUMMARY | 2025-04-11 08:12 | XMS_ITS | Encounter Summary ---
Author Organization [employer] Address [address] [facility] 7 [place] [address] Care Team Providers Care Packager Hand Name Role Phone [facility] Primary Care Provider [phone] Reason for Visit * Reason Onset Date Comments Med Refill 04/09/2025 Encounter Details Date Type Department Care Team ([facility] st Contact Info) Description 04/09/2025 Refill [facility] MEDICINE 230 [place], [place] [phone] [facility] 230 [place], [place] [phone] Pain Social History Tobacco Use Types Packs/Day Years [...] encounter Miscellaneous Notes * Telephone Encounter - Rebekah Arredondo LPN - 04/09/2025 11:49 AM EST NAIL PULLER CHECKED ON 04.09.25 AND LAST SEEN 02.25.25 * Telephone Encounter - Kael Stephenson - 04/09/2025 11:35 AM EST TC from pt requesting medication refill. Medications needing refill : Trulicity 3 MG/0.5ML solution auto-injector gabapentin (Neurontin) 300 MG capsule To be sent to: [facility] [address] [place] [address] documented in this encounter Plan of Treatment Not on file documented as of this encounter Goals Goal Patient Goal Type Associated Problems Recent Progress Patient-Stated? Author Help patients manage their type 2 diabetes Care Plan Help patients manage their type 2 diabetes Lydia Asencio LPN Weekly blood pressure task Care Plan Weekly blood pressure task Lydia Asencio LPN Help patients manage their type 2 diabetes Care Plan Help patients manage their type 2 diabetes Lydia Asencio LPN Patient has chronic kidney disease Care Plan Patient has chronic kidney disease Lydia Asencio LPN Weekly blood pressure task Care Plan Weekly blood pressure task No Lydia Randolph LPN Patient has chronic kidney disease Care Plan Patient has chronic kidney disease No Lydia Randolph LPN Weekly blood pressure task Care Plan Weekly blood pressure task No Santiagoaguil Paul johns Weekly blood pressure task Care Plan Weekly blood pressure task No Santiagoaguil Paul johns Patient has chronic kidney disease Care Plan Patient has chronic kidney disease No SantjhaonuiPaul raza Patient has chronic kidney disease Care Plan Patient has chronic kidney disease No Santiagoaguil Paul johns Weekly blood pressure task Care Plan Weekly blood pressure task No StephensonKael springer Weekly blood pressure task Care Plan Weekly blood pressure task No Stephenson Kael Patient has chronic kidney disease Care Plan Patient has chronic kidney disease No Stephenson, Kael Patient has chronic kidney disease Care Plan Patient has chronic kidney disease No Sachin Kael Weekly blood pressure task Care Plan Weekly blood pressure task No Stephenson Kael Weekly blood pressure task Care Plan Weekly blood pressure task No Stephenson Kael Patient has chronic kidney disease Care Plan Patient has chronic kidney disease No Stephenson, Kael Patient has chronic kidney disease Care Plan Patient has chronic kidney disease No Sachin, Kael documented as of this encounter Visit Diagnoses Diagnosis Pain Generalized pain documented in this encounter Additional Health Concerns Active Problems Noted Date [...] 04/09/2025 Patient has chronic kidney disease 04/09/2025 Assessment Noted Time PHQ-9 Depression Total Score: 14 025 2:00 PM EDT documented as of this encounter Care Teams Packager Hand Relationship Specialty Start Date End Date Karina Parson FNP [address] [place] [address] PCP - General Family Medicine 05/14/22 documented as of this encounter
--- OUTSIDE RECORDS SUMMARY | 2025-04-11 08:12 | XMS_ITS | Encounter Summary ---
Author Organization [email or web address] Address 75 [facility] 7t [place] [address] Care Team Providers Care Sebd Teacher Name Role Phone [facility] Primary Care Provider [phone] Reason for Visit * Reason Comments Med Refill Encounter Details Date Type Department Care Team ([facility] st Contact Info) Description 04/08/2025 Refill [facility] MED[facility] 230 [place], [place] [phone] [place] [facility] 230 [place], [place] [phone] Type 2 diabetes mellitus with hyperglycemia, without long-term current use of insulin (HCC) Social History Tobacco Use Types Packs/Day Years [...] Weekly blood pressure task Lydia Asencio LPN Patient has chronic kidney disease Care Plan Patient has chronic kidney disease Lydia Asencio LPN documented as of this encounter Visit Diagnoses Diagnosis Type 2 diabetes mellitus with hyperglycemia, without long-term current use of insulin (HCC) documented in this encounter Additional Health Concerns Active Problems Noted Date Diagnosed Date Help patients manage their type 2 diabetes 04/03 Weekly blood pressure task 04/03/2025 Help patients manage their type 2 diabetes 04/03 Patient has chronic kidney disease 04/03/2025 Weekly blood pressure task 04/03/2025 Patient has chronic kidney disease 04/03/2025 Assessment Noted Time PHQ-9 Depression Total Score: 14 025 2:00 PM EDT documented as of this encounter Care Teams Sebd Teacher Relationship Specialty Start Date End Date [place] RAND Collins [address] [place] [address] PCP - General Family Medicine 05/14/22 documented as of this encounter
--- OUTSIDE RECORDS SUMMARY | 2025-04-11 08:12 | XMS_ITS | Encounter Summary ---
Author Organization [employer] Address [address] [place] [address] 7t [place] [address] Care Team Providers Care Truck Washer Name Role Phone [facility] Primary Care Provider [phone] Jimmy Knight RN Unavailable [phone] Jimmy Knight RN Unavailable [phone] Amelia Rojo Unavailable Reason for Visit * Reason Onset Date Comments Triage 07/30/2022 Encounter Details Date Type Department Care Team (Late st Contact Info) Description 07/30/2022 Telephone [facility] MEDICINE 230 [place], [place] [phone] Errol Karina [facility] 230 [place], [place] [phone] Triage Social History Tobacco Use Types Packs/Day [...] accepted this outcome Pleas contact pt at [phone] [facility] [place] Speaker documented in this encounter Plan of Treatment Not on file documented as of this encounter Visit Diagnoses Not on filedocumented in this encounter Additional Health Concerns Assessment Noted Time PHQ-9 Depression Total Score: 8 06/22/19 3:07 PM EST documented as of this encounter Care Teams Truck Washer Relationship Specialty Start Date End Date Karina Parson FNP [address] [place] [address] PCP - General Family Medicine 05/14/22 Jimmy Knight RN [address] [place] [address] [employer] JointerChimney Builder 10/03/24 02/21/25 Jimmy Knight RN [address] [place] [address] Registered Nurse Family Medicine 02/22/25 02/22/25 Amelia Rojo 02/22/25 02/22/25 documented as of this encounter
--- OUTSIDE RECORDS SUMMARY | 2025-04-11 08:12 | XMS_ITS | Encounter Summary ---
Author Organization [employer] Address [address] [facility] [address] 7t [place] [address] Care Team Providers Care Cable Tv Installer Name Role Phone [facility] Primary Care Provider [phone] Encounter Details Date Type Department Care Team ([facility] st Contact Info) Description 04/10/2025 Orders Only [facility] 230 [place], [place] [phone] [facility] 230 [place], [place] [phone] Chronic lumbar radiculopathy (Primary Dx); Pain Social History Tobacco Use Types Packs/Day [...] type 2 diabetes No Lydia Randolph LPN Weekly blood pressure [...] Care Plan Weekly blood pressure task No Sachin Kael Weekly blood pressure task Care Plan Weekly blood pressure task No Sachin Kael Patient has chronic kidney disease Care Plan Patient has chronic kidney disease No Sachin Kael Patient has chronic kidney disease Care Plan Patient has chronic kidney disease No Kael Stephenson Weekly blood pressure task Care Plan Weekly blood pressure task No Karina Parson FNP Weekly blood pressure task Care Plan Weekly blood pressure task No Karina Parson FNP Patient has chronic kidney disease Care Plan Patient has chronic kidney disease No Karina Parson FNP Patient has chronic kidney disease Care Plan Patient has chronic kidney disease No Karina Parson FNP documented as of this encounter Visit Diagnoses Diagnosis Chronic lumbar radiculopathy- Primary Pain Generalized pain documented in this encounter [...] 04/10/2025 Patient has chronic kidney disease 04/10/2025 Assessment Noted Time PHQ-9 Depression Total Score: 14 025 2:00 PM EDT documented as of this encounter Care Teams Cable Tv Installer Relationship Specialty Start Date End Date Karina Parson FNP [address] [place] [address] PCP - General Family Medicine 05/14/22 documented as of this encounter
--- OUTSIDE RECORDS SUMMARY | 2025-04-11 08:12 | XMS_ITS | Encounter Summary ---
Author Organization [employer] Address 75 [facility] 7t [place] [address] Care Team Providers Care Senior Compliance Officer Name Role Phone [facility] Primary Care Provider [phone] Reason for Visit * Reason Onset Date Comments Medication Question 04/09/2025 Encounter Details Date Type Department Care Team ([facility] st Contact Info) Description 04/09/2025 Refill [facility] MEDICINE 230 [place], [place] [phone] [facility] 230 [place], [place] [phone] Lumbar radiculopathy, acute Social History Tobacco Use Types Packs/Day Years [...] Telephone Encounter - Laura Umana RN - 04/09/2025 12:12 PM EST TC placed to [facility] pharmacy, they confirm tizanidine 6mg capsule would require PA, however 6mg tabs are not available to order and recommend prescription for 2mg tabs, to take 3 tablets/ dose. Noted this prescription has already been sent on 03/07/25 to [facility]. Refill due and pended * Telephone Encounter - Kael Stephenson - 04/09/2025 11:45 AM EST Tc from pt requesting the medication tiZANidine (Zanaflex) 6 MG capsule Medication needs a PA but if the medication was switched to tablets than the medication wont need aPA. Any questions contact pt at [phone] documented in this encounter Plan of Treatment [...] Plan Patient has chronic kidney disease No SantiadukeaguiPaul raza Patient has chronic kidney disease Care Plan Patient has chronic kidney disease No SantjenniferaguiPaul raza Weekly blood pressure task Care Plan Weekly [...] has chronic kidney disease No Kael Stephenson documented as of this encounter Visit Diagnoses Diagnosis Lumbar radiculopathy, acute documented in this encounter Additional Health Concerns [...] as of this encounter Care Teams Senior Compliance Officer Relationship Specialty Start Date End Date Karina Parson FNP [address] [place] [address] PCP - General Family Medicine 05/14/22 documented as of this encounter
--- OUTSIDE RECORDS SUMMARY | 2025-04-11 08:12 | XMS_ITS | Encounter Summary ---
Author Organization [employer] Address 75 [facility] 7 [place] [address] Care Team Providers Care Tennis Camp Instructor Name Role Phone [facility] Primary Care Provider [phone] Reason for Visit * Reason Onset Date Comments Nurse Triage 04/09/2025 Encounter Details Date Type Department Care Team ([facility] st Contact Info) Description 04/09/2025 Telephone [facility] 230 [place], [place] [phone] [facility] 230 [place], [place] [phone] Nurse Triage Social History Tobacco Use Types [...] encounter Miscellaneous Notes * Telephone Encounter - Amy Kraus RN - 04/09/2025 10:26 AM EST T/C returned to pt to triage. Pt with ongoing back pain. Pain is 10/10 and located on her lower back. Pt denies numbness, weakness, or loss of bladder or bowel function. Pt reports that is so severe that she can't walk on her own or perform ADLs on her own. Pt reports that every time she moves she yells and cries because of the pain and it is scaring her small children. She reports her spouse is having to take care of the home and children and work because she can't get up. She reports he has to help her use the bathroom and shower because she can barely move she is in so much pain. Pt reports taking tizanadine and gabapentin as Rxd without relief. She reports that she was also given Tramadol but only takes 1 every other day because she knows it is a controlled substance and doesn't want people to think that she is drug seeking and doesn't want to be reliant on it. Inquired if she has appts with pain management or physical therapy as referred yet. Pt reports pain management appt this but she doesn't know if she will be able to go because her spouse has to watch the childrenso she has to go alone and she can't walk from the parking lot to the hospital on her own. Inquiredif she has any one that could possibly go with her so that they can drive and she can take tramadolprior to the appointment and they can get her a wheelchair or drop her at the entrance. Pt states doesn't have anyone to accompany her. Pt reports frustration. Explained the importance of going to PMin rn long term care goal of decreased back pain. We briefly discussed process of possibly getting DENTAL APPLIANCE FIXER for hours her is working. Pt looking for PCP guidance. Informed I would send message. Protocol Used: Back Pain (Adult) Protocol-Based Disposition: See in Office or Video Visit within 2 Weeks Video visit offer not recorded Positive Triage Question: * Back pain lasts > 2 weeks * All higher-acuity triage questions were negative. Care Advice Discussed: * Reasons To Call Back - Numbness or weakness occurs - Loss of control of your bladder or bowel * Telephone Encounter - Paul Marin - 04/09/2025 10:00 AM EST Symptom: Back Pain - Not From Injury Outcome: Talk to a nurse or provider within 15 minutes Reason: Can't walk (unless normally can't walk) The caller accepted this outcome. Contact pt at [phone] (kosovan) documented in this encounter Plan of Treatment [...] Plan Weekly blood pressure task No StephensonKael Weekly blood pressure task Care Plan Weekly blood pressure task No Stephenson, Kael Patient has chronic kidney disease Care Plan Patient has chronic kidney disease No Stephenson, Kael Patient has chronic kidney disease Care Plan Patient has chronic kidney disease No Stephenson, Kael Weekly blood pressure task Care Plan Weekly blood pressure task No Stephenson, Kael Weekly blood pressure task Care Plan Weekly blood pressure task No Stephenson, Kael Patient has chronic kidney disease Care Plan Patient has chronic kidney disease No Stephenson, Kael Patient has chronic kidney disease Care Plan Patient has chronic kidney disease No Kael Stephenson documented as of this encounter Visit Diagnoses Not on filedocumented in this encounter Additional Health Concerns Active [...] documented as of this encounter Care Teams Tennis Camp Instructor Relationship Specialty Start Date End Date Karina Parson FNP [address] [place] [address] PCP - General Family Medicine 05/14/22 documented as of this encounter
--- OUTSIDE RECORDS SUMMARY | 2025-04-11 08:13 | XMS_ITS | Encounter Summary ---
Author Organization [employer] Address [address] [facility] [address] 7t [place] [address] Care Team Providers Care Curb Supervisor Name Role Phone [facility] Primary Care Provider [phone] Jimmy Knight RN Unavailable [phone] Jimmy Knight RN Unavailable [phone] Amelia Rojo Unavailable Reason for Visit * Reason Comments Med Refill Encounter Details Date Type Department Care Team ([facility] st Contact Info) Description 04/20/2023 Refill [facility] MEDICINE 230 [place], [place] [phone] [facility] 230 [place], [place] [phone] Essential hypertension Social History Tobacco Use Types [...] documented as of this encounter Care Teams Curb Supervisor Relationship Specialty Start Date End Date Kraina Parson FNP [address] [place] [address] PCP - General Family Medicine 05/14/22 Jimmy Knight RN 505 [place] [address] Railway Patrol OfficerTest Engine Evaluator 10/03/24 02/21/25 Jimmy Knight RN [address] [place] [address] Registered Nurse Family Medicine 02/22/25 02/22/25 Amelia Rojo 02/22/25 02/22/25 documented as of this encounter
--- OUTSIDE RECORDS SUMMARY | 2025-04-11 08:13 | XMS_ITS | Encounter Summary ---
Author Organization [employer] Address [address] [facility] 7t [place] [address] Care Team Providers Care Station Worker Name Role Phone [facility] Primary Care Provider [phone] Jimmy Knight RN Unavailable [phone] Jimmy Knight RN Unavailable [phone] Amelia Rojo Unavailable Reason for Visit * Reason Onset Date Comments Nurse Triage 03/20/2024 Encounter Details Date Type Department Care Team (Late st Contact Info) Description 03/20/2024 Telephone [facility] MEDICINE 230 [place], [place] [phone] [facility] 230 [place], [place] [phone] Nurse Triage Social History Tobacco Use Types [...] worse than before. ASK appt with PCP [facility] 03/30/24 @ 1100am. Pt agrees with disposition [...] documented as of this encounter Care Teams Station Worker Relationship Specialty Start Date End Date Karina Parson FNP [address] [place] [address] PCP - General Family Medicine 05/14/22 Jimmy Knight RN [address] [place] [address] Human Resources Benefits SpecialistPlant Worker 10/03/24 02/21/25 Jimmy Knight RN [address] [place] [address] Registered Nurse Family Medicine 02/22/25 02/22/25 Amelia Rojo 02/22/25 02/22/25 documented as of this encounter
--- OUTSIDE RECORDS SUMMARY | 2025-04-11 08:13 | XMS_ITS | Encounter Summary ---
Author Organization [facility] Address [address] [facility] [address] [place] [phone] Phone Care Team Providers Care Nicker Name Role Phone Chencho Munoz MD Primary Care Provider Unavailable Encounter Details Date Type Department Care Team (Late st Contact Info) Description 09/28/2022 Procedure Pass OR Admitting Dept - Virtual Department [address] [place] [address] Social History Tobacco Use Types Packs/Day Years [...] on filedocumented in this encounter Care Teams Nicker Relationship Specialty Start Date End Date Chencho Munoz MD PCP - General 05/14/22 documented as of this encounter Additional Source Comments The information contained in this document represents components of the legal health record. It is not the complete legal health record.[facility]
--- OUTSIDE RECORDS SUMMARY | 2025-04-11 08:13 | XMS_ITS | Encounter Summary ---
Author Organization [facility] Address [address] [facility] [address] [place] [phone] Phone Care Team Providers Care Theoretical Physics Teacher Name Role Phone Chencho Munoz MD Primary Care Provider Unavailable Encounter Details Date Type Department Care Team (Late st Contact Info) Description 09/14/2022 Procedure Pass [place] Admitting Dept - Virtual Department 30 [place] [address] Social History Tobacco Use Types Packs/Day Years [...] on filedocumented in this encounter Care Teams Theoretical Physics Teacher Relationship Specialty Start Date End Date Chencho Munoz MD PCP - General 05/14/22 documented as of this encounter Additional Source Comments The information contained in this document represents components of the legal health record. It is not the complete legal health record.[facility]
--- OUTSIDE RECORDS SUMMARY | 2025-04-11 08:13 | XMS_ITS | Encounter Summary ---
Author Organization [employer] Address [address] [facility] 7t [place] [address] Care Team Providers Care Cream Dipper Name Role Phone [facility] Primary Care Provider [phone] Jimmy Knight RN Unavailable [phone] Jimmy Knight RN Unavailable [phone] Amelia Rojo Unavailable Reason for Visit * Reason Onset Date Comments Med Refill 04/04/2024 Encounter Details Date Type Department Care Team (Late st Contact Info) Description 04/04/2024 Refill [facility] MEDICINE 230 [place], [place] [phone] [facility] 230 [place], [place] [phone] Social History Tobacco Use Types Packs/Day Years [...] documented as of this encounter Care Teams Cream Dipper Relationship Specialty Start Date End Date Karina Parson FNP [address] [place] [address] PCP - General Family Medicine 05/14/22 Jimmy Knight RN [address] [place] [address] Correctional CorporalIncome Tax Investigator 10/03/24 02/21/25 Jimmy Knight RN [address] [place] [address] Registered Nurse Family Medicine 02/22/25 02/22/25 Amelia Rojo 02/22/25 02/22/25 documented as of this encounter
--- OUTSIDE RECORDS SUMMARY | 2025-04-11 08:13 | XMS_ITS | Clinical Summary ---
Author Organization [facility] Address [address] [place] [address] Phone Care Team Providers Care Home Health Clinical Liaison Name Role Phone [facility] Primary Care Provider Unavailable Allergies Active Allergy Reactions Criticality Noted Date Comments Aspirin 06/08/2017 Other reaction(s): Throat swelling Lidocaine 06/08/2017 Metformin Dizziness 08/18/2017 Medications tiZANidine (ZANAFLEX) 4 MG tablet Take 4 mg by mouth daily as needed. 06/15/19 23 Active olmesartan (BENICAR) 5 mg tablet Take 5 mg by mouth every morning. 07/20/19 23 Active ketoconazole (NIZORAL) 2 % shampoo APPLY TO THE AFFECTED AREA(S) TOPICALLY EVERY DAY, LATHER, LEAVE ON FOR 5 MINUTES THEN RINSE WITH WATER 06/14/19 23 Active gabapentin (NEURONTIN) 300 MG capsule At bedtime 07/20/19 23 Active albuterol 90 mcg/actuation inhaler Take 2 puffs by mouth every 4 (four) hours as needed. 06/14/19 23 Active acetaminophen (TYLENOL) 325 mg tablet Take 2 tablets (650 mg total) by mouth every 4 (four) hours as needed. 90 tablet 09/15/19 23 Active ibuprofen (ADVIL,MOTRIN) 200 MG tablet Take 3 tablets (600 mg total) by mouth every 6 (six) hours as needed for pain (specific location in comments). 90 tablet 09/15/19 23 Active blood pressure test kit-large Kit USE TO CHECK BLOOD PRESSURE 06/22/19 23 Active mometasone (ASMANEX HFA) 100 mcg/actuation HFAA INHALE 1 PUFF BY MOUTH 2 TIMES EVERY DAY IN THE MORNING AND EVENING 08/31/20 22 Active TRULICITY 3 mg/0.5 mL subcutaneous injection INJECT 3MG SUBCUTANEOUSLY ONCE A WEEK 03/13/20 Active lidocaine (LIDODERM) 5 % APPLY 1 PATCH TOPICALLY TO SKIN, LEAVE ON FOR 12 HOURS AND OFF FOR 12 HOURS DIRECTED 02/26/20 Active lurasidone (LATUDA) 20 mg tablet Take 1 tablet by mouth every morning. 02/01/20 Active estradioL (CLIMARA) 0.075 mg/[address] 1 patch onto the skin once a week. Active metroNIDAZOLE (FLAGYL) 500 MG tablet Take 1 tablet (500 mg total) by mouth 2 (two) times a day for 7 days. Avoid alcohol while taking this medications 14 tablet 04/10/20 Active risperiDONE (RISPERDAL) 1 MG tablet Take 1 mg by mouth nightly at bedtime. at bedtime. 07/20/19 Discontin ued(No longer taking) QUEtiapine (SEROQUEL) 300 MG tablet Take 300 mg by mouth nightly at bedtime. at bedtime. 06/28/19 Discontin ued(No longer taking) omeprazole (PRILOSEC) 20 MG capsule TAKE 1 CAPSULE BY MOUTH TWICE DAILY AT NOON AND BEDTIME 07/20/19 Discontin ued(No longer taking) magnesium oxide (MAG-OX) 400 mg (241.3 mg elemental) tablet TAKE 1 TABLET BY MOUTH EVERYDAY AT NOON 07/20/19 Discontin ued(No longer taking) FLUoxetine (PROZAC) 20 MG capsule Take 20 mg by mouth every morning. 07/20/19 Discontin ued(No longer taking) fluocinonide 0.05 % external solution APPLY TO THE AFFECTED AREA(S) TOPICALLY ONCE DAILY DIRECTED 12/17/19 Discontin ued(No longer taking) ferrous sulfate 325 mg (65 mg [place] iron) tablet take 1 tablet by oral route every day with vitamin C Discontin ued(No longer taking) DULoxetine (CYMBALTA) 30 MG capsule TAKE 1 CAPSULE BY MOUTH TWICE DAILY IN THE MORNING AND IN THE EVENING 07/20/19 Discontin ued(No longer taking) docusate sodium (COLACE) 100 MG capsule Take 100 mg by mouth 2 (two) times a day as needed. 06/14/19 Discontin ued(No longer taking) clonazePAM (KLONOPIN) 1 MG tablet Take 1 mg by mouth nightly at bedtime as needed. 07/24/19 Discontin ued(No longer taking) VITAMIN D3 25 mcg (1,000 unit) capsule Take by mouth every morning. 06/24/19 Discontin ued(No longer taking) ascorbic acid, vitamin C, (VITAMIN C) 250 MG tablet TAKE 1 TABLET BY MOUTH EVERY MORNING WITH IRON 05/31/19 Discontin ued(No longer taking) triamcinolone acetonide 0.1 % ointment Apply topically 2 (two) times a day for 14 days. 30 g 08/07/19 Discontin ued(No longer taking) acetaminophen (TYLENOL) 325 mg tablet Take 2 tablets (650 mg total) by mouth every 4 (four) hours as needed. 09/29/19 Discontin ued(Dupli maryellen order) naproxen (NAPROSYN) 500 MG tabletIndication s:Pelvic pain Take 1 tablet (500 mg total) by mouth 2 (two) times a day with meals. 60 tablet 3 10/02/19 Discontin ued(No longer taking) Active Problems No known active problems Resolved Problems Problem Noted Date Diagnosed Date Resolved Date Pelvic pain 10/01/2022 04/09/2025 Assessment & Plan (10/01/2022 4:11 PM EDT): Patient with chronic pelvic pain IUD removed on 09/28 Patient started her period the day after IUD removal Reports significant cramping/back pain Comfort measures reviewed, rx for Naproxen sent to pharmacy Patient rescheduled follow up with [facility]ER SERVICE ASSISTANT oncology to 10/29 Patient to return to office as needed Dysuria 10/01/2022 04/09/2025 Assessment & Plan (10/01/2022 4:10 PM EDT): [...] to bariatrics and robotic surgery Referral to [facility]ER SERVICE ASSISTANT oncology placed, if patient is unable to be seen by their office, she is willing to be referred to [facility] in [place] Pelvic US ordered to assess IUD placement [...] office in 4 weeks for follow up Encounters Date Type Department Care Team Description 04/09/2025 11:20 AM EST Office Visit [facility] [address] [place] [address] [place] [address] Madhavi Broderick MD Vaginal discharge (Primary Dx); Dysuria from Last 3 Months Social History Tobacco Use Types Packs/Day Years [...] Pressure 110/70 04/09/2025 11:01 AM EST Pulse 92 09/28/2022 3:00 PM EDT Temperature 36.1 C (97 F) 09/28/2022 3:35 PM EDT Respiratory Rate 18 09/28/2022 3:35 PM EDT Oxygen Saturation 99% 09/28/2022 3:35 PM EDT Inhaled Oxygen Concentration - - Weight 160.6 kg (354 lb) 04/09/2025 11:01 AM EST Height 157.5 cm (5' 2.01 ) 04/09/2025 11:[address] Body Mass Index 64.73 04/09/2025 11:01 AM EST Plan of Treatment Health Maintenance Due Date [...] this topic Medical Devices Implanted Type Area Automobile Mechanic Apprentice Device Identifier Shelf Expiration Date Model / Serial / Lot Mirena Implanted:Qty : 1 on 03/03/2021 by Hattie Michelle MD at [facility] Intrauterine Device N/A: Uterus 10/20/2024 / / [id number] Procedures Procedure Name Priority Date/Time Associated Diagnosis Comments URINALYSIS WITH REFLEX TO URINE CULTURE Routine 04/09/2025 11:19 AM EST Vaginal discharge VAGINITIS/VAGINOSIS SCREEN (BD AFFIRM) Routine 04/09/2025 11:19 AM EST Vaginal discharge PAP TEST Routine 09/28/2022 12:00 AM EDT from Last 3 Months or Most Recently Relevant to Health Maintenance Results * (ABNORMAL) Urinalysis with Reflex to Urine Culture (04/09/2025 11:19 AM EST) Color Yellow Yellow 04/09/2025 4:22 PM [facility] Clarity Cloudy(A) Clear 04/09/2025 4:22 PM [facility] Glucose Negative Negative 04/09/2025 4:22 PM [facility] Bilirubin Urine Negative Negative 4:22 PM [facility] Ketone Urine Negative Negative 04/09/2025 4:22 PM [facility] Specific [place] 1.025 1.001 - 1.035 04/09/2025 4:22 PM [facility] Blood Negative Negative 04/09/2025 4:22 PM [facility] pH 6.0 5.0 - 8.0 04/09/2025 4:22 PM [facility] Protein Negative Negative 04/09/2025 4:22 PM [facility] Nitrites Negative Negative 04/09/2025 4:22 PM EST [facility] Leukocyte Esterase Negative Negative 04/09/2025 4:22 PM [facility] Urobilinogen Negative Negative 04/09/2025 4:22 PM [facility] Urine (Urine, Voided) Non-Blood Collection / Unknown 04/09/2025 11:19 AM EST 04/09/2025 11:19 AM EST us Madhavi Broderick MD LAB URINE ORDERABLES Final Re sult Performing Organization Address [facility] Co de Phone Number [address] [address] * (ABNORMAL) Vaginitis/Vaginosis Screen (04/09/2025 11:19 AM EST) Pathologist [facility] Bacterial Vaginosis (BV) Detected(A) Not Detected 04/09/2025 8:35 PM [facility] Diane group Not Detected Not Detected 025 8:35 PM [facility] Diane glabrata-krusei Not Detected Not Detected 04/09/2025 8:35 PM [facility] Trichomonas vaginalis Not Detected Not Detected 04/09/2025 8:35 PM [facility] Swab (Vagina) Non-Blood Collection / Unknown 04/09/2025 11:19 AM EST 04/09/2025 11:19 AM EST us Madhavi Broderick MD LAB GENERAL ORDERABLES Final Result Performing Organization Address [facility]/ZIP Co de Phone Number [address] [address] * Pap Test (09/28/2022 12:00 AM EDT) 09/28/2022 09/29/2022 10: 31 AM EDT Narrative SEE NARRATIVE - 10/06/2022 4:12 PM EDT [address] [address] Tax Assessor: Yamila Leo MD SERVER SERVICE ASSISTANT Cytology Report FINAL DIAGNOSIS A. PAP SMEAR [...] 59, 66, 68) Note: Testing performed by [employer] HR-HPV analysis. Clinical correlation is advised. This HPV test was performed at [facility], [address] [place] [address]. This test has been FDA approved for [facility] cervical cytology specimens. The accuracy and precision of this test for all other specimen sources has been verified in the Cytopathology Laboratory of the [facility] and has not been cleared or approved by the U.S. Food and Drug Administration. Clinical correlation is advised. CLINICAL HISTORY Date of Last Menstrual Period: Not Provided Menstrual History: Unknown Other Clinical Conditions: Screening Pap SPECIMEN SOURCE A: PAP SMEAR (SUREPATH) CE Patient Name: NAHOMY PAZ : 1990 (Age: 32) Sex: F Institution: [facility] Location: [facility] Date of Collection: 09/28/2022 Date of Reported: 10/01/2022 16:11 Results to: Hattie Murphy Hattie Espinoza MD CYTOLOGY ORDER ALLEY Edited Result - Final SEE NARRATIVE from Last 3 Months or Most Recently Relevant to Health Maintenance Insurance C3 ACO C[employer] [place] [address] [address] [address] C3 ACO C3 ACO Care Teams Home Health Clinical Liaison Relationship Specialty Start Date End Date CenterChencho MD PCP - General 05/14/22 Additional Source Comments The information contained in this document represents components of the legal health record. It is not the complete legal health record.[facility]
--- OUTSIDE RECORDS SUMMARY | 2025-04-11 08:13 | XMS_ITS | Encounter Summary ---
Author Organization [employer] Address [address] [facility] 7t [place] [address] Care Team Providers Care Hospital Coder Name Role Phone [facility] Primary Care Provider [phone] Reason for Visit * Reason Onset Date Comments Medication Question 03/07/2025 Encounter Details Date Type Department Care Team ([facility] st Contact Info) Description 03/07/2025 Telephone [facility] MEDICINE [address] [place], [place] [phone] [facility] 230 [place], [place] [phone] Medication Question Social History Tobacco Use Types Packs/Day Years [...] encounter Miscellaneous Notes * Telephone Encounter - Brittni Santiago - 03/07/2025 2:56 PM EDT TC from pt requesting a call back regarding medication Tizanidine. Pt stated MRI results came back and is not related to muscle spasm and she is unsure to pickle water pump operator medication. PCP DR. Parson * Telephone Encounter - Paul Marin - 03/07/2025 8:29 AM EDT Tc from pt requesting a new script for anxiety medication that will help her get through her dentist apt on Tuesday . Contact pt at [phone] (luxembourgish) documented in this encounter Plan of Treatment Not on file documented as of this encounter Visit Diagnoses Not on filedocumented in this encounter Additional Health Concerns Assessment Noted Time PHQ-9 Depression Total Score: 14 025 2:00 PM EDT documented as of this encounter Care Teams Hospital Coder Relationship Specialty Start Date End Date Karina Parson FNP [address] [place] [address] PCP - General Family Medicine 05/14/22 documented as of this encounter
--- OUTSIDE RECORDS SUMMARY | 2025-04-11 08:13 | XMS_ITS | Encounter Summary ---
Author Organization [employer] Address [address] [place] [address] 7t [place] [address] Care Team Providers Care Local Operator Name Role Phone Karina Parson LOCAL OWNER OPERATOR TRUCK DRIVER Primary Care Provider [phone] Jimmy Knight RN Unavailable [phone] Jimmy Knight RN Unavailable [phone] Amelia Rojo Unavailable Encounter Details Date Type Department Care Team (Late st Contact Info) Description 02/23/2023 Orders Only [facility] MEDICINE [address] [place], [place] [phone] Charlette Cornejo MD [address] [place], [place] [phone] Social History Tobacco Use Types Packs/Day Years [...] documented as of this encounter Care Teams Local Operator Relationship Specialty Start Date End Date Karina Parson FNP [address] [place] [address] PCP - General Family Medicine 05/14/22 Jimmy Knight RN [address] [place] [address] Manager E CommerceChristmas Tree Farm Crew Boss 10/03/24 02/21/25 Jimmy Knight RN [address] [place] [address] Registered Nurse Family Medicine 02/22/25 02/22/25 Amelia Rojo 02/22/25 02/22/25 documented as of this encounter
--- OUTSIDE RECORDS SUMMARY | 2025-04-11 08:13 | XMS_ITS | Encounter Summary ---
Author Organization [employer] Address [address] [facility] 7t [place] [address] Care Team Providers Care Dobby Loom Weaver Name Role Phone [facility] Primary Care Provider [phone] Jimmy Knight RN Unavailable [phone] Jimmy Knight RN Unavailable [phone] Amelia Rojo Unavailable Reason for Visit * Reason Onset Date Comments Nurse Triage 06/29/2024 Encounter Details Date Type Department Care Team (Late st Contact Info) Description 06/29/2024 Telephone [facility] MEDICINE [address] [place], [place] [phone] [facility] 230 [place], [place] [phone] Nurse Triage Social History Tobacco Use Types [...] 06/29/2024 3:14 PM EST Called pt. Via [facility] feather washer [phone] Denice. Pt. States she has been having stomach discomfort that she usually has and has been taking her prescribed medication for reflux but, it is not helping her acid reflux. Pt. Also states that she has a rash on her stomach that is red but, pt. Has butterfly rash on her face from possible Lupus as Environmental Quality Analyst thinks pt. Has Lupus based from her [...] will check schedule in am and if [facility] STRIP PICKER (PCP) Has any openings ,I will set [...] caller accepted this outcome. Contact pt at [phone] (faroese) documented in this encounter Plan of Treatment Not on file documented as of this encounter Visit Diagnoses Not on filedocumented in this encounter Additional Health Concerns Assessment Noted Time PHQ-9 Depression Total Score: 17 024 7:57 AM EDT documented as of this encounter Care Teams Dobby Loom Weaver Relationship Specialty Start Date End Date Karina Parson FNP [address] [place] [address] PCP - General Family Medicine 05/14/22 Jimmy Knihgt RN [address] [place] [address] Sharepoint ArchitectLacquer Shader 10/03/24 02/21/25 Jimmy Knight RN [address] [place] [address] Registered Nurse Family Medicine 02/22/25 02/22/25 Amelia Rojo 02/22/25 02/22/25 documented as of this encounter
--- OUTSIDE RECORDS SUMMARY | 2025-04-11 08:13 | XMS_ITS | Encounter Summary ---
Author Organization [employer] Address [address] [facility] 7t [place] [address] Care Team Providers Care Pest Control Service Sales Agent Name Role Phone Blank [facility] Primary Care Provider [phone] Jimmy Knight RN Unavailable [phone] Jimmy Knight RN Unavailable [phone] Amelia Rojo Unavailable Reason for Visit * Reason Onset Date Comments Med Refill 04/04/2024 Encounter Details Date Type Department Care Team (Late st Contact Info) Description 04/04/2024 Refill [facility] MEDICINE [address] [place], [place] [phone] Lydia Owusu DO [address] [place], [place] [phone] Seborrheic dermatitis Social History Tobacco Use Types [...] documented as of this encounter Care Teams Pest Control Service Sales Agent Relationship Specialty Start Date End Date Karina Parson FNP [address] [place] [address] PCP - General Family Medicine 05/14/22 Jimmy Knight RN [address] [place] [address] Administrative JudgeDocument Controller 10/03/24 02/21/25 Jimmy Knight RN [address] [place] [address] Registered Nurse Family Medicine 02/22/25 02/22/25 Amelia Rojo 02/22/25 02/22/25 documented as of this encounter
--- OUTSIDE RECORDS SUMMARY | 2025-04-11 08:13 | XMS_ITS | Encounter Summary ---
Author Organization [employer] Address [address] [facility] 7t [place] [address] Care Team Providers Care Family Member Caretaker Name Role Phone [facility] Primary Care Provider [phone] Jimmy Knight RN Unavailable [phone] Jimmy Knight RN Unavailable [phone] Amelia Rojo Unavailable Reason for Visit * Reason Onset Date Comments Med Refill 04/04/2024 Encounter Details Date Type Department Care Team (Late st Contact Info) Description 04/04/2024 Refill [facility] 230 [place], [place] [phone] Stephany Dye FNP [address] [place], [place] [phone] Social History Tobacco Use Types Packs/Day Years [...] as of this encounter Care Teams Family Member Caretaker Relationship Specialty Start Date End Date Karina Parson FNP [address] [place] [address] PCP - General Family Medicine 05/14/22 Jimmy Knight RN [address] [place] [address] Slaughterer Religious RitualLehr Attendant 10/03/24 02/21/25 Jimmy Knight RN [address] [place] [address] Registered Nurse Family Medicine 02/22/25 02/22/25 Amelia Rojo 02/22/25 02/22/25 documented as of this encounter
--- OUTSIDE RECORDS SUMMARY | 2025-04-11 08:13 | XMS_ITS | Encounter Summary ---
Author Organization [facility] Address [address] [facility] [address] [place] [address] Phone Care Team Providers Care Supervisor Cabinetmaker Name Role Phone Chencho Munoz MD Primary Care Provider Unavailable Encounter Details Date Type Department Care Team (Late st Contact Info) Description 09/28/2022 Procedure Pass OR Admitting Dept - Virtual Department [address] [place] [address] Social History Tobacco Use Types Packs/Day Years [...] on filedocumented in this encounter Care Teams Supervisor Cabinetmaker Relationship Specialty Start Date End Date Chencho Munoz MD PCP - General 05/14/22 documented as of this encounter Additional Source Comments The information contained in this document represents components of the legal health record. It is not the complete legal health record.[facility]
--- OUTSIDE RECORDS SUMMARY | 2025-04-11 08:13 | XMS_ITS | Encounter Summary ---
Author Organization [employer] Address [address] [facility] [address] 7t [place] [address] Care Team Providers Care Department Mgr Name Role Phone [facility] Primary Care Provider [phone] Jimmy Knight RN Unavailable [phone] Jimmy Knight RN Unavailable [phone] Amelia Rojo Unavailable Encounter Details Date Type Department Care Team (Late st Contact Info) Description 10/19/2024 Orders Only [facility] 230 [place], [place] [phone] [facility] 230 [place], [place] [phone] Social History Tobacco Use Types Packs/Day Years [...] documented as of this encounter Care Teams Department Mgr Relationship Specialty Start Date End Date Karina Parson FNP [address] [place] [address] PCP - General Family Medicine 05/14/22 Jimmy Knight RN [address] [place] [address] Director Of Development And MarketingHigh School Industrial Arts Teacher 10/03/24 02/21/25 Jimmy Knight RN [address] [place] [address] Registered Nurse Family Medicine 02/22/25 02/22/25 Amelia Rojo 02/22/25 02/22/25 documented as of this encounter
--- OUTSIDE RECORDS SUMMARY | 2025-04-11 08:13 | XMS_ITS | Encounter Summary ---
Author Organization [employer] Address [address] [facility] [address] [facility] [address] 7t [place] [address] Care Team Providers Care Experimental Mechanic Spacecraft Name Role Phone Karina Parson [facility] Primary Care Provider [phone] Jimmy Knight RN Unavailable [phone] Jimmy Knight RN Unavailable [phone] Amelia Rojo Unavailable Reason for Visit * Reason Comments Med Refill Encounter Details Date Type Department Care Team (Late st Contact Info) Description 02/28/2024 Refill [facility] [address] [place], [place] [phone] Stephany Dye FNP [address] [place], [place] [phone] Low back pain, unspecified back pain laterality, [...] documented as of this encounter Care Teams Experimental Mechanic Spacecraft Relationship Specialty Start Date End Date Karina Parson FNP [address] [place] [address] PCP - General Family Medicine 05/14/22 Jimmy Knight RN [address] [place] [address] Industrial Relations RepresentativeWood Web Weaving Machine Operator 10/03/24 02/21/25 Jimmy Knight RN [address] [place] [address] Registered Nurse Family Medicine 02/22/25 02/22/25 Amelia Rojo 02/22/25 02/22/25 documented as of this encounter
--- OUTSIDE RECORDS SUMMARY | 2025-04-11 08:13 | XMS_ITS | Encounter Summary ---
Author Organization [employer] Address [address] [facility] 7t [place] [address] Care Team Providers Care [place] Steward Name Role Phone [facility] Primary Care Provider [phone] Jimmy Knight RN Unavailable [phone] Jimmy Knight RN Unavailable [phone] Amelia Rojo Unavailable Reason for Visit * Reason Onset Date Comments ER Follow-up 07/22/2023 Nurse Triage 07/22/2023 Encounter Details Date Type Department Care Team (Late st Contact Info) Description 07/22/2023 Telephone [facility] MEDICINE 230 [place], [place] [phone] [facility] 230 [place], [place] [phone] ER Follow-up; Nurse Triage Social History Tobacco [...] ED visit on : Date: 06/08/2023 Hospital: [facility] Seen for: Rash On Face, Asthma Attacks. [...] documented as of this encounter Care Teams [place] Steward Relationship Specialty Start Date End Date Karina Parson FNP [address] [place] [address] PCP - General Family Medicine 05/14/22 Jimmy Knight RN [address] [place] [address] Core Machine TenderDermatologist 10/03/24 02/21/25 Jimmy Knight RN [address] [place] [address] Registered Nurse Family Medicine 02/22/25 02/22/25 Amelia Rojo 02/22/25 02/22/25 documented as of this encounter
--- OUTSIDE RECORDS SUMMARY | 2025-04-11 08:13 | XMS_ITS | Encounter Summary ---
Author Organization [employer] Address [address] [facility] 7t [place] [address] Care Team Providers Care Bomb Loader Name Role Phone [facility] Primary Care Provider [phone] Jimmy Knight RN Unavailable [phone] Jimmy Knight RN Unavailable [phone] Amelia Rojo Unavailable Reason for Visit * Reason Comments Med Refill Encounter Details Date Type Department Care Team (Late st Contact Info) Description 02/28/2024 Refill [facility] MEDICINE 230 [place], [place] [phone] Charlette Cornejo MD 230 [place], [place] [phone] Seborrheic dermatitis Social History Tobacco Use Types [...] documented as of this encounter Care Teams Bomb Loader Relationship Specialty Start Date End Date Karina Parson FNP [address] [place] [address] PCP - General Family Medicine 05/14/22 Jimmy Knight RN [address] [place] [address] Facilities EngineerTest Lead 10/03/24 02/21/25 Jimmy Knight RN [address] [place] [address] Registered Nurse Family Medicine 02/22/25 02/22/25 Amelia Rojo 02/22/25 02/22/25 documented as of this encounter
== END 2025-04-11 09:13 | disposition home or self-care (01) ==
LOC: HO.PMC 07:58
PROVIDERS: PCP Registered Nurse; Referring Provider Registered Nurse; Visit Provider Nurse Practitioner Family
DX: M54.16 Radiculopathy, lumbar region (principal); M51.369 Other intervertebral disc degeneration, lumbar region without mention of lumbar back pain or lower extremity pain; E66.01 Morbid (severe) obesity due to excess calories; Z68.42 Body mass index [BMI] 45.0-49.9, adult
CPT/HCPCS: 99204

== ENCOUNTER → 2025-04-11 07:57 | Outpatient (BNVA) | payer MEDICAID, SELFPAY | PROVIDERS: PCP Registered Nurse; Referring Provider Registered Nurse; Visit Provider Nurse Practitioner Family | DX: M54.16 Radiculopathy, lumbar region (principal); M51.369 Other intervertebral disc degeneration, lumbar region without mention of lumbar back pain or lower extremity pain; E66.01 Morbid (severe) obesity due to excess calories; Z68.42 Body mass index [BMI] 45.0-49.9, adult | CPT/HCPCS: 99212 ==